=== PATIENT | male | born 1955 | race Caucasian/White ===

== ENCOUNTER → 2016-08-14 | Outpatient (CLI) | payer BC ==
[2016-08-14 07:34] LABS: Basophils # (A) 0.1 k/uL (0-0.2); Basophils % (A) 1 %; CH 34.4; Eosinophils # (A) 0.2 k/uL (0-0.7); Eosinophils % (A) 3 %; HCT 51.9 % (39.0-53.0); HGB 17.5 gm/dL (13.0-17.5); Luc # (Auto) 0.27; Luc % (Auto) 3; Lymphocytes # (A) 1.3 k/uL (1.0-4.8); Lymphocytes % (A) 15 %; MCH 33.3 pg (25.0-35.0); MCHC 33.7 g/dL (31.0-37.0); MCV 98.6 fL (80.0-100.0); Mean Platelet Volume 6.1; Monocytes # (A) 0.7 k/uL (0-1.0); Monocytes % (A) 8 %; Neutrophils # (A) 5.7 k/uL (1.3-7.7); Neutrophils % (A) 69 %; RBC 5.26 m/uL (4.30-5.90); RDW 13.6 % (11.5-15.5); WBC 8.3 k/uL (3.8-10.6); WBC (Perox) 8.77
[2016-08-14 07:53] LABS: Appearance,Urine Clear (Clear); Bilirubin,Urine Negative (Negative); Glucose,Urine (UA) Negative (Negative); Ketones,Urine 2+ (Negative); Leukocyte Esterase,Urine Negative (Negative); Mucus,Urine Rare /hpf; Nitrite,Urine Negative (Negative); PH, Urine 6.5 (5.0-8.0); Particle Count 4203; Protein,Urine 2+ (Negative); RBC,Urine 1 /hpf (0-5); Specific Gravity,Urine 1.013 (1.001-1.035); UA Billing (MACRO vs. MICRO) MICRO; WBC,Urine 1 /hpf (0-5)
[2016-08-14 11:25] LABS: ALT 53 U/L (21-72); AST 43 U/L (17-59); Alkaline Phosphatase 80 U/L (38-126); Anion Gap 12 mmol/L; Blood Urea Nitrogen 10 mg/dL (9-20); Calcium 9.9 mg/dL (8.4-10.2); Carbon Dioxide 26 mmol/L (22-30); Chloride 96 mmol/L (98-107); Cholesterol 176 mg/dL (<200); Creatine Kinase 75 U/L (55-170); Glucose 120 mg/dL (74-99); Non-African American GFR(MDRD) >60 (>60 ml/min/1.73 sqM); Potassium 5.8 mmol/L (3.5-5.1); Sodium 134 mmol/L (137-145); Total Bilirubin 0.9 mg/dL (0.2-1.3); Total Protein 6.9 g/dL (6.3-8.2); Triglycerides 41 mg/dL (<150); Uric Acid 5.8 mg/dL (3.5-8.5)
[2016-08-14 11:33] LABS: HDL Cholesterol 130 mg/dL (40-60)
[2016-08-14 11:52] LABS: Prostate Specific Antigen 1.13 ng/mL (0.00-4.00)
[2016-08-14 12:30] LABS: Hemoglobin A1C 6.5 % (4.2-6.1)
== END | disposition home or self-care (01) ==
LOC: LABWHC1 06:45
PROVIDERS: ATTEND Internal Medicine
DX: N40.0 Benign prostatic hyperplasia without lower urinary tract symptoms (principal); E55.9 Vitamin D deficiency, unspecified; I10 Essential (primary) hypertension; E11.9 Type 2 diabetes mellitus without complications
CPT/HCPCS: 36415; 80053; 80061; 81001; 82306; 82550; 83036; 84153; 84439; 84443; 84550; 85025

== ENCOUNTER → 2016-08-21 | Outpatient (CLI) | payer BC ==
--- NOTE | 2016-08-21 11:29 | XR ---
EXAMINATION TYPE: XR chest 2V DATE OF EXAM: 08/21/2016 11:07 AM COMPARISON: 09/03/2015 HISTORY: Cough and congestion FINDINGS: The lungs are clear and there is no pneumothorax, pleural effusion, or focal pneumonia. Hyperinflat ion suggests COPD. Atherosclerotic change of the aorta. Arthropathy of the shoulders. Degenerative ch rose of the spine. IMPRESSION: 1. No acute process. Correlate for COPD.
== END | disposition home or self-care (01) ==
LOC: RADXRMAIN 10:45
PROVIDERS: ATTEND Internal Medicine
DX: J44.9 Chronic obstructive pulmonary disease, unspecified (principal)
CPT/HCPCS: 71020

== ENCOUNTER → 2016-09-17 | Outpatient (CLI) | payer BC ==
[2016-09-17 10:40] LABS: Basophils # (A) 0.1 k/uL (0-0.2); Basophils % (A) 1 %; CH 34.4; CHCM 34.5; Eosinophils # (A) 0.1 k/uL (0-0.7); Eosinophils % (A) 1 %; HDW 2.21; HGB 16.1 gm/dL (13.0-17.5); Luc # (Auto) 0.28; Luc % (Auto) 3; Lymphocytes # (A) 1.5 k/uL (1.0-4.8); Lymphocytes % (A) 14 %; MCH 33.5 pg (25.0-35.0); MCHC 33.5 g/dL (31.0-37.0); MCV 100.1 fL (80.0-100.0); Mean Platelet Volume 6.3; Monocytes # (A) 0.6 k/uL (0-1.0); Monocytes % (A) 6 %; Neutrophils # (A) 7.8 k/uL (1.3-7.7); Neutrophils % (A) 76 %; RDW 13.5 % (11.5-15.5); WBC 10.3 k/uL (3.8-10.6); WBC (Perox) 10.46
[2016-09-17 10:51] LABS: ALT 31 U/L (21-72); AST 23 U/L (17-59); Alkaline Phosphatase 110 U/L (38-126); Anion Gap 10 mmol/L; Blood Urea Nitrogen 11 mg/dL (9-20); Calcium 9.7 mg/dL (8.4-10.2); Carbon Dioxide 27 mmol/L (22-30); Chloride 95 mmol/L (98-107); Cholesterol 202 mg/dL (<200); Creatine Kinase 71 U/L (55-170); Glucose 120 mg/dL (74-99); Non-African American GFR(MDRD) >60 (>60 ml/min/1.73 sqM); Potassium 5.7 mmol/L (3.5-5.1); Sodium 132 mmol/L (137-145); Total Bilirubin 1.2 mg/dL (0.2-1.3); Total Protein 7.1 g/dL (6.3-8.2); Triglycerides 50 mg/dL (<150)
[2016-09-17 11:17] LABS: HDL Cholesterol 120 mg/dL (40-60)
[2016-09-17 11:30] LABS: Hemoglobin A1C 6.7 % (4.2-6.1)
== END ==
LOC: LABWHC1 09:54
PROVIDERS: ATTEND Internal Medicine
DX: E78.5 Hyperlipidemia, unspecified (principal); E11.9 Type 2 diabetes mellitus without complications; I10 Essential (primary) hypertension
CPT/HCPCS: 36415; 80053; 80061; 82043; 82550; 83036; 85025

== ENCOUNTER → 2017-04-30 | Outpatient (CLI) | payer BC ==
--- NOTE | 2017-04-30 12:41 | XR ---
EXAMINATION TYPE: XR chest 2V DATE OF EXAM: 04/30/2017 COMPARISON: Prior chest x-ray 08/21/2016 HISTORY: COPD, J 44.1, cough TECHNIQUE: Frontal and lateral views of the chest are obtained. FINDINGS: There is no focal air space opacity, pleural effusion, or pneumothorax seen. The cardiac silhouette size is within normal limits. Prominent lung volumes again noted suggestive of COPD. The osseous structures are intact. There is eventration change of the right hemidiaphragm. IMPRESSION: No acute cardiopulmonary process.
== END | disposition home or self-care (01) ==
LOC: RADXRMAIN 12:06
PROVIDERS: ATTEND Internal Medicine
DX: J44.1 Chronic obstructive pulmonary disease with (acute) exacerbation (principal)
CPT/HCPCS: 71020

== ENCOUNTER 2017-10-01 20:00 | Inpatient (IN) | payer BC ==
[~2017-10-01 20:00] MED LIST: THIAMINE 100 MG TAB PO SCH
[2017-10-01 20:07] LABS: Glucose,Whole Blood 184 mg/dL (75-99)
--- NOTE | 2017-10-01 20:10 | ED ---
Altered Mental Status HPI - General Stated Complaint: Fall-Altered Mental Status Time Seen by Provider: 10/01/17 20:00 Source: patient, EMS, RN notes reviewed Mode of arrival: EMS - History of Present Illness Initial Comments: This is a 62-year-old male with a history of COPD who is brought in by EMS personnel after police were called because of some confusion and altered mental status. Patient was noted to be going in and out of the local convenience store he locked his keys in the car. Please recall the found him to be somewhat confused patient does admit to drinking somewhere between 4-8 beers tonight. He also states he slipped on ice and fell and hit his head on concrete. He has any head or neck or back pain at this time. He is diabetic by history he states his blood sugar 176. He denies any blindness loss of function to his upper or lower extremities. MD Complaint: altered mental status, confusion - Related Data Home Medications Medication Instructions Recorded Confirmed Allergy Tab(Unknown) 1 tab PO DAILY 10/01/17 10/01/17 amLODIPine [Norvasc] 10 mg PO DAILY 10/01/17 10/01/17 Allergies Allergy/AdvReac Type Severity Reaction Status Date / Time No Known Allergies Allergy Verified 10/01/17 21:17 Review of Systems ROS Statement: Those systems with pertinent positive or pertinent negative responses have been documented in the HPI. ROS Other: All systems not noted in ROS Statement are negative. General Exam - General Exam Comments Initial Comments: This is a well-developed well-nourished awake alert confused patient and he believes it is 2000 and that Harley Kilpatrickd may be the president Limitations: altered mental status General appearance: alert, in no apparent distress Head exam: Present: other (There is dry blood noted to the external right ear at the superior portion of the lobule no suture indicated no foreign body no active bleeding) Eye exam: Present: normal appearance, PERRL, EOMI. Absent: scleral icterus, conjunctival injection, periorbital swelling ENT exam: Present: normal exam, mucous membranes moist, TM's normal bilaterally. Absent: normal external ear exam Neck exam: Present: normal inspection. Absent: tenderness, meningismus, lymphadenopathy Respiratory exam: Present: normal lung sounds bilaterally. Absent: respiratory distress, wheezes, rales, rhonchi, stridor Cardiovascular Exam: Present: regular rate, normal rhythm, normal heart sounds. Absent: systolic murmur, diastolic murmur, rubs, gallop, clicks GI/Abdominal exam: Present: soft, normal bowel sounds. Absent: distended, tenderness, guarding, rebound, rigid Extremities exam: Present: full ROM, normal capillary refill, other (Ecchymosis to the left shoulder/humerus no step-off or crepitation). Absent: tenderness, pedal edema, joint swelling, calf tenderness Back exam: Present: normal inspection Neurological exam: Present: altered, CN II-XII intact. Absent: motor sensory deficit Psychiatric exam: Present: flat affect Skin exam: Present: warm, dry, normal color. Absent: intact Course Vital Signs 10/01/17 10/01/17 20:01 21:31 Temperature 97.4 F L Pulse Rate 106 H 100 Respiratory 16 16 Rate Blood Pressure 178/84 143/86 O2 Sat by Pulse 96 95 Oximetry - Reevaluation(s) Reevaluation #1: 10/01/17 23:13 Repeat evaluation on several occasions revealed the patient remained confused and seems to be hallucinating seeing people and animals or not there. Medical Decision Making - Medical Decision Making (O family is available. Patient remains confused he does demonstrate hyponatremia hypokalemia hypomagnesemia and rhabdomyolysis alcohol level is negative some of the presentation may be consistent with withdrawal symptoms. Patient will be admitted I discuss case with Dr. Galdamez . Nephrology as well as ICU will be consulted I did discuss case also with Dr. Belle. - Lab Data Result diagrams: 10/01/17 20:12 10/01/17 20:12 Lab Results 10/01/17 10/01/17 10/01/17 Range/Units 20:05 20:12 20:12 WBC (3.8-10.6) k/uL RBC (4.30-5.90) m/uL Hgb (13.0-17.5) gm/dL Hct (39.0-53.0) % MCV (80.0-100.0) fL MCH (25.0-35.0) pg MCHC (31.0-37.0) g/dL RDW (11.5-15.5) % Plt Count (150-450) k/uL Neutrophils % (Manual) % Band Neutrophils % % Lymphocytes % (Manual) % Monocytes % (Manual) % Neutrophils # (Manual) (1.3-7.7) k/uL Lymphocytes # (Manual) (1.0-4.8) k/uL Monocytes # (Manual) (0-1.0) k/uL Nucleated RBCs (0-0) /100 WBC Manual Slide Review Reactive Lymphocytes Sodium 112 L* (137-145) mmol/L Potassium 3.1 L (3.5-5.1) mmol/L Chloride 83 L (98-107) mmol/L Carbon Dioxide 19 L (22-30) mmol/L Anion Gap 10 mmol/L BUN 16 (9-20) mg/dL Creatinine 0.60 L (0.66-1.25) mg/dL Est GFR (CKD-EPI)AfAm >90 (>60 ml/min/1.73 sqM) Est GFR (CKD-EPI)NonAf >90 (>60 ml/min/1.73 sqM) Glucose 127 H (74-99) mg/dL POC Glucose (mg/dL) 184 H (75-99) mg/dL POC Glu Tie Binder ID Familia, Val Calcium 5.8 L* (8.4-10.2) mg/dL Magnesium 1.0 L* (1.6-2.3) mg/dL Total Bilirubin 1.7 H (0.2-1.3) mg/dL AST 110 H (17-59) U/L ALT 123 H (21-72) U/L Alkaline Phosphatase 128 H (38-126) U/L Ammonia <9 (<30) umol/L Total Creatine Kinase (55-170) U/L CK-MB (CK-2) (0.0-2.4) ng/mL CK-MB (CK-2) Rel Index Troponin I (0.000-0.034) ng/mL Total Protein 4.3 L (6.3-8.2) g/dL Albumin 2.3 L (3.5-5.0) g/dL Amylase 38 (30-110) U/L Lipase 363 H (23-300) U/L Urine Color Urine Appearance (Clear) Urine pH (5.0-8.0) Ur Specific [place] (1.001-1.035) Urine Protein (Negative) Urine Glucose (UA) (Negative) Urine Ketones (Negative) Urine Blood (Negative) Urine Nitrite (Negative) Urine Bilirubin (Negative) Urine Urobilinogen (<2.0) mg/dL Ur Leukocyte Esterase (Negative) Urine RBC (0-5) /hpf Urine WBC (0-5) /hpf Hyaline Casts (0-2) /lpf Urine Mucus (None) /hpf Urine Sperm (None) /hpf Urine Opiates Screen (NotDetected) Ur Oxycodone Screen (NotDetected) Urine Methadone Screen (NotDetected) Ur Propoxyphene Screen (NotDetected) Ur Barbiturates Screen (NotDetected) U Tricyclic Antidepress (NotDetected) Ur Phencyclidine Scrn (NotDetected) Ur Amphetamines Screen (NotDetected) U Methamphetamines Scrn (NotDetected) U Benzodiazepines Scrn (NotDetected) Urine Cocaine Screen (NotDetected) U Marijuana (THC) Screen (NotDetected) Serum Alcohol <10 mg/dL 10/01/17 10/01/17 10/01/17 Range/Units 20:12 20:12 21:43 WBC 10.8 H (3.8-10.6) k/uL RBC 5.17 (4.30-5.90) m/uL Hgb 17.4 (13.0-17.5) gm/dL Hct 47.3 (39.0-53.0) % MCV 91.5 (80.0-100.0) fL MCH 33.6 (25.0-35.0) pg MCHC 36.7 (31.0-37.0) g/dL RDW 12.1 (11.5-15.5) % Plt Count 86 L (150-450) k/uL Neutrophils % (Manual) 61 % Band Neutrophils % 26 % Lymphocytes % (Manual) 10 % Monocytes % (Manual) 4 % Neutrophils # (Manual) 9.30 H (1.3-7.7) k/uL Lymphocytes # (Manual) 1.08 (1.0-4.8) k/uL Monocytes # (Manual) 0.43 (0-1.0) k/uL Nucleated RBCs 0 (0-0) /100 WBC Manual Slide Review Performed Reactive Lymphocytes Present Sodium (137-145) mmol/L Potassium (3.5-5.1) mmol/L Chloride (98-107) mmol/L Carbon Dioxide (22-30) mmol/L Anion Gap mmol/L BUN (9-20) mg/dL Creatinine (0.66-1.25) mg/dL Est GFR (CKD-EPI)AfAm (>60 ml/min/1.73 sqM) Est GFR (CKD-EPI)NonAf (>60 ml/min/1.73 sqM) Glucose (74-99) mg/dL POC Glucose (mg/dL) (75-99) mg/dL POC Glu Tie Binder ID Calcium (8.4-10.2) mg/dL Magnesium (1.6-2.3) mg/dL Total Bilirubin (0.2-1.3) mg/dL AST (17-59) U/L ALT (21-72) U/L Alkaline Phosphatase (38-126) U/L Ammonia (<30) umol/L Total Creatine Kinase 1110 H (55-170) U/L CK-MB (CK-2) 15.8 H* (0.0-2.4) ng/mL CK-MB (CK-2) Rel Index 1.4 Troponin I 0.016 (0.000-0.034) ng/mL Total Protein (6.3-8.2) g/dL Albumin (3.5-5.0) g/dL Amylase (30-110) U/L Lipase (23-300) U/L Urine Color Yellow Urine Appearance Clear (Clear) Urine pH 6.0 (5.0-8.0) Ur Specific [place] 1.014 (1.001-1.035) Urine Protein 3+ H (Negative) Urine Glucose (UA) Negative (Negative) Urine Ketones 2+ H (Negative) Urine Blood Moderate H (Negative) Urine Nitrite Negative (Negative) Urine Bilirubin 1+ H (Negative) Urine Urobilinogen 3.0 (<2.0) mg/dL Ur Leukocyte Esterase Negative (Negative) Urine RBC 3 (0-5) /hpf Urine WBC 2 (0-5) /hpf Hyaline Casts 16 H (0-2) /lpf Urine Mucus Rare H (None) /hpf Urine Sperm Rare (None) /hpf Urine Opiates Screen Not Detected (NotDetected) Ur Oxycodone Screen Not Detected (NotDetected) Urine Methadone Screen Not Detected (NotDetected) Ur Propoxyphene Screen Not Detected (NotDetected) Ur Barbiturates Screen Not Detected (NotDetected) U Tricyclic Antidepress Not Detected (NotDetected) Ur Phencyclidine Scrn Not Detected (NotDetected) Ur Amphetamines Screen Not Detected (NotDetected) U Methamphetamines Scrn Not Detected (NotDetected) U Benzodiazepines Scrn Not Detected (NotDetected) Urine Cocaine Screen Not Detected (NotDetected) U Marijuana (THC) Screen Not Detected (NotDetected) Serum Alcohol mg/dL - EKG Data -: EKG Interpreted by Me EKG shows normal: sinus rhythm (Sinus tachycardia rate 11. Interval 188 QRS duration 100 daily since QTC 372/498 evidence of PACs) - Radiology Data Radiology results: report reviewed (I did review the imaging and reports no acute findings are seen.), image reviewed Critical Care Time Critical Care Time: Yes Critical Care Time: 44 minutes of critical care time which includes monitoring initially EMS run and discussed with paramedics history physical labs x-rays multiple reevaluation the patient discussed with the admitting physician discussion with the senior trial attorney admission orders and documentation of the above Disposition Clinical Impression: Delirium due to general medical condition, Hyponatremia syndrome, Hypomagnesemia, Hypokalemia, Rhabdomyolysis Disposition: ADMITTED IP TO THIS [facility] Condition: Serious Referrals: Valdemar Lafleur MD [Primary Care Provider] - 1-2 days
[2017-10-01 20:22] LABS: HCT 47.3 % (39.0-53.0); HGB 17.4 gm/dL (13.0-17.5); MCH 33.6 pg (25.0-35.0); MCHC 36.7 g/dL (31.0-37.0); MCV 91.5 fL (80.0-100.0); Mean Platelet Volume 9.4; Platelet Count 86 k/uL (150-450); RBC 5.17 m/uL (4.30-5.90); RDW 12.1 % (11.5-15.5); WBC 10.8 k/uL (3.8-10.6)
[2017-10-01 20:33] LABS: ALT 123 U/L (21-72); AST 110 U/L (17-59); Albumin 2.3 g/dL (3.5-5.0); Alcohol <10 mg/dL; Alkaline Phosphatase 128 U/L (38-126); Amylase 38 U/L (30-110); Anion Gap 10 mmol/L; Blood Urea Nitrogen 16 mg/dL (9-20); Carbon Dioxide 19 mmol/L (22-30); Chloride 83 mmol/L (98-107); Glucose 127 mg/dL (74-99); Lipase 363 U/L (23-300); Potassium 3.1 mmol/L (3.5-5.1); Total Bilirubin 1.7 mg/dL (0.2-1.3); Total Protein 4.3 g/dL (6.3-8.2)
[2017-10-01 20:36] LABS: Calcium 5.8 mg/dL (8.4-10.2); Sodium 112 mmol/L (137-145)
[2017-10-01 20:47] LABS: Band Neutrophils % 26 %; Lymphocytes # (M) 1.08 k/uL (1.0-4.8); Monocytes # (M) 0.43 k/uL (0-1.0); Neutrophils % (M) 61 %; Nucleated Red Blood Cells 0 /100 WBC (0-0); Total Cells Counted 200
[2017-10-01 20:48] LABS: Reactive Lymphocytes Present
[2017-10-01] MEDS ORDERED: SODIUM CHLORIDE 0.9% 1,000 ML with MVI, ADULT NO.4 WITH VIT K 10 ML, THIAMINE 100 MG, F... IV ONE ×4 (20:48)
[2017-10-01] MEDS ORDERED: POTASSIUM CHLORIDE 20 MEQ in SODIUM CHLORIDE 0.9% 100 ML IVPB STA (20:49)
--- NOTE | 2017-10-01 20:55 | CT ---
EXAMINATION TYPE: CT brain jayne mathew DATE OF EXAM: 10/01/2017 COMPARISON: NONE HISTORY: Fall, altered mental status. CT DLP: 1309.1 mGycm. Automated Exposure Control for Dose Reduction was Utilized. TECHNIQUE: CT scan of the head and cervical spine are performed without contrast. Motion artifact suarez its the examination. FINDINGS: There is no acute intracranial hemorrhage, mass effect, or midline shift identified. Prom inent perivascular space versus old lacunar injury is seen on the right at the level of the inferior posterior limb of the right internal capsule. The ventricles and sulci are within symmetrically promi nent compatible with age-related volume loss. Few patchy areas of hypoattenuation are seen within the subcortical and periventricular white matter, most commonly on the basis of chronic microangiopathy. The globes are intact and the visualized sinuses are clear other than thin septations within the ma xillary sinuses. Cervical spine is visualized in its entirety from C1 through upper thoracic levels. There is minimal anterolisthesis of C3 on C4. Multilevel uncovertebral hypertrophy and facet arthropathy are moderate in degree resulting in neural foraminal stenosis on the left at C3-C4, C4-C5, and C5-C6 at least mode rate. Punctate sclerotic focus is nonspecific within the left C7 vertebral body. On the right neural foraminal stenosis is slightly greater at C3-C6 (moderate to severe). Small posterior disc osteophyte complexes are noted at C4-C5 and C5-C6 as well as to a lesser degree at C6-C7 resulting in mild spin al canal stenosis at C4-C5 and C5-C6. Spinal canal is limited on CT. Prevertebral soft tissue appears within normal limits. The C1-C2 articulation is unremarkable. Mild paraseptal emphysematous change s and right apical pleural-parenchymal scarring are noted. IMPRESSION: 1. There is no acute fracture or dislocation evident in the cervical spine. 2. No acute intracranial hemorrhage, mass effect, or midline shift is seen. 3. Moderate multilevel degenerative disc disease resulting in multilevel moderate to severe right laura ral foraminal narrowing, moderate left neural foraminal narrowing, and mild spinal canal stenosis at C4-C6.
--- NOTE | 2017-10-01 20:58 | XR ---
EXAMINATION TYPE: XR chest 1V portable DATE OF EXAM: 10/01/2017 COMPARISON: 04/30/2017 HISTORY: Chest pain TECHNIQUE: Single frontal view of the chest is obtained. FINDINGS: There is no focal air space opacity, pleural effusion, or pneumothorax seen. The cardiac silhouette size is within normal limits. The osseous structures are intact. Incidentally noted punc rey calcification is seen near the greater tuberosity likely related to calcific tendinitis of the r ight rotator cuff. IMPRESSION: No acute cardiopulmonary process.
--- NOTE | 2017-10-01 21:00 | XR ---
EXAMINATION TYPE: XR humerus LT DATE OF EXAM: 10/01/2017 CLINICAL HISTORY: Pain after a fall. TECHNIQUE: Two views of the left humerus are obtained. COMPARISON: None. FINDINGS: There is no acute fracture or dislocation seen in the left humerus. The left shoulder and elbow joints appear no dislocation. Tears focal soft tissue swelling over the lateral proximal left humerus. Mild acromio clavicular arthropathy and glenohumeral arthropathy are noted. IMPRESSION: Focal soft tissue swelling of the proximal and lateral left humerus. No fracture or dislo cation is evident in the left humerus.
--- NOTE | 2017-10-01 21:01 | XR ---
EXAMINATION TYPE: XR shoulder complete LT DATE OF EXAM: 10/01/2017 CLINICAL HISTORY: Left shoulder pain after fall TECHNIQUE: Three views of the left shoulder are obtained. COMPARISON: None. FINDINGS: There is no acute fracture/dislocation evident in the left shoulder. There is mild joint s pace narrowing and osseous irregularity with cephalad positioning of the left humerus.. The visualiz ed ribs are intact and unremarkable. IMPRESSION: 1. There is no acute fracture or dislocation in the left shoulder. 2. Cephalad positioning of the left humerus may relate to rotator cuff tear. 3. Mild left acromioclavicular and glenohumeral arthropathy.
[2017-10-01 21:13] LABS: Troponin I 0.016 ng/mL (0.000-0.034)
[2017-10-01 21:15] LABS: Creatine Kinase MB 15.8 ng/mL (0.0-2.4)
[2017-10-01] MEDS: MAGNESIUM SULFATE-D5W PMX 1 GM in DEXTROSE/WATER 1 100ML.BAG IVPB SCH ×2 (21:29→23:50)
[2017-10-01 22:05] LABS: Appearance,Urine Clear (Clear); Bilirubin,Urine 1+ (Negative); Blood,Urine Moderate (Negative); Color,Urine Yellow; Glucose,Urine (UA) Negative (Negative); Hyaline Casts,Urine 16 /lpf (0-2); Ketones,Urine 2+ (Negative); Leukocyte Esterase,Urine Negative (Negative); Mucus,Urine Rare /hpf; Nitrite,Urine Negative (Negative); Protein,Urine 3+ (Negative); RBC,Urine 3 /hpf (0-5); Specific Gravity,Urine 1.014 (1.001-1.035); Sperm,Urine Rare /hpf; WBC,Urine 2 /hpf (0-5)
[2017-10-01] MEDS ORDERED: LORazepam 2 MG/ML INJ IV STA (22:11)
[2017-10-01] MEDS ORDERED: SODIUM CHLORIDE 0.9% 1,000 ML IV STA (22:12)
[2017-10-01 22:13] LABS: Amphetamine Screen,Urine Not Detected (NotDetected); Barbiturate Screen,Urine Not Detected (NotDetected); Benzodiazepines Screen,Urine Not Detected (NotDetected); Cocaine Screen,Urine Not Detected (NotDetected); Methadone Screen, Urine Not Detected (NotDetected); Opiate Screen,Urine Not Detected (NotDetected); Oxycodone Screen, Urine Not Detected (NotDetected); Phencyclidine Screen,Urine Not Detected (NotDetected); Tricyclic Antidepressant,Urine Not Detected (NotDetected); Urn Cannabinoid Scrn Not Detected (NotDetected)
[2017-10-01] MEDS ORDERED: NALOXONE 0.4 MG/ML 1 ML VIAL IV PRN (23:17)
[2017-10-01] MEDS ORDERED: THIAMINE 100 MG/ML 2 ML VIAL IM STA (23:22)
[2017-10-01] MEDS ORDERED: LORazepam 2 MG/ML INJ IV PRN ×3 (23:22)
[2017-10-02 02:02] LABS: Hemoglobin A1C 6.1 % (4.0-6.0)
[2017-10-02] MEDS: SODIUM CHLORIDE 0.9% 1,000 ML IV SCH ×2 (02:38→06:39)
[2017-10-02 04:38] LABS: Glucose,Whole Blood 80 mg/dL (75-99)
[2017-10-02 07:27] LABS: ALT 225 U/L (21-72); AST 334 U/L (17-59); Albumin 3.1 g/dL (3.5-5.0); Alkaline Phosphatase 178 U/L (38-126); Anion Gap 10 mmol/L; Blood Urea Nitrogen 16 mg/dL (9-20); Calcium 7.6 mg/dL (8.4-10.2); Carbon Dioxide 24 mmol/L (22-30); Chloride 82 mmol/L (98-107); Glucose 86 mg/dL (74-99); Potassium 3.2 mmol/L (3.5-5.1); Total Protein 5.4 g/dL (6.3-8.2)
[2017-10-02 07:33] LABS: Sodium 116 mmol/L (137-145)
[2017-10-02 09:56] LABS: Creatine Kinase 1398 U/L (55-170)
[2017-10-02] MEDS ORDERED: Potassium Replacement Protocol 1 EACH MISC MISCELLANE PRN ×2 (10:49→18:45)
[2017-10-02] MEDS: INSULIN ASPART 100 UNIT/ML 1 ML 10 ML VIAL SQ SCH ×3 (11:37→20:54)
[2017-10-02 11:51] LABS: Glucose,Whole Blood 93 mg/dL (75-99)
--- NOTE | 2017-10-02 11:55 | US ---
EXAMINATION TYPE: US abdomen limited DATE OF EXAM: 10/02/2017 COMPARISON: NONE CLINICAL HISTORY: liver failure. . Poor historian. Abnormal labs. EXAM MEASUREMENTS: Liver Length: 16.7 cm Gallbladder Wall: 0.1 cm CBD: 0.5 cm CHD: 0.4 Right Kidney: 12.0 x 5.8 x 5.7 cm Limited exam due to patient heavy breathing Pancreas: Appears echogenic. Tail obscured by overlying bowel gas Liver: Increased attenuation, decreased visualization of vessels suggestive of fatty infiltrate Gallbladder: Nonmobile echogenic focus adjacent to wall with slight shadow = 0.5 cm Evidence for sonographic Andersen's sign: neg CBD: wnl CHD: wnl Right Kidney: wnl and cortical medullary differentiation is normal There is no ascites. IMPRESSION: Correlate for hepatic steatosis. Limited exam. There may be gallbladder polyp or adherent stone in the dependent portion of the gallbladder.
[2017-10-02] MEDS: NICOTINE 14MG/24HR PATCH TRANSDERM SCH (12:57)
[2017-10-02] MEDS: POTASSIUM CHLORIDE ER 20 MEQ TAB.ER PO SCH ×5 (12:57→22:01)
[2017-10-02] MEDS: amLODIPine 10 MG TAB PO SCH (12:57)
[2017-10-02] MEDS ORDERED: FUROSEMIDE 10 MG/ML 2 ML VIAL IV STA (13:01)
[2017-10-02] MEDS: PANTOPRAZOLE 40 MG/10 ML VIAL IV SCH ×2 (13:55→22:01)
[2017-10-02] MEDS: THIAMINE 100 MG TAB PO SCH ×2 (13:55→17:32)
--- NOTE | 2017-10-02 14:58 | P.HPIM ---
History of Present Illness H&P Date: 10/02/17 Chief Complaint: metabolic encephalopathy This is a 62-year-old male patient of Dr. Lafleur with past medical history of COPD, diabetes mellitus type 2, alcohol abuse, tobacco use and dependence presented to the ED with confusion, multiple falls and erratic behavior. Patient was found by the police to be going in and out of the local convenience store as a locked his keys in his car. Patient was found to be confused and also admitted that he had 4-8 beers. On evaluation today in the ER patient was found in soft restraints as he was agitated and trying to come out of bed. Ativan was given and patient was put on soft restraints. Patient states he has been restrained for 4 days. Patient is oriented 3 but is unable to provide any history leading to his falls and bruising. He states his pain in the hospital for many days. Labs done in the ER suggested critical sodium of 116, potassium 3.2, chloride 82, osmolarity 241, calcium 7.6, total bilirubin of 2, increased LFTs with AST 334 ALT 225 alkaline phosphatase 178. CK level was 1398 with low albumin. Urine osmolarity is 229 random urine sodium 26. Patient received 1 L of IV fluid with banana bag running at 100 mL per hour. Potassium was repleted. Alcohol level was normal. Patient started on alcohol withdrawal regimen. X-ray of the humerus, shoulder, head and cervical spine and chest x-ray was negative for any fractures. Lipase was 363. Patient is admitted for altered mental status likely secondary to alcohol withdrawal with possibility of hyponatremia contributing to the symptoms. Review of Systems ROS unobtainable: due to mental status Past Medical History Past Medical History: COPD, Diabetes Mellitus History of Any Multi-Drug Resistant Organisms: None Reported Past Surgical History: Orthopedic Surgery Additional Past Surgical History / Comment(s): Knee replacement. Past Psychological History: No Psychological Hx Reported Smoking Status: Current every day smoker Past Alcohol Use History: Occasional Past Drug Use History: None Reported Medications and Allergies Home Medications Medication Instructions Recorded Confirmed Type Allergy Tab(Unknown) 1 tab PO DAILY 10/01/17 10/01/17 History amLODIPine [Norvasc] 10 mg PO DAILY 10/01/17 10/01/17 History Losartan Potassium 100 mg PO BID 10/02/17 10/02/17 History metFORMIN HCL [Glucophage] 500 mg PO BID 10/02/17 10/02/17 History Allergies Allergy/AdvReac Type Severity Reaction Status Date / Time No Known Allergies Allergy Verified 10/02/17 09:26 Physical Exam Vitals: Vital Signs Temp Pulse Resp BP Pulse Ox 10/02/17 08:30 114 H 18 156/81 96 10/02/17 06:27 93 16 134/83 97 10/02/17 05:21 94 16 130/65 95 10/02/17 04:23 95 16 107/60 95 10/02/17 03:22 90 18 111/65 95 10/02/17 02:38 108 H 18 169/81 96 10/02/17 01:53 104 H 18 164/94 94 L 10/02/17 00:19 98.6 F 109 H 18 160/87 95 10/01/17 23:30 97.8 F 106 H 20 134/80 95 10/01/17 22:30 105 H 20 138/70 95 10/01/17 21:31 100 16 143/86 95 10/01/17 20:01 97.4 F L 106 H 16 178/84 96 Intake and Output 10/01/17 10/02/17 10/02/17 22:59 06:59 14:59 Other: Weight 68.039 kg - Constitutional General appearance: In soft restraints, constantly trying to remove the restraints. Appears confused - EENT Eyes: anicteric sclerae, PERRLA with slightly narrowed, normal appearance, bruises present in the right forehead ENT: hearing grossly normal - Neck Neck: no lymphadenopathy, normal ROM, no other, no rigidity, no stridor, no thyromegaly - Respiratory Respiratory: bilateral: wheezing noted bilaterally. No rales or crackles heard - Cardiovascular Rhythm: regular Heart sounds: normal: S1, S2 Abnormal Heart Sounds: no systolic murmur, no diastolic murmur, no rub, no S3 Gallop, no S4 Gallop, no click, chest tenderness to palpate in the substernal area and the right lower chest - Gastrointestinal General gastrointestinal: normal bowel sounds, soft, nontender - Integumentary Integumentary: Multiple bruises seen on bilateral knees, the right ricardo, left forearm in different stages of healing. - Neurologic Neurologic: CNII-XII intact - Musculoskeletal Musculoskeletal: gait not assessed due to mental status strength equal bilaterally - Psychiatric Psychiatric: A&O x's 3, no appropriate affect, no intact judgment Results CBC & Chem 7: 10/01/17 20:12 10/02/17 11:11 Labs: Abnormal Lab Results - Last 24 Hours (Table) 10/01/17 10/01/17 10/01/17 Range/Units 20:05 20:12 20:12 WBC (3.8-10.6) k/uL Plt Count (150-450) k/uL Neutrophils # (Manual) (1.3-7.7) k/uL Sodium 112 L* (137-145) mmol/L Potassium 3.1 L (3.5-5.1) mmol/L Chloride 83 L (98-107) mmol/L Carbon Dioxide 19 L (22-30) mmol/L Creatinine 0.60 L (0.66-1.25) mg/dL Glucose 127 H (74-99) mg/dL POC Glucose (mg/dL) 184 H (75-99) mg/dL Hemoglobin A1c 6.1 H (4.0-6.0) % Calcium 5.8 L* (8.4-10.2) mg/dL Magnesium 1.0 L* (1.6-2.3) mg/dL Total Bilirubin 1.7 H (0.2-1.3) mg/dL AST 110 H (17-59) U/L ALT 123 H (21-72) U/L Alkaline Phosphatase 128 H (38-126) U/L Total Creatine Kinase (55-170) U/L CK-MB (CK-2) (0.0-2.4) ng/mL Total Protein 4.3 L (6.3-8.2) g/dL Albumin 2.3 L (3.5-5.0) g/dL Lipase 363 H (23-300) U/L Urine Protein (Negative) Urine Ketones (Negative) Urine Blood (Negative) Urine Bilirubin (Negative) Hyaline Casts (0-2) /lpf Urine Mucus (None) /hpf 10/01/17 10/01/17 10/01/17 Range/Units 20:12 20:12 21:43 WBC 10.8 H (3.8-10.6) k/uL Plt Count 86 L (150-450) k/uL Neutrophils # (Manual) 9.30 H (1.3-7.7) k/uL Sodium (137-145) mmol/L Potassium (3.5-5.1) mmol/L Chloride (98-107) mmol/L Carbon Dioxide (22-30) mmol/L Creatinine (0.66-1.25) mg/dL Glucose (74-99) mg/dL POC Glucose (mg/dL) (75-99) mg/dL Hemoglobin A1c (4.0-6.0) % Calcium (8.4-10.2) mg/dL Magnesium (1.6-2.3) mg/dL Total Bilirubin (0.2-1.3) mg/dL AST (17-59) U/L ALT (21-72) U/L Alkaline Phosphatase (38-126) U/L Total Creatine Kinase 1110 H (55-170) U/L CK-MB (CK-2) 15.8 H* (0.0-2.4) ng/mL Total Protein (6.3-8.2) g/dL Albumin (3.5-5.0) g/dL Lipase (23-300) U/L Urine Protein 3+ H (Negative) Urine Ketones 2+ H (Negative) Urine Blood Moderate H (Negative) Urine Bilirubin 1+ H (Negative) Hyaline Casts 16 H (0-2) /lpf Urine Mucus Rare H (None) /hpf 10/02/17 Range/Units 06:43 WBC (3.8-10.6) k/uL Plt Count (150-450) k/uL Neutrophils # (Manual) (1.3-7.7) k/uL Sodium 116 L* (137-145) mmol/L Potassium 3.2 L (3.5-5.1) mmol/L Chloride 82 L (98-107) mmol/L Carbon Dioxide (22-30) mmol/L Creatinine (0.66-1.25) mg/dL Glucose (74-99) mg/dL POC Glucose (mg/dL) (75-99) mg/dL Hemoglobin A1c (4.0-6.0) % Calcium 7.6 L (8.4-10.2) mg/dL Magnesium (1.6-2.3) mg/dL Total Bilirubin 2.0 H (0.2-1.3) mg/dL AST 334 H (17-59) U/L ALT 225 H (21-72) U/L Alkaline Phosphatase 178 H (38-126) U/L Total Creatine Kinase (55-170) U/L CK-MB (CK-2) (0.0-2.4) ng/mL Total Protein 5.4 L (6.3-8.2) g/dL Albumin 3.1 L (3.5-5.0) g/dL Lipase (23-300) U/L Urine Protein (Negative) Urine Ketones (Negative) Urine Blood (Negative) Urine Bilirubin (Negative) Hyaline Casts (0-2) /lpf Urine Mucus (None) /hpf Thrombosis Risk Factor Assmnt - DVT/VTE Prophylaxis DVT/VTE Prophylaxis: Mechanical Prophylaxis ordered Assessment and Plan Plan: #1 metabolic encephalopathy likely secondary to alcohol withdrawal, other differential include hyponatremia, electrolyte mediated change in mental status. EEG ordered. Neurology consult placed. Seizure and fall precaution needs to be taken. Continue CIWA protocol. #2 hypoosmolar hyponatremia sodium and on admission 112 has improved to 116. Continue sodium check every 4 hours. Continue fluids at 100 mL/h as patient's presentation is likely secondary to hypovolemia or increased alcohol intake. Urine sodium, urine osmolarity serum osmolarity ordered. Urinalysis suggestive of dehydration. Nephrology consult placed. #3 acute transaminitis. No acute abdomen on examination. PT/INR ordered. Patient does have low albumin, multiple bruises low platelet on CBC concerning for liver failure. Follow-up LFT tomorrow. Abdominal ultrasound to rule out obstruction. GI consult. #4 acute pancreatitis continue IV fluids and 100 mL/h, watch for over correction of hyponatremia #5 rhabdomyolysis likely secondary to multiple falls and dehydration #6 hypokalemia and hypomagnesemia status post repletion #7 hypertension continue losartan and amlodipine #8 diabetes type 2 continue insulin sliding scale hold metformin #9 DVT prophylaxis with SCDs as patient has low platelets #10 GI prophylaxis with Protonix 40 mg twice a day CODE STATUS full code Disposition patient may need 1-2 inpatient nights.
[2017-10-02 16:33] LABS: Glucose,Whole Blood 82 mg/dL (75-99)
[2017-10-02] MEDS: IPRATROPIUM-ALBUTEROL 3 ML NEB INHALATION SCH ×2 (16:36→19:59)
[2017-10-02] MEDS: predniSONE 20 MG TAB PO SCH (17:32)
[2017-10-02 18:27] LABS: Partial Thromboplastin Time 23.9 sec (22.0-30.0)
[2017-10-02 18:44] LABS: Potassium 2.9 mmol/L (3.5-5.1)
[2017-10-02] MEDS ORDERED: POTASSIUM CHLORIDE 20 MEQ in SODIUM CHLORIDE 0.9% 100 ML IVPB STA (19:15)
[2017-10-02] MEDS ORDERED: IPRATROPIUM-ALBUTEROL 3 ML NEB INHALATION PRN (20:06)
--- NOTE | 2017-10-02 20:30 | CONS ---
CONSULTATION DATE OF CONSULTATION: 10/02/2017 REASON FOR CONSULT: Hyponatremia. HISTORY OF PRESENT ILLNESS: Patient is a 62-year-old white male who was brought into the ER last night with confusion and altered mentation. Police were called, as he was found going in out of a local convenience store. Patient does have a history of alcohol abuse. He stated that he had also slipped and fallen at home previously. There is no prior history of hyponatremia. Serum sodium on admission was 112 mEq/L yesterday. Patient is maintained on normal saline. His serum sodium almost 24 hours later was 122 mEq/L. Patient did admit to increased water intake. Urine osmolality was 229. Random urine sodium was 26. PAST MEDICAL HISTORY: 1. Hypertension. 2. History of ethanol abuse. 3. COPD. 4. Type 2 diabetes. MEDICATIONS: Medications at home prior to admission included Norvasc. ALLERGIES: NONE. REVIEW OF SYSTEMS: As per HPI. SOCIAL HISTORY: Positive for ethanol use and smoking. PAST SURGICAL HISTORY: Knee arthroplasty. PHYSICAL EXAMINATION: Patient is comfortable, awake. He is not in any acute distress. Blood pressure is 141/87 this morning, heart rate about 100 per minute. He is afebrile. EXAMINATION OF THE HEART: S1, S2. EXAMINATION OF LUNGS: Bilateral breath sounds are heard. ABDOMEN: Soft, non-tender. Examination of lower extremities shows no evidence of edema. RN RECOVERY exam is grossly intact. Patient is moving all 4 extremities. No focal deficits are noted. LABS: Sodium of 118 this morning. Urine sodium is 26. Urine osmolality is 29. Potassium was 3.2 earlier. Creatinine is 0.7. Calcium is 7.6. Albumin 3.1. UA shows 3+ protein, 2+ ketones, WBCs 2. ASSESSMENT: 1. Hypovolemic hyponatremia, currently improving with normal saline. There also may be a component of beer potomania and decreased osmoles in the urine needed for excretion of free water. I will continue with the normal saline, but I will decrease the dose to about 100 mL/hour from 150. I will recheck another serum sodium level. If his sodium is not increasing appropriately, we will give him a small dose of IV Lasix. Check TSH levels and a serum random cortisol level. 2. Hypertension, currently maintained on Norvasc and Cozaar, which we can continue. 3. Severe hypokalemia secondary to decreased oral intake. Continue to replace aggressively. Magnesium was also low at 1.0, which is now status post replacement. 4. Hypomagnesemia associated with ethanol abuse and decreased intake. PLAN: Continue normal saline. Decrease the rate to about 100 mL. Replace potassium aggressively. Continue frequent monitoring of serum sodium levels. Check a TSH level. Thank you for this consultation. Will continue to follow the patient with you during his hospitalization. MMODL / IJN: [id number] /
[2017-10-02 20:52] LABS: Glucose,Whole Blood 150 mg/dL (75-99)
[2017-10-02] MEDS: LOSARTAN 50 MG TAB PO SCH (20:55)
[2017-10-03] MEDS ORDERED: POTASSIUM CHLORIDE ER 20 MEQ TAB.ER PO SCH (02:00)
[2017-10-03 05:36] LABS: Glucose,Whole Blood 101 mg/dL (75-99)
[2017-10-03] MEDS: INSULIN ASPART 100 UNIT/ML 1 ML 10 ML VIAL SQ SCH ×4 (05:36→20:54)
[2017-10-03] MEDS ORDERED: FUROSEMIDE 20 MG TAB PO ONE (06:00)
[2017-10-03 06:48] LABS: ALT 170 U/L (21-72); AST 151 U/L (17-59); Albumin 2.9 g/dL (3.5-5.0); Alkaline Phosphatase 151 U/L (38-126); Anion Gap 10 mmol/L; Blood Urea Nitrogen 14 mg/dL (9-20); Calcium 7.7 mg/dL (8.4-10.2); Carbon Dioxide 22 mmol/L (22-30); Chloride 93 mmol/L (98-107); Creatine Kinase 768 U/L (55-170); Glucose 97 mg/dL (74-99); Magnesium 1.4 mg/dL (1.6-2.3); Potassium 4.2 mmol/L (3.5-5.1); Sodium 125 mmol/L (137-145); Total Bilirubin 1.4 mg/dL (0.2-1.3); Total Protein 5.1 g/dL (6.3-8.2)
[2017-10-03] MEDS: IPRATROPIUM-ALBUTEROL 3 ML NEB INHALATION SCH ×4 (07:44→19:09)
[2017-10-03] MEDS: LOSARTAN 50 MG TAB PO SCH ×2 (08:38→20:27)
[2017-10-03] MEDS: amLODIPine 10 MG TAB PO SCH (08:38)
[2017-10-03] MEDS: predniSONE 20 MG TAB PO SCH (08:39)
[2017-10-03] MEDS: PANTOPRAZOLE 40 MG/10 ML VIAL IV SCH ×2 (08:52→20:22)
--- NOTE | 2017-10-03 08:52 | CONS ---
CONSULTATION DATE OF CONSULTATION: 10/02/2017. CHIEF COMPLAINT: Altered mental status. HISTORY OF PRESENT ILLNESS: The patient is a 62-year-old male, who is being evaluated today on 10/02/2017 by the neurology service per the request of Dr. Galdamez for altered mental status. The patient states that he went to the local convenience store to buy some beer and the vault cashier noticed that he was not acting like his usual self. The patient does have history of alcohol abuse as he drinks anywhere from 4 to 10 beers per day. He does inform me that he had not had any alcohol in 3 days. As soon as the patient arrived to his house, the [employer] knocked on his door to checkup on him as the attendant at the convenience store did call the medical concierge. The patient was found to be somewhat confused and he was brought in to [facility] Emergency Room for further management. The patient was found to be quite agitated and had to be placed in restraints initially. At the time of my evaluation, he is more calm and is not in any restraints. The patient had multiple bruises on his body including a large bruise on his left arm but the patient does not recall how he obtained this bruise. He denies any headache and denies any lateralizing numbness or weakness. Although he is oriented at the time of my evaluation, a family member was present at bedside and she states that he is not at his baseline. A CT scan of the brain was done, which was normal. A CT scan of the cervical spine was done which showed no fractures but it did show displaced this disease with multiple levels of neural foraminal narrowing bilaterally and spinal canal stenosis at C4, C5, and C6. His CBC showed thrombocytopenia at 86,000. His comprehensive metabolic profile showed severe hyponatremia at 112, hypokalemia at 3.1, hypocalcemia at 5.8, hepatic insufficiency with an AST of 334 and an ALT of 225. His magnesium was quite low at 1.0. His cardiac enzymes showed elevated CPK at 1398 and CK-MB at 50.8. His troponin was normal. PAST MEDICAL HISTORY: Diabetes, chronic obstructive pulmonary disease, history of orthopedic surgeries. SOCIAL HISTORY: The patient drinks alcohol daily as mentioned above. He is an every day smoker. He denies any drug use. FAMILY HISTORY: Noncontributory. HOME MEDICATIONS: Reviewed in the chart. ALLERGIES: No known drug allergies. REVIEW OF SYSTEM: CONSTITUTIONAL: Positive for fatigue. EYES: Negative. ENT: Negative. CARDIOVASCULAR: Negative. RESPIRATORY: Positive for occasional shortness of breath. He also complains of right- sided chest wall pain with any deep breath. NEUROLOGICAL: As mentioned above. GASTROINTESTINAL: Negative. GENITOURINARY: Negative. PSYCHIATRIC: Negative. MUSCULOSKELETAL: Positive for occasional joint pain. DERMATOLOGICAL: Positive for bruising as mentioned above. ENDOCRINE: Negative. PHYSICAL EXAM: Vital signs show a temperature of 98.3, pulse 82, respiration 16, blood pressure 143/71. GENERAL APPEARANCE: The patient is a well-developed male, who appears to be in no acute distress. HEENT: Normocephalic, atraumatic, no facial asymmetry is seen. NECK: Supple with no masses felt. CARDIOVASCULAR: Regular rate and rhythm. ABDOMEN: Nontender, nondistended. Extremities showed no edema. Significant bruising is seen. NEUROLOGICAL EXAM: The patient is awake and oriented x3. Speech and language are normal. Strength is full in all 4 extremities, but the strength examination was limited on the left upper extremity due to chronic shoulder pain. Sensory exam was normal to light touch in all 4 extremities. No tremors or seizure-like activity is seen. No facial asymmetry is noticed on cranial nerve testing. IMPRESSION: 1. Altered mental status. 2. Acute multifactorial encephalopathy. 3. History of alcohol abuse. 4. Hepatic insufficiency. RECOMMENDATION: Although the patient appears to be improved from a mental status, his family members state that he is not at his baseline. He likely has multifactorial acute encephalopathy given some alcohol withdrawal along with the significant electrolyte imbalance and hepatic insufficiency. Continue IV hydration to slowly supplement sodium. Avoid abrupt correction to avoid any central pontine myelinolysis. The patient will also need calcium and magnesium supplementation. I had a lengthy discussion with the patient regarding the importance of alcohol cessation and tobacco cessation. I will order a serum ammonia level. Continue monitoring his liver enzymes and electrolytes. An EEG has been ordered. As for his complaints of shortness of breath and chest wall pain, Pulmonology has been consulted. Continue the rest of your current workup and management. I will continue to follow with you. Further recommendations to follow. Thank you for allowing me to participate in the care of your patient. If you have any questions, please feel free to contact me. MMODL / IJN: [id number] /
[2017-10-03] MEDS ORDERED: Magnesium Replacement Protocol 1 EACH MISC MISCELLANE PRN (09:44)
--- NOTE | 2017-10-03 09:55 | P.CONS ---
History of Present Illness - Reason for Consult Consult date: 10/03/17 Elevated liver enzymes Requesting physician: Parul Galdamez - History of Present Illness 62-year-old male with a history of EtOH abuse, COPD, hypertension, diabetes admitted with status changes. Consult requested for elevated liver enzymes. Patient drinks beer on a daily basis for more than 10 years. Admission sodium 112. Potassium 3.1. BUN 16. Creatinine 0.6. Magnesium 1.0. Total bilirubin 1.7. AST 110. ALT 123. Alkaline phosphatase 128. Ammonia less than 9. INR 1.0. Total creatinine kinase 1110. Lipase 363. White count 10.8. Hemoglobin 17.4. Platelet 86,000. Currently total bilirubin is 1.4. AST 151. ALT 170. Alkaline phosphates 151. CK 768. Ultrasound abdomen correlate hepatic steatosis. Possible gallbladder polyp or adherent stone in the dependent portion of the gallbladder. CBD 0.5 cm. Eyes fever chills or emesis but adhesive melena. Presently denies abdominal pain. Review of Systems Constitutional: Denies fever, chills, sweats, weight gain, or loss. HEENT: Negative for migraines, blurred vision or loss, earaches, drainage, tinnitus, oral mucosal lesions, dysphagia, or odynophagia. Cardiac: Hypertension. Negative for chest pain, arrhythmias, or palpitation. Respiratory: Negative for shortness of breath, hemoptysis, cough, or sputum production. Gastrointestinal: See HPI for pertinent findings. Genitourinary: Negative for hematuria, urgency, frequency, polyuria, dysuria, or penile discharge. Musculoskeletal: Negative for muscle aches, swelling, arthritis, and arthralgias. Neurologic: Negative for stroke or TIA. Endocrine: Negative for thyroid problems. Skin: Negative for rash or itching. Psychiatric: Negative history for depression and anxiety Past Medical History Past Medical History: COPD, Diabetes Mellitus History of Any Multi-Drug Resistant Organisms: None Reported Past Surgical History: Orthopedic Surgery Additional Past Surgical History / Comment(s): Knee replacement. Past Anesthesia/Blood Transfusion Reactions: No Reported Reaction Past Psychological History: No Psychological Hx Reported Smoking Status: Current every day smoker Past Alcohol Use History: Occasional Past Drug Use History: None Reported - Past Family History Mother Additional Family Medical History / Comment(s): dementia Father Family Medical History: Cancer Additional Family Medical History / Comment(s): bone,brain Medications and Allergies Home Medications Medication Instructions Recorded Confirmed Type Allergy Tab(Unknown) 1 tab PO DAILY 10/01/17 10/01/17 History amLODIPine [Norvasc] 10 mg PO DAILY 10/01/17 10/01/17 History Losartan Potassium 100 mg PO BID 10/02/17 10/02/17 History metFORMIN HCL [Glucophage] 500 mg PO BID 10/02/17 10/02/17 History Allergies Allergy/AdvReac Type Severity Reaction Status Date / Time No Known Allergies Allergy Verified 10/02/17 09:26 Physical Exam Vitals: Vital Signs Temp Pulse Pulse Resp BP Pulse Ox 10/03/17 07:54 78 10/03/17 07:46 96.7 F L 98 15 146/70 10/03/17 07:44 76 10/03/17 04:00 98.9 F 81 16 151/86 96 10/03/17 00:00 98.9 F 103 H 16 127/70 95 10/02/17 20:08 84 10/02/17 20:02 84 10/02/17 19:59 101.2 F H 108 H 20 155/88 94 L 10/02/17 16:46 82 10/02/17 16:36 80 10/02/17 15:07 98.3 F 109 H 16 143/71 96 10/02/17 12:00 99.2 F 103 H 18 147/76 96 Intake and Output 10/02/17 10/03/17 10/03/17 22:59 06:59 14:59 Intake Total 540 210 Output Total 1200 575 400 Balance -1200 -35 -190 Intake: IV 30 Invasive Line 5 30 Oral 540 180 Output: Urine 1200 575 400 Other: Voiding Method Urinal Urinal # Voids 1 # Bowel Movements 1 Weight 70 kg General appearance: The patient is alert, oriented, in no acute distress. HET: Head is normocephalic and atraumatic. Pupils are equal and reactive. Oropharynx is clear without lesions. Neck: Supple without lymphadenopathy. Trachea midline. Heart: S1 S2. Regular rate and rhythm. Lungs: No crackles or wheezes are heard. Abdomen: Soft, nontender, nondistended with bowel sounds. No peritoneal signs. No palpable organomegaly or masses. Extremities: Multiple ecchymotic bruised areas on all extremities. No lower extremity edema. Neurological: No focal deficits. Strength and sensation are grossly intact. Results CBC & Chem 7: 10/01/17 20:12 10/03/17 05:48 Labs: Abnormal Lab Results - Last 24 Hours (Table) 10/02/17 10/02/17 10/02/17 Range/Units 06:43 10:07 11:11 Sodium 118 L* (137-145) mmol/L Potassium (3.5-5.1) mmol/L Chloride (98-107) mmol/L Creatinine (0.66-1.25) mg/dL POC Glucose (mg/dL) (75-99) mg/dL Osmolality 241 L* (280-301) mosm/kg Calcium (8.4-10.2) mg/dL Magnesium (1.6-2.3) mg/dL Total Bilirubin (0.2-1.3) mg/dL AST (17-59) U/L ALT (21-72) U/L Alkaline Phosphatase (38-126) U/L Creatine Kinase 1398 H (55-170) U/L Total Protein (6.3-8.2) g/dL Albumin (3.5-5.0) g/dL Ur Random Sodium 26 L (30-90) mmol/L 10/02/17 10/02/17 10/02/17 Range/Units 17:58 20:50 22:08 Sodium 122 L 119 L* (137-145) mmol/L Potassium 2.9 L* (3.5-5.1) mmol/L Chloride (98-107) mmol/L Creatinine (0.66-1.25) mg/dL POC Glucose (mg/dL) 150 H (75-99) mg/dL Osmolality (280-301) mosm/kg Calcium (8.4-10.2) mg/dL Magnesium (1.6-2.3) mg/dL Total Bilirubin (0.2-1.3) mg/dL AST (17-59) U/L ALT (21-72) U/L Alkaline Phosphatase (38-126) U/L Creatine Kinase (55-170) U/L Total Protein (6.3-8.2) g/dL Albumin (3.5-5.0) g/dL Ur Random Sodium (30-90) mmol/L 03/22/18 03/22/18 Range/Units 05:34 05:48 Sodium 125 L (137-145) mmol/L Potassium (3.5-5.1) mmol/L Chloride 93 L (98-107) mmol/L Creatinine 0.61 L (0.66-1.25) mg/dL POC Glucose (mg/dL) 101 H (75-99) mg/dL Osmolality (280-301) mosm/kg Calcium 7.7 L (8.4-10.2) mg/dL Magnesium 1.4 L (1.6-2.3) mg/dL Total Bilirubin 1.4 H (0.2-1.3) mg/dL AST 151 H (17-59) U/L ALT 170 H (21-72) U/L Alkaline Phosphatase 151 H (38-126) U/L Creatine Kinase 768 H (55-170) U/L Total Protein 5.1 L (6.3-8.2) g/dL Albumin 2.9 L (3.5-5.0) g/dL Ur Random Sodium (30-90) mmol/L US - abdomen: report reviewed (Dr. Jacob) Assessment and Plan (1) Alcoholic hepatitis Narrative/Plan: 62-year-old male admitted with hypovolemic hyponatremia with acute mental status changes elevated liver enzymes thrombocytopenia and electrolyte derangement with underlying history of EtOH abuse. Suspect component of underlying alcohol liver disease hepatic steatosis. Current Visit: Yes Status: Acute Code(s): K70.10 - ALCOHOLIC HEPATITIS WITHOUT ASCITES SNOMED Code(s): 537715677 Plan: 1. Alcohol abstinence is strongly advised. Daily CMP. 2. Check hepatitis screen. Diet as tolerated. We'll continue to follow with you. Thank you for this kind referral and the opportunity to participate in the care of your patient. This consultation was discussed with Dr. Jacob. The impression and plan of care have been directed as dictated.
[2017-10-03 11:14] VITALS: BMI 23.4
[2017-10-03 11:31] LABS: Glucose,Whole Blood 175 mg/dL (75-99)
[2017-10-03] MEDS: MAGNESIUM SULFATE-D5W PMX 1 GM in DEXTROSE/WATER 1 100ML.BAG IVPB SCH ×3 (11:36→14:21)
[2017-10-03] MEDS: THIAMINE 100 MG TAB PO SCH ×2 (12:44→16:46)
[2017-10-03] MEDS: NICOTINE 14MG/24HR PATCH TRANSDERM SCH (12:48)
--- NOTE | 2017-10-03 13:49 | PN ---
PROGRESS NOTE The patient is seen for followup for hyponatremia which was initially hypovolemic. However, serum sodium started to decrease with continued saline and therefore it was discontinued. The patient has had 2 doses of Lasix. His serum sodium has improved. It is at 125 today. He is comfortable. He is not in any acute distress. He is still not able to tell me why he was admitted to the hospital. He has had occasional confusion. PHYSICAL EXAMINATION: Blood pressure is 135/82, heart rate 103 per minute, and afebrile. Examination of the heart S1, S2. Examination lungs bilateral breath sounds are heard. Abdomen is soft, nontender. Examination lower extremity shows no significant edema. 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 LAB: Show sodium 125, potassium 4.2, serum creatinine 0.6. Magnesium was 1.4. ASSESSMENT: 1. Hyponatremia initially hypovolemic, which has improved. However, currently the patient has underlying beer potomania/tea and toast syndrome with decreased urinary osmoles for free water excretion. I will continue with fluid restriction and we will add low-dose sodium chloride tabs. Repeat sodium this evening and maintain some degree of free water restriction. 2. History of EtOH abuse. 3. Chronic obstructive pulmonary disease, currently stable. 4. Alcoholic hepatitis, being followed by Gastroenterology. MMODL / IJN: [id number] /
--- NOTE | 2017-10-03 14:44 | XR ---
EXAMINATION TYPE: XR chest 2V DATE OF EXAM: 10/03/2017 COMPARISON: Prior chest x-ray 10/01/2017 HISTORY: Seizure, aspiration TECHNIQUE: Frontal and lateral views of the chest are obtained. FINDINGS: Patient is rotated and there are overlying cardiac leads. Minimal patchy density present at the lung bases. Lung volumes are low. There is no pleural effusion or pneumothorax seen. The cardia c silhouette size is stable. The osseous structures are intact. Prominent lung biopsy suggests unde rlying COPD. The aorta is dense. IMPRESSION: Probable basilar atelectasis, rotated exam. Follow-up recommended.
[2017-10-03] MEDS ORDERED: FUROSEMIDE 20 MG TAB PO STA (15:17)
--- NOTE | 2017-10-03 15:45 | P.PN ---
Subjective Progress Note Date: 10/03/17 Principal diagnosis: Altered mental status This 62-year-old male continuing to be evaluated by the neurology service for altered mental status. He has a long history of daily alcohol use. He reports not having had alcohol in 3 days. He went to the local store to buy some beer and was found to be in an altered mental state. [facility]'s went to his house to check on him and he was found agitated with multiple bruising. Initial CT of the brain was done and it was normal. CT of the cervical spine showed no acute changes. He did have an elevated CPK and CK level with some significant metabolic abnormalities on his blood work. He is receiving IV hydration and his mental status is quite improved. At the time of my exam is resting comfortably in bed in no acute distress Objective - Vital Signs Vital signs: Vital Signs Temp 97.6 F 10/03/17 10:57 Pulse 72 10/03/17 15:27 Resp 18 10/03/17 11:30 BP 135/82 10/03/17 10:57 Pulse Ox 92 L 10/03/17 10:57 Intake & Output 10/02/17 10/03/17 10/03/17 18:59 06:59 18:59 Intake Total 540 547 Output Total 1800 575 800 Balance -1800 -35 -253 Weight 68.039 kg 70 kg 70 kg Intake: IV 30 Invasive Line 5 30 Oral 540 517 Output: Urine 1800 575 800 Other: Voiding Method Urinal Urinal Urinal # Voids 1 1 # Bowel Movements 1 - Constitutional General appearance: Present: average body habitus, cooperative, no acute distress - EENT Eyes: Present: EOMI, PERRLA. Absent: abnormal pupil, ptosis ENT: Present: hearing grossly normal - Neck Neck: Present: normal ROM. Absent: rigidity - Respiratory Respiratory: negative: prolonged expiration, prolonged inspiration - Cardiovascular Rhythm: regular - Gastrointestinal General gastrointestinal: Absent: distended, tenderness - Neurologic Neurologic Comment(s): The patient is alert awake and oriented 3. Speech and language are normal. There is no facial asymmetry. Strength is 5 out of 5 in bilateral upper and lower extremities. There is no sensory deficit. No tremors or seizures are seen. Cranial nerves II through XII are intact globally. - Labs CBC & Chem 7: 10/01/17 20:12 10/03/17 12:53 Labs: Abnormal Lab Results - Last 24 Hours (Table) 10/02/17 10/02/17 10/02/17 Range/Units 17:58 20:50 22:08 Sodium 122 L 119 L* (137-145) mmol/L Potassium 2.9 L* (3.5-5.1) mmol/L Chloride (98-107) mmol/L Creatinine (0.66-1.25) mg/dL POC Glucose (mg/dL) 150 H (75-99) mg/dL Calcium (8.4-10.2) mg/dL Magnesium (1.6-2.3) mg/dL Total Bilirubin (0.2-1.3) mg/dL AST (17-59) U/L ALT (21-72) U/L Alkaline Phosphatase (38-126) U/L Creatine Kinase (55-170) U/L Total Protein (6.3-8.2) g/dL Albumin (3.5-5.0) g/dL 10/03/17 10/03/17 10/03/17 Range/Units 05:34 05:48 11:16 Sodium 125 L (137-145) mmol/L Potassium (3.5-5.1) mmol/L Chloride 93 L (98-107) mmol/L Creatinine 0.61 L (0.66-1.25) mg/dL POC Glucose (mg/dL) 101 H 175 H (75-99) mg/dL Calcium 7.7 L (8.4-10.2) mg/dL Magnesium 1.4 L (1.6-2.3) mg/dL Total Bilirubin 1.4 H (0.2-1.3) mg/dL AST 151 H (17-59) U/L ALT 170 H (21-72) U/L Alkaline Phosphatase 151 H (38-126) U/L Creatine Kinase 768 H (55-170) U/L Total Protein 5.1 L (6.3-8.2) g/dL Albumin 2.9 L (3.5-5.0) g/dL 10/03/17 Range/Units 12:53 Sodium 123 L (137-145) mmol/L Potassium (3.5-5.1) mmol/L Chloride (98-107) mmol/L Creatinine (0.66-1.25) mg/dL POC Glucose (mg/dL) (75-99) mg/dL Calcium (8.4-10.2) mg/dL Magnesium (1.6-2.3) mg/dL Total Bilirubin (0.2-1.3) mg/dL AST (17-59) U/L ALT (21-72) U/L Alkaline Phosphatase (38-126) U/L Creatine Kinase (55-170) U/L Total Protein (6.3-8.2) g/dL Albumin (3.5-5.0) g/dL Assessment and Plan (1) Altered mental status Current Visit: Yes Status: Resolved Code(s): R41.82 - ALTERED MENTAL STATUS , UNSPECIFIED SNOMED Code(s): 796820502 (2) Acute encephalopathy Current Visit: Yes Status: Suspected Code(s): G93.40 - ENCEPHALOPATHY, UNSPECIFIED SNOMED Code(s): 65520637 (3) Alcoholic hepatitis Current Visit: Yes Status: Suspected Code(s): K70.10 - ALCOHOLIC HEPATITIS WITHOUT ASCITES SNOMED Code(s): 680389495 (4) Hypokalemia Current Visit: Yes Status: Acute Code(s): E87.6 - HYPOKALEMIA SNOMED Code( s): 57468877 (5) Hypomagnesemia Current Visit: Yes Status: Acute Code(s): E83.42 - HYPOMAGNESEMIA SNOMED Code(s): 590444492 (6) Hyponatremia syndrome Current Visit: Yes Status: Acute Code(s): E87.1 - HYPO-OSMOLALITY AND HYPONATREMIA SNOMED Code(s): 4464969 (7) Rhabdomyolysis Current Visit: Yes Status: Acute Code(s): M62.82 - RHABDOMYOLYSIS SNOMED Code(s): 943437025 Plan: His mental status continues to improve with medical treatment. His encephalopathic state is multifactorial likely due to some alcohol withdrawal 7 electrolyte abnormalities on top of his hepatic insufficiency. An EEG has been performed. Continue medical management. Highly recommend alcohol cessation. No further neurological workup is needed. We can be consulted on as-needed basis for any change in his neurological status. X I have performed a history and physical on the above patient. I have reviewed the above note, and agree.
--- NOTE | 2017-10-03 16:09 | P.PN ---
Subjective Progress Note Date: 10/03/17 This is a 62-year-old male patient of Dr. Lafleur with past medical history of COPD, diabetes mellitus type 2, alcohol abuse, tobacco use and dependence presented to the ED with confusion, multiple falls and erratic behavior. Patient was found by the police to be going in and out of the local convenience store as a locked his keys in his car. Patient was found to be confused and also admitted that he had 4-8 beers. On evaluation today in the ER patient was found in soft restraints as he was agitated and trying to come out of bed. Ativan was given and patient was put on soft restraints. Patient states he has been restrained for 4 days. Patient is oriented 3 but is unable to provide any history leading to his falls and bruising. He states his pain in the hospital for many days. Labs done in the ER suggested critical sodium of 116, potassium 3.2, chloride 82, osmolarity 241, calcium 7.6, total bilirubin of 2, increased LFTs with AST 334 ALT 225 alkaline phosphatase 178. CK level was 1398 with low albumin. Urine osmolarity is 229 random urine sodium 26. Patient received 1 L of IV fluid with banana bag running at 100 mL per hour. Potassium was repleted. Alcohol level was normal. Patient started on alcohol withdrawal regimen. X-ray of the humerus, shoulder, head and cervical spine and chest x-ray was negative for any fractures. Lipase was 363. Patient is admitted for altered mental status likely secondary to alcohol withdrawal with possibility of hyponatremia contributing to the symptoms. 10/03: Patient is oriented to person, place, month, year and does recall going to the gas station to get beer and he recalls that someone, EMS came to his house to pick him up. Magnesium will be replaced. Sodium is now at 125 in the morning 123 in the afternoon. Blood sugars are running between 101-175. CK 768. Liver function tests elevated. Patient has received 2 doses of oral Lasix today and one yesterday of 20 mg each. He is now on sodium chloride tablets 2 g twice daily. He has been afebrile. Pulse ox 92% on room air. Patient has been seen by GI and hepatitis screen ordered. Diet as tolerated. Neurology is following the patient. EEG has been done and neurology has signed off to follow on an as-needed basis. Objective - Vital Signs Vital signs: Vital Signs Temp 96.7 F L 03/22/18 07:46 Pulse 78 10/03/17 07:54 Resp 15 10/03/17 07:46 BP 146/70 10/03/17 07:46 Pulse Ox 96 10/03/17 04:00 Intake & Output 10/02/17 10/03/17 10/03/17 18:59 06:59 18:59 Intake Total 540 210 Output Total 1800 575 400 Balance -1800 -35 -190 Weight 68.039 kg 70 kg Intake: IV 30 Invasive Line 5 30 Oral 540 180 Output: Urine 1800 575 400 Other: Voiding Method Urinal Urinal # Voids 1 1 # Bowel Movements 1 - Exam - Constitutional General appearance: In soft restraints, constantly trying to remove the restraints. Appears confused - EENT Eyes: anicteric sclerae, PERRLA with slightly narrowed, normal appearance, bruises present in the right forehead ENT: hearing grossly normal - Neck Neck: no lymphadenopathy, normal ROM, no other, no rigidity, no stridor, no thyromegaly - Respiratory Respiratory: bilateral: wheezing noted bilaterally. No rales or crackles heard - Cardiovascular Rhythm: regular Heart sounds: normal: S1, S2 Abnormal Heart Sounds: no systolic murmur, no diastolic murmur, no rub, no S3 Gallop, no S4 Gallop, no click, chest tenderness to palpate in the substernal area and the right lower chest - Gastrointestinal General gastrointestinal: normal bowel sounds, soft, nontender - Integumentary Integumentary: Multiple bruises seen on bilateral knees, the right ricardo, left forearm in different stages of healing. - Neurologic Neurologic: CNII-XII intact - Musculoskeletal Musculoskeletal: gait not assessed due to mental status strength equal bilaterally - Psychiatric Psychiatric: A&O x's 3, no appropriate affect, no intact judgment - Labs CBC & Chem 7: 10/01/17 20:12 10/03/17 12:53 Labs: Abnormal Lab Results - Last 24 Hours (Table) 10/02/17 10/02/17 10/02/17 Range/Units 06:43 10:07 11:11 Sodium 118 L* (137-145) mmol/L Potassium (3.5-5.1) mmol/L Chloride (98-107) mmol/L Creatinine (0.66-1.25) mg/dL POC Glucose (mg/dL) (75-99) mg/dL Osmolality 241 L* (280-301) mosm/kg Calcium (8.4-10.2) mg/dL Magnesium (1.6-2.3) mg/dL Total Bilirubin (0.2-1.3) mg/dL AST (17-59) U/L ALT (21-72) U/L Alkaline Phosphatase (38-126) U/L Creatine Kinase 1398 H (55-170) U/L Total Protein (6.3-8.2) g/dL Albumin (3.5-5.0) g/dL Ur Random Sodium 26 L (30-90) mmol/L 10/02/17 10/02/17 10/02/17 Range/Units 17:58 20:50 22:08 Sodium 122 L 119 L* (137-145) mmol/L Potassium 2.9 L* (3.5-5.1) mmol/L Chloride (98-107) mmol/L Creatinine (0.66-1.25) mg/dL POC Glucose (mg/dL) 150 H (75-99) mg/dL Osmolality (280-301) mosm/kg Calcium (8.4-10.2) mg/dL Magnesium (1.6-2.3) mg/dL Total Bilirubin (0.2-1.3) mg/dL AST (17-59) U/L ALT (21-72) U/L Alkaline Phosphatase (38-126) U/L Creatine Kinase (55-170) U/L Total Protein (6.3-8.2) g/dL Albumin (3.5-5.0) g/dL Ur Random Sodium (30-90) mmol/L 10/03/17 10/03/17 Range/Units 05:34 05:48 Sodium 125 L (137-145) mmol/L Potassium (3.5-5.1) mmol/L Chloride 93 L (98-107) mmol/L Creatinine 0.61 L (0.66-1.25) mg/dL POC Glucose (mg/dL) 101 H (75-99) mg/dL Osmolality (280-301) mosm/kg Calcium 7.7 L (8.4-10.2) mg/dL Magnesium 1.4 L (1.6-2.3) mg/dL Total Bilirubin 1.4 H (0.2-1.3) mg/dL AST 151 H (17-59) U/L ALT 170 H (21-72) U/L Alkaline Phosphatase 151 H (38-126) U/L Creatine Kinase 768 H (55-170) U/L Total Protein 5.1 L (6.3-8.2) g/dL Albumin 2.9 L (3.5-5.0) g/dL Ur Random Sodium (30-90) mmol/L Assessment and Plan Plan: #1 metabolic encephalopathy likely secondary to alcohol withdrawal, other differential include hyponatremia, electrolyte mediated change in mental status. EEG ordered. Neurology consult placed. Seizure and fall precaution needs to be taken. Continue CIWA protocol. #2 hypoosmolar hyponatremia sodium secondary to underlying beer potomania/tea and toast syndrome. Patient is status post IV fluids, Lasix and is now on sodium tablets. Nephrology consult appreciated. Continue to monitor sodium closely. #3 acute transaminitis. No acute abdomen on examination. PT/INR ordered. Patient does have low albumin, multiple bruises low platelet on CBC concerning for liver failure. Follow-up LFT tomorrow. Abdominal ultrasound to rule out obstruction. GI consult appreciated. Hepatitis panel ordered #4 acute pancreatitis continue IV fluids and 100 mL/h, watch for over correction of hyponatremia #5 rhabdomyolysis likely secondary to multiple falls and dehydration #6 hypokalemia and hypomagnesemia status post repletion #7 hypertension continue losartan and amlodipine #8 diabetes type 2 continue insulin sliding scale hold metformin #9 DVT prophylaxis with SCDs as patient has low platelets #10 GI prophylaxis with Protonix 40 mg twice a day CODE STATUS full code Discharge plan: to be determined, EXAMINATION GRADER to follou up regarding alcohol abuse and referrals for rehab Impression and plan of care have been directed as dictated by the signing physician. Yola Nunes nurse practitioner acting as scribe for signing physician.
[2017-10-03 16:37] LABS: Glucose,Whole Blood 309 mg/dL (75-99)
[2017-10-03] MEDS: SODIUM CHLORIDE TAB 1 GM TAB PO SCH ×2 (16:45→20:25)
--- NOTE | 2017-10-03 19:55 | EEG ---
ELECTROENCEPHALOGRAM REPORT DATE OF SERVICE: 10/03/2017. REASON FOR TESTING: Altered mental status. DESCRIPTION OF THE PROCEDURE: This EEG was performed using a 21 channel digital electroencephalograph, following international 10-20 system. DESCRIPTION OF THE RECORDING: From the beginning of the tracing, significant muscle artifacts are seen. Photic stimulation was performed with no driving response seen. No pathological waves were elicited. Later in the tracing, the background rhythm was mostly consisting of 8 Hz alpha frequency in the posterior occipital leads. No obvious asymmetry is seen. The patient does reach stage II of sleep during the tracing and occasional sleep spindles are seen. No epileptiform discharges were noticed. Hyperventilation was not performed. His EKG lead showed an irregularly irregular rhythm with a normal rate. INTERPRETATION: This asleep and awake EEG can be considered within normal limits except his EKG lead showed an irregularly irregular rhythm with a normal rate. No epileptiform discharges were seen. The absence of epileptiform discharges does not rule out the diagnosis of epilepsy; therefore, clinical correlation is recommended. MMSANTY / SHANNONN: [id number] /
[2017-10-03 20:26] LABS: Hepatitis A Antibody IgM Non-Reactive (Non-Reactive); Hepatitis B Core IgM Non-Reactive (Non-Reactive)
[2017-10-03 20:48] LABS: Glucose,Whole Blood 253 mg/dL (75-99)
[2017-10-03] MEDS ORDERED: KETOROLAC 30 MG/ML 1 ML VIAL IVP PRN (21:10)
--- NOTE | 2017-10-03 21:48 | XR ---
EXAMINATION TYPE: XR chest 2V DATE OF EXAM: 10/03/2017 COMPARISON: 10/03/2017 HISTORY: Shortness of breath TECHNIQUE: Frontal and lateral views of the chest are obtained. FINDINGS: Scattered senescent parenchymal changes noted. No evidence for infiltrate. No evidence for atelectasis. Heart size is stable. Mediastinal structures are stable and grossly unremarkable. No evidence for hilar prominence. Degenerative changes dorsal spine. IMPRESSION: 1. No evidence for acute pulmonary disease.
[2017-10-04 06:12] LABS: Glucose,Whole Blood 116 mg/dL (75-99)
[2017-10-04] MEDS: INSULIN ASPART 100 UNIT/ML 1 ML 10 ML VIAL SQ SCH ×4 (06:15→21:08)
[2017-10-04 06:55] LABS: ALT 146 U/L (21-72); AST 127 U/L (17-59); Albumin 2.8 g/dL (3.5-5.0); Alkaline Phosphatase 151 U/L (38-126); Anion Gap 8 mmol/L; Blood Urea Nitrogen 12 mg/dL (9-20); Carbon Dioxide 23 mmol/L (22-30); Chloride 95 mmol/L (98-107); Glucose 113 mg/dL (74-99); Magnesium 1.6 mg/dL (1.6-2.3); Potassium 3.4 mmol/L (3.5-5.1); Sodium 126 mmol/L (137-145); Total Bilirubin 1.6 mg/dL (0.2-1.3); Total Protein 5.1 g/dL (6.3-8.2)
--- NOTE | 2017-10-04 07:45 | P.PN ---
Subjective Progress Note Date: 10/04/17 Principal diagnosis: Elevated liver enzymes mental status changes Feels well this morning. Did not get much rust last night. Denies abdominal pain. Liver function tests relatively unchanged from yesterday slightly improved. Objective - Vital Signs Vital signs: Vital Signs Temp 97.6 F 10/04/17 04:00 Pulse 105 H 10/04/17 04:00 Resp 16 10/04/17 04:00 BP 147/70 10/04/17 00:00 Pulse Ox 88 L 10/04/17 04:00 Intake & Output 10/03/17 10/04/17 10/04/17 18:59 06:59 18:59 Intake Total 547 50 Output Total 1100 Balance -553 50 Weight 70 kg 66.5 kg Intake: IV 30 Invasive Line 5 30 Oral 517 50 Output: Urine 1100 Other: Voiding Method Urinal Urinal # Voids 1 - Exam General appearance: The patient is alert, oriented, in no acute distress. HET: Head is normocephalic and atraumatic. Pupils are equal and reactive. Oropharynx is clear without lesions. Neck: Supple without lymphadenopathy. Trachea midline. Heart: S1 S2. Regular rate and rhythm. Lungs: No crackles or wheezes are heard. Abdomen: Soft, nontender, nondistended with bowel sounds. No peritoneal signs. No palpable organomegaly or masses. Extremities: Multiple ecchymotic bruised areas on all extremities. Neurological: No focal deficits. Strength and sensation are grossly intact. - Labs CBC & Chem 7: 10/01/17 20:12 10/04/17 06:23 Labs: Abnormal Lab Results - Last 24 Hours (Table) 10/03/17 10/03/17 10/03/17 Range/Units 11:16 12:53 16:08 Sodium 123 L (137-145) mmol/L Potassium (3.5-5.1) mmol/L Chloride (98-107) mmol/L Creatinine (0.66-1.25) mg/dL Glucose (74-99) mg/dL POC Glucose (mg/dL) 175 H 309 H (75-99) mg/dL Calcium (8.4-10.2) mg/dL Total Bilirubin (0.2-1.3) mg/dL AST (17-59) U/L ALT (21-72) U/L Alkaline Phosphatase (38-126) U/L Total Protein (6.3-8.2) g/dL Albumin (3.5-5.0) g/dL 10/03/17 10/03/17 10/04/17 Range/Units 20:23 20:46 06:09 Sodium 125 L (137-145) mmol/L Potassium (3.5-5.1) mmol/L Chloride (98-107) mmol/L Creatinine (0.66-1.25) mg/dL Glucose (74-99) mg/dL POC Glucose (mg/dL) 253 H 116 H (75-99) mg/dL Calcium (8.4-10.2) mg/dL Total Bilirubin (0.2-1.3) mg/dL AST (17-59) U/L ALT (21-72) U/L Alkaline Phosphatase (38-126) U/L Total Protein (6.3-8.2) g/dL Albumin (3.5-5.0) g/dL 10/04/17 Range/Units 06:23 Sodium 126 L (137-145) mmol/L Potassium 3.4 L (3.5-5.1) mmol/L Chloride 95 L (98-107) mmol/L Creatinine 0.60 L (0.66-1.25) mg/dL Glucose 113 H (74-99) mg/dL POC Glucose (mg/dL) (75-99) mg/dL Calcium 8.0 L (8.4-10.2) mg/dL Total Bilirubin 1.6 H (0.2-1.3) mg/dL AST 127 H (17-59) U/L ALT 146 H (21-72) U/L Alkaline Phosphatase 151 H (38-126) U/L Total Protein 5.1 L (6.3-8.2) g/dL Albumin 2.8 L (3.5-5.0) g/dL Assessment and Plan (1) Alcoholic hepatitis Narrative/Plan: 62-year-old male admitted with hypovolemic hyponatremia with acute mental status changes elevated liver enzymes thrombocytopenia and electrolyte derangement with underlying history of EtOH abuse. Suspect component of underlying alcohol liver disease hepatic steatosis. Current Visit: Yes Status: Suspected Code(s): K70.10 - ALCOHOLIC HEPATITIS WITHOUT ASCITES SNOMED Code(s): 873840100 (2) ETOH abuse Current Visit: Yes Status: Acute Code(s): F10.10 - ALCOHOL ABUSE, UNCOMPLICATED SNOMED Code(s): 97184789 Plan: 1. Alcohol abstinence is strongly advised. Daily CMP. 2. Hepatitis screen pending. Diet as tolerated. Assessment and plan a care discussed with Dr. Boles
[2017-10-04] MEDS: IPRATROPIUM-ALBUTEROL 3 ML NEB INHALATION SCH ×4 (08:15→21:24)
[2017-10-04] MEDS ORDERED: FUROSEMIDE 10 MG/ML 4 ML VIAL IV STA (08:26)
[2017-10-04] MEDS ORDERED: methylPREDNISolone SOD SUCCI 125 MG/2 ML VIAL IV SCH (08:30)
[2017-10-04] MEDS: NICOTINE 14MG/24HR PATCH TRANSDERM SCH (09:33)
[2017-10-04] MEDS: amLODIPine 10 MG TAB PO SCH (09:53)
[2017-10-04] MEDS: LOSARTAN 50 MG TAB PO SCH ×2 (09:53→21:08)
[2017-10-04] MEDS: POTASSIUM CHLORIDE ER 20 MEQ TAB.ER PO SCH ×2 (09:55→11:47)
[2017-10-04] MEDS: PANTOPRAZOLE 40 MG TABLET PO SCH ×2 (09:55→21:08)
[2017-10-04] MEDS: SODIUM CHLORIDE TAB 1 GM TAB PO SCH ×2 (09:55→21:08)
[2017-10-04] MEDS: MAGNESIUM SULFATE-D5W PMX 1 GM in DEXTROSE/WATER 1 100ML.BAG IVPB SCH ×2 (10:12→11:47)
[2017-10-04 10:40] LABS: Basophils % (A) 0 %; Eosinophils # (A) 0.1 k/uL (0-0.7); Eosinophils % (A) 1 %; HCT 42.6 % (39.0-53.0); HGB 14.6 gm/dL (13.0-17.5); Lymphocytes # (A) 0.9 k/uL (1.0-4.8); Lymphocytes % (A) 8 %; MCHC 34.3 g/dL (31.0-37.0); MCV 96.2 fL (80.0-100.0); Mean Platelet Volume 8.5; Monocytes # (A) 1.1 k/uL (0-1.0); Monocytes % (A) 10 %; Neutrophils # (A) 9.4 k/uL (1.3-7.7); Neutrophils % (A) 80 %; RBC 4.43 m/uL (4.30-5.90); RDW 12.5 % (11.5-15.5); WBC 11.8 k/uL (3.8-10.6)
[2017-10-04 10:50] LABS: Platelet Count 136 k/uL (150-450)
[2017-10-04] MEDS: THIAMINE 100 MG TAB PO SCH ×2 (12:22→17:30)
[2017-10-04 12:35] LABS: Glucose,Whole Blood 242 mg/dL (75-99)
--- NOTE | 2017-10-04 12:56 | PN ---
PROGRESS NOTE Patient is seen for followup for hyponatremia. He is currently comfortable, sitting up in bed. He was short of breath. IV Lasix has been ordered. Patient was admitted with a serum sodium of 112 mg/L. He did improve with normal saline to a certain degree after which his sodium was worsening with saline. Currently patient has received about 3 doses of Lasix. IV fluids have been discontinued and he has been started on sodium chloride tabs. Sodium is up to 126 today. PHYSICAL EXAMINATION: On examination, blood pressure is 132/76, heart rate 105 per minute. Patient is afebrile. EXAMINATION OF THE HEART: S1, S2. EXAMINATION OF THE LUNGS: Bilateral breath sounds are heard. Abdomen is soft, nontender. Examination of the lower extremities showed no significant edema. LABS: Labs reveal sodium 126, potassium 3.4, BUN 12, serum creatinine 0.6. Hemoglobin 14.6 g/dL. ASSESSMENT: 1. Hyponatremia, initially hypovolemic and improved with normal saline. Subsequently serum sodium was worsening with saline once it reached about 122 mEq/L. Saline was then discontinued. Patient has received a couple of doses of Lasix and he has been started on sodium chloride tabs. Urine osmolality was at 229. The patient has a history of EtOH abuse. 2. Hypokalemia associated with diuretic use, being replaced. 3. Mental status changes/confusion on initial admission secondary to electrolyte imbalance, currently improved. 4. Hypertension, fairly stable. PLAN: Continue with the sodium chloride tabs for now. Continue with fluid restriction. Increase protein intake. Repeat labs in a.m.. MMODL / IJN: [id number] /
--- NOTE | 2017-10-04 13:54 | P.PN ---
Subjective Progress Note Date: 10/04/17 This is a 62-year-old male patient of Dr. Lafleur with past medical history of COPD, diabetes mellitus type 2, alcohol abuse, tobacco use and dependence presented to the ED with confusion, multiple falls and erratic behavior. Patient was found by the police to be going in and out of the local convenience store as a locked his keys in his car. Patient was found to be confused and also admitted that he had 4-8 beers. On evaluation today in the ER patient was found in soft restraints as he was agitated and trying to come out of bed. Ativan was given and patient was put on soft restraints. Patient states he has been restrained for 4 days. Patient is oriented 3 but is unable to provide any history leading to his falls and bruising. He states his pain in the hospital for many days. Labs done in the ER suggested critical sodium of 116, potassium 3.2, chloride 82, osmolarity 241, calcium 7.6, total bilirubin of 2, increased LFTs with AST 334 ALT 225 alkaline phosphatase 178. CK level was 1398 with low albumin. Urine osmolarity is 229 random urine sodium 26. Patient received 1 L of IV fluid with banana bag running at 100 mL per hour. Potassium was repleted. Alcohol level was normal. Patient started on alcohol withdrawal regimen. X-ray of the humerus, shoulder, head and cervical spine and chest x-ray was negative for any fractures. Lipase was 363. Patient is admitted for altered mental status likely secondary to alcohol withdrawal with possibility of hyponatremia contributing to the symptoms. 10/03: Patient is oriented to person, place, month, year and does recall going to the gas station to get beer and he recalls that someone, EMS came to his house to pick him up. Magnesium will be replaced. Sodium is now at 125 in the morning 123 in the afternoon. Blood sugars are running between 101-175. CK 768. Liver function tests elevated. Patient has received 2 doses of oral Lasix today and one yesterday of 20 mg each. He is now on sodium chloride tablets 2 g twice daily. He has been afebrile. Pulse ox 92% on room air. Patient has been seen by GI and hepatitis screen ordered. Diet as tolerated. Neurology is following the patient. EEG has been done and neurology has signed off to follow on an as-needed basis. 10/04: Patient's pulse ox is running 88-90% and he is refusing to wear oxygen or telemetry. He is having increased shortness of breath secondary to fluid overload and IV fluids were previously discontinued. Patient will given 1 dose of IV Lasix this morning and a repeat dose in the afternoon. His sodium today is at 126. Patient is continued on sodium chloride tablets. Potassium is being replaced. EEG was within normal limits. Platelet count is 136. Liver function tests remain elevated clonidine total bilirubin. Patient states he has a daughter close by and also a friend that would help him at the time of discharge. Patient ambulated well in the hallway with physical therapy. Anticipate discharge home tomorrow. Patient will be transferred to the [facility] floor. Objective - Vital Signs Vital signs: Vital Signs Temp 99.1 F 10/04/17 07:56 Pulse 96 10/04/17 08:25 Resp 18 10/04/17 08:30 BP 170/86 10/04/17 07:56 Pulse Ox 90 L 10/04/17 07:56 Intake & Output 10/03/17 10/04/17 10/04/17 18:59 06:59 18:59 Intake Total 547 50 Output Total 1100 600 Balance -553 50 -600 Weight 70 kg 66.5 kg Intake: IV 30 Invasive Line 5 30 Oral 517 50 Output: Urine 1100 600 Other: Voiding Method Urinal Urinal Urinal # Voids 1 2 - Exam - Constitutional General appearance: In soft restraints, constantly trying to remove the restraints. Appears confused - EENT Eyes: anicteric sclerae, PERRLA with slightly narrowed, normal appearance, bruises present in the right forehead ENT: hearing grossly normal - Neck Neck: no lymphadenopathy, normal ROM, no other, no rigidity, no stridor, no thyromegaly - Respiratory Respiratory: bilateral: wheezing noted bilaterally. No rales or crackles heard - Cardiovascular Rhythm: regular Heart sounds: normal: S1, S2 Abnormal Heart Sounds: no systolic murmur, no diastolic murmur, no rub, no S3 Gallop, no S4 Gallop, no click, chest tenderness to palpate in the substernal area and the right lower chest - Gastrointestinal General gastrointestinal: normal bowel sounds, soft, nontender - Integumentary Integumentary: Multiple bruises seen on bilateral knees, the right ricardo, left forearm in different stages of healing. - Neurologic Neurologic: CNII-XII intact - Musculoskeletal Musculoskeletal: gait not assessed due to mental status strength equal bilaterally - Psychiatric Psychiatric: A&O x's 3, no appropriate affect, no intact judgment - Labs CBC & Chem 7: 10/04/17 06:23 10/04/17 06:23 Labs: Abnormal Lab Results - Last 24 Hours (Table) 10/03/17 10/03/17 10/03/17 Range/Units 11:16 12:53 16:08 Sodium 123 L (137-145) mmol/L Potassium (3.5-5.1) mmol/L Chloride (98-107) mmol/L Creatinine (0.66-1.25) mg/dL Glucose (74-99) mg/dL POC Glucose (mg/dL) 175 H 309 H (75-99) mg/dL Calcium (8.4-10.2) mg/dL Total Bilirubin (0.2-1.3) mg/dL AST (17-59) U/L ALT (21-72) U/L Alkaline Phosphatase (38-126) U/L Total Protein (6.3-8.2) g/dL Albumin (3.5-5.0) g/dL 10/03/17 10/03/17 10/04/17 Range/Units 20:23 20:46 06:09 Sodium 125 L (137-145) mmol/L Potassium (3.5-5.1) mmol/L Chloride (98-107) mmol/L Creatinine (0.66-1.25) mg/dL Glucose (74-99) mg/dL POC Glucose (mg/dL) 253 H 116 H (75-99) mg/dL Calcium (8.4-10.2) mg/dL Total Bilirubin (0.2-1.3) mg/dL AST (17-59) U/L ALT (21-72) U/L Alkaline Phosphatase (38-126) U/L Total Protein (6.3-8.2) g/dL Albumin (3.5-5.0) g/dL 10/04/17 Range/Units 06:23 Sodium 126 L (137-145) mmol/L Potassium 3.4 L (3.5-5.1) mmol/L Chloride 95 L (98-107) mmol/L Creatinine 0.60 L (0.66-1.25) mg/dL Glucose 113 H (74-99) mg/dL POC Glucose (mg/dL) (75-99) mg/dL Calcium 8.0 L (8.4-10.2) mg/dL Total Bilirubin 1.6 H (0.2-1.3) mg/dL AST 127 H (17-59) U/L ALT 146 H (21-72) U/L Alkaline Phosphatase 151 H (38-126) U/L Total Protein 5.1 L (6.3-8.2) g/dL Albumin 2.8 L (3.5-5.0) g/dL Assessment and Plan Plan: #1 metabolic encephalopathy likely secondary to alcohol withdrawal, other differential include hyponatremia, electrolyte mediated change in mental status. EEG ordered. Neurology consult placed. Seizure and fall precaution needs to be taken. Continue CIWA protocol. #2 hypoosmolar hyponatremia sodium secondary to underlying beer potomania/tea and toast syndrome. Patient is status post IV fluids, Lasix and is now on sodium tablets. Nephrology consult appreciated. Continue to monitor sodium closely. Patient to receive 2 additional doses of IV Lasix today. Replace potassium. #3 acute transaminitis. No acute abdomen on examination. PT/INR ordered. Patient does have low albumin, multiple bruises low platelet on CBC concerning for liver failure. Follow-up LFT tomorrow. Abdominal ultrasound to rule out obstruction. GI consult appreciated. Hepatitis panel ordered #4 acute pancreatitis #5 rhabdomyolysis likely secondary to multiple falls and dehydration #6 hypokalemia and hypomagnesemia status post repletion #7 hypertension continue losartan and amlodipine #8 diabetes type 2 continue insulin sliding scale hold metformin #9 DVT prophylaxis with SCDs as patient has low platelets #10 GI prophylaxis with Protonix 40 mg twice a day CODE STATUS full code Discharge plan: Home on Saturday Impression and plan of care have been directed as dictated by the signing physician. Yola Nunes nurse practitioner acting as scribe for signing physician.
[2017-10-04] MEDS ORDERED: POTASSIUM CHLORIDE ER 20 MEQ TAB.ER PO SCH (15:00)
[2017-10-04] MEDS ORDERED: FUROSEMIDE 10 MG/ML 4 ML VIAL IV SCH (16:00)
[2017-10-04 17:39] LABS: Glucose,Whole Blood 319 mg/dL (75-99)
[2017-10-04 20:11] LABS: Glucose,Whole Blood 287 mg/dL (75-99)
[2017-10-05 07:01] LABS: Glucose,Whole Blood 132 mg/dL (75-99)
[2017-10-05] MEDS: IPRATROPIUM-ALBUTEROL 3 ML NEB INHALATION SCH ×4 (08:08→21:17)
[2017-10-05] MEDS: INSULIN ASPART 100 UNIT/ML 1 ML 10 ML VIAL SQ SCH ×4 (08:11→22:11)
[2017-10-05] MEDS: NICOTINE 14MG/24HR PATCH TRANSDERM SCH (08:14)
[2017-10-05] MEDS: LOSARTAN 50 MG TAB PO SCH ×2 (08:14→20:16)
[2017-10-05] MEDS: PANTOPRAZOLE 40 MG TABLET PO SCH ×2 (08:14→20:17)
[2017-10-05] MEDS: SODIUM CHLORIDE TAB 1 GM TAB PO SCH ×2 (08:14→20:16)
[2017-10-05] MEDS: amLODIPine 10 MG TAB PO SCH (08:14)
[2017-10-05 08:15] LABS: ALT 159 U/L (21-72); AST 120 U/L (17-59); Albumin 2.9 g/dL (3.5-5.0); Alkaline Phosphatase 192 U/L (38-126); Anion Gap 10 mmol/L; Blood Urea Nitrogen 13 mg/dL (9-20); Carbon Dioxide 24 mmol/L (22-30); Chloride 96 mmol/L (98-107); Glucose 122 mg/dL (74-99); Magnesium 1.4 mg/dL (1.6-2.3); Potassium 3.7 mmol/L (3.5-5.1); Sodium 130 mmol/L (137-145); Total Bilirubin 1.5 mg/dL (0.2-1.3); Total Protein 5.3 g/dL (6.3-8.2)
--- NOTE | 2017-10-05 11:21 | PN ---
PROGRESS NOTE DATE OF SERVICE: 10/05/2017 Patient is a 62-year-old pleasant white male with history of heavy alcohol abuse, who was admitted to the hospital with altered mental status and not feeling well. He was diagnosed with acute alcoholic hepatitis and hepatic encephalopathy. Patient is feeling much better today. He denies any symptoms. PHYSICAL EXAMINATION: He appears comfortable, in no apparent distress. Vital signs are stable. Blood pressure is 145/85, pulse 60, temperature 98.4. HEENT examination unremarkable. Conjunctivae are pink, sclerae nonicteric, oral cavity no lesions. NECK: No JVD or lymph node enlargement Chest was clear to auscultation. HEART: Regular rate and rhythm. ABDOMEN: Soft, nontender, nondistended. Liver and spleen are not palpable. No ascites extremities no pedal edema skin no rashes. NEUROLOGIC: Alert and oriented x3. No focal deficits. LABS: From today total bilirubin is 1.5, AST is 120, ALT is 159, alk phos was 192. Hepatitic serologies for A, B, and C were negative. Platelets 136, WBC 11.8 and hemoglobin 14.5. IMPRESSION: 1. Acute alcoholic hepatitis. Serum transaminases remain the same. Patient clinically stable. 2. Hepatic encephalopathy, resolved. 3. Hypokalemia, improving. Today's sodium is 130. RECOMMENDATIONS: Continue with present symptomatic and supportive care. Will follow the patient closely during his hospital stay. ROYCE / LUBNA: [id number] /
--- NOTE | 2017-10-05 11:30 | P.PN ---
Subjective Patient is seen in follow-up for hyponatremia. Sodium level is up to 1:30 today. Patient has history of alcohol abuse. He is off all IV fluids. He is currently maintained on fluid restriction and salt tabs. He did receive a dose of Lasix once his admission. No vomiting or diarrhea. Oral intake is good. Admits to good urine output. No active complaints at this time. Vital signs are stable. General: The patient appeared well nourished and normally developed. HEENT: Head exam is unremarkable. Neck is without jugular venous distension. LUNGS: Lungs are clear to auscultation and percussion. Breath sounds decreased. HEART: Rate and Rhythm are regular. First and second heart sounds normal. No murmurs, rubs or gallops. ABDOMEN: Abdominal exam reveals normal bowel sounds. Non-tender and non- distended. No evidence of peritonitis. EXTREMITITES: No clubbing, cyanosis, or edema. Objective - Vital Signs Vital signs: Vital Signs Temp 98.4 F 10/05/17 07:00 Pulse 116 H 10/05/17 08:19 Resp 18 10/05/17 08:00 BP 145/85 10/05/17 07:00 Pulse Ox 92 L 10/04/17 23:19 Intake & Output 10/04/17 10/05/17 10/05/17 18:59 06:59 18:59 Intake Total 440 1130 Output Total 1970 Balance -1530 1130 Intake: Intake, IV Titration 200 Amount Magnesium Sulfate-D5w Pmx 200 1 gm In Dextrose/Water 1 100ml.bag @ 100 mls/hr IVPB Q1H [facility] Rx#: [id number] Oral 240 1130 Output: Urine 1970 Other: Voiding Method Urinal Toilet Toilet Urinal Urinal # Voids 3 1 - Labs CBC & Chem 7: 10/04/17 06:23 10/05/17 07:04 Labs: Abnormal Lab Results - Last 24 Hours (Table) 10/04/17 10/04/17 10/04/17 Range/Units 11:55 17:38 20:09 Sodium (137-145) mmol/L Chloride (98-107) mmol/L Creatinine (0.66-1.25) mg/dL Glucose (74-99) mg/dL POC Glucose (mg/dL) 242 H 319 H 287 H (75-99) mg/dL Calcium (8.4-10.2) mg/dL Magnesium (1.6-2.3) mg/dL Total Bilirubin (0.2-1.3) mg/dL AST (17-59) U/L ALT (21-72) U/L Alkaline Phosphatase (38-126) U/L Total Protein (6.3-8.2) g/dL Albumin (3.5-5.0) g/dL 10/05/17 10/05/17 Range/Units 06:58 07:04 Sodium 130 L (137-145) mmol/L Chloride 96 L (98-107) mmol/L Creatinine 0.65 L (0.66-1.25) mg/dL Glucose 122 H (74-99) mg/dL POC Glucose (mg/dL) 132 H (75-99) mg/dL Calcium 8.0 L (8.4-10.2) mg/dL Magnesium 1.4 L (1.6-2.3) mg/dL Total Bilirubin 1.5 H (0.2-1.3) mg/dL AST 120 H (17-59) U/L ALT 159 H (21-72) U/L Alkaline Phosphatase 192 H (38-126) U/L Total Protein 5.3 L (6.3-8.2) g/dL Albumin 2.9 L (3.5-5.0) g/dL Assessment and Plan Plan: Assessment: #1. Hyponatremia, initially hypovolemic and improved with normal saline. Also component of beer pyromania. Sodium level up to 130 today. #2. Hypokalemia secondary to diuretics. Status post placement. Improved. #3. Benign hypertension. Controlled. #4. Hypomagnesemia secondary to diuretics and chronic alcohol abuse. #5. History of alcohol abuse. Plan: Maintain fluid restriction. Encouraged oral solute intake, particularly protein. I will add ensure 3 times a day. Decreased salt tabs to 1 g 3 times daily. Repeat electrolytes in the morning. Replace magnesium. 2 g IV today.
[2017-10-05 11:48] LABS: Glucose,Whole Blood 249 mg/dL (75-99)
[2017-10-05] MEDS: MAGNESIUM SULFATE-D5W PMX 1 GM in DEXTROSE/WATER 1 100ML.BAG IVPB SCH ×2 (13:05→15:50)
[2017-10-05] MEDS: THIAMINE 100 MG TAB PO SCH ×2 (13:06→16:51)
--- NOTE | 2017-10-05 15:59 | P.PN ---
Subjective Progress Note Date: 10/05/17 This is a 62-year-old male patient of Dr. Lafleur with past medical history of COPD, diabetes mellitus type 2, alcohol abuse, tobacco use and dependence presented to the ED with confusion, multiple falls and erratic behavior. Patient was found by the police to be going in and out of the local convenience store as a locked his keys in his car. Patient was found to be confused and also admitted that he had 4-8 beers. On evaluation today in the ER patient was found in soft restraints as he was agitated and trying to come out of bed. Ativan was given and patient was put on soft restraints. Patient states he has been restrained for 4 days. Patient is oriented 3 but is unable to provide any history leading to his falls and bruising. He states his pain in the hospital for many days. Labs done in the ER suggested critical sodium of 116, potassium 3.2, chloride 82, osmolarity 241, calcium 7.6, total bilirubin of 2, increased LFTs with AST 334 ALT 225 alkaline phosphatase 178. CK level was 1398 with low albumin. Urine osmolarity is 229 random urine sodium 26. Patient received 1 L of IV fluid with banana bag running at 100 mL per hour. Potassium was repleted. Alcohol level was normal. Patient started on alcohol withdrawal regimen. X-ray of the humerus, shoulder, head and cervical spine and chest x-ray was negative for any fractures. Lipase was 363. Patient is admitted for altered mental status likely secondary to alcohol withdrawal with possibility of hyponatremia contributing to the symptoms. 10/03: Patient is oriented to person, place, month, year and does recall going to the gas station to get beer and he recalls that someone, EMS came to his house to pick him up. Magnesium will be replaced. Sodium is now at 125 in the morning 123 in the afternoon. Blood sugars are running between 101-175. CK 768. Liver function tests elevated. Patient has received 2 doses of oral Lasix today and one yesterday of 20 mg each. He is now on sodium chloride tablets 2 g twice daily. He has been afebrile. Pulse ox 92% on room air. Patient has been seen by GI and hepatitis screen ordered. Diet as tolerated. Neurology is following the patient. EEG has been done and neurology has signed off to follow on an as-needed basis. 10/04: Patient's pulse ox is running 88-90% and he is refusing to wear oxygen or telemetry. He is having increased shortness of breath secondary to fluid overload and IV fluids were previously discontinued. Patient will given 1 dose of IV Lasix this morning and a repeat dose in the afternoon. His sodium today is at 126. Patient is continued on sodium chloride tablets. Potassium is being replaced. EEG was within normal limits. Platelet count is 136. Liver function tests remain elevated total bilirubin. Patient states he has a daughter close by and also a friend that would help him at the time of discharge. Patient ambulated well in the hallway with physical therapy. Anticipate discharge home tomorrow. Patient [facility] be transferred [facility] floor. 10/05 patient continues to complain of cough with shortness of breath with greenish sputum production concerning for bronchitis. We'll initiate patient on levofloxacin . mg continues to be low status post repletion. LFT trending downwards. Patient is feeling better endorses cough and shortness of breath. Denies any chest pain, nausea, vomiting, diarrhea or abdominal pain. Likely discharge tomorrow Objective - Vital Signs Vital signs: Vital Signs Temp 98.1 F 10/05/17 15:00 Pulse 110 H 10/05/17 15:00 Resp 20 10/05/17 15:00 BP 137/64 10/05/17 15:00 Pulse Ox 99 10/05/17 15:00 Intake & Output 10/04/17 10/05/17 10/05/17 18:59 06:59 18:59 Intake Total 440 1130 200 Output Total 1970 550 Balance -1530 1130 -350 Intake: Intake, IV Titration 200 Amount Magnesium Sulfate-D5w Pmx 200 1 gm In Dextrose/Water 1 100ml.bag @ 100 mls/hr IVPB Q1H [facility] Rx#: [id number] Oral 240 1130 200 Output: Urine 1970 550 Other: Voiding Method Urinal Toilet Toilet Urinal Urinal # Voids 3 1 1 - Exam - Exam - Constitutional General appearance: Oriented 3. In no discomfort. - EENT Eyes: anicteric sclerae, PERRLA normal appearance, bruises present in the right forehead ENT: hearing grossly normal - Neck Neck: no lymphadenopathy, normal ROM, no other, no rigidity, no stridor, no thyromegaly - Respiratory Respiratory: bilateral: wheezing noted bilaterally, reduced . No rales or crackles heard - Cardiovascular Rhythm: regular Heart sounds: normal: S1, S2 Abnormal Heart Sounds: no systolic murmur, no diastolic murmur, no rub, no S3 Gallop, no S4 Gallop, no click, chest tenderness to palpate in the substernal area and the right lower chest - Gastrointestinal General gastrointestinal: normal bowel sounds, soft, nontender - Integumentary Integumentary: Multiple bruises seen on bilateral knees, the right ricardo, left forearm in different stages of healing. - Neurologic Neurologic: CNII-XII intact - Musculoskeletal Musculoskeletal: gait normal strength equal bilaterally - Psychiatric Psychiatric: A&O x's 3, no appropriate affect, no intact judgment - Labs CBC & Chem 7: 10/04/17 06:23 10/05/17 07:04 Labs: Abnormal Lab Results - Last 24 Hours (Table) 10/04/17 10/04/17 10/05/17 Range/Units 17:38 20:09 06:58 Sodium (137-145) mmol/L Chloride (98-107) mmol/L Creatinine (0.66-1.25) mg/dL Glucose (74-99) mg/dL POC Glucose (mg/dL) 319 H 287 H 132 H (75-99) mg/dL Calcium (8.4-10.2) mg/dL Magnesium (1.6-2.3) mg/dL Total Bilirubin (0.2-1.3) mg/dL AST (17-59) U/L ALT (21-72) U/L Alkaline Phosphatase (38-126) U/L Total Protein (6.3-8.2) g/dL Albumin (3.5-5.0) g/dL 10/05/17 10/05/17 Range/Units 07:04 11:37 Sodium 130 L (137-145) mmol/L Chloride 96 L (98-107) mmol/L Creatinine 0.65 L (0.66-1.25) mg/dL Glucose 122 H (74-99) mg/dL POC Glucose (mg/dL) 249 H (75-99) mg/dL Calcium 8.0 L (8.4-10.2) mg/dL Magnesium 1.4 L (1.6-2.3) mg/dL Total Bilirubin 1.5 H (0.2-1.3) mg/dL AST 120 H (17-59) U/L ALT 159 H (21-72) U/L Alkaline Phosphatase 192 H (38-126) U/L Total Protein 5.3 L (6.3-8.2) g/dL Albumin 2.9 L (3.5-5.0) g/dL Assessment and Plan Plan: #1 metabolic encephalopathy likely secondary to alcohol withdrawal,and hyponatremia, electrolyte mediated change in mental status. EEG ordered. Seizure and fall precaution needs to be taken. #2 hypoosmolar hyponatremia sodium secondary to underlying beer potomania/tea and toast syndrome. Patient is status post IV fluids, Lasix and is now on sodium tablets. Nephrology consult appreciated. Continue to monitor sodium closely. Patient to receive 2 additional doses of IV Lasix today. Replace potassium. #3 acute transaminitis. No acute abdomen on examination. PT/INR normal Patient does have low albumin, multiple bruises low platelet on CBC concerning for liver failure. Follow-up LFT tomorrow. Abdominal ultrasound to rule out obstruction. GI consult appreciated. Hepatitis panel ordered #4 acute pancreatitis #5 rhabdomyolysis likely secondary to multiple falls and dehydration #6 hypokalemia and hypomagnesemia status post repletion #7 hypertension continue losartan and amlodipine #8 diabetes type 2 continue insulin sliding scale hold metformin #9 DVT prophylaxis with SCDs as patient has low platelets #10 GI prophylaxis with Protonix 40 mg twice a day #11 acute bronchitis. Continue duo nebs, and his stone and Levaquin CODE STATUS full code Discharge plan: Home on Saturday
[2017-10-05] MEDS ORDERED: LEVOFLOXACIN 500 MG TAB PO SCH (16:00)
[2017-10-05 16:57] LABS: Glucose,Whole Blood 192 mg/dL (75-99)
[2017-10-05 20:41] LABS: Glucose,Whole Blood 212 mg/dL (75-99)
[2017-10-06] MEDS: LOSARTAN 50 MG TAB PO SCH (07:08)
[2017-10-06] MEDS: NICOTINE 14MG/24HR PATCH TRANSDERM SCH (07:09)
[2017-10-06] MEDS: SODIUM CHLORIDE TAB 1 GM TAB PO SCH (07:09)
[2017-10-06] MEDS: PANTOPRAZOLE 40 MG TABLET PO SCH (07:09)
[2017-10-06] MEDS: amLODIPine 10 MG TAB PO SCH (07:09)
[2017-10-06 07:10] LABS: Glucose,Whole Blood 131 mg/dL (75-99)
[2017-10-06] MEDS: INSULIN ASPART 100 UNIT/ML 1 ML 10 ML VIAL SQ SCH ×2 (07:10→11:10)
[2017-10-06] MEDS: IPRATROPIUM-ALBUTEROL 3 ML NEB INHALATION SCH ×2 (07:16→11:14)
[2017-10-06 07:47] VITALS: BP 130/60; PULSE 54; RESP 18; TEMP 98.6
[2017-10-06 08:02] LABS: Anion Gap 8 mmol/L; Blood Urea Nitrogen 11 mg/dL (9-20); Calcium 8.4 mg/dL (8.4-10.2); Carbon Dioxide 21 mmol/L (22-30); Chloride 99 mmol/L (98-107); Glucose 118 mg/dL (74-99); Magnesium 1.6 mg/dL (1.6-2.3); Potassium 3.5 mmol/L (3.5-5.1); Sodium 128 mmol/L (137-145)
[2017-10-06] MEDS ORDERED: MAGNESIUM OXIDE 400 MG TAB PO SCH (09:00)
[2017-10-06] MEDS ORDERED: POTASSIUM CHLORIDE ER 20 MEQ TAB.ER PO STA (10:37)
[2017-10-06 11:06] LABS: Glucose,Whole Blood 140 mg/dL (75-99)
[2017-10-06] MEDS: THIAMINE 100 MG TAB PO SCH (11:06)
--- NOTE | 2017-10-06 11:24 | P.PN ---
Subjective Patient is seen in follow-up for hyponatremia. Sodium level is 128 today. Patient has history of alcohol abuse. He is off all IV fluids. He is currently maintained on fluid restriction and salt tabs. He did receive a dose of Lasix once his admission. No vomiting or diarrhea. Oral intake is good. Admits to good urine output. No active complaints at this time. Vital signs are stable. General: The patient appeared well nourished and normally developed. HEENT: Head exam is unremarkable. Neck is without jugular venous distension. LUNGS: Lungs are clear to auscultation and percussion. Breath sounds decreased. HEART: Rate and Rhythm are regular. First and second heart sounds normal. No murmurs, rubs or gallops. ABDOMEN: Abdominal exam reveals normal bowel sounds. Non-tender and non- distended. No evidence of peritonitis. EXTREMITITES: No clubbing, cyanosis, or edema. Objective - Vital Signs Vital signs: Vital Signs Temp 98.6 F 10/06/17 07:00 Pulse 54 L 10/06/17 08:00 Resp 18 10/06/17 08:00 BP 130/60 10/06/17 07:00 Pulse Ox 93 L 10/06/17 07:00 Intake & Output 10/05/17 10/06/17 10/06/17 18:59 06:59 18:59 Intake Total 200 830 Output Total 550 550 Balance -350 830 -550 Intake: Oral 200 830 Output: Urine 550 550 Other: Voiding Method Toilet Toilet Toilet Urinal Urinal Urinal # Voids 1 2 2 - Labs CBC & Chem 7: 10/04/17 06:23 10/06/17 07:32 Labs: Abnormal Lab Results - Last 24 Hours (Table) 10/05/17 10/05/17 10/05/17 Range/Units 11:37 16:55 20:39 Sodium (137-145) mmol/L Carbon Dioxide (22-30) mmol/L Creatinine (0.66-1.25) mg/dL Glucose (74-99) mg/dL POC Glucose (mg/dL) 249 H 192 H 212 H (75-99) mg/dL 10/06/17 10/06/17 10/06/17 Range/Units 07:09 07:32 11:03 Sodium 128 L (137-145) mmol/L Carbon Dioxide 21 L (22-30) mmol/L Creatinine 0.60 L (0.66-1.25) mg/dL Glucose 118 H (74-99) mg/dL POC Glucose (mg/dL) 131 H 140 H (75-99) mg/dL Assessment and Plan Plan: Assessment: #1. Hyponatremia, initially hypovolemic and improved with normal saline. Also component of beer potomania. Sodium level 128 today. #2. Hypokalemia secondary to diuretics. Status post placement. Still on the lower side. #3. Benign hypertension. Controlled. #4. Hypomagnesemia secondary to diuretics and chronic alcohol abuse. #5. History of alcohol abuse. Plan: Maintain fluid restriction. Encouraged oral solute intake, particularly protein. Maintain ensure 3 times a day. I will increase salt tabs 1 g 3 times daily. Replace potassium. 40 mEq today. Replace magnesium. 2 g IV today. DC NSAIDs. He will need to get basic metabolic panel checked within 2-3 days of discharge and follow-up as an outpatient in the next 1-2 weeks.
--- NOTE | 2017-10-06 15:37 | P.DS ---
Providers Date of admission: 10/01/17 23:17 Attending physician: Parul Galdamez MD Consults: 10/01/17 23:17 Consult Physician Routine Consulting Provider: Kacie Conrad Consult Reason/Comments: Rhabdomyolysis, likely imbalance, hyponatremia Do you want consulting provider notified?: Yes 10/02/17 10:58 Consult Physician Routine Consulting Provider: Juan Becerra Consult Reason/Comments: Confusion Do you want consulting provider notified?: Yes 10/02/17 14:53 Consult Physician Routine Consulting Provider: Bipin Jacob Consult Reason/Comments: Acute transminits Do you want consulting provider notified?: Yes Primary care physician: Valdemar Lafleur [facility] Course: This is a 62-year-old male patient of Dr. Lafleur with past medical history of COPD, diabetes mellitus type 2, alcohol abuse, tobacco use and dependence presented to the ED with confusion, multiple falls and erratic behavior. Patient was found by the police to be going in and out of the local convenience store as a locked his keys in his car. Patient was found to be confused and also admitted that he had 4-8 beers. On evaluation today in the ER patient was found in soft restraints as he was agitated and trying to come out of bed. Ativan was given and patient was put on soft restraints. Patient states he has been restrained for 4 days. Patient is oriented 3 but is unable to provide any history leading to his falls and bruising. He states his pain in the hospital for many days. Labs done in the ER suggested critical sodium of 116, potassium 3.2, chloride 82, osmolarity 241, calcium 7.6, total bilirubin of 2, increased LFTs with AST 334 ALT 225 alkaline phosphatase 178. CK level was 1398 with low albumin. Urine osmolarity is 229 random urine sodium 26. Patient received 1 L of IV fluid with banana bag running at 100 mL per hour. Potassium was repleted. Alcohol level was normal. Patient started on alcohol withdrawal regimen. X-ray of the humerus, shoulder, head and cervical spine and chest x-ray was negative for any fractures. Lipase was 363. Patient is admitted for altered mental status likely secondary to alcohol withdrawal with possibility of hyponatremia contributing to the symptoms. 10/03: Patient is oriented to person, place, month, year and does recall going to the gas station to get beer and he recalls that someone, EMS came to his house to pick him up. Magnesium will be replaced. Sodium is now at 125 in the morning 123 in the afternoon. Blood sugars are running between 101-175. CK 768. Liver function tests elevated. Patient has received 2 doses of oral Lasix today and one yesterday of 20 mg each. He is now on sodium chloride tablets 2 g twice daily. He has been afebrile. Pulse ox 92% on room air. Patient has been seen by GI and hepatitis screen ordered. Diet as tolerated. Neurology is following the patient. EEG has been done and neurology has signed off to follow on an as-needed basis. 10/04: Patient's pulse ox is running 88-90% and he is refusing to wear oxygen or telemetry. He is having increased shortness of breath secondary to fluid overload and IV fluids were previously discontinued. Patient will given 1 dose of IV Lasix this morning and a repeat dose in the afternoon. His sodium today is at 126. Patient is continued on sodium chloride tablets. Potassium is being replaced. EEG was within normal limits. Platelet count is 136. Liver function tests remain elevated total bilirubin. Patient states he has a daughter close by and also a friend that would help him at the time of discharge. Patient ambulated well in the hallway with physical therapy. Anticipate discharge home tomorrow. Patient will be transferred to the [facility] floor. 10/05 patient continues to complain of cough with shortness of breath with greenish sputum production concerning for bronchitis. We'll initiate patient on levofloxacin . mg continues to be low status post repletion. LFT trending downwards. Patient is feeling better endorses cough and shortness of breath. Denies any chest pain, nausea, vomiting, diarrhea or abdominal pain. Likely discharge tomorrow 10/06: Patient is examined bedside. No confusion is answering questions appropriately. Denies any chest pain, shortness breath, nausea or vomiting, abdominal pain or diarrhea. Sodium today 128. Patient would continue on 1 g 3 times a day. Examination suggests some wheezing bilaterally but patient currently not on any oxygen. We will need few days of antibiotics for bronchitis Discharge diagnoses #1 metabolic encephalopathy likely secondary to alcohol withdrawal,and hyponatremia #2 hypoosmolar hyponatremia secondary to underlying beer potomania #3 acute transaminitis. #4 acute pancreatitis #5 rhabdomyolysis likely secondary to multiple falls and dehydration #6 hypokalemia and hypomagnesemia #7 hypertension #8 diabetes type 2 #9 acute bronchitis Disposition home with self-care CC a copy of discharge to Dr. Pendleton Patient Condition at Discharge: Good Plan - Discharge Summary Discharge Rx Participant: No New Discharge Prescriptions: New Levofloxacin [Levaquin] 500 mg PO Q24H #5 tab Magnesium Oxide 400 mg PO DAILY #30 tablet predniSONE 40 mg PO DAILY #10 tab Thiamine [Vitamin B-1] 100 mg PO DAILY #30 tablet Continue amLODIPine [Norvasc] 10 mg PO DAILY Allergy Tab(Unknown) 1 tab PO DAILY metFORMIN HCL [Glucophage] 500 mg PO BID Losartan Potassium 100 mg PO BID Discharge Medication List Allergy Tab(Unknown) 1 tab PO DAILY 10/01/17 [History] amLODIPine [Norvasc] 10 mg PO DAILY 10/01/17 [History] Losartan Potassium 100 mg PO BID 10/02/17 [History] metFORMIN HCL [Glucophage] 500 mg PO BID 10/02/17 [History] Levofloxacin [Levaquin] 500 mg PO Q24H #5 tab 10/06/17 [Rx] Magnesium Oxide 400 mg PO DAILY #30 tablet 10/06/17 [Rx] Thiamine [Vitamin B-1] 100 mg PO DAILY #30 tablet 10/06/17 [Rx] predniSONE 40 mg PO DAILY #10 tab 10/06/17 [Rx] Follow up Appointment(s)/Referral(s): Valdemar Lafleur MD [Primary Care Provider] - 1-2 days (call saturday to make appt. for in 1 week. office closed at time of discharge.) Ambulatory/Diagnostic Orders: Basic Metabolic Panel [LAB.AMB] Time Frame: 1 Week, Location: Determined By Patient Patient Instructions/Handouts: Prednisone (By mouth), Thiamine (By mouth), Levofloxacin (By mouth), Magnesium Oxide (By mouth), Encephalopathy (DC) Discharge Disposition: HOME SELF-CARE
[2017-10-06] MEDS ORDERED: SODIUM CHLORIDE TAB 1 GM TAB PO SCH (16:00)
--- NOTE | 2017-10-08 12:23 | CDI ---
Last Revision, June 2017 Documentation Clarification Form Date: 10/08/17 From: Marina Aaron Sallie Celine, Belt Turner between 8:30 am & 5 pm Josephine Admit Date: 10/01/2017 11:17:00 PM Patient Name: Peyman Amezcua V Visit Number: [id number] Discharge Date: 10/06/17 ATTENTION: The Clinical Documentation Specialists (CDI) and [facility] Coding Staff appreciate your assistance in clarifying documentation. Please respond to the clarification below the line at the bottom and electronically sign. The CDI & [facility] Coding staff will review the response and follow-up if needed. Please note: Queries are made part of the Legal Health Record. If you have any questions, please contact the author of this message via ITS. Dr. Parul Galdamez Conflicting documentation found in the medical record. Metabolic encephalopathy is documented in the H&P, DS and PNs. Hepatic encephalopathy is documented in 10/[address] Kristen Boles. Alcohol dependence currently in withdrawals with AMS. Alcoholic hepatitis, acute pancreatitis, hyponatremia, hypomagesemia and hypokalemia. EEG ordered. Neurology consult. In your professional opinion, can you please clarify the specific type of encephalopathy, if known? Metabolic Encephalopathy Hepatic Encephalopathy Other, please specify Unable to determine Please continue to document in your progress notes and discharge summary in order to capture severity of illness and risk of mortality. Include clinical findings that support your diagnosis. Metabolic encephalopathy secondary to hyponatremia MTDD
--- NOTE | 2017-10-10 09:45 | CDI ---
Last Revision, June 2017 Documentation Clarification Form Date: 10/10/17 From: Marina Aaron Sallie Berger, Lock Up Worker between 8:30 am & 5 pm MDavid Admit Date: 10/01/2017 11:17:00 PM Patient Name: Peyman Amezcua V Visit Number: [id number] Discharge Date: 10/06/17 ATTENTION: The Clinical Documentation Specialists (CDI) and [facility] Coding Staff appreciate your assistance in clarifying documentation. Please respond to the clarification below the line at the bottom and electronically sign. The CDI & [facility] Coding staff will review the response and follow-up if needed. Please note: Queries are made part of the Legal Health Record. If you have any questions, please contact the author of this message via ITS. Dr. Parul Galdamez Acute pancreatitis is documented in the H&P, DS & PNs 10/03, 10/04, 10/05 . Patient with metabolic encephalopathy, alcohol withdrawal/delirium, hyponatremia and rhabdomyolysis. Lipase: 363 Amylase: 38 ABD XR: Correlate for hepatic steatosis. Limited exam. Treated with IV fluids. In your professional opinion, can the etiology of the pancreatitis be further specified as one of the following, if known? Acute Alcohol induced Other, please specify Unable to determine Please continue to document in your progress notes and discharge summary in order to capture severity of illness and risk of mortality. Include clinical findings that support your diagnosis. acute pancreatitis secondary to alcohol intake MTDD
== END 2017-10-06 14:40 | disposition home or self-care (01) | DRG 640 ==
LOC: EC 20:00 → 6ICU 23:17 → 6SEL 10-02 08:35 → 5MS5E 10-04 15:49
PROVIDERS: ADMIT Internal Medicine; ATTEND Internal Medicine
DX: E87.1 Hypo-osmolality and hyponatremia (principal); G93.41 Metabolic encephalopathy; F10.231 Alcohol dependence with withdrawal delirium; K85.20 Alcohol induced acute pancreatitis without necrosis or infection; D69.6 Thrombocytopenia, unspecified; E83.42 Hypomagnesemia; E83.51 Hypocalcemia; J44.0 Chronic obstructive pulmonary disease with (acute) lower respiratory infection; M62.82 Rhabdomyolysis; E87.70 Fluid overload, unspecified; K72.90 Hepatic failure, unspecified without coma; M48.02 Spinal stenosis, cervical region; K76.0 Fatty (change of) liver, not elsewhere classified; K70.10 Alcoholic hepatitis without ascites; E86.1 Hypovolemia; Z78.1 Physical restraint status; F63.1 Pyromania; J20.9 Acute bronchitis, unspecified; E86.0 Dehydration; E87.6 Hypokalemia; T50.2X5A Adverse effect of carbonic-anhydrase inhibitors, benzothiadiazides and other diuretics, initial encounter; I10 Essential (primary) hypertension; R74.0 Nonspecific elevation of levels of transaminase and lactic acid dehydrogenase [LDH]; R29.6 Repeated falls; S80.02XA Contusion of left knee, initial encounter; S80.01XA Contusion of right knee, initial encounter; S80.11XA Contusion of right lower leg, initial encounter; S50.12XA Contusion of left forearm, initial encounter; E11.9 Type 2 diabetes mellitus without complications; Z71.41 Alcohol abuse counseling and surveillance of alcoholic; F17.200 Nicotine dependence, unspecified, uncomplicated; Z91.81 History of falling; Z96.659 Presence of unspecified artificial knee joint; Z79.84 Long term (current) use of oral hypoglycemic drugs; Z79.899 Other long term (current) drug therapy; Y90.0 Blood alcohol level of less than 20 mg/100 ml; W00.0XXA Fall on same level due to ice and snow, initial encounter; W01.0XXA Fall on same level from slipping, tripping and stumbling without subsequent striking against object, initial encounter; Y92.009 Unspecified place in unspecified non-institutional (private) residence as the place of occurrence of the external cause
CPT/HCPCS: 36415; 70450; 71045; 71046; 72125; 76705; 80048; 80053; 80074; 80306; 80320; 81001; 82140; 82150; 82550; 82553; 83036; 83690; 83735; 83930; 83935; 84132; 84295; 84300; 84484; 85025; 85610; 85730; 93005; 94640; 94760; 95819; 96365; 96366; 96368; 96372; 96375; 99291

== ENCOUNTER 2018-08-27 06:49 | Day surgery (SDC) | payer MEDICARE, BC ==
[2018-08-22 16:07] VITALS: BMI 31.9
[~2018-08-27 06:49] MED LIST changes: +LACTATED RINGERS 1,000 ML IV SCH; +LIDOCAINE 1% 20 ML VIAL (10MG/ML) FOR IV START INTRADERMA PRN; -THIAMINE 100 MG TAB PO SCH
[2018-08-27 07:24] VITALS: RESP 20; TEMP 98.7
[2018-08-27 07:29] LABS: Glucose,Whole Blood 137 mg/dL (75-99)
[2018-08-27] MEDS ORDERED: PROPOFOL 10 MG/ML 20 ML VIAL IV ONE (07:30)
--- NOTE | 2018-08-27 07:37 | P.GSHP ---
History of Present Illness H&P Date: 08/27/18 Chief Complaint: Colon cancer screening Patient here today for colonoscopy. He has not had one in the last 10-20 years. No bowel related complaints. He may have had polyps at the time of his last colonoscopy. No family history colon cancer. Past Medical History Past Medical History: COPD, Diabetes Mellitus, Hypertension Additional Past Medical History / Comment(s): painful and limited ROM to left shoulder History of Any Multi-Drug Resistant Organisms: None Reported Past Surgical History: Orthopedic Surgery Additional Past Surgical History / Comment(s): Venu Knee replacement. Past Anesthesia/Blood Transfusion Reactions: No Reported Reaction Additional Past Anesthesia/Blood Transfusion Reaction / Comment(s): no hx blood transfusion Smoking Status: Current every day smoker - Past Family History Mother Additional Family Medical History / Comment(s): dementia Father Family Medical History: Cancer Additional Family Medical History / Comment(s): bone,brain Sister(s) Family Medical History: Cancer Additional Family Medical History / Comment(s): lung/brain Medications and Allergies Home Medications Medication Instructions Recorded Confirmed Type amLODIPine [Norvasc] 10 mg PO HS 10/01/17 08/27/18 History Losartan Potassium 200 mg PO HS 10/02/17 08/27/18 History metFORMIN HCL [Glucophage] 1,000 mg PO HS 10/02/17 08/22/18 History Thiamine [Vitamin B-1] 100 mg PO DAILY #30 tablet 10/06/17 08/27/18 Rx Glimepiride [Amaryl] 4 mg PO HS 08/22/18 08/27/18 History Multivitamins, Thera [Multivitamin 1 tab PO DAILY 08/22/18 08/27/18 History (formulary)] Allergies Allergy/AdvReac Type Severity Reaction Status Date / Time No Known Allergies Allergy Verified 08/22/18 15:54 Surgical - Exam Vital Signs Temp Pulse Resp BP Pulse Ox 98.7 F 113 H 20 148/77 92 L 08/27/18 07:15 08/27/18 07:15 08/27/18 07:15 08/27/18 07:15 08/27/18 07:15 Physical exam: General: Well-developed, well-nourished HEENT: Normocephalic, sclerae nonicteric Abdomen: Nontender, nondistended Extremities: No edema Neuro: Alert and oriented Results - Labs Abnormal Lab Results - Last 24 Hours (Table) 08/27/18 Range/Units 07:23 POC Glucose (mg/dL) 137 H (75-99) mg/dL Assessment and Plan (1) Colon cancer screening Narrative/Plan: Will proceed with colonoscopy at this time. Current Visit: Yes Status: Acute Code(s): Z12.11 - ENCOUNTER FOR SCREENING FOR MALIGNANT NEOPLASM OF COLON SNOMED Code(s): 004092602
--- NOTE | 2018-08-27 07:48 | P.PCN ---
Date of Procedure: 08/27/18 Procedure(s) Performed: PREOPERATIVE DIAGNOSIS: Colon cancer screening POSTOPERATIVE DIAGNOSIS: Normal exam PROCEDURE: Colonoscopy ANESTHESIA: MAC SURGEON: Donnie Nava M.D. SPECIMENS: None ENDOSCOPIC PROCEDURE: The patient was placed on the endoscopy table in the left decubitus position. The Olympus colonoscope was inserted into the anus and passed under direct visualization to the base of the cecum. The appendiceal orifice was visualized. From that point the scope was slowly withdrawn inspecting all surfaces carefully. There were no neoplastic inflammatory or polypoid lesions throughout the cecum, ascending, transverse, descending, sigmoid and rectum. There was no visible diverticulosis noted. Digital rectal examination was normal. The patient was taken to the recovery room in stable condition per anesthesia guidelines. RECOMMENDATIONS: Increase fiber. Follow-up colonoscopy 10 years.
[2018-08-27 08:32] VITALS: BP 135/73; PULSE 90
== END 2018-08-27 09:06 | disposition home or self-care (01) ==
LOC: ORWHC2ENDO 06:49
PROVIDERS: ATTEND Surgery
DX: Z12.11 Encounter for screening for malignant neoplasm of colon (principal); E11.9 Type 2 diabetes mellitus without complications; F17.210 Nicotine dependence, cigarettes, uncomplicated; I10 Essential (primary) hypertension; J44.9 Chronic obstructive pulmonary disease, unspecified; Z79.84 Long term (current) use of oral hypoglycemic drugs; Z96.653 Presence of artificial knee joint, bilateral; Z79.899 Other long term (current) drug therapy
CPT/HCPCS: J2704; G0121

== ENCOUNTER → 2019-07-13 | Outpatient (CLI) | payer MEDICARE, BC ==
--- NOTE | 2019-07-13 14:14 | CTL ---
EXAMINATION TYPE: CT Low Dose Lung DATE OF EXAM ORDERED: 07/13/2019 HISTORY: Long-term tobacco use. Lung cancer screening CT DLP: [address] CTDI: 2.18 mGy Automated exposure control for dose reduction was used. SCREENING VISIT: First study COMPARISON: None. TECHNIQUE: Low dose computed tomography scan was performed through the chest at 1 mm thick sections a nd reconstructed images in the coronal plane at [address] DIAGNOSTIC QUALITY: Limited, but interpretable FINDINGS: LUNG NODULES: None. LUNGS: COPD: Severity: None. Fibrosis: Severity: Mild scattered Lymph nodes: No greater than 1 cm. Slightly prominent but subcentimeter thoracic lymph nodes. Other findings: Main pulmonary artery measures 2.7 cm in diameter. Adjacent to the aorta measures up to 3.0 cm in diameter axial image 26 series 3. BILATERAL PLEURAL SPACE: Effusion: None Calcification: None Thickening: None Pneumothorax: None HEART: Heart Size: Normal Coronary calcification: Moderate to severe Pericardial effusion: None OTHER FINDINGS: Upper abdomen: Some artifact related to large body habitus. Bony thorax: Moderate multilevel spurring. Supraclavicular region: None. Other: None. IMPRESSION: No suspicious nodules. FOLLOW UP CT CHEST RECOMMENDATION: Annual low-dose lung screening CT. CT LUNG RAD: Lung-Rad 1 Negative
== END | disposition home or self-care (01) ==
LOC: RADCTMAIN 13:33
PROVIDERS: ATTEND Internal Medicine
DX: Z12.2 Encounter for screening for malignant neoplasm of respiratory organs (principal); Z87.891 Personal history of nicotine dependence

== ENCOUNTER → 2019-08-20 | Outpatient (CLI) | payer MEDICARE, BC ==
[~2019-08-20] MED LIST changes: -LACTATED RINGERS 1,000 ML IV SCH; -LIDOCAINE 1% 20 ML VIAL (10MG/ML) FOR IV START INTRADERMA PRN; +REGADENOSON 0.4 MG/5 ML SYRINGE IV ONE
--- NOTE | 2019-08-20 10:58 | NM ---
EXAMINATION TYPE: NM stress lexiscan cardiolite DATE OF EXAM: 08/20/2019 COMPARISON: NONE HISTORY: Chest pain TECHNIQUE: After the intravenous administration of 10.3 mCi Tc 99m Sestamibi - Cardiolite resting SP ECT images acquired 45 minutes post injection. The patient received 0.4mg Lexiscan, 26.1 mCi Tc 99m Sestamibi - Stress images obtained [address] injection FINDINGS: Review of stress and rest SPECT images demonstrates no distinct perfusion abnormality. Gated analysi s shows normal wall motion with an estimated left ventricular ejection fraction of 44 %. IMPRESSION: No scintigraphic evidence for reversible ischemia.
--- NOTE | 2019-08-20 14:17 | EST ---
EXERCISE STRESS AGE: 64 SEX: M HT: 68" WT: 211 PROTOCOL: Lexiscan Cardiolite HEART RATE REST: 83 BLOOD PRESSURE REST: 113/63 MAXIMUM HEART RATE ACHIEVED: 89 MAXIMUM BLOOD PRESSURE: 127/72 85% MPHR: 131 100% MPHR: 154 INDICATIONS: Coronary atherosclerosis. CLINICAL INFORMATION: Baseline EKG revealed normal sinus rhythm without significant ST changes. With Lexiscan administration, heart rate changed from 83-80 9 beats per minute blood pressure changed from 113/63 to 127/72. Rare PVCs were noted. EKG was unremarkable. Patient did not have any significant symptoms. By EKG criteria, this is unremarkable with rare isolated PVCs. No anginal symptoms are noted. The nuclear scan results which are more pertinent will be reported by the radiologist. MMODL / IJN: [id number] /
== END | disposition home or self-care (01) ==
LOC: RADNMMAIN 07:49
PROVIDERS: ATTEND Internal Medicine
DX: I25.83 Coronary atherosclerosis due to lipid rich plaque (principal)
CPT/HCPCS: 93017; 78452; A9500; J2785

== ENCOUNTER 2020-04-18 04:32 | Emergency (ER) | payer MEDICARE, BC ==
[2020-04-18] MEDS ORDERED: KETOROLAC 15 MG/ML 1 ML VIAL IM STA (05:17)
[2020-04-18] MEDS ORDERED: ORPHENADRINE 30 MG/ML 2 ML VIAL IM STA (05:17)
[2020-04-18] MEDS ORDERED: ACET/COD 300 MG/30 MG STARTER PACK 6 TAB BTL PO STA (05:22)
--- NOTE | 2020-04-18 05:25 | ED ---
General Adult HPI - General Chief complaint: Back Pain/Injury Stated complaint: back pain Time Seen by Provider: 04/18/20 04:54 Source: patient Mode of arrival: wheelchair Limitations: no limitations - History of Present Illness Initial comments: Peyman is a 65-year-old male who presents the ER today for evaluation of sciatic pain. Patient reports he has a history of sciatica and previously followed with orthopedic associates for this problem. 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 Patient reports that for the past 3 days he has tried stretching and yesterday he states he tried drinking beer to help him sleep but reports he still can't get a comfortable position which prompted him come the ER for treatment. Asians denies any difficulty walking or weakness in the legs any difficulty urinating or having bowel movements he denies any episodes of incontinence. Denies any falls or injuries to the back. Denies any history of cancers. - Related Data Home Medications Medication Instructions Recorded Confirmed amLODIPine [Norvasc] 10 mg PO HS 10/01/17 08/27/18 Losartan Potassium 200 mg PO HS 10/02/17 08/27/18 metFORMIN HCL [Glucophage] 1,000 mg PO HS 10/02/17 08/22/18 Glimepiride [Amaryl] 4 mg PO HS 08/22/18 08/27/18 Multivitamins, Thera [Multivitamin 1 tab PO DAILY 08/22/18 08/27/18 (formulary)] Previous Rx's Medication Instructions Recorded Thiamine [Vitamin B-1] 100 mg PO DAILY #30 tablet 10/06/17 Allergies Allergy/AdvReac Type Severity Reaction Status Date / Time No Known Allergies Allergy Verified 04/18/20 04:41 Review of Systems ROS Statement: Those systems with pertinent positive or pertinent negative responses have been documented in the HPI. ROS Other: All systems not noted in ROS Statement are negative. Past Medical History Past Medical History: COPD, Diabetes Mellitus, Hypertension Additional Past Medical History / Comment(s): limited ROM to left shoulder History of Any Multi-Drug Resistant Organisms: None Reported Past Surgical History: Orthopedic Surgery Additional Past Surgical History / Comment(s): Venu Knee replacement. Past Anesthesia/Blood Transfusion Reactions: No Reported Reaction Additional Past Anesthesia/Blood Transfusion Reaction / Comment(s): no hx blood transfusion Past Psychological History: No Psychological Hx Reported Smoking Status: Current every day smoker Past Alcohol Use History: Occasional Past Drug Use History: None Reported - Past Family History Mother Additional Family Medical History / Comment(s): dementia Father Family Medical History: Cancer Additional Family Medical History / Comment(s): bone,brain Sister(s) Family Medical History: Cancer Additional Family Medical History / Comment(s): lung/brain General Exam - General Exam Comments Initial Comments: Physical Exam GENERAL: Patient is well-developed and well-nourished. Patient is nontoxic and well-hydrated and is in no distress. HENT: Normocephalic, Atraumatic. EYES: PERRL, EOMI PULMONARY: Unlabored respirations. CARDIOVASCULAR: RRR Warm and well perfused extremities ABDOMEN: Non-distended SKIN: No rashes or bruising : Deferred NEUROLOGIC: Alert and oriented Normal speech Normal gait - able to transition from bed to walking without difficulty MUSCULOSKELETAL: Moving all extremities with no apparent injury PSYCHIATRIC: No SI/HI Limitations: no limitations Course Vital Signs 04/18/20 04/18/20 04:37 05:45 Temperature 98.9 F 98.5 F Pulse Rate 102 H 97 Respiratory 22 18 Rate Blood Pressure 188/101 170/95 O2 Sat by Pulse 95 97 Oximetry Medical Decision Making - Medical Decision Making The patient was seen and evaluated history is obtained from the patient Patient has a history of sciatica presenting today with an exacerbation of his sciatic pain, no midline spinal tenderness, no fevers, no cancers history, no focal neurologic deficits or gait abnormality At this time x-ray will be ordered due to the patient's advanced age Patient will be treated with muscle relaxers and anti-inflammatories as he is driving, he will be discharged home with a Tylenol 3 starter pack and referred to spine surgery for follow-up Xray no acute findings, patient feeling better after Toradol and Norflex comfortable plan for discharge home Disposition Clinical Impression: Sciatica Disposition: HOME SELF-CARE Condition: Stable Instructions (If sedation given, give patient instructions): Acute Low Back Pain (ED) Is patient prescribed a controlled substance at d/c from ED?: No Referrals: Parker Pendleton MD [Primary Care Provider] - 1-2 days Bigg Stephens DO [Doctor of Osteopathic Medicine] - 1-2 days Ronda Jones DO [Doctor of Osteopathic Medicine] - 1-2 days
[2020-04-18] MEDS ORDERED: KETOROLAC 15 MG/ML 1 ML VIAL ONE (05:27)
--- NOTE | 2020-04-18 05:51 | XR ---
EXAMINATION TYPE: XR lumbar spine 2 or 3V DATE OF EXAM: 04/18/2020 COMPARISON: 05/21/2012 HISTORY: Right-sided sciatica. Back pain. TECHNIQUE: 3 views FINDINGS: There is 10 mm anterior subluxation of L4 in relation L5. I see no definite spondylolysis. There is narrowing of L4-5 disc space. There is no compression fracture. Sacroiliac joints are intact . Abdominal aorta is atheromatous. There is no evidence of focal bone destruction. IMPRESSION: There is a degenerative first-degree L4-5 spondylolisthesis that is significantly increas ed compared to old exam. No fracture seen. There is probably spinal stenosis at L4-5.
[2020-04-18 06:23] VITALS: BP 170/95; PULSE 97; RESP 18; TEMP 98.5
== END 2020-04-18 06:15 | disposition home or self-care (01) ==
LOC: EC 04:32
DX: M54.31 Sciatica, right side (principal); E11.9 Type 2 diabetes mellitus without complications; I10 Essential (primary) hypertension; F17.200 Nicotine dependence, unspecified, uncomplicated; Z79.84 Long term (current) use of oral hypoglycemic drugs; Z79.899 Other long term (current) drug therapy; Z96.653 Presence of artificial knee joint, bilateral
CPT/HCPCS: 72100; 96372 ×2; 99283; J2360; J1885

== ENCOUNTER 2020-05-26 06:19 | Emergency (ER) | payer MEDICARE, BC ==
[2020-05-26 06:31] VITALS: BP 153/76; PULSE 100; RESP 18; TEMP 98.3
[2020-05-26] MEDS ORDERED: KETOROLAC 15 MG/ML 1 ML VIAL IVP STA (06:33)
[2020-05-26] MEDS ORDERED: SODIUM CHLORIDE 0.9% 500 ML 500 ML IV ONE (06:34)
[2020-05-26] MEDS ORDERED: ONDANSETRON 4 MG/2 ML VIAL IVP STA (06:34)
[2020-05-26] MEDS ORDERED: MORPHINE SULFATE 4 MG/ML SYRINGE IVP STA (06:34)
--- NOTE | 2020-05-26 06:38 | ED ---
Lower Extremity Injury HPI - General Chief Complaint: Extremity Injury, Lower Stated Complaint: Back Pain Time Seen by Provider: 05/26/20 06:26 Source: patient, EMS Mode of arrival: EMS - History of Present Illness Initial Comments: 65yo male prsenting for cc of right posterior leg pain. Patient states for > 2 months he has been struggling with sciatica or what he thinks is sciatica, he states it is shooting/burning/cramping pain down the right "butt cheek" down to the edge of the right foot. Patient denies leg weakness, states there are certain positions that make it feel better. Patient denies fall, direct trauma, fevers, IVDU. He states that he was here 2 weeks ago, given muscle relaxers and was discharged, he states he followed up with PCP as directed and is scheduling an MRI outpatient he was prescribed new muscle relaxant and tylenol #3 and states that they were beginning to help a lot. Patient states that he twisted to get into a chair approximately a week ago and that started another "flare" he states that the pain is again burning shooting from middle of buttock down to the the lateral aspect of foot. Denies loss of bowel bladder control, denies urinary retention. Patient is able to walk and standing actually makes the pain better. Patient appears to in an uncomfortable position on arrival. - Related Data Home Medications Medication Instructions Recorded Confirmed amLODIPine [Norvasc] 10 mg PO HS 10/01/17 08/27/18 Losartan Potassium 200 mg PO HS 10/02/17 08/27/18 metFORMIN HCL [Glucophage] 1,000 mg PO HS 10/02/17 08/22/18 Glimepiride [Amaryl] 4 mg PO HS 08/22/18 08/27/18 Multivitamins, Thera [Multivitamin 1 tab PO DAILY 08/22/18 08/27/18 (formulary)] Previous Rx's Medication Instructions Recorded Thiamine [Vitamin B-1] 100 mg PO DAILY #30 tablet 10/06/17 Allergies Allergy/AdvReac Type Severity Reaction Status Date / Time No Known Allergies Allergy Verified 04/18/20 04:41 Review of Systems ROS Statement: Those systems with pertinent positive or pertinent negative responses have been documented in the HPI. ROS Other: All systems not noted in ROS Statement are negative. Past Medical History Past Medical History: COPD, Diabetes Mellitus, Hypertension Additional Past Medical History / Comment(s): limited ROM to left shoulder History of Any Multi-Drug Resistant Organisms: None Reported Past Surgical History: Orthopedic Surgery Additional Past Surgical History / Comment(s): Venu Knee replacement. Past Anesthesia/Blood Transfusion Reactions: No Reported Reaction Additional Past Anesthesia/Blood Transfusion Reaction / Comment(s): no hx blood transfusion Past Psychological History: No Psychological Hx Reported Smoking Status: Current every day smoker Past Alcohol Use History: Occasional Past Drug Use History: None Reported - Past Family History Mother Additional Family Medical History / Comment(s): dementia Father Family Medical History: Cancer Additional Family Medical History / Comment(s): bone,brain Sister(s) Family Medical History: Cancer Additional Family Medical History / Comment(s): lung/brain General Exam - General Exam Comments Initial Comments: General: The patient is awake and alert, in no distress, and does not appear acutely ill. Eye: Pupils are equal, round and reactive to light, extra-ocular movements are intact. No nystagmus. There is normal conjunctiva bilaterally. No signs of icterus. Cardiovascular: There is a regular rate and rhythm. No murmur, rub or gallop is appreciated. Respiratory: Lungs are clear to auscultation, respirations are non-labored, breath sounds are equal. No wheezes, stridor, rales, or rhonchi. Gastrointestinal: Soft, non-distended, non-tender abdomen without masses or organomegaly noted. There is no rebound or guarding present. Musculoskeletal: Normal ROM, no tenderness. Strength 5/5 of the LE b/l, (-) SLR b/l. Sensation intact of the LE b/l. DP pulses equal bilaterally 2+. Normal gait. pain to palpation mid buttock. Neurological: A&O x 3. CN II-XII intact grosslt, There are no obvious motor or sensory deficits. Coordination appears grossly intact. Speech is normal. Skin: Skin is warm and dry and no rashes or lesions are noted. Psychiatric: Cooperative, appropriate mood & affect, normal judgment. re-evaluation: walks to chair, decreased pain, sits without significant discomfort Course Vital Signs 05/26/20 06:27 Temperature 98.3 F Pulse Rate 100 Respiratory 18 Rate Blood Pressure 153/76 O2 Sat by Pulse 94 L Oximetry Medical Decision Making - Medical Decision Making Pt appears well, no hx concerning for cauda equina. or PE findings. No cancer, trauma or falls. 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 Patient pain controlled can now sit directly onto bottom without significnat discomfort. Gait normal. Pt has o utpatient pain meds is able to get outpatient follow-up. Patient is agreeable to discharge with PCP f/u. Discussed case attending provider who is agreeable to care plan. Disposition Clinical Impression: Sciatica Disposition: HOME SELF-CARE Condition: Good Additional Instructions: Please use medication as discussed. Please follow-up with family doctor in the next 2 days, recommend outpatient MRI. Please return to emergency room if the symptoms increase or worsen or for any other concerns. Is patient prescribed a controlled substance at d/c from ED?: No Referrals: Parker Pendleton MD [Primary Care Provider] - 1-2 days Time of Disposition: 07:31
[2020-05-26] MEDS ORDERED: HYDROcodone/APAP 5-325MG 1 EACH TAB PO STA (07:31)
== END 2020-05-26 07:45 | disposition home or self-care (01) ==
LOC: EC 06:19
DX: M54.30 Sciatica, unspecified side (principal); F17.200 Nicotine dependence, unspecified, uncomplicated; E11.9 Type 2 diabetes mellitus without complications; I10 Essential (primary) hypertension; Z79.84 Long term (current) use of oral hypoglycemic drugs; Z79.899 Other long term (current) drug therapy; Z96.653 Presence of artificial knee joint, bilateral
CPT/HCPCS: 99283; 96374; 96375 ×2; J2270; J2405; J1885

== ENCOUNTER → 2021-12-06 | Outpatient (CLI) | payer MEDICARE ==
--- NOTE | 2021-12-06 13:43 | XR ---
Lumbar spine HISTORY: Spinal stenosis, low back pain 3 views of the lumbar spine correlated prior exam 04/18/2020 Bone mineralization may be decreased. Anterolisthesis grade 1 L4-5 is again noted. Loss of disc heigh t is present at intervertebral levels as on prior exam and may progressed at L3-4, there is vacuum ph enomenon at L4-5 and L5-S1. Multilevel spondylosis is present. Sclerosis is present in the posterior elements. Atherosclerotic calcification is present in the aortoiliac level. IMPRESSION: Degenerative disc disease, spinal listhesis, facet arthropathy
== END | disposition home or self-care (01) ==
LOC: RADXRMAIN 12:51
PROVIDERS: ATTEND Internal Medicine Geriatric Medicine
DX: M51.36 Other intervertebral disc degeneration, lumbar region (principal); M43.16 Spondylolisthesis, lumbar region; M47.816 Spondylosis without myelopathy or radiculopathy, lumbar region
CPT/HCPCS: 72100

== ENCOUNTER → 2022-03-26 | Outpatient (CLI) | payer MEDICARE ==
--- NOTE | 2022-03-26 11:46 | US ---
EXAMINATION TYPE: US carotid duplex BILAT DATE OF EXAM: 03/26/2022 COMPARISON: NONE CLINICAL HISTORY: G45.9 TIA. TECHNIQUE: Carotid duplex ultrasound examination. Indirect Doppler criteria was utilized. FINDINGS: EXAM MEASUREMENTS: RIGHT: Peak Systolic Velocity (PSV) cm/sec ----- Right CCA: 78.8 ----- Right ICA: 76.6 ----- Right ECA: 127.0 ICA/CCA ratio: 1.0 RIGHT: End Diastole cm/sec ----- Right CCA: 12.7 ----- Right ICA: 20.5 ----- Right ECA: 12.3 LEFT: Peak Systolic Velocity (PSV) cm/sec ----- Left CCA: 67.7 ----- Left ICA: 114.3 ----- Left ECA: 53.5 ICA/CCA ratio: 1.7 LEFT: End Diastole cm/sec ----- Left CCA: 11.7 ----- Left ICA: 36.1 ----- Left ECA: 0.0 VERTEBRALS (direction of flow): Right Vertebral: Antegrade Left Vertebral: Antegrade Rhythm: Normal SENIOR DESIGN ENGINEERING SPECIALIST NOTES: Moderate atherosclerotic changes with calcified bulb plaque. No significant velocity increases seen bilaterally. IMPRESSION: Moderate atherosclerotic calcified plaque less than 50% stenosis bilaterally of the origins of the in ternal carotid arteries. Criteria for Assigning % of Stenosis / Diameter reduction (Estimation based on the indirect measurements of the internal carotid artery velocities (ICA PSV). 1. Normal (no stenosis)=ICA PSV < 125 cm/s: ratio < 2.0: ICA EDV<40 cm/s. 2. Less than 50% stenosis=ICA PSV < 125 cm/s: ratio < 2.0: ICA EDV<40 cm/s. 3. 50 to 69% stenosis=ICA PSV of 125 to 230 cm/s: ration 2.0 ? 4.0: ICA EDV 40-100 cm/s. 4. Greater than 70% stenosis to near occlusion= ICA PSV > 230 cm/s: ratio > 4.0: ICA EDV > 100 cm/s. 5. Near occlusion= ICA PSV velocities may be low or undetectable: variable ratio and ICA EDV. 6. Total occlusion=unable to detect flow.
== END | disposition home or self-care (01) ==
LOC: RADUSWWP 10:45
PROVIDERS: ATTEND Internal Medicine Geriatric Medicine
DX: I65.23 Occlusion and stenosis of bilateral carotid arteries (principal)
CPT/HCPCS: 93880

== ENCOUNTER 2023-01-03 00:58 | Observation (INO) | payer MEDICARE ==
[2023-01-03 02:01] LABS: Basophils # (A) 0.1 k/uL (0-0.2); Basophils % (A) 1 %; Eosinophils # (A) 0.4 k/uL (0-0.7); Eosinophils % (A) 3 %; Lymphocytes # (A) 3.5 k/uL (1.0-4.8); Lymphocytes % (A) 27 %; MCH 33.2 pg (25.0-35.0); MCV 97.7 fL (80.0-100.0); Mean Platelet Volume 7.1; Monocytes # (A) 0.7 k/uL (0-1.0); Monocytes % (A) 5 %; Neutrophils # (A) 8.2 k/uL (1.3-7.7); Neutrophils % (A) 62 %; Platelet Count 339 k/uL (150-450); RBC 5.79 m/uL (4.30-5.90); RDW 13.7 % (11.5-15.5); WBC 13.2 k/uL (3.8-10.6)
[2023-01-03 02:06] LABS: HCT 56.6 % (39.0-53.0)
[2023-01-03 02:08] LABS: HGB 19.2 gm/dL (13.0-17.5)
[2023-01-03 02:14] LABS: ALT 18 U/L (4-49); African American GFR (CKD) >90 (>60 ml/min/1.73 sqM); Albumin 4.3 g/dL (3.5-5.0); Anion Gap 13 mmol/L; Blood Urea Nitrogen 13 mg/dL (9-20); Calcium 9.6 mg/dL (8.4-10.2); Carbon Dioxide 20 mmol/L (22-30); Chloride 101 mmol/L (98-107); Glucose 241 mg/dL (74-99); Non-African American GFR(CKD) >90 (>60 ml/min/1.73 sqM); Sodium 134 mmol/L (137-145); Total Bilirubin 0.5 mg/dL (0.2-1.3); Total Protein 6.7 g/dL (6.3-8.2)
[2023-01-03 02:18] LABS: INR 0.9 (<1.2); Partial Thromboplastin Time 23.2 sec (22.0-30.0); Prothrombin Time 9.5 sec (9.0-12.0)
[2023-01-03 02:20] LABS: AST 27 U/L (17-59); Alkaline Phosphatase 79 U/L (38-126); Potassium 4.5 mmol/L (3.5-5.1)
--- NOTE | 2023-01-03 02:28 | XR ---
EXAM: XR Chest, 2 Views CLINICAL HISTORY: ITS.REASON XR Reason: difficulty breathing TECHNIQUE: Frontal and lateral views of the chest. COMPARISON: XR Chest dated 10/03/17 FINDINGS: Lungs: Mild hyperinflation of the lungs. Stable. Lungs appear clear. Pleural space: Unremarkable. No pneumothorax. Heart: Unremarkable. No cardiomegaly. Mediastinum: Unremarkable. Bones/joints: Degenerative changes of the spine. Vasculature: Aortic calcifications. IMPRESSION: No evidence of acute cardiopulmonary disease.
[2023-01-03] MEDS ORDERED: IPRATROPIUM-ALBUTEROL 3 ML NEB INHALATION STA ×2 (03:12→05:07)
[2023-01-03] MEDS ORDERED: methylPREDNISolone SOD SUCCI 125 MG/2 ML VIAL IV STA (03:12)
[2023-01-03] MEDS ORDERED: NALOXONE 0.4 MG/ML 1 ML VIAL IV PRN (04:58)
--- NOTE | 2023-01-03 04:58 | ED ---
SOB HPI - General Chief Complaint: Shortness of Breath Stated Complaint: Difficulty Breathing Time Seen by Provider: 01/03/23 01:05 Source: patient Mode of arrival: wheelchair Limitations: no limitations - History of Present Illness Initial Comments: 67-year-old male past history of COPD who presents to the emergency department reporting shortness of breath. States that he normally does not have respiratory issues. He does not wear oxygen. He does not use his inhaler.. He has never seen a life claims examiner. He has never been on steroids for his georgi athing. Today the patient had sudden onset of shortness of breath. He attempted using his inhaler without any relief. He denies chest pain. No cardiac history. No fevers. Does admit to a productive cough. No sick contacts. No other alleviating, precipitating or modifying factors - Related Data Home Medications Medication Instructions Recorded Confirmed Losartan Potassium 100 mg PO HS 10/02/17 01/03/23 ALPRAZolam [Xanax] 0.25 mg PO DAILY 01/03/23 01/03/23 Albuterol Sulfate [Albuterol 2 puff PO RT-Q4H PRN 01/03/23 01/03/23 Sulfate Hfa] Empagliflozin [Jardiance] 25 mg PO DAILY 01/03/23 01/03/23 Evolocumab [Repatha Sureclick] 140 mg SQ Q14D 01/03/23 01/03/23 Montelukast [Singulair] 10 mg PO HS 01/03/23 01/03/23 Repaglinide [Prandin] 2 mg PO AC-BID 01/03/23 01/03/23 glipiZIDE/METFORMIN HCL 1 tab PO QAM 01/03/23 01/03/23 [glipiZIDE/METFORMIN HCL 5-500 mg] glipiZIDE/METFORMIN HCL 2 tab PO HS 01/03/23 01/03/23 [glipiZIDE/METFORMIN HCL 5-500 mg] traZODone HCL 100 mg PO HS 01/03/23 01/03/23 Allergies Allergy/AdvReac Type Severity Reaction Status Date / Time No Known Allergies Allergy Verified 01/03/23 09:24 Review of Systems ROS Statement: Those systems with pertinent positive or pertinent negative responses have been documented in the HPI. ROS Other: All systems not noted in ROS Statement are negative. Past Medical History Past Medical History: COPD, Diabetes Mellitus, Hypertension Additional Past Medical History / Comment(s): limited ROM to left shoulder History of Any Multi-Drug Resistant Organisms: None Reported Past Surgical History: Orthopedic Surgery Additional Past Surgical History / Comment(s): Venu Knee replacement. Past Anesthesia/Blood Transfusion Reactions: No Reported Reaction Additional Past Anesthesia/Blood Transfusion Reaction / Comment(s): no hx blood transfusion Past Psychological History: No Psychological Hx Reported Smoking Status: Current every day smoker Past Alcohol Use History: Occasional Past Drug Use History: None Reported - Past Family History Mother Additional Family Medical History / Comment(s): dementia Father Family Medical History: Cancer Additional Family Medical History / Comment(s): bone,brain Sister(s) Family Medical History: Cancer Additional Family Medical History / Comment(s): lung/brain General Exam Limitations: no limitations General appearance: alert, in no apparent distress Head exam: Present: atraumatic, normocephalic, normal inspection Eye exam: Present: normal appearance, PERRL, EOMI. Absent: scleral icterus, conjunctival injection, periorbital swelling ENT exam: Present: normal exam, mucous membranes moist Neck exam: Present: normal inspection. Absent: tenderness, meningismus, lymphadenopathy Respiratory exam: Present: wheezes, accessory muscle use, decreased breath sounds. Absent: respiratory distress, rales, rhonchi, stridor Cardiovascular Exam: Present: normal rhythm, tachycardia, normal heart sounds. Absent: systolic murmur, diastolic murmur, rubs, gallop, clicks GI/Abdominal exam: Present: soft, normal bowel sounds. Absent: distended, tenderness, guarding, rebound, rigid Extremities exam: Present: normal inspection, full ROM, normal capillary refill. Absent: tenderness, pedal edema, joint swelling, calf tenderness Back exam: Present: normal inspection Neurological exam: Present: alert, oriented X3, CN II-XII intact Psychiatric exam: Present: normal affect, normal mood Skin exam: Present: warm, dry, intact, normal color. Absent: rash Course Vital Signs 01/03/23 01/03/23 01/03/23 00:59 01:11 03:39 Temperature 97.8 F Pulse Rate 109 H 97 Respiratory 24 22 16 Rate Blood Pressure 163/72 142/85 O2 Sat by Pulse 92 L 93 L Oximetry 06/01/03/23 01/03/23 04:04 04:09 05:47 Temperature Pulse Rate 76 76 64 Respiratory Rate Blood Pressure O2 Sat by Pulse Oximetry 01/03/23 01/03/23 01/03/23 05:58 08:05 08:35 Temperature 98.3 F Pulse Rate 68 88 93 Respiratory 20 18 Rate Blood Pressure 152/76 O2 Sat by Pulse 90 L Oximetry 01/03/23 01/03/23 01/03/23 08:39 08:45 09:53 Temperature Pulse Rate 92 98 Respiratory 18 20 Rate Blood Pressure 146/62 O2 Sat by Pulse 93 L 92 L Oximetry Medical Decision Making - Medical Decision Making Was pt. sent in by a medical professional or institution (, PA, FACING GRINDER, urgent care, hospital, or assisted...) When possible be specific @ -No Did you speak to anyone other than the patient for history (EMS, parent, family, police, friend...)? What history was obtained from this source @ -No Did you review nursing and triage notes (agree or disagree)? Why? @ -I reviewed and agree with nursing and triage notes Were old charts reviewed (outside hosp., previous admission, EMS record, old EKG, old radiological studies, urgent care reports/EKG's, assisted records)? Report findings @ -No old charts were reviewed Differential Diagnosis (chest pain, altered mental status, abdominal pain women, abdominal pain men, vaginal bleeding, weakness, fever, dyspnea, syncope, headache, dizziness, GI bleed, back pain, seizure, CVA, palpatations, mental health, musculoskeletal)? @ -copd exacerbation, influenza, covid, rsv, pneumonia, chf, pe EKG interpreted by me (3pts min.). @ -Yes and demonstrates sinus tachycardia with a rate of 114. WI interval 164. QRS 115. QTC of 438. Q-wave lead 3. No acute ST segment elevation X-rays interpreted by me (1pt min.). @ -yes - no acute process CT interpreted by me (1pt min.). @ -None done U/S interpreted by me (1pt. min.). @ -None done What testing was considered but not performed or refused? (CT, X-rays, U/S, l abs)? Why? @ -None What meds were considered but not given or refused? Why? @ -None Did you discuss the management of the patient with other professionals (professionals i.e. , PA, FACING GRINDER, lab, RT, psych nurse, licensed social worker, building services technician, teacher, legal compliance officer, casework specialist)? Give summary @ -best from [facility] Was smoking cessation discussed for >3mins.? @ -yes Was critical care preformed (if so, how long)? @ -No Were there social determinants of health that impacted care today? How? (Homelessness, low income, unemployed, alcoholism, drug addiction, transportation, low edu. Level, literacy, decrease access to med. care, custodial, rehab)? @ -No Was there de-escalation of care discussed even if they declined (Discuss DNR or withdrawal of care, Hospice)? DNR status @ -No What co-morbidities impacted this encounter? (DM, HTN, Smoking, COPD, CAD, Cancer, CVA, ARF, Chemo, Hep., AIDS, mental health diagnosis, sleep apnea, morbid obesity)? @ -copd, nicotine use Was patient admitted / discharged? Hospital course, mention meds given and route, prescriptions, significant lab abnormalities, going to OR and other pertinent info. @ -Upon arrival patient is placed in room 10. Thorough history and physical exam was performed. He is given a DuoNeb breathing treatment due to diffuse wheezing. IV is established. Lab studies are conducted. Chest x-ray is performed. Patient given 125 of Solu-Medrol. Patient continues to be diffusely wheezy therefore second treatment is ordered. I recommended admission for which the patient was agreeable. I spoke with Best from [facility] who agreed with the patient Undiagnosed new problem with uncertain prognosis? @ -yes Drug Therapy requiring intensive monitoring for toxicity (Heparin, Nitro, Insulin, Cardizem)? @ -No Were any procedures done? @ -No Diagnosis/symptom? @ -acute resp insuff, copd exacerbation Acute, or Chronic, or Acute on Chronic? @ -acute Uncomplicated (without systemic symptoms) or Complicated (systemic symptoms)? @ -complicated Side effects of treatment? @ -tachycardia Exacerbation, Progression, or Severe Exacerbation? @ -yes Poses a threat to life or bodily function? How? (Chest pain, USA, ID, pneumonia, PE, COPD, DKA, ARF, appy, cholecystitis, CVA, Diverticulitis, Homicidal, Suicidal, threat to staff... and all critical care pts) @ -No - Lab Data Result diagrams: 01/03/23 01:35 01/03/23 01:35 Lab Results 01/03/23 01/03/23 01/03/23 Range/Units 01:35 01:35 01:35 WBC 13.2 H (3.8-10.6) k/uL RBC 5.79 (4.30-5.90) m/uL Hgb 19.2 H* (13.0-17.5) gm/dL Hct 56.6 H (39.0-53.0) % MCV 97.7 (80.0-100.0) fL MCH 33.2 (25.0-35.0) pg MCHC 34.0 (31.0-37.0) g/dL RDW 13.7 (11.5-15.5) % Plt Count 339 (150-450) k/uL MPV 7.1 Neutrophils % 62 % Lymphocytes % 27 % Monocytes % 5 % Eosinophils % 3 % Basophils % 1 % Neutrophils # 8.2 H (1.3-7.7) k/uL Lymphocytes # 3.5 (1.0-4.8) k/uL Monocytes # 0.7 (0-1.0) k/uL Eosinophils # 0.4 (0-0.7) k/uL Basophils # 0.1 (0-0.2) k/uL PT 9.5 (9.0-12.0) sec INR 0.9 (<1.2) APTT 23.2 (22.0-30.0) sec Sodium 134 L (137-145) mmol/L Potassium 4.5 (3.5-5.1) mmol/L Chloride 101 (98-107) mmol/L Carbon Dioxide 20 L (22-30) mmol/L Anion Gap 13 mmol/L BUN 13 (9-20) mg/dL Creatinine 0.80 (0.66-1.25) mg/dL Est GFR (CKD-EPI)AfAm >90 (>60 ml/min/1.73 sqM) Est GFR (CKD-EPI)NonAf >90 (>60 ml/min/1.73 sqM) Glucose 241 H (74-99) mg/dL Lactic Ac Sepsis Rflx Plasma Lactic Acid Fransico (0.7-2.0) mmol/L Calcium 9.6 (8.4-10.2) mg/dL Total Bilirubin 0.5 (0.2-1.3) mg/dL AST 27 (17-59) U/L ALT 18 (4-49) U/L Alkaline Phosphatase 79 (38-126) U/L Troponin I (0.000-0.034) ng/mL NT-Pro-B Natriuret Pep pg/mL Total Protein 6.7 (6.3-8.2) g/dL Albumin 4.3 (3.5-5.0) g/dL Procalcitonin (0.02-0.09) ng/mL 01/03/23 01/03/23 01/03/23 Range/Units 01:35 01:35 01:35 WBC (3.8-10.6) k/uL RBC (4.30-5.90) m/uL Hgb (13.0-17.5) gm/dL Hct (39.0-53.0) % MCV (80.0-100.0) fL MCH (25.0-35.0) pg MCHC (31.0-37.0) g/dL RDW (11.5-15.5) % Plt Count (150-450) k/uL MPV Neutrophils % % Lymphocytes % % Monocytes % % Eosinophils % % Basophils % % Neutrophils # (1.3-7.7) k/uL Lymphocytes # (1.0-4.8) k/uL Monocytes # (0-1.0) k/uL Eosinophils # (0-0.7) k/uL Basophils # (0-0.2) k/uL PT (9.0-12.0) sec INR (<1.2) APTT (22.0-30.0) sec Sodium (137-145) mmol/L Potassium (3.5-5.1) mmol/L Chloride (98-107) mmol/L Carbon Dioxide (22-30) mmol/L Anion Gap mmol/L BUN (9-20) mg/dL Creatinine (0.66-1.25) mg/dL Est GFR (CKD-EPI)AfAm (>60 ml/min/1.73 sqM) Est GFR (CKD-EPI)NonAf (>60 ml/min/1.73 sqM) Glucose (74-99) mg/dL Lactic Ac Sepsis Rflx Plasma Lactic Acid Fransico 2.8 H* (0.7-2.0) mmol/L Calcium (8.4-10.2) mg/dL Total Bilirubin (0.2-1.3) mg/dL AST (17-59) U/L ALT (4-49) U/L Alkaline Phosphatase (38-126) U/L Troponin I 0.014 (0.000-0.034) ng/mL NT-Pro-B Natriuret Pep 851 pg/mL Total Protein (6.3-8.2) g/dL Albumin (3.5-5.0) g/dL Procalcitonin (0.02-0.09) ng/mL 01/03/23 01/03/23 Range/Units 01:35 03:11 WBC (3.8-10.6) k/uL RBC (4.30-5.90) m/uL Hgb (13.0-17.5) gm/dL Hct (39.0-53.0) % MCV (80.0-100.0) fL MCH (25.0-35.0) pg MCHC (31.0-37.0) g/dL RDW (11.5-15.5) % Plt Count (150-450) k/uL MPV Neutrophils % % Lymphocytes % % Monocytes % % Eosinophils % % Basophils % % Neutrophils # (1.3-7.7) k/uL Lymphocytes # (1.0-4.8) k/uL Monocytes # (0-1.0) k/uL Eosinophils # (0-0.7) k/uL Basophils # (0-0.2) k/uL PT (9.0-12.0) sec INR (<1.2) APTT (22.0-30.0) sec Sodium (137-145) mmol/L Potassium (3.5-5.1) mmol/L Chloride (98-107) mmol/L Carbon Dioxide (22-30) mmol/L Anion Gap mmol/L BUN (9-20) mg/dL Creatinine (0.66-1.25) mg/dL Est GFR (CKD-EPI)AfAm (>60 ml/min/1.73 sqM) Est GFR (CKD-EPI)NonAf (>60 ml/min/1.73 sqM) Glucose (74-99) mg/dL Lactic Ac Sepsis Rflx Y Plasma Lactic Acid Fransico (0.7-2.0) mmol/L Calcium (8.4-10.2) mg/dL Total Bilirubin (0.2-1.3) mg/dL AST (17-59) U/L ALT (4-49) U/L Alkaline Phosphatase (38-126) U/L Troponin I (0.000-0.034) ng/mL NT-Pro-B Natriuret Pep pg/mL Total Protein (6.3-8.2) g/dL Albumin (3.5-5.0) g/dL Procalcitonin 0.09 (0.02-0.09) ng/mL Disposition Clinical Impression: COPD exacerbation Disposition: LEFT AGAINST MEDICAL ADVICE Condition: Stable Is patient prescribed a controlled substance at d/c from ED?: No Time of Disposition: 04:58 Decision to Admit Reason: Admit from EC Decision Date: 01/03/23 Decision Time: 04:58
[2023-01-03] MEDS ORDERED: SODIUM CHLORIDE 0.9% 1,000 ML IV ONE (07:04)
[2023-01-03] MEDS ORDERED: IPRATROPIUM-ALBUTEROL 3 ML NEB INHALATION PRN (07:06)
--- NOTE | 2023-01-03 07:29 | P.CNPUL ---
History of Present Illness Consult date: 01/03/23 Requesting physician: Radha Villaseñor Reason for consult: COPD Chief complaint: shortness of breath for the last 24 hours History of present illness: I am seeing this patient in new consultation today 01/03/2023 for an acute COPD exacerbation. Patient is a 67-year-old male with past medical history significant for COPD, hypertension, diabetes mellitus, and is a current 2 pack per day smoker. Patient's PCP is Dr. Lafleur. He states that he is prescribed Spiriva and albuterol inhalers on an outpatient bases, but does not use them. Patient presented to the emergency room early this morning for the chief complaint of shortness of breath over the last 24 hours. There has been an associated productive cough with green sputum. He denies any fevers, chills, chest pain, hemoptysis. He denies any sick contacts or recent travel. Chest x- ray on arrival shows hyperinflation consistent with COPD, and no acute cardiopulmonary process. He is bronchospastic on auscultation. Patient is currently lying in bed, on room air, in no acute distress. CBC on arrival shows some leukocytosis with a WBC count of 13.2, hemoglobin 19.2, hematocrit 56.6, platelets 339. BNP shows sodium 134, potassium 4.5, chloride 101, serum CO2 20, BUN 13, creatinine 0.8, glucose 241. Lactic acid level was elevated, and has increased to 6.1. no IV maintenance fluids infusing. Troponin negative 1. He is afebrile. I will start the patient on empiric antibiotics. Vital signs are stable. Review of Systems REVIEW OF SYSTEMS: CONSTITUTIONAL: Denies any recent significant weight loss or weight gain. EYES: Denies change in vision. EARS, NOSE, MOUTH, THROAT: Denies headaches, denies sore throat. CARDIOVASCULAR: Denies chest pain, palpitations or syncopal episodes. RESPIRATORY:see HPI GASTROINTESTINAL: Denies change in appetite, abdominal pain, nausea and vomiting, or diarrhea GENITOURINARY: Denies hematuria, denies infections. MUSKULOSKELETAL: Denies pain, denies swelling. INTEGUMENTARY: Denies rash, denies eczema. NEUROLOGICAL: Denies recent memory loss, no recent seizure activity. PSYCHIATRIC: Denies anxiety, denies depression. HEMATOLOGIC/LYMPHATIC: Denies anemia, denies enlarged lymph node Past Medical History Past Medical History: COPD, Diabetes Mellitus, Hypertension Additional Past Medical History / Comment(s): limited ROM to left shoulder History of Any Multi-Drug Resistant Organisms: None Reported Past Surgical History: Orthopedic Surgery Additional Past Surgical History / Comment(s): Venu Knee replacement. Past Anesthesia/Blood Transfusion Reactions: No Reported Reaction Additional Past Anesthesia/Blood Transfusion Reaction / Comment(s): no hx blood transfusion Past Psychological History: No Psychological Hx Reported Smoking Status: Current every day smoker Past Alcohol Use History: Occasional Past Drug Use History: None Reported - Past Family History Mother Additional Family Medical History / Comment(s): dementia Father Family Medical History: Cancer Additional Family Medical History / Comment(s): bone,brain Sister(s) Family Medical History: Cancer Additional Family Medical History / Comment(s): lung/brain Medications and Allergies Home Medications Medication Instructions Recorded Confirmed Type amLODIPine [Norvasc] 10 mg PO HS 10/01/17 08/27/18 History Losartan Potassium 200 mg PO HS 10/02/17 08/27/18 History metFORMIN HCL [Glucophage] 1,000 mg PO HS 10/02/17 08/22/18 History Thiamine [Vitamin B-1] 100 mg PO DAILY #30 tablet 10/06/17 08/27/18 Rx Glimepiride [Amaryl] 4 mg PO HS 08/22/18 08/27/18 History Multivitamins, Thera [Multivitamin 1 tab PO DAILY 08/22/18 08/27/18 History (formulary)] Allergies Allergy/AdvReac Type Severity Reaction Status Date / Time No Known Allergies Allergy Verified 01/03/23 00:59 Physical Exam Vitals: Vital Signs Temp Pulse Resp BP Pulse Ox 01/03/23 05:58 68 01/03/23 05:47 64 01/03/23 04:09 76 01/03/23 04:04 76 01/03/23 03:39 97 16 142/85 93 L 01/03/23 01:11 22 01/03/23 00:59 97.8 F 109 H 24 163/72 92 L Intake and Output 01/02/23 01/03/23 01/03/23 22:59 06:59 14:59 Other: Weight 84.822 kg GENERAL EXAM: Alert, 67-year-old white male , comfortable in no apparent distress. HEAD: Normocephalic and atraumatic EYES: Normal reaction of pupils, equal size. NOSE: Clear with pink turbinates. THROAT: No erythema or exudates. NECK: No masses, no JVD. CHEST: No chest wall deformity. LUNGS: Equal air entry with expiratory wheezes heard throughout. No crackles or focal dullness. on room air. No conversational dyspnea or accessory muscle use.. CVS: S1 and S2 normal with no audible murmur, regular rhythm. No extra heart sounds ABDOMEN: No hepatosplenomegaly, active bowel sounds, no guarding or rigidity. SPINE: No scoliosis or deformity SKIN: No rashes CENTRAL NERVOUS SYSTEM: No focal deficits, tone is normal in all 4 extremities. EXTREMITIES: There is no peripheral edema, clubbing, or cyanosis. Peripheral pulses are intact. Results - Laboratory Findings CBC and BMP: 01/03/23 01:35 01/03/23 01:35 PT/INR, D-dimer PT 9.5 sec (9.0-12.0) 01/03/23 01:35 INR 0.9 (<1.2) 01/03/23 01:35 Abnormal lab findings: Abnormal Labs 01/03/23 01/03/23 01/03/23 01:35 01:35 01:35 WBC 13.2 H Hgb 19.2 H* Hct 56.6 H Neutrophils # 8.2 H Sodium 134 L Carbon Dioxide 20 L Glucose 241 H Plasma Lactic Acid Fransico 2.8 H* 01/03/23 05:18 WBC Hgb Hct Neutrophils # Sodium Carbon Dioxide Glucose Plasma Lactic Acid Fransico 6.1 H* - Diagnostic Findings Chest x-ray: image reviewed Assessment and Plan Assessment: Acute COPD exacerbation, possibly related to acute tracheobronchitis. chest x- ray showed no focal consolidation or evidence of pneumonia. leukocytosis, secondary to above lactic acidosis Polycythemia, possibly related to chronic smoking and hypoxia Benign essential hypertension diabetes mellitus type 2, [id number] Chronic ongoing nicotine dependence Plan: Patient's medications, labs, chest x-ray reviewed On room air start the patient on a combination of bronchodilators, Symbicort inhaler, IV Solu-Medrol start the patient on empiric azithromycin Check procalcitonin level R/O COVID 19 give a 1 L normal saline bolus Trend lactic acid levels Nicotine replacement offered Smoking cessation education performed we will continue to follow I have personally seen and examined the patient, performed the documentation and the assessment and plan as written. Number of minutes spent on the visit:20 Time with Patient: Greater than 30
[2023-01-03] MEDS ORDERED: methylPREDNISolone SOD SUCCI 40 MG/ML 1 ML VIAL IV SCH (08:00)
[2023-01-03] MEDS ORDERED: IPRATROPIUM-ALBUTEROL 3 ML NEB INHALATION SCH (08:00)
[2023-01-03] MEDS ORDERED: SYMBICORT 160-4.5 MCG INHALER INHALATION SCH (08:00)
[2023-01-03 08:10] VITALS: TEMP 98.3
[2023-01-03] MEDS ORDERED: NICOTINE 21MG/24HR PATCH TRANSDERM SCH (09:00)
[2023-01-03] MEDS ORDERED: AZITHROMYCIN 500 MG in SODIUM CHLORIDE 0.9% 250 ML IVPB SCH (09:00)
[2023-01-03 09:54] VITALS: BP 146/62; PULSE 98; RESP 20
[2023-01-03] MEDS ORDERED: methylPREDNISolone SOD SUCCI 125 MG/2 ML VIAL IV SCH (12:00)
--- NOTE | 2023-01-03 15:28 | HP ---
HISTORY AND PHYSICAL This is a combined History and Physical and Discharge Summary. HOSPITAL COURSE: This is a 67-year-old gentleman admitted with COPD acute exacerbation, left the hospital against medical advice from the ER itself. Please refer to multiple notes for more information. FINAL DIAGNOSIS: Chronic obstructive pulmonary disease. PROGNOSIS: Extremely guarded. The patient is not willing to stay. MMODL / IJN: [id number] /
== END 2023-01-03 09:54 | disposition left against medical advice (07) ==
LOC: EC 00:58 → 6NMEDSUR 04:58
PROVIDERS: ADMIT Hospitalist; ATTEND Hospitalist
DX: J44.1 Chronic obstructive pulmonary disease with (acute) exacerbation (principal); D72.829 Elevated white blood cell count, unspecified; E87.20 Acidosis, unspecified; Z53.29 Procedure and treatment not carried out because of patient's decision for other reasons; D75.1 Secondary polycythemia; I10 Essential (primary) hypertension; E11.9 Type 2 diabetes mellitus without complications; F17.200 Nicotine dependence, unspecified, uncomplicated; Z79.84 Long term (current) use of oral hypoglycemic drugs; Z79.899 Other long term (current) drug therapy; Z96.653 Presence of artificial knee joint, bilateral; Z81.8 Family history of other mental and behavioral disorders; Z80.8 Family history of malignant neoplasm of other organs or systems; Z80.1 Family history of malignant neoplasm of trachea, bronchus and lung
CPT/HCPCS: 96374; 99285; 36415; 94640 ×2; 94760; 93005; 85379; 83880; 80053; 83605; 84484; 85025; 85610; 85730; 84145; 71046; G0378; J2930

== ENCOUNTER 2023-01-14 10:27 | Inpatient (IN) | payer MEDICARE ==
[2023-01-14 11:05] LABS: Glucose,Whole Blood 125 mg/dL (70-110)
[2023-01-14 11:39] LABS: Basophils # (A) 0.1 k/uL (0-0.2); Basophils % (A) 1 %; Eosinophils # (A) 0.2 k/uL (0-0.7); Eosinophils % (A) 2 %; Lymphocytes # (A) 1.5 k/uL (1.0-4.8); Lymphocytes % (A) 16 %; MCH 34.2 pg (25.0-35.0); MCHC 34.3 g/dL (31.0-37.0); MCV 99.5 fL (80.0-100.0); Mean Platelet Volume 7.3; Monocytes # (A) 0.7 k/uL (0-1.0); Monocytes % (A) 7 %; Neutrophils # (A) 7.1 k/uL (1.3-7.7); Neutrophils % (A) 73 %; Platelet Count 281 k/uL (150-450); RBC 5.76 m/uL (4.30-5.90); RDW 13.6 % (11.5-15.5); WBC 9.8 k/uL (3.8-10.6)
[2023-01-14 11:42] LABS: HCT 57.3 % (39.0-53.0); HGB 19.7 gm/dL (13.0-17.5)
--- NOTE | 2023-01-14 11:46 | CT ---
EXAMINATION TYPE: CT brain wo con DATE OF EXAM: 01/14/2023 COMPARISON: None HISTORY: code stroke CT DLP: 1532.6 mGycm Automated exposure control for dose reduction was used. FINDINGS: There is intracranial atherosclerotic change and there is an area of low attenuation in the right occ ipital lobe suspicious for acute ischemia. No acute hemorrhage or mass effect. There is no evidence o f midline shift. Report called to ER clinician 11:38 AM 01/14/2023. Calvarium is intact. Abnormal area of density within the cameron suggestive of remote ischemia. Abnormal low attenuation in the right basal ganglia compatible with remote lacunar infarct. IMPRESSION: FINDINGS ARE COMPATIBLE WITH ACUTE ISCHEMIA RIGHT OCCIPITAL LOBE RECOMMEND CTA AND MRI WITH DIFFUSION CLINICALLY WARRANTED. MULTIPLE PONTINE AND RIGHT BASAL GANGLIA INFARCT.
--- NOTE | 2023-01-14 11:50 | XR ---
EXAMINATION TYPE: XR chest 2V DATE OF EXAM: 01/14/2023 COMPARISON: 01/03/2023 TECHNIQUE: PA and lateral views submitted. HISTORY: Altered mental status FINDINGS: The lungs are clear and there is no pneumothorax, pleural effusion, or focal pneumonia. Heart size normal and no overt failure. Osseous structures demonstrate hypertrophic and degenerative changes of the spine. Hyperinflation compatible COPD and prominence of the pulmonary arteries suggest pulmonary arterial hypertension.. There is atherosclerotic change aorta. Arthropathy of the shoulders. IMPRESSION: 1. No acute process. Correlate for COPD and pulmonary arterial hypertension.
[2023-01-14 11:53] LABS: ALT 23 U/L (4-49); AST 25 U/L (17-59); African American GFR (CKD) >90 (>60 ml/min/1.73 sqM); Albumin 4.2 g/dL (3.5-5.0); Alkaline Phosphatase 79 U/L (38-126); Anion Gap 8 mmol/L; Blood Urea Nitrogen 12 mg/dL (9-20); Calcium 9.3 mg/dL (8.4-10.2); Carbon Dioxide 25 mmol/L (22-30); Chloride 97 mmol/L (98-107); Creatine Kinase 73 U/L (55-170); Glucose 121 mg/dL (74-99); Non-African American GFR(CKD) >90 (>60 ml/min/1.73 sqM); Sodium 130 mmol/L (137-145); Total Bilirubin 0.7 mg/dL (0.2-1.3); Total Protein 6.7 g/dL (6.3-8.2)
[2023-01-14] MEDS ORDERED: SODIUM CHLORIDE 0.9% 1,000 ML IV ONE (12:08)
[2023-01-14] MEDS ORDERED: ATORVASTATIN 80 MG TAB PO STA (12:11)
[2023-01-14] MEDS ORDERED: ASPIRIN 325 MG TAB PO STA (12:11)
[2023-01-14] MEDS ORDERED: TICAGRELOR 90 MG TAB PO STA (12:11)
--- NOTE | 2023-01-14 12:19 | ED ---
General Adult HPI - General Chief complaint: Neuro Symptoms/Deficit Stated complaint: poss stroke Time Seen by Provider: 01/14/23 10:35 Source: patient Mode of arrival: wheelchair Limitations: no limitations - History of Present Illness Initial comments: 67-year-old male past medical history of COPD, diabetes who presents emergency Department with right-sided visual loss. Reports that he was lying down around 1 AM watching TV when he had sudden onset of left-sided visual loss with headache. States she is having difficulty concentrating on his TV. He denied any weakness in his arm or leg. No history of stroke. Admits that the pain has improved at this time. He took 3 baby aspirin's. Denies any fevers or chills. No speech deficit. No chest pain or trouble breathing. No other alleviating, precipitating or modifying factors - Related Data Home Medications Medication Instructions Recorded Confirmed ALPRAZolam [Xanax] 0.25 mg PO DAILY 01/03/23 01/14/23 Albuterol Sulfate [Albuterol 2 puff INHALATION RT-Q4H PRN 01/03/23 01/14/23 Sulfate Hfa] Empagliflozin [Jardiance] 25 mg PO DAILY 01/03/23 01/14/23 Evolocumab [Repatha Sureclick] 140 mg SQ Q14D 01/03/23 01/14/23 Montelukast [Singulair] 10 mg PO HS 01/03/23 01/14/23 Repaglinide [Prandin] 2 mg PO AC-BID 01/03/23 01/14/23 glipiZIDE/METFORMIN HCL 1 tab PO DAILY 01/03/23 01/14/23 [glipiZIDE/METFORMIN HCL 5-500 mg] glipiZIDE/METFORMIN HCL 2 tab PO HS 01/03/23 01/14/23 [glipiZIDE/METFORMIN HCL 5-500 mg] traZODone HCL 100 mg PO HS 01/03/23 01/14/23 Previous Rx's Medication Instructions Recorded Acetaminophen Tab [Tylenol] 650 mg PO Q6HR PRN tab 01/16/23 Aspirin 81 mg PO DAILY 30 Days #30 tab 01/16/23 Atorvastatin [Lipitor] 80 mg PO HS #30 tab 01/16/23 Clopidogrel [Plavix] 75 mg PO DAILY #30 tab 01/16/23 Nicotine 21Mg/24Hr Patch [Habitrol] 1 patch TRANSDERM DAILY #30 patch 01/16/23 Allergies Allergy/AdvReac Type Severity Reaction Status Date / Time [id number] Reductase AdvReac muscle Verified 01/14/23 11:52 Inhibitor cramps Review of Systems ROS Statement: Those systems with pertinent positive or pertinent negative responses have been documented in the HPI. ROS Other: All systems not noted in ROS Statement are negative. Past Medical History Past Medical History: COPD, Diabetes Mellitus, Hypertension Additional Past Medical History / Comment(s): limited ROM to left shoulder History of Any Multi-Drug Resistant Organisms: None Reported Past Surgical History: Orthopedic Surgery Additional Past Surgical History / Comment(s): Venu Knee replacement. Past Anesthesia/Blood Transfusion Reactions: No Reported Reaction Additional Past Anesthesia/Blood Transfusion Reaction / Comment(s): no hx blood transfusion Past Psychological History: No Psychological Hx Reported Smoking Status: Current every day smoker Past Alcohol Use History: Occasional Past Drug Use History: None Reported - Past Family History Mother Additional Family Medical History / Comment(s): dementia Father Family Medical History: Cancer Additional Family Medical History / Comment(s): bone,brain Sister(s) Family Medical History: Cancer Additional Family Medical History / Comment(s): lung/brain General Exam Limitations: no limitations General appearance: alert, in no apparent distress Head exam: Present: atraumatic, normocephalic, normal inspection Eye exam: Present: normal appearance, PERRL, other (left heminglect. no left lateral peripheral vision). Absent: scleral icterus, conjunctival injection, periorbital swelling ENT exam: Present: normal exam, mucous membranes moist Neck exam: Present: normal inspection. Absent: tenderness, meningismus, lymp hadenopathy Respiratory exam: Present: normal lung sounds bilaterally. Absent: respiratory distress, wheezes, rales, rhonchi, stridor Cardiovascular Exam: Present: regular rate, normal rhythm, normal heart sounds. Absent: systolic murmur, diastolic murmur, rubs, gallop, clicks GI/Abdominal exam: Present: soft, normal bowel sounds. Absent: distended, tenderness, guarding, rebound, rigid Extremities exam: Present: normal inspection, full ROM, normal capillary refill. Absent: tenderness, pedal edema, joint swelling, calf tenderness Back exam: Present: normal inspection Neurological exam: Present: alert, oriented X3, CN II-XII intact Psychiatric exam: Present: normal affect, normal mood Skin exam: Present: warm, dry, intact, normal color. Absent: rash Course Vital Signs 01/14/23 01/14/23 01/14/23 10:35 10:56 11:10 Temperature 98.6 F Pulse Rate 104 H 90 Pulse Rate [ Pulse Oximetery ] Respiratory 18 22 Rate Blood Pressure 146/81 163/100 Blood Pressure [Left Arm] O2 Sat by Pulse 93 L 95 94 L Oximetry 01/14/23 01/14/23 01/14/23 11:26 11:30 11:45 Temperature Pulse Rate 94 90 Pulse Rate [ Pulse Oximetery ] Respiratory 18 9 L Rate Blood Pressure 135/76 163/100 135/76 Blood Pressure [Left Arm] O2 Sat by Pulse 97 98 Oximetry 01/14/23 01/14/23 01/14/23 12:00 12:15 13:31 Temperature 98.2 F 98 F 98.3 F Pulse Rate 92 90 Pulse Rate [ 74 Pulse Oximetery ] Respiratory 18 15 18 Rate Blood Pressure 135/76 127/67 Blood Pressure 138/77 [Left Arm] O2 Sat by Pulse 96 97 93 L Oximetry 01/14/23 01/14/23 01/14/23 13:50 15:00 16:00 Temperature 98.2 F Pulse Rate 86 84 82 Pulse Rate [ Pulse Oximetery ] Respiratory 20 22 21 Rate Blood Pressure 141/81 134/64 140/66 Blood Pressure [Left Arm] O2 Sat by Pulse 97 95 93 L Oximetry 01/14/23 01/14/23 01/14/23 17:35 19:29 21:37 Temperature Pulse Rate 101 H 91 76 Pulse Rate [ Pulse Oximetery ] Respiratory 20 18 18 Rate Blood Pressure 116/63 151/80 123/54 Blood Pressure [Left Arm] O2 Sat by Pulse 93 L 95 95 Oximetry - Reevaluation(s) Reevaluation #1: Spoke with Dr. Stokes -awaiting CTs 01/14/23 1125 Reevaluation #2: medical management per dr. Kaveh beck, aspirin, statin 01/14/23 12:07 Reevaluation #3: Dr. Stokse called back - requests plavix, aspirin, statin instead 01/14/23 12:15 Medical Decision Making - Medical Decision Making Was pt. sent in by a medical professional or institution (, NIKHIL, DIGITAL MEASUREMENT ADVISOR, urgent care, hospital, or half-way...) When possible be specific @ -No Did you speak to anyone other than the patient for history (EMS, parent, family, police, friend...)? What history was obtained from this source @ -No Did you review nursing and triage notes (agree or disagree)? Why? @ -I reviewed and agree with nursing and triage notes Were old charts reviewed (outside hosp., previous admission, EMS record, old EKG, old radiological studies, urgent care reports/EKG's, half-way records)? Report findings @ -No old charts were reviewed Differential Diagnosis (chest pain, altered mental status, abdominal pain women, abdominal pain men, vaginal bleeding, weakness, fever, dyspnea, syncope, headac he, dizziness, GI bleed, back pain, seizure, CVA, palpatations, mental health, musculoskeletal)? @ -cva, tia, brain mass, sah, sdh EKG interpreted by me (3pts min.). @ -Yes and demonstrates sinus rhythm with a rate of 94. Urine of 190. QRS 117. QTC of 4:15. No acute ST segment elevations or depressions X-rays interpreted by me (1pt min.). @ -yes, no acute process CT interpreted by me (1pt min.). @ -yes - acute cva U/S interpreted by me (1pt. min.). @ -None done What testing was considered but not performed or refused? (CT, X-rays, U/S, labs)? Why? @ -None What meds were considered but not given or refused? Why? @ -None Did you discuss the management of the patient with other professionals (professionals i.e. , NIKHIL, DIGITAL MEASUREMENT ADVISOR, lab, RT, psych nurse, high school social studies tutor, actuarial associate, teacher, low altitude air defense officer, patient case manager)? Give summary @ -Dr. Peña, dr. stokes Was smoking cessation discussed for >3mins.? @ -yes - patient has no willingness to quit drinking Was critical care preformed (if so, how long)? @ -yes, 35 minutes Were there social determinants of health that impacted care today? How? (Homelessness, low income, unemployed, alcoholism, drug addiction, transportation, low edu. Level, literacy, decrease access to med. care, detention, rehab)? @ -No Was there de-escalation of care discussed even if they declined (Discuss DNR or withdrawal of care, Hospice)? DNR status @ -No What co-morbidities impacted this encounter? (DM, HTN, Smoking, COPD, CAD, Cancer, CVA, ARF, Chemo, Hep., AIDS, mental health diagnosis, sleep apnea, morbid obesity)? @ -htn, smoking Was patient admitted / discharged? Hospital course, mention meds given and route, prescriptions, significant lab abnormalities, going to OR and other pertinent info. @ -Upon arrival patient is placed into room 8. Thorough history and physical exam was performed. Patient does have an NIH of 4. Code stroke is activated. He does go for CT which demonstrates acute right occipital stroke. I did speak with Dr. Stokes. He is outside of the TPA window. There is no visible clot on CT. Neuro boxing trainer recommends Plavix and aspirin. These are administered to the patient. He is also started on fluids in an attempt to increase the patient's blood pressure. Patient will be admitted to [facility]. Spoke with Dr. Peña who agreed to admit the patient. Patient agreeable to the plan and is awaiting a bed on the floor Undiagnosed new problem with uncertain prognosis? @ -yes Drug Therapy requiring intensive monitoring for toxicity (Heparin, Nitro, Insulin, Cardizem)? @ -No Were any procedures done? @ -No Diagnosis/symptom? @ -acute left hemianopsia, acute cva Acute, or Chronic, or Acute on Chronic? @ -acute Uncomplicated (without systemic symptoms) or Complicated (systemic symptoms)? @ -complicated Side effects of treatment? @ -No Exacerbation, Progression, or Severe Exacerbation? @ -No Poses a threat to life or bodily function? How? (Chest pain, [place], [place], pneumonia, PE, COPD, DKA, ARF, appy, cholecystitis, CVA, Diverticulitis, Homicidal, Suicidal, threat to staff... and all critical care pts) @ -yes, patient has confirmed stroke - Lab Data Result diagrams: 01/14/23 11:26 01/14/23 11:26 Lab Results 01/14/23 01/14/23 01/14/23 Range/Units 11:03 11:26 11:26 WBC 9.8 (3.8-10.6) k/uL RBC 5.76 (4.30-5.90) m/uL Hgb 19.7 H* (13.0-17.5) gm/dL Hct 57.3 H* (39.0-53.0) % MCV 99.5 (80.0-100.0) fL MCH 34.2 (25.0-35.0) pg MCHC 34.3 (31.0-37.0) g/dL RDW 13.6 (11.5-15.5) % Plt Count 281 (150-450) k/uL MPV 7.3 Neutrophils % 73 % Lymphocytes % 16 % Monocytes % 7 % Eosinophils % 2 % Basophils % 1 % Neutrophils # 7.1 (1.3-7.7) k/uL Lymphocytes # 1.5 (1.0-4.8) k/uL Monocytes # 0.7 (0-1.0) k/uL Eosinophils # 0.2 (0-0.7) k/uL Basophils # 0.1 (0-0.2) k/uL PT (9.0-12.0) sec INR (<1.2) APTT (22.0-30.0) sec Sodium 130 L (137-145) mmol/L Potassium 5.0 (3.5-5.1) mmol/L Chloride 97 L (98-107) mmol/L Carbon Dioxide 25 (22-30) mmol/L Anion Gap 8 mmol/L BUN 12 (9-20) mg/dL Creatinine 0.77 (0.66-1.25) mg/dL Est GFR (CKD-EPI)AfAm >90 (>60 ml/min/1.73 sqM) Est GFR (CKD-EPI)NonAf >90 (>60 ml/min/1.73 sqM) Glucose 121 H (74-99) mg/dL POC Glucose (mg/dL) 125 H (70-110) mg/dL POC Glu Animal Technician ID Olga Ramos Calcium 9.3 (8.4-10.2) mg/dL Total Bilirubin 0.7 (0.2-1.3) mg/dL AST 25 (17-59) U/L ALT 23 (4-49) U/L Alkaline Phosphatase 79 (38-126) U/L Creatine Kinase 73 (55-170) U/L Troponin I (0.000-0.034) ng/mL Total Protein 6.7 (6.3-8.2) g/dL Albumin 4.2 (3.5-5.0) g/dL 01/14/23 01/14/23 Range/Units 11:26 11:57 WBC (3.8-10.6) k/uL RBC (4.30-5.90) m/uL Hgb (13.0-17.5) gm/dL Hct (39.0-53.0) % MCV (80.0-100.0) fL MCH (25.0-35.0) pg MCHC (31.0-37.0) g/dL RDW (11.5-15.5) % Plt Count (150-450) k/uL MPV Neutrophils % % Lymphocytes % % Monocytes % % Eosinophils % % Basophils % % Neutrophils # (1.3-7.7) k/uL Lymphocytes # (1.0-4.8) k/uL Monocytes # (0-1.0) k/uL Eosinophils # (0-0.7) k/uL Basophils # (0-0.2) k/uL PT 9.5 (9.0-12.0) sec INR 0.9 (<1.2) APTT 22.5 (22.0-30.0) sec Sodium (137-145) mmol/L Potassium (3.5-5.1) mmol/L Chloride (98-107) mmol/L Carbon Dioxide (22-30) mmol/L Anion Gap mmol/L BUN (9-20) mg/dL Creatinine (0.66-1.25) mg/dL Est GFR (CKD-EPI)AfAm (>60 ml/min/1.73 sqM) Est GFR (CKD-EPI)NonAf (>60 ml/min/1.73 sqM) Glucose (74-99) mg/dL POC Glucose (mg/dL) (70-110) mg/dL POC Glu Animal Technician ID Calcium (8.4-10.2) mg/dL Total Bilirubin (0.2-1.3) mg/dL AST (17-59) U/L ALT (4-49) U/L Alkaline Phosphatase (38-126) U/L Creatine Kinase (55-170) U/L Troponin I 0.014 (0.000-0.034) ng/mL Total Protein (6.3-8.2) g/dL Albumin (3.5-5.0) g/dL Disposition Clinical Impression: Cerebrovascular accident (CVA), Hemianopsia Disposition: ADMITTED IP TO THIS [facility] Condition: Fair Is patient prescribed a controlled substance at d/c from ED?: No Time of Disposition: 12:47 Decision to Admit Reason: Admit from EC Decision Date: 01/14/23 Decision Time: 12:47
--- NOTE | 2023-01-14 12:21 | CT ---
EXAMINATION TYPE: CT angio head neck DATE OF EXAM: 01/14/2023 COMPARISON: None HISTORY: CODE STROKE CT DLP: 1532.6 mGycm CONTRAST: Performed without and with IV Contrast, patient injected with 65 ML mL of Isovue 370. Combination Contrast CTA cervical carotids and [place] of [place] CTA cervical carotids with 3-D recons truction Contrast CTA of the cervical carotids was performed 3-D reconstruction imaging obtained at a separate workstation. Right carotid system: Mild plaque is seen of the right common carotid artery. There is mild plaque a lso noted at the carotid bulb and proximal ICA. No significant diameter reduction. ECA is patent. Right vertebral artery appears unremarkable. Left carotid system: Mild plaque is seen of the left common carotid artery. There is mild plaque als o noted at the carotid bulb and proximal ICA. No significant diameter reduction. ECA is patent. Lef t vertebral artery appears unremarkable. IMPRESSION: 1. No significant diameter reduction to account for the patient's symptoms. CTA [place] with 3-D reconstruction Contrast CTA of the [place] was performed 3-D reconstruction imaging obtained at a separate workstation. Right occipital infarct changes noted. Vertebrobasilar system as well as intracranial portions of the internal carotid arteries and their major tributaries are patent. I do not see evidence for sizable aneurysm or vascular malformation. Please note MRI provides greater sensitivity and specificity. V isualized brain appears grossly unremarkable. IMPRESSION: 1. Right occipital infarct changes noted. No visible large vessel occlusion on this study. NASCET criteria was used in interpretation of this exam?
[2023-01-14 12:35] LABS: INR 0.9 (<1.2); Prothrombin Time 9.5 sec (9.0-12.0)
[2023-01-14 12:43] LABS: Partial Thromboplastin Time 22.5 sec (22.0-30.0)
[2023-01-14] MEDS ORDERED: CLOPIDOGREL 75 MG TAB PO STA (12:54)
[2023-01-14] MEDS: SODIUM CHLORIDE 0.9% 1,000 ML IV SCH (16:32)
--- NOTE | 2023-01-14 19:17 | CA ---
Transthoracic Echo Report Name: Peyman Amezcua Age: 67 Gender: M : 1955 Exam Date: 01/14/2023 14:11 Exam Location: [facility] Ht (in): 67 Wt (lb): 177 Ordering Physician: Radha Villaseñor DO Attending/Referring Phys: Kasi Garcia;[id number] [employer] Keara Lancaster RDCS Procedure CPT: Indications: Thrombus Cardiac Hx: RVIDd 3.3 cm Technical Quality: Good Contrast 1: Total Dose (mL): Contrast 2: Total Dose (mL): MEASUREMENTS (Male / Female) Normal Values FINDINGS Left Ventricle Left ventricular ejection fraction is estimated at 35-40 %. Left ventricular cavity size normal. Borderline left ventricular hypertrophy. Right Ventricle Mild right ventricular dilatation. Right ventricular systolic pressure within normal limits. Right Atrium Normal right atrial size. PFO LEFT TO RIGHT SHUNT Left Atrium Normal left atrial size. Mitral Valve Structurally normal mitral valve. Trace to mild mitral regurgitation. Aortic Valve Trileaflet aortic valve. No aortic valve stenosis or regurgitation. Tricuspid Valve Structurally normal tricuspid valve. Trace to mild tricuspid regurgitation. Pulmonic Valve Structurally normal pulmonic valve. Trace pulmonic regurgitation. Pericardium Normal pericardium. No pericardial effusion. Aorta Mild aortic dilatation at the level of the sinuses of valsalva 38 mm CONCLUSIONS Moderately diminished LV systolic function Mildly dilated right ventricle Previewed by: Dr. Jeffery Wiley MD (Electronically Signed) Final Date: 14 January 2023 19:16
--- NOTE | 2023-01-14 19:21 | HP ---
HISTORY AND PHYSICAL REASON FOR ADMISSION: Difficulty in vision. HISTORY OF PRESENT ILLNESS: This is a 74-year-old gentleman with a past medical history of diabetes and hypertension, who was having visual loss while watching TV yesterday. The patient came to [facility] and was found to have left homonymous hemianopia. The CT scan of the brain showed acute right occipital lobe ischemia and as well as multiple pontine and right basal ganglia infarcts also. The patient was admitted for further evaluation and treatment. There is no history of any fever, rigors, or chills. PAST MEDICAL HISTORY: Reviewed includes diabetes mellitus and hypertension. Rest of the history and rest of the chart are also reviewed. HOME MEDICATIONS: Janumet. Doses and rest of the medications are noted. ALLERGIES: Codeine. FAMILY HISTORY: History of cancer. SOCIAL HISTORY: Previous history of smoking. REVIEW OF SYSTEMS: Fourteen-point review of systems is negative except as mentioned earlier. PHYSICAL EXAMINATION: VITAL SIGNS: Pulse is 59, blood pressure 138/60, respirations 16. HEENT: Conjunctivae are normal. NECK: No jugular venous distention. CARDIOVASCULAR: S1 and S2 muffled. RESPIRATORY: Breath sounds diminished at the bases. Few scattered rhonchi. No crackles. ABDOMEN: Soft. LEGS: No edema. NERVOUS SYSTEM: Left homonymous hemianopia. Otherwise, no other focal motor neurological deficit present. SKIN: No ulcers or rashes. JOINTS: No active deforming arthropathy. LABORATORY DATA: Reviewed. IMAGING STUDIES: CT scan reviewed personally. ASSESSMENT: 1. 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 2. 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 3. Diabetes mellitus, type 2. 4. Hypertension. 5. History of shingles. 6. History of methicillin-resistant Staphylococcus aureus. 7. History of depression. 8. Multiple medical issues. RECOMMENDATIONS AND DISCUSSION: In this 74-year-old gentleman presented with multiple complex medical issues, we will monitor the patient closely, continue the current medications, continue symptomatic treatment, antiplatelet agents, monitor blood sugars closely. Otherwise, I would also recommend Neurology consultation and a complete neurovascular workup. Further recommendations to follow. See orders for the details. Prognosis is extremely guarded. DVT prophylaxis. MMODL / IJN: [id number] /
--- NOTE | 2023-01-14 19:55 | P.CNNES ---
History of Present Illness Consult date: 01/14/23 Requesting physician: Radha iVllaseñor Reason for Consult: acute cva History of Present Illness: This is a 67-year-old gentleman with history of hypertension, diabetes controlled with diet, hypercholesterolemia, tobacco use who presented that because of the visual loss. Patient's symptoms began yesterday at 10 PM in which he felt he could not see out of the left side. He denies of any focal weakness, numbness, difficulty swallowing or getting his words out. She thought his vision will improve so he disregarded his symptoms until the morning and since his vision did not improve in the morning the today he decided to seek medical attention. Denies any history of stroke or TIAs in the past. He denies any history of atrial fibrillation area and he states that he is on aspirin 81 mg daily. Is not on any anticoagulation and again he does not have any history of atrial fibrillation to his knowledge. He said he smokes a couple of packs a day. He is ALLERGIC to statins. Some of the workup during his hospital visit consisted of: Hemoglobin is 19.7 and hematocrit is 57.3. CT of the head is reported as findings are compatible with acute ischemia in the right occipital lobe. Recommend CTA and MRI with diffusion is currently warranted. Multiple pontine and right basal ganglia infarct. I personally reviewed the CT and I feel the patient has acute to subacute ischemic changes over the right occipital region. He does have what appears an old stroke over the left subcortical frontal as well as right basal ganglia. I do not appreciate any acute or subacute changes over occipital region and it appears possibly chronic changes in the central medial region CT angiography of the head and neck is reported as no significant diameter reduction to account for the patient's symptoms. 2-D echo was reported as moderate diminished left ventricle systolic function. Mildly dilated right ventricle. The ED team activated the stroke pager. NIH was a 4 per ED team. No IV TPA since the patient is outside the window and the risk outweighed the benefit. It seems that the neuro-research analyst (Dr. Zafar) recommended ASA and Plavix per ED note. Review of Systems Review of system: The 12 point system was reviewed and apparent positive and negative per HPI. Past Medical History Past Medical History: COPD, Diabetes Mellitus, Hypertension Additional Past Medical History / Comment(s): limited ROM to left shoulder History of Any Multi-Drug Resistant Organisms: None Reported Past Surgical History: Orthopedic Surgery Additional Past Surgical History / Comment(s): Venu Knee replacement. Past Anesthesia/Blood Transfusion Reactions: No Reported Reaction Additional Past Anesthesia/Blood Transfusion Reaction / Comment(s): no hx blood transfusion Past Psychological History: No Psychological Hx Reported Smoking Status: Current every day smoker Past Alcohol Use History: Occasional Past Drug Use History: None Reported - Past Family History Mother Additional Family Medical History / Comment(s): dementia Father Family Medical History: Cancer Additional Family Medical History / Comment(s): bone,brain Sister(s) Family Medical History: Cancer Additional Family Medical History / Comment(s): lung/brain Medications and Allergies Home Medications Medication Instructions Recorded Confirmed Type Losartan Potassium 100 mg PO HS 10/02/17 01/14/23 History ALPRAZolam [Xanax] 0.25 mg PO DAILY 01/03/23 01/14/23 History Albuterol Sulfate [Albuterol 2 puff INHALATION RT-Q4H PRN 01/03/23 01/14/23 History Sulfate Hfa] Empagliflozin [Jardiance] 25 mg PO DAILY 01/03/23 01/14/23 History Evolocumab [Repatha Sureclick] 140 mg SQ Q14D 01/03/23 01/14/23 History Montelukast [Singulair] 10 mg PO HS 01/03/23 01/14/23 History Repaglinide [Prandin] 2 mg PO AC-BID 01/03/23 01/14/23 History glipiZIDE/METFORMIN HCL 1 tab PO DAILY 01/03/23 01/14/23 History [glipiZIDE/METFORMIN HCL 5-500 mg] glipiZIDE/METFORMIN HCL 2 tab PO HS 01/03/23 01/14/23 History [glipiZIDE/METFORMIN HCL 5-500 mg] traZODone HCL 100 mg PO HS 01/03/23 01/14/23 History Allergies Allergy/AdvReac Type Severity Reaction Status Date / Time [id number] Reductase AdvReac muscle Verified 01/14/23 11:52 Inhibitor cramps Physical Examination - Vital Signs Vital Signs: Vital Signs Temp Pulse Resp BP Pulse Ox 01/14/23 19:29 91 18 151/80 95 01/14/23 17:35 101 H 20 116/63 93 L 01/14/23 16:00 82 21 140/66 93 L 01/14/23 15:00 84 22 134/64 95 01/14/23 13:50 98.2 F 86 20 141/81 97 01/14/23 12:15 98 F 90 15 127/67 97 01/14/23 12:00 98.2 F 92 18 135/76 96 01/14/23 11:45 135/76 01/14/23 11:30 90 9 L 163/100 98 01/14/23 11:26 94 18 135/76 97 01/14/23 11:10 90 22 163/100 94 L 01/14/23 10:56 95 01/14/23 10:35 98.6 F 104 H 18 146/81 93 L Intake and Output 01/14/23 01/14/23 01/14/23 06:59 14:59 22:59 Other: Weight 80.286 kg GENERAL: The patient is lying in bed and is not in acute distress. NEUROLOGICAL: Higher mental function: The patient is awake, alert, oriented to self, place and time. Patient is following commands. No aphasia and no neglect. Cranial nerves: The pupils are round, equal and reactive to light and accommodation. Visual arredondo are left homonymous hemianopsia. Extraocular movement is intact no nystagmus is noted. Facial sensation is normal to touch throughout. The facial strength is normal throughout. Hearing is normal bilaterally to hand rub. Tongue is midline and moved [id number] without any difficulty. No dysarthria is noted. Shoulder shrug is normal bilaterally. Motor: The strength is 5 over 5 throughout. Normal tone and bulk. Cerebellum: Normal finger to nose bilaterally. Sensation: Sensation is normal to touch throughout. Reflexes (right/left):2+ throughout. Results - Laboratory Findings CBC and BMP: 01/14/23 11:26 01/14/23 11:26 Abnormal Lab Findings: Abnormal Labs 01/14/23 01/14/23 01/14/23 11:03 11:26 11:26 Hgb 19.7 H* Hct 57.3 H* Sodium 130 L Chloride 97 L Glucose 121 H POC Glucose (mg/dL) 125 H Assessment and Plan Assessment: This is a 67-year-old gentleman who presented because of the left visual disturbance that began around 10 PM on 01/13/2023 patient presented to our facility on 01/14/2023 around 10:27 AM. Acute ischemic stroke over the right occipital (has left homonymous hemianopsia). Unknown etiology of stroke at this time. CT I feel patient has also over the right basal ganglia, left old the frontal and questionable pontine Ongoin Hypertension (history of hypertension) Diabetes mellitus controlled with diet Hypercholesterolemia Tobacco use and he smokes couple packs daily Plan: I ordered MRI the brain. Resumed his home dose of aspirin and the patient was started on Plavix 75 mg a daily by ED team (was recommended by stroke attending, Dr. Zafar). Patient is ALLERGIC to statins. I ordered TSH. Hemoglobin A1c and lipid panel is ordered pending PT OT and MANAGER OF TRANSPORTATION are consulted Continue neuro checks Cardiac monitoring Patient was counseled on tobacco cessation We'll defer the rest of the medical management to primary team For DVT prophylaxis I started the patient on subcu heparin 5000 units every 8 hours. The plan was discussed with the patient. Thank you for the consultation Time with Patient: Greater than 30
[2023-01-14] MEDS ORDERED: TICAGRELOR 90 MG TAB PO SCH (21:00)
[2023-01-15] MEDS: SODIUM CHLORIDE 0.9% 1,000 ML IV SCH ×4 (00:04→21:52)
[2023-01-15] MEDS: HEPARIN SODIUM,PORCINE/PF 5,000 UNIT/0.5 ML SYRINGE SQ SCH ×3 (00:05→16:53)
[2023-01-15 06:07] LABS: Glucose,Whole Blood 138 mg/dL (70-110)
[2023-01-15] MEDS: ACETAMINOPHEN TAB 325 MG TAB PO PRN ×2 (06:07→18:29)
[2023-01-15] MEDS ORDERED: ALBUTEROL NEBULIZED 2.5 MG/3 ML INHALATION PRN (09:28)
[2023-01-15] MEDS: CLOPIDOGREL 75 MG TAB PO SCH (10:28)
[2023-01-15] MEDS: ASPIRIN 81 MG PO SCH (10:28)
[2023-01-15 11:24] LABS: Glucose,Whole Blood 228 mg/dL (70-110)
--- NOTE | 2023-01-15 13:05 | PN ---
PROGRESS NOTE DATE OF SERVICE: 01/15/2023 SUBJECTIVE: This is a 67-year-old gentleman, who was admitted with left homonymous hemianopia and also had right occipital stroke. The patient also had multiple other strokes also. No chest pain. No palpitations. No fever. Neurovascular workup is on the way. OBJECTIVE: VITAL SIGNS: Pulse 95, blood pressure 118/76, respiration 18. CHEST: Clear to auscultation. CARDIOVASCULAR: S1, S2. ABDOMEN: Soft. NERVOUS SYSTEM: Left homonymous hemianopia. LABORATORY DATA: Hemoglobin 19.7. The rest of the labs are noted. ASSESSMENT: 1. Acute right occipital stroke causing left homonymous hemianopia. 2. Multiple pontine and right basal ganglia infarct. 3. Polycythemia. 4. Chronic obstructive pulmonary disease. 5. Diabetes mellitus. 6. Hypertension. 7. Multiple medical issues. RECOMMENDATIONS: This is a 67-year-old gentleman, who presented with multiple complex medical issues. We will monitor the patient closely. Antiplatelet agents. Closely follow with Neurology. Neurovascular workup. Prognosis guarded. Further recommendations to follow. MMODL / IJN: [id number] /
--- NOTE | 2023-01-15 14:20 | P.PN ---
Subjective Progress Note Date: 01/15/23 The patient seen at bedside and he denies of any neurological issues. He feels about the same as yesterday. Objective - Vital Signs Vital signs: Vital Signs Temp 98.1 F 01/15/23 09:52 Pulse 92 01/15/23 12:30 Resp 16 01/15/23 12:30 BP 143/58 01/15/23 12:30 Pulse Ox 98 01/15/23 12:30 FiO2 Intake & Output 01/14/23 01/15/23 01/15/23 18:59 06:59 18:59 Intake Total 840 Balance 840 Weight 80.286 kg Intake: Oral 840 Other: Voiding Method Toilet Toilet Toilet # Voids 2 1 - Exam GENERAL: The patient is not in acute distress. NEUROLOGICAL: Higher mental function: The patient is awake, alert, oriented to self, place and time. Patient is following commands. No aphasia and no neglect. Cranial nerves: The pupils are round, equal and reactive to light and accommodation. Visual arredondo are left homonymous hemianopsia. Extraocular movement is intact no nystagmus is noted. Facial sensation is normal to touch throughout. The facial strength is normal throughout. Hearing is normal bilaterally to hand rub. Tongue is midline and moved [id number] without any difficulty. No dysarthria is noted. Shoulder shrug is normal bilaterally. Motor: Gait is normal. The strength is 5 over 5 throughout. Normal tone and bulk. Cerebellum: Normal finger to nose bilaterally. Sensation: Sensation is normal to touch throughout. Reflexes (right/left):2+ throughout. Some of the workup during his hospital visit consisted of: TSH is 3.470. Hemoglobin A1c 7.1. CT of the head is reported as findings are compatible with acute ischemia in the right occipital lobe. Recommend CTA and MRI with diffusion is currently w arranted. Multiple pontine and right basal ganglia infarct. I personally reviewed the CT and I feel the patient has acute to subacute ischemic changes over the right occipital region. He does have what appears an old stroke over the left subcortical frontal as well as right basal ganglia. I do not appreciate any acute or subacute changes over occipital region and it appears possibly chronic changes in the central medial region CT angiography of the head and neck is reported as no significant diameter reduction to account for the patient's symptoms. 2-D echo was reported as moderate diminished left ventricle systolic function. Mildly dilated right ventricle. - Labs CBC & Chem 7: 01/14/23 11:26 01/14/23 11:26 Labs: Abnormal Lab Results - Last 24 Hours (Table) 01/15/23 01/15/23 01/15/23 Range/Units 06:00 06:03 11:21 POC Glucose (mg/dL) 138 H 228 H (70-110) mg/dL Hemoglobin A1c 7.1 H (<=6.0) % Assessment and Plan Assessment: This is a 67-year-old gentleman who presented because of the left visual disturbance that began around 10 PM on 01/13/2023 patient presented to our facility on 01/14/2023 around 10:27 AM. Acute ischemic stroke over the right occipital (has left homonymous hemianopsia). Unknown etiology of stroke at this time. CT I feel patient has also over the right basal ganglia, left old the frontal and questionable pontine Ongoin Hypertension (history of hypertension) Diabetes mellitus controlled with diet (HbA1c is 7.1) Hypercholesterolemia Tobacco use and he smokes couple packs daily Plan: Pending MRI the brain. Resumed his home dose of aspirin and the patient was started on Plavix 75 mg a daily. Patient is ALLERGIC to statins. Pending lipid panel. PT OT and WOUND CARE RN are consulted Continue neuro checks Cardiac monitoring Patient was counseled on tobacco cessation We'll defer the rest of the medical management to primary team For DVT prophylaxis On subcu heparin 5000 units every 8 hours. The plan was discussed with the patient. Time with Patient: Less than 30
[2023-01-15 15:21] LABS: LDL Cholesterol,Calculated 33.8 mg/dL (0.0-131.0)
[2023-01-15] MEDS: NICOTINE 21MG/24HR PATCH TRANSDERM SCH (15:56)
[2023-01-15 16:21] LABS: Glucose,Whole Blood 206 mg/dL (70-110)
[2023-01-15] MEDS: REPAGLINIDE 1 MG TAB PO SCH (16:53)
[2023-01-15 19:58] LABS: Glucose,Whole Blood 88 mg/dL (70-110)
[2023-01-15] MEDS ORDERED: ATORVASTATIN 80 MG TAB PO SCH (21:00)
[2023-01-15] MEDS ORDERED: traZODone HCL 100 MG TAB PO SCH (21:00)
[2023-01-16] MEDS: HEPARIN SODIUM,PORCINE/PF 5,000 UNIT/0.5 ML SYRINGE SQ SCH ×2 (00:56→09:08)
[2023-01-16] MEDS: ACETAMINOPHEN TAB 325 MG TAB PO PRN (02:14)
[2023-01-16] MEDS: SODIUM CHLORIDE 0.9% 1,000 ML IV SCH ×2 (04:43→11:55)
[2023-01-16 06:14] LABS: Glucose,Whole Blood 181 mg/dL (70-110)
[2023-01-16] MEDS: REPAGLINIDE 1 MG TAB PO SCH (06:20)
[2023-01-16 06:38] VITALS: RESP 18
[2023-01-16] MEDS ORDERED: DAPAGLIFLOZIN PROPANEDIOL 10 MG TABLET PO SCH (09:00)
[2023-01-16] MEDS ORDERED: ALPRAZolam 0.25 MG TAB PO SCH (09:00)
[2023-01-16] MEDS: NICOTINE 21MG/24HR PATCH TRANSDERM SCH (09:08)
[2023-01-16] MEDS: CLOPIDOGREL 75 MG TAB PO SCH (09:08)
[2023-01-16] MEDS: ASPIRIN 81 MG PO SCH (09:08)
[2023-01-16] MEDS ORDERED: SENNOSIDES 8.6 MG TAB PO PRN (09:15)
[2023-01-16] MEDS ORDERED: bisacodyL 10 MG SUPP RECTAL STA (09:15)
[2023-01-16 10:18] VITALS: TEMP 98.2
[2023-01-16 11:50] LABS: Glucose,Whole Blood 160 mg/dL (70-110)
[2023-01-16 12:01] VITALS: BP 139/89; PULSE 91
--- NOTE | 2023-01-16 13:58 | MR ---
EXAMINATION TYPE: MR brain wo con DATE OF EXAM: 01/16/2023 1:50 PM COMPARISON: 01/14/2023. CLINICAL INDICATION:Male, 67 years old with history of stroke; Neuro deficit, evaluate for stroke. TECHNIQUE: Multi planar, multi sequence imaging was performed through the brain including: T1, T2, In version recovery, Diffusion weighted imaging, and gradient echo imaging. No gadolinium was given. FINDINGS: Restricted diffusion within the right occipital and right temporal lobe. Blooming artifact within these regions suggesting hemosiderin deposition. Some of the blooming artifact is within a cur vilinear gyriform pattern suggesting of pseudolaminar necrosis of the cortex. There is crossing high T2 signal orthogonal to each other within the cameron compatible with cross bun s ign. The garcia-white junctions, ventricular system, and cisterns appear unremarkable. Scattered foci of hi gh T2 signal intensity are seen within the periventricular white matter. Midline structures show no a bnormality. . The bone marrow signal is within normal limits. Paranasal sinuses and mastoid air cells: No significant paranasal sinus disease. Visualized orbits: Orbital contents are intact. IMPRESSION: 1. Acute/subacute CVA involving the right occipital and temporal lobes. 2. Nonspecific white matter changes, likely secondary to small vessel ischemic disease. 3. 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 Correlate for multiple system atrophy spinocerebellar atax ia versus versus other etiologies.
--- NOTE | 2023-01-21 06:29 | P.DS ---
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 Patient will follow-up with Dr. Pendleton in the outpatient setting upon discharge. Patient is to continue with aspirin and Plavix as instructed and close outpatient follow-up with cardiology and neurology as scheduled. Patient did have event monitor placed prior to discharge. Total time taken is greater than 35 minutes. Hospital course This is a 68-year-old male who was recently admitted with visual disturbances on the left peak closely monitored. Patient was evaluated by neurology with concerns of CVA and MRI confirmed. Patient is started on Plavix and aspirin recommending close outpatient follow-up with cardiology and neurology. Patient also receiving an event monitor for 30 days prior to discharge. Patient has been cleared by consultations for discharge. Please refer to other consultation notes for further HPI. Currently no reports of chest pain, shortness of breath, or palpitations. Patient is afebrile. No reports of nausea or vomiting and patient is tolerating diet. Patient will be discharged home today. Guarded prognosis given patient's comorbidities. Physical exam: Gen: This is a 68-year-old male who is awake, alert and oriented 3, thin built, elderly appearing HEENT: Head is atraumatic, normocephalic. Pupils equal, round. Sclerae is anicteric. NECK: Supple. No JVD. No lymphadenopathy. No thyromegaly. LUNGS: Clear to auscultation. No wheezes or rhonchi. No intercostal retractions. HEART: Regular rate and rhythm. No murmur. ABDOMEN: Soft. Bowel sounds are present. No masses. No tenderness. EXTREMITIES: No pedal edema. No calf tenderness. NEUROLOGICAL: Patient is awake, alert and oriented x3. No focal deficits noted Please refer to medication reconciliation sheet for a list of medications. The impression and plan of care has been dictated by Camila Humphrey, Nurse Practitioner as directed. Dr. Lennox MD I have performed a history and examination and MDM of this patient, discussed the same with the dictator, and agree with the dictator's assessment and plan as written ,documented as a scribe. Based on total visit time, I have performed more than 50% of the visit. Patient Condition at Discharge: Fair Plan - Discharge Summary Discharge Rx Participant: No New Discharge Prescriptions: New Atorvastatin [Lipitor] 80 mg PO HS #30 tab Clopidogrel [Plavix] 75 mg PO DAILY #30 tab Acetaminophen Tab [Tylenol] 650 mg PO Q6HR PRN tab PRN Reason: Fever And/ Or Pain Aspirin 81 mg PO DAILY 30 Days #30 tab Nicotine 21Mg/24Hr Patch [Habitrol] 1 patch TRANSDERM DAILY #30 patch Continue Montelukast [Singulair] 10 mg PO HS Albuterol Sulfate [Albuterol Sulfate Hfa] 2 puff INHALATION RT-Q4H PRN PRN Reason: Shortness Of Breath Evolocumab [Repatha Sureclick] 140 mg SQ Q14D ALPRAZolam [Xanax] 0.25 mg PO DAILY traZODone HCL 100 mg PO HS Repaglinide [Prandin] 2 mg PO AC-BID glipiZIDE/METFORMIN HCL [glipiZIDE/METFORMIN HCL 5-500 mg] 2 tab PO HS glipiZIDE/METFORMIN HCL [glipiZIDE/METFORMIN HCL 5-500 mg] 1 tab PO DAILY Empagliflozin [Jardiance] 25 mg PO DAILY Discontinued Losartan Potassium 100 mg PO HS Discharge Medication List ALPRAZolam [Xanax] 0.25 mg PO DAILY 01/03/23 [History] Albuterol Sulfate [Albuterol Sulfate Hfa] 2 puff INHALATION RT-Q4H PRN 01/03/23 [History] Empagliflozin [Jardiance] 25 mg PO DAILY 01/03/23 [History] Evolocumab [Repatha Sureclick] 140 mg SQ Q14D 01/03/23 [History] Montelukast [Singulair] 10 mg PO HS 01/03/23 [History] Repaglinide [Prandin] 2 mg PO AC-BID 01/03/23 [History] glipiZIDE/METFORMIN HCL [glipiZIDE/METFORMIN HCL 5-500 mg] 1 tab PO DAILY 01/03/23 [History] glipiZIDE/METFORMIN HCL [glipiZIDE/METFORMIN HCL 5-500 mg] 2 tab PO HS 01/03/23 [History] traZODone HCL 100 mg PO HS 01/03/23 [History] Acetaminophen Tab [Tylenol] 650 mg PO Q6HR PRN tab 01/16/23 [Rx] Aspirin 81 mg PO DAILY 30 Days #30 tab 01/16/23 [Rx] Atorvastatin [Lipitor] 80 mg PO HS #30 tab 01/16/23 [Rx] Clopidogrel [Plavix] 75 mg PO DAILY #30 tab 01/16/23 [Rx] Nicotine 21Mg/24Hr Patch [Habitrol] 1 patch TRANSDERM DAILY #30 patch 01/16/23 [Rx] Follow up Appointment(s)/Referral(s): Parker Pendleton MD [Primary Care Provider] - 1-2 days (Office closed. Please call office to schedule appointment. ) Juan Becerra MD [Medical Doctor] - 1 Week (Please call office to schedule patient appointment. Office requires to speak to you. ) Enrico Boles MD [STAFF PHYSICIAN] - 1 Week (The office will call with an appointment time and date. ) Patient Instructions/Handouts: Ischemic Stroke (DC) Activity/Diet/Wound Care/Special Instructions: Patient will need a 30 day event monitor on discharge Activity Limited until follow-up Follow-up with primary care provider on discharge Follow-up cardiology outpatient for event monitor readings Follow-up neurology in 1-2 weeks Continue with medications as prescribed Continue Plavix 75 mg daily along with aspirin 81 mg daily until follow-up with neurology Discharge Disposition: HOME SELF-CARE
== END 2023-01-16 16:31 | disposition home or self-care (01) | DRG 66 ==
LOC: EC 10:27 → 3SCARD 12:47
PROVIDERS: ADMIT Internal Medicine; ATTEND Internal Medicine
DX: I63.9 Cerebral infarction, unspecified (principal); H53.462 Homonymous bilateral field defects, left side; R29.704 NIHSS score 4; J44.9 Chronic obstructive pulmonary disease, unspecified; I10 Essential (primary) hypertension; F17.210 Nicotine dependence, cigarettes, uncomplicated; D75.1 Secondary polycythemia; E78.00 Pure hypercholesterolemia, unspecified; E11.9 Type 2 diabetes mellitus without complications; F32.A Depression, unspecified; Z96.653 Presence of artificial knee joint, bilateral; Z88.8 Allergy status to other drugs, medicaments and biological substances; Z86.73 Personal history of transient ischemic attack (TIA), and cerebral infarction without residual deficits; Z86.14 Personal history of Methicillin resistant Staphylococcus aureus infection; Z79.899 Other long term (current) drug therapy; Z79.84 Long term (current) use of oral hypoglycemic drugs; Z88.5 Allergy status to narcotic agent; Z71.6 Tobacco abuse counseling
CPT/HCPCS: 36415; 70450; 70496; 70498; 70551; 71046; 80053; 80061; 82550; 83036; 84443; 84484; 85025; 85610; 85730; 93005; 93270; 93306; 94760; 96360; 96361; 99291

== ENCOUNTER 2023-02-14 06:28 | Day surgery (SDC) | payer MEDICARE ==
[2023-02-08 14:29] VITALS: BMI 25.1
[2023-02-14] MEDS ORDERED: SODIUM CHLORIDE 0.9% 500 ML 500 ML IV ONE (06:42)
[2023-02-14 06:57] VITALS: RESP 16; TEMP 98.2
[2023-02-14 07:03] LABS: Glucose,Whole Blood 113 mg/dL (70-110)
[2023-02-14] MEDS ORDERED: fentaNYL (PF) 50 MCG/ML 2 ML AMP ONE (07:09)
[2023-02-14] MEDS: BENZOCAINE SPRAY 1 CAN TOPICAL ONE ×2 (07:45→07:49)
[2023-02-14] MEDS: MIDAZOLAM 2 MG/2 ML VIAL IVP ONE ×2 (07:48→07:52)
[2023-02-14] MEDS: fentaNYL (PF) 50 MCG/ML 2 ML AMP IVP ONE ×2 (07:48→07:54)
--- NOTE | 2023-02-14 10:13 | ECHOT ---
TRANSESOPHAGEAL ECHOCARDIOGRAM INDICATION: TIA, rule out cardiac source of thromboembolic phenomenon. PROCEDURE NOTE: After obtaining informed consent, transesophageal echocardiogram was performed in left lateral position using an Omniplane probe. Local and IV sedation were obtained with Xylocaine spray, 2 mg of Versed and 25 mcg of fentanyl. The patient tolerated the procedure well without any obvious immediate complications. FINDINGS: 1. Interatrial septum appears aneurysmally dilated with evidence of nwci-iq-xquha shunt across an atrial septal defect that measures about 0.4 cm. We documented ublkt-eo-lbev shunt with coughing. Left atrium appears enlarged. Right atrium and right ventricle seem within normal limits. Mitral valve is anatomically normal. There is mild central mitral regurgitation noted. There is mild tricuspid regurgitation. Aortic valve is a 3-leaflet valve. There is no evidence of aortic stenosis or regurgitation. Aorta shows moderate atherosclerotic changes. 2. Left ventricle shows moderate to severe LV dysfunction with an ejection fraction of 35%. CONCLUSION: Abnormal transesophageal echo showing evidence of nyxg-ln-efwlz shunt across aneurysmal interatrial septum with evidence of atrial septal defect. PLAN: I am going to refer him to Dr. Castro for consideration for Amplatzer device closure. The patient is already scheduled for a stress test which he will complete and see me in the office. MMODL / IJN: [id number] /
[2023-02-14 11:33] VITALS: BP 120/64; PULSE 78
== END 2023-02-14 09:18 | disposition home or self-care (01) ==
LOC: CATHCVL 06:28
PROVIDERS: ATTEND Internal Medicine Cardiovascular Disease
DX: I25.5 Ischemic cardiomyopathy (principal); I10 Essential (primary) hypertension; E78.5 Hyperlipidemia, unspecified; E11.9 Type 2 diabetes mellitus without complications; F17.210 Nicotine dependence, cigarettes, uncomplicated; Z79.899 Other long term (current) drug therapy
CPT/HCPCS: 93312; 93320; 93325; J2250; J3010

== ENCOUNTER 2023-03-27 06:53 | Day surgery (SDC) | payer MEDICARE ==
[2023-03-26 13:20] VITALS: BMI 25.7
[~2023-03-27 06:53] MED LIST changes: +ALPRAZolam 0.25 MG TAB PO PRN; +ALPRAZolam 0.5 MG TAB PO PRN; +NITROGLYCERIN SL TABS 0.4 MG TAB SUBLINGUAL PRN; -REGADENOSON 0.4 MG/5 ML SYRINGE IV ONE; +SODIUM CHLORIDE 0.9% 1,000 ML in EMPTY BAG 1 BAG IV SCH
[2023-03-27] MEDS ORDERED: ASPIRIN 325 MG TAB PO ONE (07:00)
[2023-03-27] MEDS ORDERED: SODIUM CHLORIDE 0.9% 1,000 ML IV ONE (07:21)
[2023-03-27] MEDS ORDERED: ASPIRIN 81 MG ONE (07:24)
[2023-03-27 07:47] VITALS: RESP 16; TEMP 98.1
[2023-03-27] MEDS ORDERED: LIDOCAINE 1% INJ 10MG/ML (20 ML MDV) ONE (09:46)
[2023-03-27] MEDS ORDERED: MIDAZOLAM 2 MG/2 ML VIAL IVP ONE (10:12)
[2023-03-27] MEDS ORDERED: fentaNYL (PF) 50 MCG/ML 2 ML AMP ONE (10:14)
[2023-03-27] MEDS ORDERED: fentaNYL (PF) 50 MCG/ML 2 ML AMP IVP ONE (10:14)
[2023-03-27] MEDS ORDERED: LIDOCAINE 1% INJ 10MG/ML (20 ML MDV) SQ ONE (10:14)
[2023-03-27] MEDS ORDERED: HYDROmorphone 1 MG/ML 1 ML SYRINGE IVP ONE (10:20)
[2023-03-27] MEDS ORDERED: HEPARIN SODIUM 1,000 UN/ML (10ML VL) ONE (10:22)
[2023-03-27] MEDS: HEPARIN SODIUM 1,000 UN/ML (10ML VL) IVP ONE ×2 (10:23→10:26)
[2023-03-27] MEDS ORDERED: IOPAMIDOL-370 100ML BTL INJ ONE (10:44)
[2023-03-27] MEDS ORDERED: CLOPIDOGREL 75 MG TAB ONE (10:45)
[2023-03-27] MEDS ORDERED: CLOPIDOGREL 75 MG TAB PO ONE (10:47)
--- NOTE | 2023-03-27 11:04 | P.PCN ---
Date of Procedure: 03/27/23 Operative Findings: PERCUTANEOUS CLOSURE OF FENESTRATED INTERATRIAL SEPTUM PERFORMING PHYSICIAN: Timmy Castro MD, [facility] PROCEDURE PERFORMED: 1. Successful percutaneous closure of PFO using Cardioform Device (30mm) with an excellent results and without any residual shunt. 2. Intracardiac echocardiogram imaging. 3. Right atrial angiogram. 4. Ultrasound-guided access of the right common femoral vein 2 INDICATION: This is a 68-year-old gentleman who sees Dr. Boles regularly who was diagnosis and he was CVA. He underwent further investigation including transesophageal echocardiogram and that revealed aneurysmal interatrial septum with evidence of patent foramen ovale. He was brought today to undergo percutaneous closure of PFO. APPROACH: Right common femoral vein 2 COMPLICATION: None. LEVEL OF SEDATION: Moderate with sedation length of 35 minutes. PROCEDURE DESCRIPTION: After obtaining informed consent, the patient was brought to the cardiac lab technician. The right common femoral vein was cannulated x2 using micropuncture technique under ultrasound guidance, the micropuncture wire passed easily, then I placed two 8-Mauritanian sheath in the right groin. Subsequently I cannulated the right common femoral vein with the same technique and I placed an 12-Mauritanian sheath there as well. At that point, anticoagulation was initiated using heparin and the patient was given a bolus of 10,000 units of heparin IV with continuous ACT monitoring throughout the procedure. After that, the intracardiac echocardiogram probe was advanced through one of the venous sheath all the way to the right atrium where we did interrogate the interatrial septum and identified the patent foramen ovale with extremely aneurysmal interatrial septum. For that reason decided to pursue closing the PFO using 30 mm Cardioform device. Subsequently, I did cross the defect using 0.035 J-wire with the backup support of multipurpose catheter. The wire was advanced all the way to the left upper pulmonary vein and subsequently the catheter was advanced over the wire to the left upper pulmonary vein. The 0.035 J-wire was pulled out and then I advanced a penelope wire. Subsequently, the multipurpose catheter was withdrawn out and the wire was left in the left upper pulmonary vein. Next the 35 mm Cardioform device was prepped with continuous saline injection and make sure there was no bubble left. Subsequently the device was loaded inside the catheter. With continuous saline infusion we did advance the catheter with the device loaded inside overall 35 wire to the 12-Mauritanian sheath. Subsequently the catheter was advanced under fluoroscopy guidance over O35 wire to the right atrium and subsequently through the PFO/tunnel to the left atrium. The 035 wire was pulled out at that point. Next the left atrial occluder was deployed first and subsequently the occluder and the catheter where pulled all the way to touch the interatrial septum. Subsequently the right atrial occluder was deployed at all of that was performed under fluoroscopy guidance with continuous intracardiac echo monitoring. After interrogation using fluoroscopy as well as intracardiac echocardiogram we were satisfied with the results and no patient was on the SVC identified. No residual shunt was seen by intracardiac echocardiogram. At that point the device was released. Subsequently the catheter was pulled out and also the intracardiac echocardiogram was pulled out. Subsequently the right groin venous sheath were removed and hemostasis was achieved using Vascade device. The procedure was completed was no complication. At the end I did right atrial angiogram with injection of contrast through the 12-Mauritanian sheath at the right common femoral vein. The procedure was completed without any complication. POSTPROCEDURE MANAGEMENT: 1. Continue antiplatelet at this point.. 2. An echo in 24 hours, in 1 week, in 4 weeks, as well as in 6 months.
[2023-03-28] MEDS ORDERED: ALBUTEROL HFA INHALER INHALATION PRN (01:39)
--- NOTE | 2023-03-28 07:32 | XR ---
EXAMINATION TYPE: XR chest 2V DATE OF EXAM: 03/28/2023 COMPARISON: 01/14/2023 HISTORY: 68-year-old male ASD/PFO placement TECHNIQUE: PA and lateral views FINDINGS: Images show the apical pleura device. Heart normal size. Other scattered calcifications. Mild interst itial prominence and hyperinflation is unchanged. No consolidation, pneumothorax, or pleural effusion . IMPRESSION: Interval placement of PFO occluded device. COPD. No acute process seen.
[2023-03-28] MEDS ORDERED: ALBUTEROL NEBULIZED 2.5 MG/3 ML INHALATION PRN (08:00)
[2023-03-28] MEDS ORDERED: ASPIRIN 325 MG TAB PO SCH (09:00)
[2023-03-28] MEDS ORDERED: CLOPIDOGREL 75 MG TAB PO SCH (09:00)
--- NOTE | 2023-03-28 09:25 | P.DS ---
Providers Attending physician: Timmy Castro Primary care physician: [facility] Course: The patient is a pleasant 68-year-old gentleman who underwent yesterday successful percutaneous closure of patent foramen ovale with aneurysmal interatrial septum. The patient did have history of stroke before He was seen and evaluated this morning. He is a stable and he is asymptomatic. The chest x-ray showed stable findings. The EKG showed sinus mechanism. The echo still pending Awaiting the results of the echocardiogram and if there is no abnormalities of the patient would be going to be discharged home and follow-up as an outpatient. The right groin is soft and nontender was no bruises Plan - Discharge Summary Discharge Rx Participant: Yes New Discharge Prescriptions: Continue Montelukast [Singulair] 10 mg PO HS Albuterol Sulfate [Albuterol Sulfate Hfa] 2 puff INHALATION RT-Q4H PRN PRN Reason: Shortness Of Breath Evolocumab [Repatha Sureclick] 140 mg SQ Q14D ALPRAZolam [Xanax] 0.25 mg PO DAILY PRN PRN Reason: Anxiety Clopidogrel [Plavix] 75 mg PO DAILY #30 tab Losartan Potassium [Cozaar] 100 mg PO DAILY Tamsulosin [Flomax] 0.4 mg PO DAILY traZODone HCL 50 mg PO HS Repaglinide [Prandin] 2 mg PO AC-BID glipiZIDE/METFORMIN HCL [glipiZIDE/METFORMIN HCL 5-500 mg] 2 tab PO QAM glipiZIDE/METFORMIN HCL [glipiZIDE/METFORMIN HCL 5-500 mg] 1 tab PO HS Empagliflozin [Jardiance] 25 mg PO DAILY Aspirin 81 mg PO DAILY 30 Days #30 tab Fluticasone/Umeclidin/Vilanter [Trelegy Ellipta 100-62.5-25] 1 inhalation INHALATION DAILY Discharge Medication List ALPRAZolam [Xanax] 0.25 mg PO DAILY PRN 01/03/23 [History] Albuterol Sulfate [Albuterol Sulfate Hfa] 2 puff INHALATION RT-Q4H PRN 01/03/23 [History] Empagliflozin [Jardiance] 25 mg PO DAILY 01/03/23 [History] Evolocumab [Repatha Sureclick] 140 mg SQ Q14D 01/03/23 [History] Montelukast [Singulair] 10 mg PO HS 01/03/23 [History] Repaglinide [Prandin] 2 mg PO AC-BID 01/03/23 [History] glipiZIDE/METFORMIN HCL [glipiZIDE/METFORMIN HCL 5-500 mg] 1 tab PO HS 01/03/23 [History] glipiZIDE/METFORMIN HCL [glipiZIDE/METFORMIN HCL 5-500 mg] 2 tab PO QAM 01/03/23 [History] traZODone HCL 50 mg PO HS 01/03/23 [History] Aspirin 81 mg PO DAILY 30 Days #30 tab 01/16/23 [Rx] Clopidogrel [Plavix] 75 mg PO DAILY #30 tab 01/16/23 [Rx] Fluticasone/Umeclidin/Vilanter [Trelegy Ellipta 100-62.5-25] 1 inhalation INHALATION DAILY 02/08/23 [History] Losartan Potassium [Cozaar] 100 mg PO DAILY 02/08/23 [History] Tamsulosin [Flomax] 0.4 mg PO DAILY 02/08/23 [History] Follow up Appointment(s)/Referral(s): Enrico Boles MD [STAFF PHYSICIAN] - 1 Week
--- NOTE | 2023-03-28 12:36 | CA ---
Transthoracic Echo Report Name: Peyman Amezcua Age: 68 Gender: M : 1955 Exam Date: 03/28/2023 09:21 Exam Location: [place] [facility] Ht (in): 69 Wt (lb): 172 Ordering Physician: Timmy Castro MD ([id number]) Attending/Referring Phys: Circuit Board Drafter Scar Self Procedure CPT: Indications: Post ASD/PFO Insertion Cardiac Hx: Technical Quality: Fair Contrast 1: Total Dose (mL): Contrast 2: Total Dose (mL): MEASUREMENTS (Male / Female) Normal Values FINDINGS Left Ventricle Right Ventricle Right Atrium Intra-atrial septal closure device with minimal lvgu-df-bfgty shunting Left Atrium Mitral Valve Structurally normal mitral valve. Mild mitral regurgitation. Aortic Valve Tricuspid Valve Structurally normal tricuspid valve. Mild tricuspid regurgitation. Pulmonic Valve Pericardium No pericardial effusion. Aorta CONCLUSIONS Evidence of intra-atrial septal closure device with minimal if to right shunting Mild mitral and tricuspid regurgitation Previewed by: Dr. Henrry Jones MD (Electronically Signed) Final Date: 28 March 2023 12:35
[2023-03-28 15:46] VITALS: BP 158/80; PULSE 86
== END 2023-03-28 13:35 | disposition home or self-care (01) ==
LOC: CATHCVL 06:53 → 3SCARD 10:55 → CATHCVL 03-28 13:35
PROVIDERS: ATTEND Internal Medicine Interventional Cardiology
DX: Q21.10 Atrial septal defect, unspecified (principal); Z79.899 Other long term (current) drug therapy; Z79.02 Long term (current) use of antithrombotics/antiplatelets; Z79.84 Long term (current) use of oral hypoglycemic drugs; Z79.82 Long term (current) use of aspirin
CPT/HCPCS: 94640; 93308; 86900; 86901; 86850; 71046; C1894 ×2; C1769 ×3; C1760; J2250; J0690; J2001; J3010; J1644; J1170; Q9967; 93580; 93662

== ENCOUNTER → 2023-07-18 | Outpatient (CLI) | payer MEDICARE ==
[2023-07-18 16:10] LABS: ALT 30 U/L (10-49); AST 19 U/L (14-35); Chol/HDL Ratio 1.82 Ratio; LDL Cholesterol,Calculated 34.4 mg/dL (0.0-131.0); VLDL Calculation 18.26 mg/dL (5.00-40.00)
== END | disposition home or self-care (01) ==
LOC: LABWHC1 10:29
PROVIDERS: ATTEND Internal Medicine Cardiovascular Disease
DX: E78.2 Mixed hyperlipidemia (principal)
CPT/HCPCS: 36415; 80061; 84450; 84460

== ENCOUNTER → 2023-10-23 | Outpatient (CLI) | payer MEDICARE ==
--- NOTE | 2023-10-23 14:19 | XR ---
EXAMINATION TYPE: XR chest 2V DATE OF EXAM: 10/23/2023 COMPARISON: 03/28/2023 TECHNIQUE: PA and lateral views submitted. HISTORY: Shortness of breath FINDINGS: Underlying emphysematous changes with prominent pulmonary arteries correlate. Previous cardiac surger y. Subsegmental linear changes bilaterally most compatible scarring or atelectasis. Atherosclerotic c hange aorta. Diffuse osteopenia with AC joint arthropathy. Degenerative change of the spine. IMPRESSION: 1. COPD with bilateral areas of scarring or atelectasis.
== END | disposition home or self-care (01) ==
LOC: RADXRMAIN 13:15
PROVIDERS: ATTEND Internal Medicine Geriatric Medicine
DX: J44.9 Chronic obstructive pulmonary disease, unspecified (principal); J98.11 Atelectasis
CPT/HCPCS: 71046

== ENCOUNTER → 2024-02-22 | Outpatient (CLI) | payer MEDICARE ==
--- NOTE | 2024-03-20 21:24 | MR ---
Site ID synapse default Patient Peyman Amezcua, Jenny ID [id number] Age/Gender: 69Y, M Order # N/A Procedure MRI L SPINE W/WO CONTRAST Date 02/22/2024 10:17:28 AM EXAMINATION TYPE: MR lumbar spine wo/w con DATE OF EXAM: 03/05/2024 COMPARISON: MRI lumbar spine 07/02/2012, lumbar spine radiograph 03/02/2024, 12/06/2021 HISTORY: Lower back pain with right leg weakness TECHNIQUE: Multiplanar, multisequence images of the lumbar spine were acquired without and with 9 mL intravenous Gadavist gadolinium contrast. Findings: Type I Modic changes involving the inferior endplate of the L5 vertebral body superior endplate of th e S1 vertebral body. There is corresponding enhancement related to bone marrow edema and inflammation . Vertebral body height and remaining marrow signal intensity is within normal limits. Grade 1 mindy listhesis at L4 on L5 without evidence of pars defects. The tip of the conus medullaris is at T11-T12 and signal intensity of the included spinal cord is normal. Multilevel disc desiccation. Small multi level Schmorl's nodes. Individual levels: T12-L1: No significant disc pathology. No spinal canal and neuroforaminal stenosis. L1-L2: No significant disc pathology. No spinal canal and neuroforaminal stenosis. L2-L3: No significant disc pathology. No spinal canal and neuroforaminal stenosis. L3-L4: Broad-based disc bulge with bilateral facet arthropathy resulting in mild central canal stenos is. Mild bilateral neural foraminal stenosis. L4-L5: Grade 1 anterolisthesis with uncovering of the disc. Broad-based disc bulge with ligamentum fl avum buckling and bilateral facet arthropathy contribute to moderate to severe central canal stenosis . Moderate bilateral neuroforaminal stenosis. L5-S1: Broad-based disc bulge with mild effacement of the anterior thecal sac. Bilateral facet arthro rashid. Moderate to severe bilateral neuroforaminal stenosis. IMPRESSION: 1. Multilevel degenerative disease and facet arthropathy. This is most pronounced at L4-L5 with mode rate to severe central canal stenosis and moderate bilateral neural foraminal stenosis. Varying degre es of neural foraminal stenosis as described above. This is most prominent bilaterally at L5-S1 with moderate to severe bilateral neuroforaminal stenosis secondary to facet arthropathy. 2. Type I Modic changes at L5-S1. 3. Grade 1 anterolisthesis of L4 on L5 without evidence of pars defects.
== END | disposition home or self-care (01) ==
LOC: RADMRIMAIN 11:15
PROVIDERS: ATTEND Internal Medicine Geriatric Medicine
DX: M48.07 Spinal stenosis, lumbosacral region (principal); M47.817 Spondylosis without myelopathy or radiculopathy, lumbosacral region; M43.16 Spondylolisthesis, lumbar region; M51.36 Other intervertebral disc degeneration, lumbar region; M99.73 Connective tissue and disc stenosis of intervertebral foramina of lumbar region
CPT/HCPCS: 72158; A9585

== ENCOUNTER 2024-07-12 18:28 | Inpatient (IN) | payer MEDICARE ==
--- NOTE | 2024-07-12 18:44 | ED ---
SOB HPI - General Stated Complaint: wilber Time Seen by Provider: 07/12/24 18:33 Source: RN notes reviewed, old records reviewed Mode of arrival: EMS Limitations: no limitations - History of Present Illness Initial Comments: This is a 69-year-old male to ER with shortness of breath history of heart failure history of COPD despite being at 1 8. Patient states he went home and laid down to try to get some rest he had persistent cough and congestion with severe shortness of breath especially when laying down flat. Patient did celebrate holidays no known significant sick contacts. No travel MD Complaint: shortness of breath, cough, anxiety -: hour(s) Severity: moderate Severity scale (1-10): 6 Consistency: constant Improves With: rest Worsens With: lying flat, exertion Known History Of: COPD, asthma, congestive heart failure Context: recent URI, anxiety, recent illness Associated Symptoms: cough, sputum production Treatments Prior to Arrival: oxygen, bronchodilator - Related Data Home Medications Medication Instructions Recorded Confirmed ALPRAZolam [Xanax] 0.25 mg PO DAILY PRN 01/03/23 07/12/24 Albuterol Sulfate [Albuterol 2 puff INHALATION RT-Q4H PRN 01/03/23 07/12/24 Sulfate Hfa] Empagliflozin [Jardiance] 25 mg PO DAILY 01/03/23 07/12/24 Evolocumab [Repatha Sureclick] 140 mg SQ Q14D 01/03/23 07/12/24 Montelukast [Singulair] 10 mg PO HS 01/03/23 07/12/24 Repaglinide [Prandin] 2 mg PO AC-BID 01/03/23 07/12/24 glipiZIDE/METFORMIN HCL 1 tab PO DAILY 01/03/23 07/12/24 [glipiZIDE/METFORMIN HCL 5-500 mg] glipiZIDE/METFORMIN HCL 2 tab PO HS 01/03/23 07/12/24 [glipiZIDE/METFORMIN HCL 5-500 mg] traZODone HCL 100 mg PO HS 01/03/23 07/12/24 Apixaban [Eliquis] 5 mg PO BID 07/12/24 07/12/24 Cetirizine HCl [Zyrtec] 10 mg PO DAILY 07/12/24 07/12/24 Fluticasone Propion/Salmeterol 1 puff PO RT-DAILY 07/12/24 07/12/24 [Fluticasone-Salmeterol 500-50] Metoprolol Succinate (ER) [Toprol 50 mg PO DAILY 07/12/24 07/12/24 XL] Previous Rx's Medication Instructions Recorded Aspirin 81 mg PO DAILY 30 Days #30 tab 01/16/23 Dapagliflozin Propanediol [Farxiga] 10 mg PO DAILY 30 Days #30 tab 07/18/24 Furosemide [Lasix] 40 mg PO BID@0900,1600 30 Days #60 07/18/24 tab Losartan [Cozaar] 25 mg PO DAILY 30 Days #30 tab 07/18/24 Potassium Chloride 10 meq PO BID 30 Days #60 cap 07/18/24 predniSONE 10 mg PO DAILY 8 Days #12 tab 07/18/24 Allergies Allergy/AdvReac Type Severity Reaction Status Date / Time amlodipine AdvReac Mild Unknown Verified 07/12/24 19:49 hydrochlorothiazide AdvReac Unknown Verified 07/12/24 19:49 olmesartan AdvReac Unknown Verified 07/12/24 19:49 rosuvastatin AdvReac Unknown Verified 07/12/24 19:49 sitagliptin AdvReac Unknown Verified 07/12/24 19:49 [id number] Reductase AdvReac muscle Verified 07/12/24 19:49 Inhibitor cramps Review of Systems ROS Statement: Those systems with pertinent positive or pertinent negative responses have been documented in the HPI. ROS Other: All systems not noted in ROS Statement are negative. Past Medical History Past Medical History: COPD, CVA/TIA, Diabetes Mellitus, Hypertension Additional Past Medical History / Comment(s): limited ROM to left shoulder History of Any Multi-Drug Resistant Organisms: None Reported Past Surgical History: Orthopedic Surgery Additional Past Surgical History / Comment(s): Venu Knee replacement. Past Anesthesia/Blood Transfusion Reactions: No Reported Reaction Additional Past Anesthesia/Blood Transfusion Reaction / Comment(s): no hx blood transfusion Past Psychological History: No Psychological Hx Reported Smoking Status: Current every day smoker Past Alcohol Use History: Rare Additional Past Alcohol Use History / Comment(s): smoking approx 50 [id number]-[id number] Past Drug Use History: None Reported - Past Family History Mother Additional Family Medical History / Comment(s): dementia Father Family Medical History: Cancer Additional Family Medical History / Comment(s): bone,brain Sister(s) Family Medical History: Cancer Additional Family Medical History / Comment(s): lung/brain General Exam General appearance: alert, in no apparent distress Head exam: Present: atraumatic, normocephalic, normal inspection Eye exam: Present: normal appearance, PERRL, EOMI. Absent: scleral icterus, conjunctival injection, periorbital swelling ENT exam: Present: normal exam, mucous membranes moist Neck exam: Present: normal inspection. Absent: tenderness, meningismus, lymphadenopathy Respiratory exam: Present: respiratory distress, wheezes, decreased breath sounds, prolonged expiratory. Absent: rales, rhonchi, stridor Cardiovascular Exam: Present: regular rate, normal rhythm, normal heart sounds. Absent: systolic murmur, diastolic murmur, rubs, gallop, clicks GI/Abdominal exam: Present: soft, normal bowel sounds. Absent: distended, tenderness, guarding, rebound, rigid Extremities exam: Present: normal inspection, full ROM, normal capillary refill. Absent: tenderness, pedal edema, joint swelling, calf tenderness Back exam: Present: normal inspection Neurological exam: Present: alert, oriented X3, CN II-XII intact Psychiatric exam: Present: normal affect, normal mood Skin exam: Present: warm, dry, intact, normal color. Absent: rash Course Vital Signs 07/12/24 07/12/24 07/12/24 18:43 20:38 21:05 Temperature 101.8 F H 98.2 F Pulse Rate 113 H 103 H 100 Respiratory 20 20 Rate Blood Pressure 149/91 148/90 O2 Sat by Pulse 96 96 Oximetry Fraction of Inspired Oxygen (FIO2) 07/12/24 07/12/24 07/12/24 21:12 21:51 22:14 Temperature Pulse Rate 101 H 106 H Respiratory 18 Rate Blood Pressure 115/99 O2 Sat by Pulse 96 99 Oximetry Fraction of Inspired Oxygen (FIO2) 07/13/24 07/13/24 07/13/24 03:09 06:33 07:40 Temperature Pulse Rate 101 H 109 H 115 H Respiratory 20 22 24 Rate Blood Pressure 126/73 122/90 O2 Sat by Pulse 92 L 92 L 94 L Oximetry Fraction of Inspired Oxygen (FIO2) 07/13/24 07/13/24 07/13/24 08:11 08:21 09:01 Temperature Pulse Rate 118 H 116 H 116 H Respiratory 26 H Rate Blood Pressure O2 Sat by Pulse 96 96 Oximetry Fraction of Inspired Oxygen (FIO2) 07/13/24 07/13/24 07/13/24 10:28 11:37 11:41 Temperature Pulse Rate 120 H 126 H Respiratory 24 32 H Rate Blood Pressure 123/83 126/92 O2 Sat by Pulse 93 L 96 Oximetry Fraction of 50 Inspired Oxygen (FIO2) 07/13/24 07/13/24 07/13/24 11:51 11:53 12:02 Temperature Pulse Rate 118 H 114 H 112 H Respiratory 27 H Rate Blood Pressure 143/80 O2 Sat by Pulse 96 Oximetry Fraction of Inspired Oxygen (FIO2) 07/13/24 07/13/24 07/13/24 12:30 13:00 14:45 Temperature Pulse Rate 110 H 108 H 100 Respiratory 28 H 27 H 13 Rate Blood Pressure 106/67 116/79 121/74 O2 Sat by Pulse 89 L 95 90 L Oximetry Fraction of Inspired Oxygen (FIO2) 07/13/24 07/13/24 07/13/24 15:57 15:58 16:20 Temperature Pulse Rate 96 94 Respiratory Rate Blood Pressure O2 Sat by Pulse Oximetry Fraction of 50 Inspired Oxygen (FIO2) 07/13/24 07/13/24 07/13/24 17:02 18:35 20:11 Temperature Pulse Rate 93 98 93 Respiratory 18 27 H Rate Blood Pressure 133/80 129/80 O2 Sat by Pulse 100 100 Oximetry Fraction of 50 Inspired Oxygen (FIO2) 07/13/24 07/13/24 07/13/24 20:35 20:37 23:25 Temperature Pulse Rate 94 98 90 Respiratory 17 14 Rate Blood Pressure 141/87 112/61 O2 Sat by Pulse 99 97 Oximetry Fraction of Inspired Oxygen (FIO2) 07/14/24 07/14/24 00:00 01:06 Temperature Pulse Rate 84 Respiratory 14 Rate Blood Pressure 115/61 O2 Sat by Pulse 98 Oximetry Fraction of 50 Inspired Oxygen (FIO2) - Reevaluation(s) Reevaluation #1: 07/12/24 18:43 Medical records reviewed Reevaluation #2: 07/12/24 18:44 Patient symptoms improving here in the ER Reevaluation #3: 07/12/24 20:21 Patient informed of results questions answered Reevaluation #4: Was pt. sent in by a medical professional or institution (NIKHIL Mckeon, PRACTICE MANAGEMENT CONSULTANT, urgent care, hospital, or long-term...) When possible be specific @ -no Did you speak to anyone other than the patient for history (EMS, parent, family, police, friend...)? What history was obtained from this source @ -no Did you review nursing and triage notes (agree or disagree)? Why? @ -agree Are old charts reviewed (outside hosp., previous admission, EMS record, old EKG, old radiological studies, urgent care reports/EKG's, long-term records)? Report findings @ -yes Differential Diagnosis (chest pain, altered mental status, abdominal pain women, abdominal pain men, vaginal bleeding, weakness, fever, dyspnea, syncope, headache, dizziness, GI bleed, back pain, seizure, CVA, palpatations, mental health, musculoskeletal)? @ -prior EKG interpreted by me (3pts min.). @ -yes X-rays interpreted by me (1pt min.). @ -yes positive for pneumonia CT interpreted by me (1pt min.). @ -no U/S interpreted by me (1pt. min.). @ -no What testing was considered but not performed or refused? (CT, X-rays, U/S, labs)? Why? @ -none What meds were considered but not given or refused? Why? @ -none Did you discuss the management of the patient with other professionals (professionals i.e. NIKHIL Mckeon, PRACTICE MANAGEMENT CONSULTANT, lab, RT, psych nurse, social media director, bmw sales consultant, teacher, associate loan officer, family independence case manager)? Give summary @ -no Was smoking cessation discussed for >3mins.? @ -no Was critical care preformed (if so, how long)? @ -yes31 Were there social determinants of health that impacted care today? How? (Homelessness, low income, unemployed, alcoholism, drug addiction, transportation, low edu. Level, literacy, decrease access to med. care, halfway, rehab)? @ -none Was there de-escalation of care discussed even if they declined (Discuss DNR or withdrawal of care, Hospice)? DNR status @ -no What co-morbidities impacted this encounter? (DM, HTN, Smoking, COPD, CAD, Cancer, CVA, ARF, Chemo, Hep., AIDS, mental health diagnosis, sleep apnea, morbid obesity)? @ -none Was patient admitted / discharged? Hospital course, mention meds given and route, prescriptions, significant lab abnormalities, going to OR and other pertinent info. @ - 69-year-old male to ER for evaluation of shortness of breath COPD hypoxia fever with pneumonia Admitted Undiagnosed new problem with uncertain prognosis? @ -no Drug Therapy requiring intensive monitoring for toxicity (Heparin, Nitro, Insulin, Cardizem)? @ -no Were any procedures done? @ -no Diagnosis/symptom? @ -Sepsis Acute, or Chronic, or Acute on Chronic? @ -Acute Uncomplicated (without systemic symptoms) or Complicated (systemic symptoms)? @ -Complicated Side effects of treatment? @ -no Exacerbation, Progression, or Severe Exacerbation? @ -exacerbation Poses a threat to life or bodily function? How? (Chest pain, [place], [place], pneumonia, PE, COPD, DKA, ARF, appy, cholecystitis, CVA, Diverticulitis, Homicidal, Suicidal, threat to staff... and all critical care pts) @ -yes extremes of age Reevaluation #5: Differential Dyspnea: Coronary syndrome, arrhythmia, tamponade, asthma, COPD, pulmonary embolism, pneumonia, pneumothorax, pulmonary effusion, anaphylaxis, diabetic ketoacidosis, flailed chest, pulmonary contusion, diaphragmatic rupture, anemia, neuromuscular, this is not meant to be an all-inclusive list. - Consultations Consultation #1: Spoke with [facility] who agrees to admit this patient Medical Decision Making - Medical Decision Making 69-year-old male to ER for evaluation of shortness of breath COPD hypoxia fever with pneumonia - Lab Data Result diagrams: 07/17/24 06:20 07/17/24 06:20 Lab Results 07/12/24 07/12/24 07/12/24 Range/Units 19:07 19:07 19:07 WBC 7.5 (3.8-10.6) k/uL RBC 5.10 (4.30-5.90) m/uL Hgb 16.8 (13.0-17.5) gm/dL Hct 52.2 (39.0-53.0) % MCV 102.4 H (80.0-100.0) fL MCH 33.0 (25.0-35.0) pg MCHC 32.2 (31.0-37.0) g/dL RDW 14.8 (11.5-15.5) % Plt Count 194 (150-450) k/uL MPV 7.5 Neutrophils % 80 % Lymphocytes % 9 % Monocytes % 7 % Eosinophils % 1 % Basophils % 1 % Neutrophils # 5.9 (1.3-7.7) k/uL Lymphocytes # 0.7 L (1.0-4.8) k/uL Monocytes # 0.5 (0-1.0) k/uL Eosinophils # 0.0 (0-0.7) k/uL Basophils # 0.0 (0-0.2) k/uL Macrocytosis Slight PT 11.8 (10.0-12.5) sec INR 1.1 (<1.2) APTT 24.3 (22.0-30.0) sec Sodium 125 L (137-145) mmol/L Potassium 4.9 (3.5-5.1) mmol/L Chloride 93 L (98-107) mmol/L Carbon Dioxide 19 L (22-30) mmol/L Anion Gap 13 mmol/L BUN 12 (9-20) mg/dL Creatinine 0.79 (0.66-1.25) mg/dL Est GFR (CKD-EPI)AfAm >90 (>60 ml/min/1.73 sqM) Est GFR (CKD-EPI)NonAf >90 (>60 ml/min/1.73 sqM) Glucose 168 H (74-99) mg/dL Calcium 8.1 L (8.4-10.2) mg/dL Total Bilirubin 0.5 (0.2-1.3) mg/dL AST 27 (17-59) U/L ALT 23 (4-49) U/L Alkaline Phosphatase 193 H (38-126) U/L Troponin I (0.000-0.034) ng/mL NT-Pro-B Natriuret Pep 35814 pg/mL Total Protein 5.6 L (6.3-8.2) g/dL Albumin 3.4 L (3.5-5.0) g/dL Serum Alcohol 18 mg/dL Influenza Type A (PCR) (Not Detectd) Influenza Type B (PCR) (Not Detectd) RSV (PCR) (Not Detectd) SARS-CoV-2 (PCR) (Not Detectd) 07/12/24 07/12/24 Range/Units 19:07 19:07 WBC (3.8-10.6) k/uL RBC (4.30-5.90) m/uL Hgb (13.0-17.5) gm/dL Hct (39.0-53.0) % MCV (80.0-100.0) fL MCH (25.0-35.0) pg MCHC (31.0-37.0) g/dL RDW (11.5-15.5) % Plt Count (150-450) k/uL MPV Neutrophils % % Lymphocytes % % Monocytes % % Eosinophils % % Basophils % % Neutrophils # (1.3-7.7) k/uL Lymphocytes # (1.0-4.8) k/uL Monocytes # (0-1.0) k/uL Eosinophils # (0-0.7) k/uL Basophils # (0-0.2) k/uL Macrocytosis PT (10.0-12.5) sec INR (<1.2) APTT (22.0-30.0) sec Sodium (137-145) mmol/L Potassium (3.5-5.1) mmol/L Chloride (98-107) mmol/L Carbon Dioxide (22-30) mmol/L Anion Gap mmol/L BUN (9-20) mg/dL Creatinine (0.66-1.25) mg/dL Est GFR (CKD-EPI)AfAm (>60 ml/min/1.73 sqM) Est GFR (CKD-EPI)NonAf (>60 ml/min/1.73 sqM) Glucose (74-99) mg/dL Calcium (8.4-10.2) mg/dL Total Bilirubin (0.2-1.3) mg/dL AST (17-59) U/L ALT (4-49) U/L Alkaline Phosphatase (38-126) U/L Troponin I 0.026 (0.000-0.034) ng/mL NT-Pro-B Natriuret Pep pg/mL Total Protein (6.3-8.2) g/dL Albumin (3.5-5.0) g/dL Serum Alcohol mg/dL Influenza Type A (PCR) Not Detected (Not Detectd) Influenza Type B (PCR) Not Detected (Not Detectd) RSV (PCR) Not Detected (Not Detectd) SARS-CoV-2 (PCR) Not Detected (Not Detectd) - EKG Data -: EKG Interpreted by Me (EKG is sinus tachycardia 109 WA 190 QRS 118 QTc 378) - Radiology Data Radiology results: report reviewed (Chest x-ray is positive for pneumonia), image reviewed Critical Care Time Critical Care Time: Yes Total Critical Care Time: 31 Disposition Clinical Impression: ETOH abuse, COPD exacerbation, Community acquired pneumonia, Asthma with acute exacerbation, Congestive heart failure, Fever Disposition: ADMITTED IP TO THIS HOSP Condition: Fair Is patient prescribed a controlled substance at d/c from ED?: No Time of Disposition: 20:20
[2024-07-12] MEDS: IBUPROFEN IV 800 MG in SODIUM CHLORIDE 0.9% 250 ML IV ONE (19:10)
[2024-07-12 19:19] LABS: Basophils % (A) 1 %; Eosinophils % (A) 1 %; HCT 52.2 % (39.0-53.0); HGB 16.8 gm/dL (13.0-17.5); Lymphocytes # (A) 0.7 k/uL (1.0-4.8); Lymphocytes % (A) 9 %; MCHC 32.2 g/dL (31.0-37.0); MCV 102.4 fL (80.0-100.0); Macrocytosis Slight; Mean Platelet Volume 7.5; Monocytes # (A) 0.5 k/uL (0-1.0); Monocytes % (A) 7 %; Neutrophils # (A) 5.9 k/uL (1.3-7.7); Neutrophils % (A) 80 %; Platelet Count 194 k/uL (150-450); RDW 14.8 % (11.5-15.5); WBC 7.5 k/uL (3.8-10.6)
[2024-07-12 19:25] LABS: ALT 23 U/L (4-49); AST 27 U/L (17-59); African American GFR (CKD) >90 (>60 ml/min/1.73 sqM); Albumin 3.4 g/dL (3.5-5.0); Alcohol 18 mg/dL; Alkaline Phosphatase 193 U/L (38-126); Anion Gap 13 mmol/L; Blood Urea Nitrogen 12 mg/dL (9-20); Calcium 8.1 mg/dL (8.4-10.2); Carbon Dioxide 19 mmol/L (22-30); Chloride 93 mmol/L (98-107); Glucose 168 mg/dL (74-99); Non-African American GFR(CKD) >90 (>60 ml/min/1.73 sqM); Potassium 4.9 mmol/L (3.5-5.1); Sodium 125 mmol/L (137-145); Total Bilirubin 0.5 mg/dL (0.2-1.3); Total Protein 5.6 g/dL (6.3-8.2)
[2024-07-12 19:29] LABS: INR 1.1 (<1.2); Partial Thromboplastin Time 24.3 sec (22.0-30.0); Prothrombin Time 11.8 sec (10.0-12.5)
--- NOTE | 2024-07-12 19:34 | XR ---
EXAMINATION TYPE: XR chest 1V portable DATE OF EXAM: 07/12/2024 7:15 PM COMPARISON: Chest radiographs from10/23/2023 CLINICAL INDICATION: Male, 69 years old with history of sob; [facility] TECHNIQUE: XR chest 1V portable Frontal view of the chest. FINDINGS: Lungs/Pleura: Right basilar airspace opacity near the diaphragm. There is no evidence of pleural effu amira, focal consolidation, or pneumothorax. Pulmonary vascularity: Unremarkable. Heart/mediastinum: Cardiomediastinal silhouette is unremarkable. Musculoskeletal: No acute osseous pathology. IMPRESSION: Right basilar airspace opacity either developing pneumonia versus eventration of the diaphragm. [facility], , 07/12/2024 7:32 PM
[2024-07-12 19:36] LABS: NT-Pro-B-Type Natriuretic Pept 21900 pg/mL
[2024-07-12] MEDS: ACETAMINOPHEN IV (For NPO) 1,000 MG in EMPTY BAG 1 BAG IVPB STA (19:58)
[2024-07-12] MEDS ORDERED: MORPHINE SULFATE 4 MG/ML SYRINGE IV PRN (20:18)
[2024-07-12] MEDS ORDERED: NALOXONE 0.4 MG/ML 1 ML VIAL IV PRN (20:18)
[2024-07-12] MEDS ORDERED: ACETAMINOPHEN TAB 325 MG TAB PO PRN (20:18)
[2024-07-12] MEDS ORDERED: PNEUMONIA PROTOCOL UTILIZED 1 EACH MISC PO PRN (20:18)
[2024-07-12] MEDS: SODIUM CHLORIDE 0.9% 1,000 ML IV SCH (20:25)
[2024-07-12] MEDS: AZITHROMYCIN 500 MG in SODIUM CHLORIDE 0.9% 250 ML IVPB STA (20:27)
[2024-07-12] MEDS: ONDANSETRON 4 MG/2 ML VIAL IVP PRN (21:01)
[2024-07-12] MEDS: IPRATROPIUM-ALBUTEROL 3 ML NEB INHALATION STA ×2 (21:02→21:05)
[2024-07-12] MEDS ORDERED: LORazepam 2 MG/ML INJ IV PRN (22:00)
[2024-07-12] MEDS ORDERED: LORazepam 1 MG TAB PO PRN ×2 (22:00)
[2024-07-13 00:39] LABS: Basophils # (A) 0.1 k/uL (0-0.2); Basophils % (A) 1 %; Eosinophils % (A) 0 %; HCT 51.7 % (39.0-53.0); HGB 16.7 gm/dL (13.0-17.5); Lymphocytes # (A) 0.9 k/uL (1.0-4.8); Lymphocytes % (A) 15 %; MCH 32.9 pg (25.0-35.0); MCHC 32.3 g/dL (31.0-37.0); MCV 101.7 fL (80.0-100.0); Macrocytosis Slight; Mean Platelet Volume 7.2; Monocytes # (A) 0.5 k/uL (0-1.0); Monocytes % (A) 8 %; Neutrophils # (A) 4.5 k/uL (1.3-7.7); Neutrophils % (A) 73 %; Platelet Count 174 k/uL (150-450); RBC 5.08 m/uL (4.30-5.90); RDW 14.9 % (11.5-15.5); WBC 6.2 k/uL (3.8-10.6)
[2024-07-13] MEDS: LORazepam 0.5 MG TAB PO PRN (01:04)
[2024-07-13 01:27] LABS: ALT 22 U/L (4-49); AST 25 U/L (17-59); African American GFR (CKD) >90 (>60 ml/min/1.73 sqM); Albumin 3.1 g/dL (3.5-5.0); Albumin/Globulin Ratio 1.3; Alkaline Phosphatase 163 U/L (38-126); Anion Gap 10 mmol/L; Blood Urea Nitrogen 16 mg/dL (9-20); Carbon Dioxide 18 mmol/L (22-30); Chloride 98 mmol/L (98-107); Globulin 2.3 g/dL; Glucose 163 mg/dL (74-99); Non-African American GFR(CKD) 87 (>60 ml/min/1.73 sqM); Phosphorus 4.8 mg/dL (2.5-4.5); Potassium 4.9 mmol/L (3.5-5.1); Sodium 126 mmol/L (137-145); Total Bilirubin 0.3 mg/dL (0.2-1.3); Total Protein 5.4 g/dL (6.3-8.2)
[2024-07-13] MEDS ORDERED: IPRATROPIUM-ALBUTEROL 3 ML NEB INHALATION PRN (03:08)
[2024-07-13] MEDS ORDERED: DEXTROSE 50% SYRINGE 50 ML IVP PRN ×2 (03:37)
[2024-07-13] MEDS: LORazepam 1 MG TAB PO PRN (03:42)
[2024-07-13 06:26] LABS: Glucose,Whole Blood 213 mg/dL (70-110)
--- NOTE | 2024-07-13 06:39 | P.CNPUL ---
History of Present Illness Consult date: 07/13/24 Requesting physician: Sanchez Coffman Reason for consult: COPD Chief complaint: Shortness of breath, cough History of present illness: Patient is a 69-year-old male with past medical history significant for COPD, hypertension, diabetes mellitus, CVA, heart failure, and is a current 2 pack/day smoker. He does follow in the pulmonary office with Dr. Jenkins. He has severe COPD with an FEV1 39% of predicted. He is unsure of what maintenance inhalers he uses at home. Over the last couple days his been experiencing progressively worsening shortness of breath accompanied with a congested nonproductive cough. Denies chest pain, denies significant sputum production, denies hemoptysis. No measured fevers at home. Fever of 101.8 F on arrival to the ED. Of note, patient does report increased lower extremity swelling over the last couple weeks. He was started on a "water pill" approximately 1 week ago. Most recent available echocardiogram from January, estimating left ventricular ejection fraction of 35 to 40%. Chest x-ray is overpenetrated, possible right lower lobe infiltrate. CBC is unremarkable, no leukocytosis. CMP: Sodium 126, potassium 4.9, chloride 98, serum bicarb 18, BUN 16, creatinine 0.86, glucose 163. LFTs unremarkable. Troponin was 0.043 and is down to 0.034. NT proBNP 21,900. EKG: Sinus tachycardia, rate 109 bpm, incomplete RBBB pattern, no focal ST/T wave abnormalities suggestive of ischemia. Viral screen negative for influenza, RSV, COVID. Serum alcohol was 18. Patient drinks approximately 6 beers per day, 12 ounce beers. Denies any history of alcohol withdrawal symptoms. Currently on the CIWA protocol. Current vitals: Temperature 98.2 F, heart rate 99 bpm, blood pressure 115/99 mmHg, SpO2 is 92% on 2 L/min nasal cannula. He is curren tly being evaluated in the emergency department. He is lying on his left lateral side, on 2 L/min nasal cannula. He does occasionally groan in discomfort. No acute respiratory distress. He is alert and fully oriented. No signs of CO2 narcosis. No current signs of alcohol withdrawal. Review of Systems Constitutional: Reports fatigue, Reports poor appetite, Denies chills, Denies fever, Denies lethargy, Denies weight gain, Denies weight loss Ears, nose, mouth and throat: Reports nasal congestion, Reports nasal discharge, Reports sinus pressure, Denies post-nasal drip, Denies sinus pain, Denies sore throat Cardiovascular: Reports leg edema, Denies chest pain, Denies lightheadedness, Denies orthopnea, Denies palpitations, Denies syncope Respiratory: Reports congestion, Reports cough, Reports wheezing, Denies cough with sputum, Denies home oxygen, Denies pain on inspiration Gastrointestinal: Denies abdominal pain, Denies constipation, Denies diarrhea, Denies nausea, Denies vomiting Genitourinary: Denies dysuria Musculoskeletal: Denies limitation of motion Integumentary: Denies rash Neurological: Denies seizures, Denies syncope Psychiatric: Denies anxiety, Denies depression Past Medical History Past Medical History: COPD, CVA/TIA, Diabetes Mellitus, Hypertension Additional Past Medical History / Comment(s): limited ROM to left shoulder History of Any Multi-Drug Resistant Organisms: None Reported Past Surgical History: Orthopedic Surgery Additional Past Surgical History / Comment(s): Venu Knee replacement. Past Anesthesia/Blood Transfusion Reactions: No Reported Reaction Additional Past Anesthesia/Blood Transfusion Reaction / Comment(s): no hx blood transfusion Past Psychological History: No Psychological Hx Reported Smoking Status: Current every day smoker Past Alcohol Use History: Rare Additional Past Alcohol Use History / Comment(s): smoking approx 50 yrs-1ppd Past Drug Use History: None Reported - Past Family History Mother Additional Family Medical History / Comment(s): dementia Father Family Medical History: Cancer Additional Family Medical History / Comment(s): bone,brain Sister(s) Family Medical History: Cancer Additional Family Medical History / Comment(s): lung/brain Medications and Allergies Home Medications Medication Instructions Recorded Confirmed Type ALPRAZolam [Xanax] 0.25 mg PO DAILY PRN 01/03/23 07/12/24 History Albuterol Sulfate [Albuterol 2 puff INHALATION RT-Q4H PRN 01/03/23 07/12/24 History Sulfate Hfa] Empagliflozin [Jardiance] 25 mg PO DAILY 01/03/23 07/12/24 History Evolocumab [Repatha Sureclick] 140 mg SQ Q14D 01/03/23 07/12/24 History Montelukast [Singulair] 10 mg PO HS 01/03/23 07/12/24 History Repaglinide [Prandin] 2 mg PO AC-BID 01/03/23 07/12/24 History glipiZIDE/METFORMIN HCL 1 tab PO DAILY 01/03/23 07/12/24 History [glipiZIDE/METFORMIN HCL 5-500 mg] glipiZIDE/METFORMIN HCL 2 tab PO HS 01/03/23 07/12/24 History [glipiZIDE/METFORMIN HCL 5-500 mg] traZODone HCL 100 mg PO HS 01/03/23 07/12/24 History Aspirin 81 mg PO DAILY 30 Days #30 tab 01/16/23 07/12/24 Rx Losartan Potassium [Cozaar] 100 mg PO DAILY 02/08/23 07/12/24 History Apixaban [Eliquis] 5 mg PO BID 07/12/24 07/12/24 History Cetirizine HCl [Zyrtec] 10 mg PO DAILY 07/12/24 07/12/24 History Fluticasone Propion/Salmeterol 1 puff PO RT-DAILY 07/12/24 07/12/24 History [Fluticasone-Salmeterol 500-50] Furosemide [Lasix] 40 mg PO DAILY 07/12/24 07/12/24 History Metoprolol Succinate (ER) [Toprol 50 mg PO DAILY 07/12/24 07/12/24 History Xl] Allergies Allergy/AdvReac Type Severity Reaction Status Date / Time amlodipine AdvReac Mild Unknown Verified 07/12/24 19:49 hydrochlorothiazide AdvReac Unknown Verified 07/12/24 19:49 olmesartan AdvReac Unknown Verified 07/12/24 19:49 rosuvastatin AdvReac Unknown Verified 07/12/24 19:49 sitagliptin AdvReac Unknown Verified 07/12/24 19:49 [id number] Reductase AdvReac muscle Verified 07/12/24 19:49 Inhibitor cramps Physical Exam Vitals: Vital Signs Temp Pulse Resp BP Pulse Ox 07/13/24 03:09 101 H 20 92 L 07/12/24 22:14 106 H 18 115/99 99 07/12/24 21:51 96 07/12/24 21:12 101 H 07/12/24 21:05 100 07/12/24 20:38 98.2 F 103 H 20 148/90 96 07/12/24 18:43 101.8 F H 113 H 20 149/91 96 Intake and Output 07/12/24 07/12/24 07/13/24 14:59 22:59 06:59 Other: Weight 90.265 kg GENERAL EXAM: Alert, 69-year-old white male, laying on his left lateral side, comfortable in no apparent distress. HEAD: Normocephalic and atraumatic EYES: Normal reaction of pupils, equal size. NOSE: Clear with pink turbinates. THROAT: No erythema or exudates. NECK: No masses, no JVD. CHEST: No chest wall deformity. LUNGS: Equal air entry with diffuse rhonchi and wheezing. On 2 L/min nasal cannula, SpO2 92%. No conversational dyspnea or accessory muscle use while at rest. There is persistent congested cough. CVS: S1 and S2 normal with no audible murmur, regular rhythm. No extra heart sounds ABDOMEN: No hepatosplenomegaly, active bowel sounds, no guarding or rigidity. SPINE: No scoliosis or deformity SKIN: No rashes CENTRAL NERVOUS SYSTEM: No focal deficits, tone is normal in all 4 extremities. EXTREMITIES: There is no peripheral edema, clubbing, or cyanosis. Peripheral pulses are intact. Results - Laboratory Findings CBC and BMP: 07/13/24 00:20 07/13/24 00:20 PT/INR, D-dimer PT 11.8 sec (10.0-12.5) 07/12/24 19:07 INR 1.1 (<1.2) 07/12/24 19:07 Abnormal lab findings: Abnormal Labs 07/12/24 07/12/24 07/12/24 19:07 19:07 21:17 MCV 102.4 H Lymphocytes # 0.7 L Sodium 125 L Chloride 93 L Carbon Dioxide 19 L Glucose 168 H Calcium 8.1 L Phosphorus Alkaline Phosphatase 193 H Troponin I 0.043 H* Total Protein 5.6 L Albumin 3.4 L 07/13/24 07/13/24 00:20 00:20 MCV 101.7 H Lymphocytes # 0.9 L Sodium 126 L Chloride Carbon Dioxide 18 L Glucose 163 H Calcium 8.0 L Phosphorus 4.8 H Alkaline Phosphatase 163 H Troponin I Total Protein 5.4 L Albumin 3.1 L - Diagnostic Findings Chest x-ray: image reviewed Assessment and Plan Assessment: Acute COPD exacerbation, and suspected right lower lobe pneumonia. Chest x-ray is overpenetrated, there is a right lower lung opacity Acute hypoxemic respiratory failure, secondary to above, currently on 2 L/min nasal cannula Severe COPD, with an FEV1 39% of predicted Chronic ongoing tobacco dependence, current 2 pack/day smoker Alcohol intoxication, serum alcohol level was 18 on arrival Hyponatremia, possibly secondary to beer potomania History of alcoholism, admits to drinking 6, 12 ounce beers per day History of CVA, with residual homonymous hemianopia History of diabetes mellitus History of hypertension History of heart failure with moderately reduced ejection fraction, most recent available echocardiogram, from January 2023 estimating left ventricular ejection fraction of 35 to 40% Plan: Patient's medications, labs, chest x-ray reviewed Continue supplemental oxygen maintain oxygen saturation of 92% or greater Continue empiric antibiotics in the form of Rocephin and Zithromax Continue combination of DuoNebs, Symbicort inhaler, and IV Solu-Medrol Repeat chest x-ray in the morning Viral screen negative for influenza, RSV, COVID Check procalcitonin level Resume patient's home diuretics Cardiology also consulted Continue CIWA protocol Smoking cessation counseling performed greater than 10 minutes, nicotine patch offered Sliding scale insulin coverage added GI prophylaxis: Protonix Will continue to follow, additional recommendations to follow I have personally seen and examined the patient, performed the documentation and the assessment and plan as written. Number of minutes spent on the visit:20 Time with Patient: Greater than 30
[2024-07-13] MEDS: methylPREDNISolone SOD SUCCI 125 MG/2 ML VIAL IV SCH (07:17)
[2024-07-13] MEDS: INSULIN ASPART (NovoLOG) 100 UNIT/ML VIAL SQ SCH (07:52)
[2024-07-13] MEDS: LORazepam 2 MG/ML INJ IV PRN (07:54)
[2024-07-13] MEDS ORDERED: ALBUTEROL NEBULIZED 2.5 MG/3 ML INHALATION SCH (08:00)
[2024-07-13] MEDS: IPRATROPIUM-ALBUTEROL 3 ML NEB INHALATION SCH (08:08)
[2024-07-13] MEDS: SYMBICORT 160-4.5 MCG INHALER INHALATION SCH (08:08)
[2024-07-13] MEDS: NICOTINE 21MG/24HR PATCH TRANSDERM SCH (08:38)
[2024-07-13] MEDS: FUROSEMIDE 40 MG TAB PO SCH (08:38)
[2024-07-13] MEDS: PANTOPRAZOLE 40 MG TABLET PO SCH (08:38)
--- NOTE | 2024-07-13 08:41 | XR ---
EXAMINATION TYPE: XR chest 1V portable DATE OF EXAM: 07/13/2024 6:47 AM COMPARISON: 07/12/2024 CLINICAL INDICATION: Male, 69 years old with history of pneumonia, , FINDINGS: Heart mildly enlarged. PFO device noted. Mild interstitial density. The previous patchy opacity right mid lung shows improvement. Some residual patchy bibasilar opacity remains. IMPRESSION: 1. Similar mild cardiomegaly and interstitial prominence, possible mild pulmonary vascular congestion . 2. Some of the previous patchy right midlung opacity has improved. Some residual patchy bibasilar opa city remains. [facility], , 07/13/2024 8:38 AM
[2024-07-13] MEDS ORDERED: ALBUTEROL HFA INHALER INHALATION PRN (10:21)
[2024-07-13] MEDS: FUROSEMIDE 10 MG/ML 4 ML VIAL IV STA (10:30)
[2024-07-13 11:08] LABS: Glucose,Whole Blood 154 mg/dL (70-110)
--- NOTE | 2024-07-13 11:20 | P.CRDCN ---
History of Present Illness Consult date: 07/13/24 Requesting physician: Aiden High Reason for Consult (text): CP Chief complaint: shortness of breath History of present illness: This is a pleasant 69-year-old male patient of Dr. Boles with past medical history of paroxysmal atrial fibrillation, coronary artery disease, ischemic cardiomyopathy, COPD, 2 pack/day smoker and CVA with prior PFO closure in March 2023. Patient is a poor historian and most of the HPI was obtained from the chart. Presented to the hospital with complaints of slowly worsening shortness of breath as well as congested nonproductive cough. Fever of 101.8 F on arrival to the ED. Diagnostics -EKG: Sinus tachycardia incomplete right bundle branch block -Chest x-ray: Right basilar opacity -Laboratory studies: Sodium 125, potassium 4.9, normal white blood cell count, normal renal function, NT proBNP 21,900, troponin 0.026, 0.043 and 0.034 -Home cardiac medications: Metoprolol succinate 50 mg daily, Lasix 40 mg daily, losartan 100 mg p.o. daily, Jardiance 25 mg p.o. daily, Eliquis 5 mg p.o. twice daily, aspirin 81 mg daily and Repatha -Prior stress test: 02/28/2023 prior MS without any ischemia -Echocardiogram: 11/14/2023 mildly decreased LV systolic function with ejection fraction of 45 to 50%, global LV hypokinesis, PFO/ASD percutaneous closure devic e present, mild MR, mild TR -Cardiac catheterization: Unknown Review Of Systems: At the time of my exam: CONSTITUTIONAL: Denies fever or chills. HEENT: Denies blurred vision, vision changes. CARDIOVASCULAR: Denies chest pain. Denies orthopnea. Denies PND. Denies palpitations, dizziness, or syncope. RESPIRATORY: Shortness of breath, wheezing, and cough. Denies hemoptysis. GASTROINTESTINAL: Denies abdominal pain. Denies nausea or vomiting. Denies bleeding. HEMATOLOGIC: Denies bleeding disorders. GENITOURINARY: Denies hematuria. SKIN: Denies puritis. Denies rash. PHYSICAL EXAMINATION: This is a 69-year-old male in no apparent distress at the time of my examination. VITAL SIGNS: Reviewed. HEENT: Head is atraumatic, normocephalic. Pupils are equal, round. Sclerae anicteric. Conjunctivae are clear. Mucous membranes of the mouth are moist. Neck is supple. There is no elevated jugular venous pressure. No carotid bruit is heard. CHEST EXAMINATION: Lungs diminished bilaterally, expiratory wheezing throughout, tachypnea noted. HEART EXAMINATION: Heart regular, positive S1 and S2. No S3. No S4. Soft systolic murmur. ABDOMEN: Soft, nontender. Bowel sounds are heard. No organomegaly noted. EXTREMITIES: 2+ peripheral pulses with no evidence of peripheral edema and no calf tenderness noted. NEUROLOGIC EXAMINATION: Patient is awake, alert and oriented x3. Assessment: 1. Acute COPD exacerbation with suspected right lower lobe pneumonia, currently on IV antibiotics 2. Ischemic cardiomyopathy 3. Paroxysmal atrial fibrillation, currently maintaining sinus mechanism 4. History of PFO closure Plan: From cardiology's perspective we will obtain a 2D echo with Doppler study to as sess cardiac structure and function. Continue current cardiac medications. Will continue to follow the patient and provide further recommendations accordingly. Thank you kindly for this consultation. Nurse practitioner note has been reviewed, I agree with documented findings and plan of care. Patient was seen and examined. Past Medical History Past Medical History: COPD, CVA/TIA, Diabetes Mellitus, Hypertension Additional Past Medical History / Comment(s): limited ROM to left shoulder History of Any Multi-Drug Resistant Organisms: None Reported Past Surgical History: Orthopedic Surgery Additional Past Surgical History / Comment(s): Venu Knee replacement. Past Anesthesia/Blood Transfusion Reactions: No Reported Reaction Additional Past Anesthesia/Blood Transfusion Reaction / Comment(s): no hx blood transfusion Past Psychological History: No Psychological Hx Reported Smoking Status: Current every day smoker Past Alcohol Use History: Rare Additional Past Alcohol Use History / Comment(s): smoking approx 50 yrs-1ppd Past Drug Use History: None Reported - Past Family History Mother Additional Family Medical History / Comment(s): dementia Father Family Medical History: Cancer Additional Family Medical History / Comment(s): bone,brain Sister(s) Family Medical History: Cancer Additional Family Medical History / Comment(s): lung/brain Medications and Allergies Home Medications Medication Instructions Recorded Confirmed Type ALPRAZolam [Xanax] 0.25 mg PO DAILY PRN 01/03/23 07/12/24 History Albuterol Sulfate [Albuterol 2 puff INHALATION RT-Q4H PRN 01/03/23 07/12/24 History Sulfate Hfa] Empagliflozin [Jardiance] 25 mg PO DAILY 01/03/23 07/12/24 History Evolocumab [Repatha Sureclick] 140 mg SQ Q14D 01/03/23 07/12/24 History Montelukast [Singulair] 10 mg PO HS 01/03/23 07/12/24 History Repaglinide [Prandin] 2 mg PO AC-BID 01/03/23 07/12/24 History glipiZIDE/METFORMIN HCL 1 tab PO DAILY 01/03/23 07/12/24 History [glipiZIDE/METFORMIN HCL 5-500 mg] glipiZIDE/METFORMIN HCL 2 tab PO HS 01/03/23 07/12/24 History [glipiZIDE/METFORMIN HCL 5-500 mg] traZODone HCL 100 mg PO HS 01/03/23 07/12/24 History Aspirin 81 mg PO DAILY 30 Days #30 tab 01/16/23 07/12/24 Rx Losartan Potassium [Cozaar] 100 mg PO DAILY 02/08/23 07/12/24 History Apixaban [Eliquis] 5 mg PO BID 07/12/24 07/12/24 History Cetirizine HCl [Zyrtec] 10 mg PO DAILY 07/12/24 07/12/24 History Fluticasone Propion/Salmeterol 1 puff PO RT-DAILY 07/12/24 07/12/24 History [Fluticasone-Salmeterol 500-50] Furosemide [Lasix] 40 mg PO DAILY 07/12/24 07/12/24 History Metoprolol Succinate (ER) [Toprol 50 mg PO DAILY 07/12/24 07/12/24 History Xl] Allergies Allergy/AdvReac Type Severity Reaction Status Date / Time amlodipine AdvReac Mild Unknown Verified 07/12/24 19:49 hydrochlorothiazide AdvReac Unknown Verified 07/12/24 19:49 olmesartan AdvReac Unknown Verified 07/12/24 19:49 rosuvastatin AdvReac Unknown Verified 07/12/24 19:49 sitagliptin AdvReac Unknown Verified 07/12/24 19:49 [id number] Reductase AdvReac muscle Verified 07/12/24 19:49 Inhibitor cramps Physical Exam Vitals: Vital Signs Temp Pulse Resp BP Pulse Ox 12/30/24 10:28 120 H 24 123/83 93 L 07/13/24 09:01 116 H 26 H 96 07/13/24 08:21 116 H 07/13/24 08:11 118 H 96 07/13/24 07:40 115 H 24 122/90 94 L 07/13/24 06:33 109 H 22 126/73 92 L 07/13/24 03:09 101 H 20 92 L 07/12/24 22:14 106 H 18 115/99 99 07/12/24 21:51 96 07/12/24 21:12 101 H 07/12/24 21:05 100 07/12/24 20:38 98.2 F 103 H 20 148/90 96 07/12/24 18:43 101.8 F H 113 H 20 149/91 96 Intake and Output 07/12/24 07/13/24 07/13/24 22:59 06:59 14:59 Other: Weight 90.265 kg Results 07/13/24 00:20 07/13/24 00:20 Cardiac Enzymes 07/12/24 07/12/24 07/12/24 Range/Units 19:07 19:07 21:17 AST 27 (17-59) U/L Troponin I 0.026 0.043 H* (0.000-0.034) ng/mL 07/13/24 07/13/24 Range/Units 00:14 00:20 AST 25 (17-59) U/L Troponin I 0.034 (0.000-0.034) ng/mL Coagulation 07/12/24 Range/Units 19:07 PT 11.8 (10.0-12.5) sec APTT 24.3 (22.0-30.0) sec CBC 07/12/24 07/13/24 Range/Units 19:07 00:20 WBC 7.5 6.2 (3.8-10.6) k/uL RBC 5.10 5.08 (4.30-5.90) m/uL Hgb 16.8 16.7 (13.0-17.5) gm/dL Hct 52.2 51.7 (39.0-53.0) % Plt Count 194 174 (150-450) k/uL Comprehensive Metabolic Panel 07/12/24 07/13/24 Range/Units 19:07 00:20 Sodium 125 L 126 L (137-145) mmol/L Potassium 4.9 4.9 (3.5-5.1) mmol/L Chloride 93 L 98 (98-107) mmol/L Carbon Dioxide 19 L 18 L (22-30) mmol/L BUN 12 16 (9-20) mg/dL Creatinine 0.79 0.86 (0.66-1.25) mg/dL Glucose 168 H 163 H (74-99) mg/dL Calcium 8.1 L 8.0 L (8.4-10.2) mg/dL AST 27 25 (17-59) U/L ALT 23 22 (4-49) U/L Alkaline Phosphatase 193 H 163 H (38-126) U/L Total Protein 5.6 L 5.4 L (6.3-8.2) g/dL Albumin 3.4 L 3.1 L (3.5-5.0) g/dL Current Medications Generic Name Dose Route Start Last Admin Trade Name Freq PRN Reason Stop Dose Admin Acetaminophen 650 mg 07/12/24 20:18 Acetaminophen Tab 325 Mg Tab PO Q6HR PRN Mild Pain or Fever > 100.5 Albuterol/Ipratropium 3 ml 07/13/24 08:00 07/13/24 08:08 Ipratropium-Albuterol 3 Ml Neb INHALATION 3 ml RT-QID ALEKSANDR Administration Albuterol/Ipratropium 3 ml 07/13/24 03:08 Ipratropium-Albuterol 3 Ml Neb INHALATION RT-Q4H PRN Shortness Of Breath Or Wheezing Alprazolam 0.25 mg 07/13/24 10:21 Alprazolam 0.25 Mg Tab PO DAILY PRN Anxiety Apixaban 5 mg 07/13/24 21:00 Apixaban 5 Mg Tab PO BID [facility] Protocol Aspirin 81 mg 07/14/24 09:00 Aspirin 81 Mg PO DAILY [facility] Budesonide/Formoterol Fumarate 2 puff 07/13/24 08:00 07/13/24 08:08 Symbicort 160-4.5 Mcg Inhaler INHALATION 2 puff RT-BID ALEKSANDR Administration Dextrose/Water 25 ml 07/13/24 03:37 Dextrose 50% Syringe 50 Ml IVP PER PROTOCOL PRN Hypoglycemia Protocol Dextrose/Water 50 ml 07/13/24 03:37 Dextrose 50% Syringe 50 Ml IVP PER PROTOCOL PRN Hypoglycemia Protocol Diazepam 5 mg 07/12/24 22:00 07/13/24 06:28 Diazepam 5 Mg/Ml 2 Ml Inj IVP 5 mg Q4HR PRN Administration Muscle Spasm Furosemide 40 mg 07/13/24 09:00 07/13/24 08:40 Furosemide 40 Mg Tab PO Not Given DAILY ALEKSANDR Ceftriaxone Sodium 2 gm/ 50 mls @ 100 mls/hr 07/13/24 21:00 Sodium Chloride IVPB 07/16/24 21:29 Q24H ALEKSANDR Protocol Azithromycin 500 mg/ Sodium 250 mls @ 250 mls/hr 07/13/24 21:00 Chloride IVPB 07/16/24 20:59 HS ALEKSANDR Protocol Insulin Aspart 0 unit 07/13/24 07:30 07/13/24 07:52 Insulin Aspart (Novolog) 100 Unit/Ml Vial SQ 4 unit ACHS ALEKSANDR Administration Protocol Lorazepam 2 mg 07/12/24 22:00 07/13/24 03:42 Lorazepam 1 Mg Tab PO 2 mg Q3HR PRN Administration Ciwa 8 To 9 Lorazepam 2 mg 07/12/24 22:00 Lorazepam 1 Mg Tab PO Q2HR PRN Ciwa 10 or greater Lorazepam 1 mg 07/12/24 22:00 Lorazepam 1 Mg Tab PO Q4HR PRN Ciwa 6 To 7 Lorazepam 0.5 mg 07/12/24 22:00 07/13/24 01:04 Lorazepam 0.5 Mg Tab PO 0.5 mg Q4HR PRN Administration Ciwa 4 To 5 Lorazepam 1 mg 07/12/24 22:00 Lorazepam 2 Mg/Ml Inj IV Q2HR PRN CIWA 8 or 9 Lorazepam 1 mg 07/12/24 22:00 Lorazepam 2 Mg/Ml Inj IV Q1HR PRN CIWA 10 to 15 Lorazepam 1 mg 07/12/24 22:00 Lorazepam 1 Mg Tab PO Q1HR PRN Alcohol Withdrawal Lorazepam 2 mg 07/12/24 22:00 Lorazepam 2 Mg/Ml Inj IV Q6HR PRN Seizures Methylprednisolone Sodium Succinate 60 mg 07/13/24 06:00 07/13/24 07:17 Methylprednisolone Sod Succi 125 Mg/2 Ml Vial IV 60 mg Q6HR ALEKSANDR Administration Metoprolol Succinate 50 mg 07/14/24 09:00 Metoprolol Succinate (Er) 50 Mg Tab.Er.24h PO DAILY ALEKSANDR Miscellaneous Information 1 each 07/12/24 20:18 Pneumonia Protocol Utilized 1 Each Misc PO ONCE PRN Per Protocol Montelukast Sodium 10 mg 07/13/24 21:00 Montelukast 10 Mg Tab PO HS ALEKSANDR Morphine Sulfate 4 mg 07/12/24 20:18 Morphine Sulfate 4 Mg/Ml Syringe IV Q4HR PRN Severe Pain (Scale 7 to 10) Naloxone HCl 0.2 mg 07/12/24 20:18 Naloxone 0.4 Mg/Ml 1 Ml Vial IV Q2M PRN Opioid Reversal Nicotine 1 patch 07/13/24 09:00 07/13/24 08:39 Nicotine 21mg/24hr Patch TRANSDERM Not Given DAILY ALEKSANDR Ondansetron HCl 4 mg 07/12/24 20:18 07/13/24 06:28 Ondansetron 4 Mg/2 Ml Vial IVP 4 mg Q8HR PRN Administration Nausea And Vomiting Pantoprazole Sodium 40 mg 07/13/24 07:30 07/13/24 08:40 Pantoprazole 40 Mg Tablet PO Not Given AC-BRKFST ALEKSANDR Trazodone HCl 100 mg 07/13/24 21:00 Trazodone Hcl 100 Mg Tab PO HS ALEKSANDR Intake and Output 07/12/24 07/13/24 07/13/24 22:59 06:59 14:59 Other: Weight 90.265 kg 07/13/24 00:20 07/13/24 00:20
[2024-07-13 11:54] LABS: ABG HCO3 22 mmol/L (21-25); ABG Oxygen Saturation 97.4 % (94-97); ABG PCO2 47 mmHg (35-45); ABG PH 7.28 (7.35-7.45); ABG PO2 103 mmHg (83-108); ABG TCO2 24 mmol/L (19-24); Allen Test Performed? Yes
--- NOTE | 2024-07-13 14:03 | P.HPIM ---
History of Present Illness H&P Date: 07/13/24 History of present illness; patient is a 69-year-old gentleman with past medical his significant for CHF, COPD, CVA, diabetes mellitus who presented to the ER for shortness of breath. Patient is was all right 4 days back when started noticing shortness of breath is present at rest as on exertion. Patient was also complaining of swelling of feet. Patient also complaining of cough. Patient was complaining of orthopnea. There was no complaint of fever or chills. There is no complaint of chest pain. Patient was supposed to be taking Lasix but stopped taking for the last 3 to 4 days. There was no complaint of nausea or vomiting. Family also think that the patient has been drinking over the [place]. Initial lab work done in the ER showed WBC 10.5, hemoglobin 16.8, platelet count 194, sodium 125, potassium 4.9, BUN 12, creatinine 0.79, glucose 168 alk phos 193, total protein 5.6 serum alcohol 18 Influenza A not detected Influenza B not detected RSV not detected COVID-19 not detected EKG done in the ER showed heart rate of 109, no ST segment elevation or depression seen, no T-wave inversions seen. Chest x-ray done in the ER showed right basilar airspace opacity, developing pneumonia versus eventration of the diaphragm Patient admitted to internal medicine service REVIEW OF SYSTEMS: Review of system cannot be obtained as patient is obtunded PHYSICAL EXAMINATION: GENERAL: The patient is obtunded, ill looking HEENT: Pupils are round and equally reacting to light. EOMI. No scleral icterus. No conjunctival pallor. Normocephalic, atraumatic. No pharyngeal erythema. No th yromegaly. CARDIOVASCULAR: S1 and S2 present. No murmurs, rubs, or gallops. PULMONARY: Coarse breath sound bilaterally, bilateral crackles and rhonchi audible, tachypneic ABDOMEN: Soft, nontender, nondistended, normoactive bowel sounds. No palpable organomegaly. MUSCULOSKELETAL: No joint swelling or deformity. EXTREMITIES: No cyanosis, clubbing, or pedal edema. NEUROLOGICAL: Moving all extremities SKIN: No rashes. Assessment and plan Acute hypoxic respiratory failure Acute metabolic encephalopathy Acute COPD exacerbation Bacterial pneumonia Acute CHF Alcohol intoxication, serum alcohol level was 18 on arrival Hyponatremia, possibly secondary to beer potomania History of alcoholism, admits to drinking 6, 12 ounce beers per day History of CVA, with residual homonymous hemianopia History of diabetes mellitus History of hypertension Monitor vital signs Monitor CBC Monitor CMP Continue telemetry monitoring Ordered sputum cultures Ordered blood cultures Ordered Rocephin and azithromycin Ordered breathing treatments ordered IV Solu-Medrol Ordered strict I's and O's, ordered IV Lasix 40 mg every 12 Pulmonology consulted Cardiology consulted Labs and medication were reviewed.. Continue same treatment. Continue with symptomatic treatment. Resume home medication. Monitor labs and vitals. DVT and GI prophylaxis. Further recommendations as per clinical course of the patient Dictation was produced using [employer] dictation software. please excuse any grammatical, word or spelling errors. Past Medical History Past Medical History: COPD, CVA/TIA, Diabetes Mellitus, Hypertension Additional Past Medical History / Comment(s): limited ROM to left shoulder History of Any Multi-Drug Resistant Organisms: None Reported Past Surgical History: Orthopedic Surgery Additional Past Surgical History / Comment(s): Venu Knee replacement. Past Anesthesia/Blood Transfusion Reactions: No Reported Reaction Additional Past Anesthesia/Blood Transfusion Reaction / Comment(s): no hx blood transfusion Past Psychological History: No Psychological Hx Reported Smoking Status: Current every day smoker Past Alcohol Use History: Rare Additional Past Alcohol Use History / Comment(s): smoking approx 50 yrs-1ppd Past Drug Use History: None Reported - Past Family History Mother Additional Family Medical History / Comment(s): dementia Father Family Medical History: Cancer Additional Family Medical History / Comment(s): bone,brain Sister(s) Family Medical History: Cancer Additional Family Medical History / Comment(s): lung/brain Medications and Allergies Home Medications Medication Instructions Recorded Confirmed Type ALPRAZolam [Xanax] 0.25 mg PO DAILY PRN 01/03/23 07/12/24 History Albuterol Sulfate [Albuterol 2 puff INHALATION RT-Q4H PRN 01/03/23 07/12/24 History Sulfate Hfa] Empagliflozin [Jardiance] 25 mg PO DAILY 01/03/23 07/12/24 History Evolocumab [Repatha Sureclick] 140 mg SQ Q14D 01/03/23 07/12/24 History Montelukast [Singulair] 10 mg PO HS 01/03/23 07/12/24 History Repaglinide [Prandin] 2 mg PO AC-BID 01/03/23 07/12/24 History glipiZIDE/METFORMIN HCL 1 tab PO DAILY 01/03/23 07/12/24 History [glipiZIDE/METFORMIN HCL 5-500 mg] glipiZIDE/METFORMIN HCL 2 tab PO HS 01/03/23 07/12/24 History [glipiZIDE/METFORMIN HCL 5-500 mg] traZODone HCL 100 mg PO HS 01/03/23 07/12/24 History Aspirin 81 mg PO DAILY 30 Days #30 tab 01/16/23 07/12/24 Rx Losartan Potassium [Cozaar] 100 mg PO DAILY 02/08/23 07/12/24 History Apixaban [Eliquis] 5 mg PO BID 07/12/24 07/12/24 History Cetirizine HCl [Zyrtec] 10 mg PO DAILY 07/12/24 07/12/24 History Fluticasone Propion/Salmeterol 1 puff PO RT-DAILY 07/12/24 07/12/24 History [Fluticasone-Salmeterol 500-50] Furosemide [Lasix] 40 mg PO DAILY 07/12/24 07/12/24 History Metoprolol Succinate (ER) [Toprol 50 mg PO DAILY 07/12/24 07/12/24 History Xl] Allergies Allergy/AdvReac Type Severity Reaction Status Date / Time amlodipine AdvReac Mild Unknown Verified 07/12/24 19:49 hydrochlorothiazide AdvReac Unknown Verified 07/12/24 19:49 olmesartan AdvReac Unknown Verified 07/12/24 19:49 rosuvastatin AdvReac Unknown Verified 07/12/24 19:49 sitagliptin AdvReac Unknown Verified 07/12/24 19:49 [id number] Reductase AdvReac muscle Verified 07/12/24 19:49 Inhibitor cramps Physical Exam Vitals: Vital Signs Temp Pulse Resp BP Pulse Ox 07/13/24 09:01 116 H 26 H 96 07/13/24 08:21 116 H 07/13/24 08:11 118 H 96 07/13/24 07:40 115 H 24 122/90 94 L 07/13/24 06:33 109 H 22 126/73 92 L 07/13/24 03:09 101 H 20 92 L 07/12/24 22:14 106 H 18 115/99 99 07/12/24 21:51 96 07/12/24 21:12 101 H 07/12/24 21:05 100 07/12/24 20:38 98.2 F 103 H 20 148/90 96 07/12/24 18:43 101.8 F H 113 H 20 149/91 96 Intake and Output 07/12/24 07/13/24 07/13/24 22:59 06:59 14:59 Other: Weight 90.265 kg Results CBC & Chem 7: 07/13/24 00:20 07/13/24 00:20 Labs: Abnormal Lab Results - Last 24 Hours (Table) 07/12/24 07/12/24 07/12/24 Range/Units 19:07 19:07 21:17 MCV 102.4 H (80.0-100.0) fL Lymphocytes # 0.7 L (1.0-4.8) k/uL Sodium 125 L (137-145) mmol/L Chloride 93 L (98-107) mmol/L Carbon Dioxide 19 L (22-30) mmol/L Glucose 168 H (74-99) mg/dL POC Glucose (mg/dL) (70-110) mg/dL Calcium 8.1 L (8.4-10.2) mg/dL Phosphorus (2.5-4.5) mg/dL Alkaline Phosphatase 193 H (38-126) U/L Troponin I 0.043 H* (0.000-0.034) ng/mL Total Protein 5.6 L (6.3-8.2) g/dL Albumin 3.4 L (3.5-5.0) g/dL 07/13/24 07/13/24 07/13/24 Range/Units 00:20 00:20 06:25 MCV 101.7 H (80.0-100.0) fL Lymphocytes # 0.9 L (1.0-4.8) k/uL Sodium 126 L (137-145) mmol/L Chloride (98-107) mmol/L Carbon Dioxide 18 L (22-30) mmol/L Glucose 163 H (74-99) mg/dL POC Glucose (mg/dL) 213 H (70-110) mg/dL Calcium 8.0 L (8.4-10.2) mg/dL Phosphorus 4.8 H (2.5-4.5) mg/dL Alkaline Phosphatase 163 H (38-126) U/L Troponin I (0.000-0.034) ng/mL Total Protein 5.4 L (6.3-8.2) g/dL Albumin 3.1 L (3.5-5.0) g/dL
[2024-07-13] MEDS: FUROSEMIDE 10 MG/ML 4 ML VIAL IV SCH (14:52)
[2024-07-13 17:40] LABS: Glucose,Whole Blood 136 mg/dL (70-110)
[2024-07-13 20:19] LABS: Glucose,Whole Blood 192 mg/dL (70-110)
[2024-07-13] MEDS: APIXABAN 5 MG TAB PO SCH (20:20)
[2024-07-13] MEDS: traZODone HCL 100 MG TAB PO SCH (20:20)
[2024-07-13] MEDS: MONTELUKAST 10 MG TAB PO SCH (20:20)
[2024-07-13] MEDS: AZITHROMYCIN 500 MG in SODIUM CHLORIDE 0.9% 250 ML IVPB SCH (21:14)
--- NOTE | 2024-07-13 22:12 | P.CONS ---
History of Present Illness - Reason for Consult Consult date: 07/13/24 Pneumonia Requesting physician: Frank Peña - Chief Complaint Shortness of breath and cough x days - History of Present Illness Patient is a 69-year-old male with a past medical history significant for CVA TIA diabetes mellitus hypertension COPD presenting to the hospital for evaluation of increasing shortness of breath that apparently has been getting worse for the last few days patient also have a congested cough but not bringing up any sputum no clear history of fevers at home no vomiting no choking on the food no abdominal pain or any diarrhea on presentation to the hospital patient did have a temperature of 101.8 F, patient was tachycardic, but not hypotensive he was hypoxic requiring a BiPAP patient did have a white count of 7.5 creatinine 0.86 liver enzymes are normal influenza RSV COVID testing has been negative patient did have a chest x-ray right basilar opacity either developing pneumonia versus eventration of the diaphragm with a repeat x-ray residual patchy bibasilar opacity remains patient has been treated with Rocephin and Zithromax infectious disease was consulted for further management of antibiotic therapy most information has been obtained from review the chart and the patient is currently on the BiPAP and lethargic and did not answer any question Review of Systems Positive points has been mentioned in HPI complete review could not be obtained because of his underlying mental status Past Medical History Past Medical History: COPD, CVA/TIA, Diabetes Mellitus, Hypertension Additional Past Medical History / Comment(s): limited ROM to left shoulder History of Any Multi-Drug Resistant Organisms: None Reported Past Surgical History: Orthopedic Surgery Additional Past Surgical History / Comment(s): Venu Knee replacement. Past Anesthesia/Blood Transfusion Reactions: No Reported Reaction Additional Past Anesthesia/Blood Transfusion Reaction / Comm: no hx blood transfusion Past Psychological History: No Psychological Hx Reported Smoking Status: Current every day smoker Past Alcohol Use History: Rare Additional Past Alcohol Use History / Comment(s): smoking approx 50 yrs-1ppd Past Drug Use History: None Reported - Past Family History Mother Additional Family Medical History / Comment(s): dementia Father Family Medical History: Cancer Additional Family Medical History / Comment(s): bone,brain Sister(s) Family Medical History: Cancer Additional Family Medical History / Comment(s): lung/brain Medications and Allergies Home Medications Medication Instructions Recorded Confirmed Type ALPRAZolam [Xanax] 0.25 mg PO DAILY PRN 01/03/23 07/12/24 History Albuterol Sulfate [Albuterol 2 puff INHALATION RT-Q4H PRN 01/03/23 07/12/24 History Sulfate Hfa] Empagliflozin [Jardiance] 25 mg PO DAILY 01/03/23 07/12/24 History Evolocumab [Repatha Sureclick] 140 mg SQ Q14D 01/03/23 07/12/24 History Montelukast [Singulair] 10 mg PO HS 01/03/23 07/12/24 History Repaglinide [Prandin] 2 mg PO AC-BID 01/03/23 07/12/24 History glipiZIDE/METFORMIN HCL 1 tab PO DAILY 01/03/23 07/12/24 History [glipiZIDE/METFORMIN HCL 5-500 mg] glipiZIDE/METFORMIN HCL 2 tab PO HS 01/03/23 07/12/24 History [glipiZIDE/METFORMIN HCL 5-500 mg] traZODone HCL 100 mg PO HS 01/03/23 07/12/24 History Aspirin 81 mg PO DAILY 30 Days #30 tab 01/16/23 07/12/24 Rx Losartan Potassium [Cozaar] 100 mg PO DAILY 02/08/23 07/12/24 History Apixaban [Eliquis] 5 mg PO BID 07/12/24 07/12/24 History Cetirizine HCl [Zyrtec] 10 mg PO DAILY 07/12/24 07/12/24 History Fluticasone Propion/Salmeterol 1 puff PO RT-DAILY 07/12/24 07/12/24 History [Fluticasone-Salmeterol 500-50] Furosemide [Lasix] 40 mg PO DAILY 07/12/24 07/12/24 History Metoprolol Succinate (ER) [Toprol 50 mg PO DAILY 07/12/24 07/12/24 History Xl] Allergies Allergy/AdvReac Type Severity Reaction Status Date / Time amlodipine AdvReac Mild Unknown Verified 07/12/24 19:49 hydrochlorothiazide AdvReac Unknown Verified 07/12/24 19:49 olmesartan AdvReac Unknown Verified 07/12/24 19:49 rosuvastatin AdvReac Unknown Verified 07/12/24 19:49 sitagliptin AdvReac Unknown Verified 07/12/24 19:49 [id number] Reductase AdvReac muscle Verified 07/12/24 19:49 Inhibitor cramps Physical Exam Vitals: Vital Signs Temp Pulse Resp BP Pulse Ox FiO2 07/13/24 12:02 112 H 07/13/24 11:53 114 H 27 H 143/80 96 07/13/24 11:51 118 H 07/13/24 11:41 50 07/13/24 11:37 126 H 32 H 126/92 96 07/13/24 10:28 120 H 24 123/83 93 L 07/13/24 09:01 116 H 26 H 96 07/13/24 08:21 116 H 07/13/24 08:11 118 H 96 07/13/24 07:40 115 H 24 122/90 94 L 07/13/24 06:33 109 H 22 126/73 92 L 07/13/24 03:09 101 H 20 92 L 07/12/24 22:14 106 H 18 115/99 99 07/12/24 21:51 96 07/12/24 21:12 101 H 07/12/24 21:05 100 07/12/24 20:38 98.2 F 103 H 20 148/90 96 07/12/24 18:43 101.8 F H 113 H 20 149/91 96 Intake and Output 07/12/24 07/13/24 07/13/24 22:59 06:59 14:59 Other: Weight 90.265 kg GENERAL DESCRIPTION: Elderly male lethargic currently on the BiPAP HEENT: Shows Pallor , no scleral icterus. Oral mucous membrane is dry. NECK: Trachea central, no thyromegaly. LUNGS: Unlabored breathing. Decreased breath sounds at the base HEART: S1, S2, regular rate and rhythm. No loud murmur ABDOMEN: Soft, no tenderness , guarding or rigidity, no organomegaly EXTREMITIES: No edema of feet. SKIN: No rash, no masses palpable. NEUROLOGICAL: The patient is lethargic, orientation could not be determined Results CBC & Chem 7: 07/13/24 00:20 07/13/24 00:20 Labs: Abnormal Lab Results - Last 24 Hours (Table) 07/12/24 07/12/24 07/12/24 Range/Units 19:07 19:07 21:17 MCV 102.4 H (80.0-100.0) fL Lymphocytes # 0.7 L (1.0-4.8) k/uL ABG pH (7.35-7.45) ABG pCO2 (35-45) mmHg ABG O2 Saturation (94-97) % Sodium 125 L (137-145) mmol/L Chloride 93 L (98-107) mmol/L Carbon Dioxide 19 L (22-30) mmol/L Glucose 168 H (74-99) mg/dL POC Glucose (mg/dL) (70-110) mg/dL Calcium 8.1 L (8.4-10.2) mg/dL Phosphorus (2.5-4.5) mg/dL Alkaline Phosphatase 193 H (38-126) U/L Troponin I 0.043 H* (0.000-0.034) ng/mL Total Protein 5.6 L (6.3-8.2) g/dL Albumin 3.4 L (3.5-5.0) g/dL 07/13/24 07/13/24 07/13/24 Range/Units 00:20 00:20 06:25 MCV 101.7 H (80.0-100.0) fL Lymphocytes # 0.9 L (1.0-4.8) k/uL ABG pH (7.35-7.45) ABG pCO2 (35-45) mmHg ABG O2 Saturation (94-97) % Sodium 126 L (137-145) mmol/L Chloride (98-107) mmol/L Carbon Dioxide 18 L (22-30) mmol/L Glucose 163 H (74-99) mg/dL POC Glucose (mg/dL) 213 H (70-110) mg/dL Calcium 8.0 L (8.4-10.2) mg/dL Phosphorus 4.8 H (2.5-4.5) mg/dL Alkaline Phosphatase 163 H (38-126) U/L Troponin I (0.000-0.034) ng/mL Total Protein 5.4 L (6.3-8.2) g/dL Albumin 3.1 L (3.5-5.0) g/dL 07/13/24 07/13/24 Range/Units 11:07 11:51 MCV (80.0-100.0) fL Lymphocytes # (1.0-4.8) k/uL ABG pH 7.28 L (7.35-7.45) ABG pCO2 47 H (35-45) mmHg ABG O2 Saturation 97.4 H (94-97) % Sodium (137-145) mmol/L Chloride (98-107) mmol/L Carbon Dioxide (22-30) mmol/L Glucose (74-99) mg/dL POC Glucose (mg/dL) 154 H (70-110) mg/dL Calcium (8.4-10.2) mg/dL Phosphorus (2.5-4.5) mg/dL Alkaline Phosphatase (38-126) U/L Troponin I (0.000-0.034) ng/mL Total Protein (6.3-8.2) g/dL Albumin (3.5-5.0) g/dL Assessment and Plan (1) Sepsis Current Visit: Yes Status: Acute Code(s): A41.9 - SEPSIS, UNSPECIFIED ORGANISM SNOMED Code(s): 86624543 (2) Pneumonia Current Visit: Yes Status: Acute Code(s): J18.9 - PNEUMONIA, UNSPECIFIED ORGANISM SNOMED Code(s): 056232850 Plan: 1patient presented hospital with sepsis, in this patient who did have fever tachycardia meeting criteria for SIRS source is right lower lobe pneumonia with possible community versus aspiration etiology 2-try to obtain a sputum for Gram stain and culture 3-patient to continue Rocephin and Zithromax while waiting for the workup to be completed We will follow on clinical condition and cultures to further adjust medication if needed Thank you for this consultation we will follow the patient along with you Dictation was produced using [employer] dictation software. please excuse any grammatical, word or spelling errors. Time with Patient: Greater than 30
[2024-07-14 06:28] LABS: Glucose,Whole Blood 205 mg/dL (70-110)
--- NOTE | 2024-07-14 08:06 | CA ---
Transthoracic Echo Report Name: Peyman Amezcua Age: 69 Gender: M : 1955 Exam Date: 07/13/2024 15:31 Exam Location: [facility] Ht (in): 68 Wt (lb): 199 Ordering Physician: Rocio Brandt Attending/Referring Phys: [id number], Karly Pond Supervisor Keara Lancaster, ERNESTO Procedure CPT: Indications: Chest Pain Cardiac Hx: Technical Quality: Good Contrast 1: Total Dose (mL): Contrast 2: Total Dose (mL): MEASUREMENTS (Male / Female) Normal Values 2D ECHO LV Diastolic Diameter PLAX 5.1 cm 4.2 - 5.9 / 3.9 - 5.3 cm LV Systolic Diameter PLAX 4.7 cm IVS Diastolic Thickness 1.5 cm 0.6 - 1.0 / 0.6 - 0.9 cm LVPW Diastolic Thickness 1.5 cm 0.6 - 1.0 / 0.6 - 0.9 cm LV Relative Wall Thickness 0.6 RV Internal Dim ED PLAX 4.1 cm LA Systolic Diameter LX 4.4 cm 3.0 - 4.0 / 2.7 - 3.8 cm LV Diastolic Volume MOD 4C 94.7 cm??? LV Systolic Volume MOD 4C 81.3 cm??? LV Ejection Fraction MOD 4C 14.1 % LV Cardiac Index MOD 4C 689.0 cm???/min???m??? LV Diastolic Length 4C 8.1 cm LV Systolic Length 4C 7.9 cm LV Diastolic Volume MOD 2C 115.2 cm??? LV Systolic Volume MOD 2C 79.3 cm??? LV Ejection Fraction MOD 2C 31.2 % LV Cardiac Index MOD 2C 1857.9 cm???/min???m??? LV Diastolic Length 2C 8.5 cm LV Systolic Length 2C 8.0 cm LA Volume 78.8 cm??? 18 - 58 / 22 - 52 cm??? LA Volume Index 37.4 cm???/m??? 16 - 28 cm???/m??? M-MODE Aortic Root Diameter MM 3.7 cm AV Cusp Separation MM 1.9 cm DOPPLER AV Peak Velocity 98.2 cm/s AV Peak Gradient 3.9 mmHg MV Area PHT 5.3 cm??? MV Deceleration Time 179.0 ms TR Peak Velocity 228.7 cm/s TR Peak Gradient 20.9 mmHg Right Ventricular Systolic Press 34.3 mmHg FINDINGS Left Ventricle Left ventricular ejection fraction is estimated at 15 %. Moderately increased septal wall thickness. Moderate concentric left ventricular hypertrophy. Severely reduced global left ventricular systolic function. Right Ventricle Severe right ventricular dilatation. Mild pulmonary hypertension. Right Atrium Mild right atrial dilatation. No right atrial thrombus or mass seen. Left Atrium Mildly increased left atrial diameter. Moderately increased left atrial volume. Mildly increased left atrial area. No left atrial thrombus or mass present. Mitral Valve Structurally normal mitral valve. Mild mitral regurgitation. Aortic Valve Trileaflet aortic valve. No aortic valve stenosis or regurgitation. Aortic valve sclerosis. Tricuspid Valve Structurally normal tricuspid valve. Mild tricuspid regurgitation. Pulmonic Valve Structurally normal pulmonic valve. Mild pulmonic regurgitation. Pericardium No pericardial or pleural effusion. Aorta Normal size aortic root and proximal ascending aorta. CONCLUSIONS Severely impaired LV function with EF at 15% Previewed by: Dr. Timmy Castro MD (Electronically Signed) Final Date: 14 July 2024 08:05
[2024-07-14 08:46] LABS: Basophils % (A) 0 %; Eosinophils % (A) 0 %; HCT 49.9 % (39.0-53.0); HGB 15.7 gm/dL (13.0-17.5); Lymphocytes # (A) 0.3 k/uL (1.0-4.8); Lymphocytes % (A) 9 %; MCH 32.3 pg (25.0-35.0); MCHC 31.5 g/dL (31.0-37.0); MCV 102.7 fL (80.0-100.0); Macrocytosis Slight; Mean Platelet Volume 7.6; Monocytes # (A) 0.2 k/uL (0-1.0); Monocytes % (A) 5 %; Neutrophils # (A) 3.2 k/uL (1.3-7.7); Neutrophils % (A) 85 %; Platelet Count 173 k/uL (150-450); RBC 4.86 m/uL (4.30-5.90); RDW 14.9 % (11.5-15.5); WBC 3.8 k/uL (3.8-10.6)
[2024-07-14] MEDS: ASPIRIN 81 MG PO SCH (08:58)
[2024-07-14] MEDS: METOPROLOL SUCCINATE (ER) 50 MG TAB.ER.24H PO SCH (08:58)
[2024-07-14 09:04] LABS: ALT 20 U/L (4-49); AST 19 U/L (17-59); African American GFR (CKD) 79 (>60 ml/min/1.73 sqM); Albumin 2.8 g/dL (3.5-5.0); Alkaline Phosphatase 128 U/L (38-126); Anion Gap 9 mmol/L; Blood Urea Nitrogen 33 mg/dL (9-20); Calcium 8.4 mg/dL (8.4-10.2); Carbon Dioxide 22 mmol/L (22-30); Chloride 99 mmol/L (98-107); Glucose 212 mg/dL (74-99); Non-African American GFR(CKD) 68 (>60 ml/min/1.73 sqM); Potassium 4.9 mmol/L (3.5-5.1); Sodium 130 mmol/L (137-145); Total Bilirubin 0.2 mg/dL (0.2-1.3)
[2024-07-14 11:30] LABS: Glucose,Whole Blood 284 mg/dL (70-110)
--- NOTE | 2024-07-14 11:34 | P.PN ---
Subjective Progress Note Date: 07/14/24 This is a pleasant 69-year-old male patient of Dr. Boles with past medical history of paroxysmal atrial fibrillation, coronary artery disease, ischemic cardiomyopathy, COPD, 2 pack/day smoker and CVA with prior PFO closure in March 2023. Patient is a poor historian and most of the HPI was obtained from the chart. Presented to the hospital with complaints of slowly worsening shortness of breath as well as congested nonproductive cough. Fever of 101.8 F on arrival to the ED. Diagnostics -EKG: Sinus tachycardia incomplete right bundle branch block -Chest x-ray: Right basilar opacity -Laboratory studies: Sodium 125, potassium 4.9, normal white blood cell count, normal renal function, NT proBNP 21,900, troponin 0.026, 0.043 and 0.034 -Home cardiac medications: Metoprolol succinate 50 mg daily, Lasix 40 mg daily, losartan 100 mg p.o. daily, Jardiance 25 mg p.o. daily, Eliquis 5 mg p.o. twice daily, aspirin 81 mg daily and Repatha -Prior stress test: 02/28/2023 prior GA without any ischemia -Echocardiogram: 11/14/2023 mildly decreased LV systolic function with ejection fraction of 45 to 50%, global LV hypokinesis, PFO/ASD percutaneous closure device present, mild MR, mild TR -Cardiac catheterization: Unknown 07/14/2024 Patient was seen and examined resting comfortably in bed. He is overall feeling better and seems to be less confused today. Answering questions more appropriately and breathing appears easier. He feels he is breathing better. He has had no chest discomfort, palpitations, dizziness or lightheadedness. Echocardiogram with Doppler study done showed severely impaired LV systolic function with ejection fraction of 15%, previously in the 35 to 45% range. PHYSICAL EXAMINATION: This is a 69-year-old male in no apparent distress at the time of my examination. VITAL SIGNS: Reviewed. HEENT: Head is atraumatic, normocephalic. Pupils are equal, round. Sclerae anic teric. Conjunctivae are clear. Mucous membranes of the mouth are moist. Neck is supple. There is no elevated jugular venous pressure. No carotid bruit is heard. CHEST EXAMINATION: Lungs diminished bilaterally, expiratory wheezing throughout, tachypnea noted. HEART EXAMINATION: Heart regular, positive S1 and S2. No S3. No S4. Soft systolic murmur. ABDOMEN: Soft, nontender. Bowel sounds are heard. No organomegaly noted. EXTREMITIES: 2+ peripheral pulses with no evidence of peripheral edema and no calf tenderness noted. NEUROLOGIC EXAMINATION: Patient is awake, alert and oriented x3. Assessment: 1. Acute COPD exacerbation with suspected right lower lobe pneumonia, currently on IV antibiotics 2. Ischemic cardiomyopathy with prior MPI showing evidence of prior infarct, worsened 3. Paroxysmal atrial fibrillation, currently maintaining sinus mechanism 4. History of PFO closure Plan: From cardiology's perspective we will add losartan 25 mg daily and Farxiga 10 mg daily. Will obtain a BMP and NT proBNP in the morning. once pneumonia resolves patient will require cardiac catheterization in the future to further evaluate etiology of cardiomyopathy and extent of CAD. We will continue to follow the patient and provide further recommendations accordingly. Nurse practitioner note has been reviewed, I agree with documented findings and plan of care. Patient was seen and examined. Objective - Vital Signs Vital signs: Vital Signs Temp 97.5 F L 07/14/24 08:55 Pulse 92 07/14/24 11:22 Resp 17 07/14/24 08:55 BP 115/82 07/14/24 08:55 Pulse Ox 95 07/14/24 11:22 FiO2 50 07/14/24 08:23 Intake & Output 07/13/24 07/14/24 07/14/24 18:59 06:59 18:59 Intake Total 118 Output Total 1600 625 Balance -1600 -507 Weight 90.265 kg Intake: Oral 118 Output: Urine 1600 625 Other: Voiding Method Indwelling Catheter - Labs CBC & Chem 7: 07/14/24 08:29 07/14/24 08:29 Labs: Abnormal Lab Results - Last 24 Hours (Table) 07/13/24 07/13/24 07/13/24 Range/Units 11:51 17:39 20:18 MCV (80.0-100.0) fL Lymphocytes # (1.0-4.8) k/uL ABG pH 7.28 L (7.35-7.45) ABG pCO2 47 H (35-45) mmHg ABG O2 Saturation 97.4 H (94-97) % Sodium (137-145) mmol/L BUN (9-20) mg/dL Glucose (74-99) mg/dL POC Glucose (mg/dL) 136 H 192 H (70-110) mg/dL Alkaline Phosphatase (38-126) U/L Total Protein (6.3-8.2) g/dL Albumin (3.5-5.0) g/dL 07/14/24 07/14/24 07/14/24 Range/Units 06:27 08:29 08:29 MCV 102.7 H (80.0-100.0) fL Lymphocytes # 0.3 L (1.0-4.8) k/uL ABG pH (7.35-7.45) ABG pCO2 (35-45) mmHg ABG O2 Saturation (94-97) % Sodium 130 L (137-145) mmol/L BUN 33 H (9-20) mg/dL Glucose 212 H (74-99) mg/dL POC Glucose (mg/dL) 205 H (70-110) mg/dL Alkaline Phosphatase 128 H (38-126) U/L Total Protein 5.0 L (6.3-8.2) g/dL Albumin 2.8 L (3.5-5.0) g/dL 07/14/24 Range/Units 11:28 MCV (80.0-100.0) fL Lymphocytes # (1.0-4.8) k/uL ABG pH (7.35-7.45) ABG pCO2 (35-45) mmHg ABG O2 Saturation (94-97) % Sodium (137-145) mmol/L BUN (9-20) mg/dL Glucose (74-99) mg/dL POC Glucose (mg/dL) 284 H (70-110) mg/dL Alkaline Phosphatase (38-126) U/L Total Protein (6.3-8.2) g/dL Albumin (3.5-5.0) g/dL
[2024-07-14] MEDS: LOSARTAN 25 MG TAB PO SCH (11:46)
[2024-07-14] MEDS: DAPAGLIFLOZIN PROPANEDIOL 10 MG TABLET PO SCH (11:46)
[2024-07-14] MEDS: LORazepam 2 MG/ML INJ IV PRN ×2 (14:19→15:04)
--- NOTE | 2024-07-14 15:03 | P.PN ---
Subjective Progress Note Date: 07/14/24 patient is a 69-year-old gentleman with past medical his significant for CHF, COPD, CVA, diabetes mellitus who presented to the ER for shortness of breath. Patient is was all right 4 days back when started noticing shortness of breath is present at rest as on exertion. Patient was also complaining of swelling of feet. Patient also complaining of cough. Patient was complaining of orthopnea. There was no complaint of fever or chills. There is no complaint of chest pain. Patient was supposed to be taking Lasix but stopped taking for the last 3 to 4 days. There was no complaint of nausea or vomiting. Family also think that the patient has been drinking over the [place]. Initial lab work done in the ER showed WBC 10.5, hemoglobin 16.8, platelet count 194, sodium 125, potassium 4.9, BUN 12, creatinine 0.79, glucose 168 alk phos 193, total protein 5.6 serum alcohol 18 Influenza A not detected Influenza B not detected RSV not detected COVID-19 not detected EKG done in the ER showed heart rate of 109, no ST segment elevation or depression seen, no T-wave inversions seen. Chest x-ray done in the ER showed right basilar airspace opacity, developing pneumonia versus eventration of the diaphragm Patient admitted to internal medicine service 07/14. Patient examined. Blood work done showed WBC 3.8, hemoglobin 15.7, platelet count 173, sodium 130, potassium 4.9, BUN 23, creatinine 1.09. Currently on 4 L of oxygen, doing much better. Patient is alert and answering questions REVIEW OF SYSTEMS: CONSTITUTIONAL: No fever, no malaise,. CARDIOVASCULAR: No chest pain, no palpitations, no syncope. PULMONARY: No shortness of breath, no cough, GASTROINTESTINAL: No diarrhea, no nausea, no vomiting, no abdominal pain. NEUROLOGICAL: No headaches, no weakness, PHYSICAL EXAMINATION: GENERAL: The patient is alert, answering question appropriately HEENT: Pupils are round and equally reacting to light. EOMI. No scleral icterus. No conjunctival pallor. Normocephalic, atraumatic. No pharyngeal erythema. No thyromegaly. CARDIOVASCULAR: S1 and S2 present. No murmurs, rubs, or gallops. PULMONARY: Coarse breath sound bilaterally, bilateral crackles and rhonchi audible, tachypneic ABDOMEN: Soft, nontender, nondistended, normoactive bowel sounds. No palpable organomegaly. MUSCULOSKELETAL: No joint swelling or deformity. EXTREMITIES: No cyanosis, clubbing, or pedal edema. NEUROLOGICAL: Moving all extremities SKIN: No rashes. Assessment and plan Acute hypoxic respiratory failure Acute metabolic encephalopathy Acute COPD exacerbation Bacterial pneumonia Acute systolic CHF Ischemic cardiomyopathy Paroxysmal atrial fibrillation Alcohol intoxication, serum alcohol level was 18 on arrival Hyponatremia, possibly secondary to beer potomania History of alcoholism, admits to drinking 6, 12 ounce beers per day History of CVA, with residual homonymous hemianopia History of diabetes mellitus History of hypertension Monitor vital signs Monitor CBC Monitor CMP Continue telemetry monitoring Follow-up on sputum cultures Follow-up on blood cultures Continue Rocephin and azithromycin Continue breathing treatments Continue IV Solu-Medrol Strict I's and O's, daily weights Continue IV Lasix 40 mg every 12 Continue CIWA protocol Pulmonology following Cardiology following Labs and medication were reviewed.. Continue same treatment. Continue with symptomatic treatment. Resume home medication. Monitor labs and vitals. DVT and GI prophylaxis. Further recommendations as per clinical course of the patient Dictation was produced using [employer] dictation software. please excuse any grammatical, word or spelling errors. Objective - Vital Signs Vital signs: Vital Signs Temp 97.5 F L 07/14/24 08:55 Pulse 102 H 07/14/24 08:55 Resp 17 07/14/24 08:55 BP 115/82 07/14/24 08:55 Pulse Ox 95 07/14/24 08:55 FiO2 50 07/14/24 08:23 Intake & Output 07/13/24 07/14/24 07/14/24 18:59 06:59 18:59 Intake Total 118 Output Total 1600 625 Balance -1600 -507 Weight 90.265 kg Intake: Oral 118 Output: Urine 1600 625 Other: Voiding Method Indwelling Catheter - Labs CBC & Chem 7: 07/14/24 08:29 07/14/24 08:29 Labs: Abnormal Lab Results - Last 24 Hours (Table) 07/13/24 07/13/24 07/13/24 Range/Units 11:07 11:51 17:39 MCV (80.0-100.0) fL Lymphocytes # (1.0-4.8) k/uL ABG pH 7.28 L (7.35-7.45) ABG pCO2 47 H (35-45) mmHg ABG O2 Saturation 97.4 H (94-97) % Sodium (137-145) mmol/L BUN (9-20) mg/dL Glucose (74-99) mg/dL POC Glucose (mg/dL) 154 H 136 H (70-110) mg/dL Alkaline Phosphatase (38-126) U/L Total Protein (6.3-8.2) g/dL Albumin (3.5-5.0) g/dL 07/13/24 07/14/24 07/14/24 Range/Units 20:18 06:27 08:29 MCV 102.7 H (80.0-100.0) fL Lymphocytes # 0.3 L (1.0-4.8) k/uL ABG pH (7.35-7.45) ABG pCO2 (35-45) mmHg ABG O2 Saturation (94-97) % Sodium (137-145) mmol/L BUN (9-20) mg/dL Glucose (74-99) mg/dL POC Glucose (mg/dL) 192 H 205 H (70-110) mg/dL Alkaline Phosphatase (38-126) U/L Total Protein (6.3-8.2) g/dL Albumin (3.5-5.0) g/dL 07/14/24 Range/Units 08:29 MCV (80.0-100.0) fL Lymphocytes # (1.0-4.8) k/uL ABG pH (7.35-7.45) ABG pCO2 (35-45) mmHg ABG O2 Saturation (94-97) % Sodium 130 L (137-145) mmol/L BUN 33 H (9-20) mg/dL Glucose 212 H (74-99) mg/dL POC Glucose (mg/dL) (70-110) mg/dL Alkaline Phosphatase 128 H (38-126) U/L Total Protein 5.0 L (6.3-8.2) g/dL Albumin 2.8 L (3.5-5.0) g/dL
--- NOTE | 2024-07-14 15:35 | P.PN ---
Subjective Progress Note Date: 07/14/24 Patient is a 69-year-old male with past medical history significant for COPD, hypertension, diabetes mellitus, CVA, heart failure, and is a current 2 pack/day smoker. He does follow in the pulmonary office with Dr. Jenkins. He has severe COPD with an FEV1 39% of predicted. He is unsure of what maintenance inhalers he uses at home. Over the last couple days his been experiencing progressively worsening shortness of breath accompanied with a congested nonproductive cough. Denies chest pain, denies significant sputum production, denies hemoptysis. No measured fevers at home. Fever of 101.8 F on arrival to the ED. Of note, patient does report increased lower extremity swelling over the last couple weeks. He was started on a "water pill" approximately 1 week ago. Most recent available echocardiogram from January, estimating left ventricular ejection fraction of 35 to 40%. Chest x-ray is overpenetrated, possible right lower lobe infiltrate. CBC is unremarkable, no leukocytosis. CMP: Sodium 126, potassium 4.9, chloride 98, serum bicarb 18, BUN 16, creatinine 0.86, glucose 163. LFTs u nremarkable. Troponin was 0.043 and is down to 0.034. NT proBNP 21,900. EKG: Sinus tachycardia, rate 109 bpm, incomplete RBBB pattern, no focal ST/T wave abnormalities suggestive of ischemia. Viral screen negative for influenza, RSV, COVID. Serum alcohol was 18. Patient drinks approximately 6 beers per day, 12 ounce beers. Denies any history of alcohol withdrawal symptoms. Currently on the CIWA protocol. Current vitals: Temperature 98.2 F, heart rate 99 bpm, blood pressure 115/99 mmHg, SpO2 is 92% on 2 L/min nasal cannula. He is currently being evaluated in the emergency department. He is lying on his left lateral side, on 2 L/min nasal cannula. He does occasionally groan in discomf ort. No acute respiratory distress. He is alert and fully oriented. No signs of CO2 narcosis. No current signs of alcohol withdrawal. The patient is seen today July 14, 2024 in follow-up on the selective care unit. He is currently sitting up in bed. Awake and alert in no acute distress. Family is at the bedside. He is currently maintaining O2 saturation in the 90s on 4 L/min per nasal cannula. He had been on BiPAP 12/6 and 50% FiO2 previously. He is afebrile. Hemodynamically stable. White count 3.8. Hemoglobin 15.7. Platelets 173. Sodium 130. Potassium 4.9. Bicarb 22. BUN 3 3. Creatinine 1.09. Glucose 212. Echocardiogram revealed a severely reduced global left ventricular systolic function with an ejection fraction at 15%. Severe right ventricular dilatation. Mild pulmonary hypertension. White count 3.8. Hemoglobin 15.7. Platelets 173. Sodium 130. Potassium 4.9. Bicarb 22. BUN 33. Creatinine 1.09. Glucose 212. He is on Lasix 40 mg IV every 12 hours. Anticoagulated with Eliquis. He is continued on DuoNeb inhalations, Symbicort, Singulair, Solu-Medrol. NicoDerm patch in place. Antibiotics in the form of ceftriaxone and azithromycin. Procalcitonin 0.24. Objective - Vital Signs Vital signs: Vital Signs Temp 97.5 F L 07/14/24 08:55 Pulse 90 07/14/24 11:36 Resp 17 07/14/24 08:55 BP 115/82 07/14/24 08:55 Pulse Ox 95 07/14/24 11:22 FiO2 50 07/14/24 08:23 Intake & Output 07/13/24 07/14/24 07/14/24 18:59 06:59 18:59 Intake Total 354 Output Total 1600 1125 Balance -1600 -771 Weight 90.265 kg Intake: Oral 354 Output: Urine 1600 1125 Other: Voiding Method Indwelling Catheter - Exam GENERAL EXAM: Alert, conversing with family, 69-year-old male, on 4 L nasal cannula, comfortable in no apparent distress. HEAD: Normocephalic. EYES: Normal reaction of pupils, equal size. NOSE: Clear with pink turbinates. THROAT: No erythema or exudates. NECK: No masses, no JVD. CHEST: No chest wall deformity. LUNGS: Equal air entry with crackles in the bilateral bases. CVS: S1 and S2 normal with no audible murmur, regular rhythm. ABDOMEN: No hepatosplenomegaly, normal bowel sounds, no guarding or rigidity. SPINE: No scoliosis or deformity SKIN: No rashes CENTRAL NERVOUS SYSTEM: No focal deficits, tone is normal in all 4 extremities. EXTREMITIES: There is no peripheral edema. No clubbing, no cyanosis. Peripheral pulses are intact. - Labs CBC & Chem 7: 07/14/24 08:29 07/14/24 08:29 Labs: Abnormal Lab Results - Last 24 Hours (Table) 07/13/24 07/13/24 07/14/24 Range/Units 17:39 20:18 06:27 MCV (80.0-100.0) fL Lymphocytes # (1.0-4.8) k/uL Sodium (137-145) mmol/L BUN (9-20) mg/dL Glucose (74-99) mg/dL POC Glucose (mg/dL) 136 H 192 H 205 H (70-110) mg/dL Hemoglobin A1c (<=6.0) % Alkaline Phosphatase (38-126) U/L Total Protein (6.3-8.2) g/dL Albumin (3.5-5.0) g/dL 07/14/24 07/14/24 07/14/24 Range/Units 08:29 08:29 08:29 MCV 102.7 H (80.0-100.0) fL Lymphocytes # 0.3 L (1.0-4.8) k/uL Sodium 130 L (137-145) mmol/L BUN 33 H (9-20) mg/dL Glucose 212 H (74-99) mg/dL POC Glucose (mg/dL) (70-110) mg/dL Hemoglobin A1c 8.0 H (<=6.0) % Alkaline Phosphatase 128 H (38-126) U/L Total Protein 5.0 L (6.3-8.2) g/dL Albumin 2.8 L (3.5-5.0) g/dL 07/14/24 Range/Units 11:28 MCV (80.0-100.0) fL Lymphocytes # (1.0-4.8) k/uL Sodium (137-145) mmol/L BUN (9-20) mg/dL Glucose (74-99) mg/dL POC Glucose (mg/dL) 284 H (70-110) mg/dL Hemoglobin A1c (<=6.0) % Alkaline Phosphatase (38-126) U/L Total Protein (6.3-8.2) g/dL Albumin (3.5-5.0) g/dL Microbiology - Last 24 Hours (Table) 07/12/24 20:19 Blood Culture - Preliminary Blood Assessment and Plan Assessment: Acute COPD exacerbation. Procalcitonin negative Acute exacerbation of chronic systolic congestive heart failure now with an ejection fraction of 15%. proBNP 22,000 Acute hypoxemic respiratory failure, secondary to above, currently on 4 L/min nasal cannula Troponin leak Severe COPD, with an FEV1 39% of predicted Chronic ongoing tobacco dependence, current 2 pack/day smoker Alcohol intoxication, serum alcohol level was 18 on arrival Hyponatremia, possibly secondary to beer potomania History of alcoholism, admits to drinking 6, 12 ounce beers per day History of CVA, with residual homonymous hemianopia History of diabetes mellitus History of hypertension Plan: The patient was seen and evaluated Chest x-ray, echocardiogram, labs and medications reviewed Continue IV diuretics Procalcitonin negative Antibiotics discontinued Continue bronchodilators, steroids Continue the CIWA protocol Titrate the FiO2 as tolerated Prognosis remains guarded We will continue to follow and make further recommendations based on his clinical status I have personally seen and examined the patient, performed the documentation and the assessment and plan as written. Dictation was produced using [employer] dictation software. Please excuse any grammatical, word or spelling errors. This patient was seen in coordination with the pulmonary/critical care physician, Dr. Jenkins. He did spend greater than 50% of the time evaluating, examining and developing the plan of care. He agrees to the above HPI, physical exam, assessment and plan of care as dictated by the nurse practitioner.
[2024-07-14] MEDS: OLANZapine 10 MG VIAL IM PRN (16:03)
[2024-07-14 16:52] LABS: Glucose,Whole Blood 392 mg/dL (70-110)
[2024-07-14 20:22] LABS: Glucose,Whole Blood 235 mg/dL (70-110)
[2024-07-15 05:50] LABS: Glucose,Whole Blood 518 mg/dL (70-110)
[2024-07-15 05:50] LABS: Glucose,Whole Blood 180 mg/dL (70-110)
[2024-07-15 08:32] LABS: Basophils # (A) 0.1 k/uL (0-0.2); Basophils % (A) 1 %; Eosinophils % (A) 0 %; HCT 48.4 % (39.0-53.0); HGB 15.6 gm/dL (13.0-17.5); Hypochromasia Slight; Lymphocytes # (A) 0.3 k/uL (1.0-4.8); Lymphocytes % (A) 3 %; MCH 33.4 pg (25.0-35.0); MCHC 32.3 g/dL (31.0-37.0); MCV 103.4 fL (80.0-100.0); Macrocytosis Slight; Mean Platelet Volume 8.3; Monocytes # (A) 0.5 k/uL (0-1.0); Monocytes % (A) 5 %; Neutrophils # (A) 8.6 k/uL (1.3-7.7); Neutrophils % (A) 91 %; Platelet Count 175 k/uL (150-450); RBC 4.68 m/uL (4.30-5.90); RDW 14.8 % (11.5-15.5); WBC 9.5 k/uL (3.8-10.6)
[2024-07-15 09:08] LABS: Poikilocytosis (M) Present
[2024-07-15] MEDS: ALPRAZolam 0.25 MG TAB PO PRN (10:31)
[2024-07-15 11:39] LABS: Glucose,Whole Blood 329 mg/dL (70-110)
--- NOTE | 2024-07-15 12:02 | P.PN ---
Subjective Progress Note Date: 07/14/24 Principal diagnosis: Reason for follow-up is pneumonia Patient is a 69-year-old male with a past medical history significant for CVA TIA diabetes mellitus hypertension COPD presenting to the hospital for evaluation of increasing shortness of breath, patient did have a fever x-rays with bibasilar opacity concerning for pneumonia. On today's evaluation that is 07/14/2024, Patient did have resolution of his fever is afebrile this morning patient denies having any chest pain shortness of breath or any worsening cough, the patient is currently on 4 L current oxygen, p atient denies any abdominal pain no diarrhea no nausea no vomiting. Patient white count is 3.8 creatinine is 1.09 Objective - Vital Signs Vital signs: Vital Signs Temp 97.5 F L 07/14/24 08:55 Pulse 90 07/14/24 11:36 Resp 17 07/14/24 08:55 BP 115/82 07/14/24 08:55 Pulse Ox 95 07/14/24 11:22 FiO2 50 07/14/24 08:23 Intake & Output 07/13/24 07/14/24 07/14/24 18:59 06:59 18:59 Intake Total 354 Output Total 1600 1125 Balance -1600 -771 Weight 90.265 kg Intake: Oral 354 Output: Urine 1600 1125 Other: Voiding Method Indwelling Catheter - Exam GENERAL DESCRIPTION: An elderly male lying in bed in no distress RESPIRATORY SYSTEM: Unlabored breathing , decreased breath sounds at bases HEART: S1 S2 regular rate and rhythm , ABDOMEN: Soft , no tenderness EXTREMITIES: No edema feet - Labs CBC & Chem 7: 07/15/24 06:07 07/14/24 08:29 Labs: Abnormal Lab Results - Last 24 Hours (Table) 07/13/24 07/13/24 07/14/24 Range/Units 17:39 20:18 06:27 MCV (80.0-100.0) fL Lymphocytes # (1.0-4.8) k/uL Sodium (137-145) mmol/L BUN (9-20) mg/dL Glucose (74-99) mg/dL POC Glucose (mg/dL) 136 H 192 H 205 H (70-110) mg/dL Hemoglobin A1c (<=6.0) % Alkaline Phosphatase (38-126) U/L Total Protein (6.3-8.2) g/dL Albumin (3.5-5.0) g/dL 07/14/24 07/14/24 07/14/24 Range/Units 08:29 08:29 08:29 MCV 102.7 H (80.0-100.0) fL Lymphocytes # 0.3 L (1.0-4.8) k/uL Sodium 130 L (137-145) mmol/L BUN 33 H (9-20) mg/dL Glucose 212 H (74-99) mg/dL POC Glucose (mg/dL) (70-110) mg/dL Hemoglobin A1c 8.0 H (<=6.0) % Alkaline Phosphatase 128 H (38-126) U/L Total Protein 5.0 L (6.3-8.2) g/dL Albumin 2.8 L (3.5-5.0) g/dL 07/14/24 Range/Units 11:28 MCV (80.0-100.0) fL Lymphocytes # (1.0-4.8) k/uL Sodium (137-145) mmol/L BUN (9-20) mg/dL Glucose (74-99) mg/dL POC Glucose (mg/dL) 284 H (70-110) mg/dL Hemoglobin A1c (<=6.0) % Alkaline Phosphatase (38-126) U/L Total Protein (6.3-8.2) g/dL Albumin (3.5-5.0) g/dL Microbiology - Last 24 Hours (Table) 07/12/24 20:19 Blood Culture - Preliminary Blood Assessment and Plan (1) Sepsis Current Visit: Yes Status: Acute Code(s): A41.9 - SEPSIS, UNSPECIFIED ORGANISM SNOMED Code(s): 73667897 (2) Pneumonia Current Visit: Yes Status: Acute Code(s): J18.9 - PNEUMONIA, UNSPECIFIED ORGANISM SNOMED Code(s): 309332577 Plan: 1patient presented hospital with sepsis, in this patient who did have fever tachycardia meeting criteria for SIRS source is right lower lobe pneumonia with possible community acquired 2-try to obtain a sputum for Gram stain and culture 3-patient did have resolution of fever and some clinical improvement, to continue Rocephin and Zithromax while waiting for the culture to finalize Dictation was produced using [employer] dictation software. please excuse any grammatical, word or spelling errors. Time with Patient: Less than 30
[2024-07-15 13:07] LABS: ALT 20 U/L (4-49); AST 17 U/L (17-59); African American GFR (CKD) 75 (>60 ml/min/1.73 sqM); Albumin 2.9 g/dL (3.5-5.0); Alkaline Phosphatase 117 U/L (38-126); Anion Gap 10 mmol/L; Blood Urea Nitrogen 47 mg/dL (9-20); Calcium 8.7 mg/dL (8.4-10.2); Carbon Dioxide 24 mmol/L (22-30); Chloride 100 mmol/L (98-107); Glucose 354 mg/dL (74-99); Non-African American GFR(CKD) 65 (>60 ml/min/1.73 sqM); Potassium 4.5 mmol/L (3.5-5.1); Sodium 134 mmol/L (137-145); Total Bilirubin 0.3 mg/dL (0.2-1.3); Total Protein 5.2 g/dL (6.3-8.2)
[2024-07-15 13:10] LABS: NT-Pro-B-Type Natriuretic Pept 21400 pg/mL
--- NOTE | 2024-07-15 14:04 | P.PN ---
Subjective Progress Note Date: 07/15/24 patient is a 69-year-old gentleman with past medical his significant for CHF, COPD, CVA, diabetes mellitus who presented to the ER for shortness of breath. Patient is was all right 4 days back when started noticing shortness of breath is present at rest as on exertion. Patient was also complaining of swelling of feet. Patient also complaining of cough. Patient was complaining of orthopnea. There was no complaint of fever or chills. There is no complaint of chest pain. Patient was supposed to be taking Lasix but stopped taking for the last 3 to 4 days. There was no complaint of nausea or vomiting. Family also think that the patient has been drinking over the [place]. Initial lab work done in the ER showed WBC 10.5, hemoglobin 16.8, platelet count 194, sodium 125, potassium 4.9, BUN 12, creatinine 0.79, glucose 168 alk phos 193, total protein 5.6 serum alcohol 18 Influenza A not detected Influenza B not detected RSV not detected COVID-19 not detected EKG done in the ER showed heart rate of 109, no ST segment elevation or depression seen, no T-wave inversions seen. Chest x-ray done in the ER showed right basilar airspace opacity, developing pneumonia versus eventration of the diaphragm Patient admitted to internal medicine service 07/14. Patient examined. Blood work done showed WBC 3.8, hemoglobin 15.7, platelet count 173, sodium 130, potassium 4.9, BUN 23, creatinine 1.09. Currently on 4 L of oxygen, doing much better. Patient is alert and answering questions /. Patient seen and examined. Patient was more confused overnight, this morning is alert. Breathing is improved. Currently on 3 to 4 L of oxygen REVIEW OF SYSTEMS: CONSTITUTIONAL: No fever, no malaise,. CARDIOVASCULAR: No chest pain, no palpitations, no syncope. PULMONARY: No shortness of breath, no cough, GASTROINTESTINAL: No diarrhea, no nausea, no vomiting, no abdominal pain. NEUROLOGICAL: No headaches, no weakness, PHYSICAL EXAMINATION: GENERAL: The patient is alert, answering question appropriately HEENT: Pupils are round and equally reacting to light. EOMI. No scleral icterus. No conjunctival pallor. Normocephalic, atraumatic. No pharyngeal erythema. No thyromegaly. CARDIOVASCULAR: S1 and S2 present. No murmurs, rubs, or gallops. PULMONARY: Coarse breath sound bilaterally, bilateral crackles and rhonchi audible, tachypneic ABDOMEN: Soft, nontender, nondistended, normoactive bowel sounds. No palpable organomegaly. MUSCULOSKELETAL: No joint swelling or deformity. EXTREMITIES: No cyanosis, clubbing, or pedal edema. NEUROLOGICAL: Moving all extremities SKIN: No rashes. Assessment and plan Acute hypoxic respiratory failure Acute metabolic encephalopathy Acute COPD exacerbation Bacterial pneumonia Acute systolic CHF Ischemic cardiomyopathy Paroxysmal atrial fibrillation Alcohol intoxication, serum alcohol level was 18 on arrival Hyponatremia, possibly secondary to beer potomania History of alcoholism, admits to drinking 6, 12 ounce beers per day History of CVA, with residual homonymous hemianopia History of diabetes mellitus History of hypertension Monitor vital signs Monitor CBC Monitor CMP Continue telemetry monitoring Follow-up on sputum cultures Follow-up on blood cultures Continue Rocephin and azithromycin Continue breathing treatments Continue IV Solu-Medrol Strict I's and O's, daily weights Continue IV Lasix 40 mg every 12 Continue CIWA protocol Pulmonology following Cardiology following Labs and medication were reviewed.. Continue same treatment. Continue with symptomatic treatment. Resume home medication. Monitor labs and vitals. DVT and GI prophylaxis. Further recommendations as per clinical course of the patient Dictation was produced using [employer] dictation software. please excuse any grammatical, word or spelling errors. Objective - Vital Signs Vital signs: Vital Signs Temp 97.6 F 07/15/24 11:23 Pulse 68 07/15/24 11:43 Resp 16 07/15/24 11:23 BP 115/83 07/15/24 11:23 Pulse Ox 98 07/15/24 11:23 FiO2 50 07/15/24 07:41 Intake & Output 07/14/24 07/15/24 07/15/24 18:59 06:59 18:59 Intake Total 354 30 40 Output Total 1475 1600 1949 Balance -1121 1570 -191 Weight 87.5 kg Intake: IV 30 40 Invasive Line 1 20 20 Invasive Line 2 10 20 Oral 354 Output: Urine 1475 1600 1950 Uretheral (Vega) 1949 Other: Voiding Method Indwelling Catheter Indwelling Catheter Indwelling Catheter # Bowel Movements 0 1 - Labs CBC & Chem 7: 07/15/24 06:07 07/15/24 11:53 Labs: Abnormal Lab Results - Last 24 Hours (Table) 07/14/24 07/14/24 07/14/24 Range/Units 08:29 16:51 20:20 MCV (80.0-100.0) fL Neutrophils # (1.3-7.7) k/uL Lymphocytes # (1.0-4.8) k/uL Sodium (137-145) mmol/L BUN (9-20) mg/dL Glucose (74-99) mg/dL POC Glucose (mg/dL) 392 H 235 H (70-110) mg/dL Hemoglobin A1c 8.0 H (<=6.0) % Total Protein (6.3-8.2) g/dL Albumin (3.5-5.0) g/dL 07/15/24 07/15/24 07/15/24 Range/Units 05:48 05:49 06:07 MCV 103.4 H (80.0-100.0) fL Neutrophils # 8.6 H (1.3-7.7) k/uL Lymphocytes # 0.3 L (1.0-4.8) k/uL Sodium (137-145) mmol/L BUN (9-20) mg/dL Glucose (74-99) mg/dL POC Glucose (mg/dL) 518 H* 180 H (70-110) mg/dL Hemoglobin A1c (<=6.0) % Total Protein (6.3-8.2) g/dL Albumin (3.5-5.0) g/dL 07/15/24 07/15/24 Range/Units 11:35 11:53 MCV (80.0-100.0) fL Neutrophils # (1.3-7.7) k/uL Lymphocytes # (1.0-4.8) k/uL Sodium 134 L (137-145) mmol/L BUN 47 H (9-20) mg/dL Glucose 354 H (74-99) mg/dL POC Glucose (mg/dL) 329 H (70-110) mg/dL Hemoglobin A1c (<=6.0) % Total Protein 5.2 L (6.3-8.2) g/dL Albumin 2.9 L (3.5-5.0) g/dL Microbiology - Last 24 Hours (Table) 07/12/24 20:19 Blood Culture - Preliminary Blood
--- NOTE | 2024-07-15 14:31 | P.PN ---
Subjective Progress Note Date: 07/15/24 This is a pleasant 69-year-old male patient of Dr. Boles with past medical history of paroxysmal atrial fibrillation, coronary artery disease, ischemic cardiomyopathy, COPD, 2 pack/day smoker and CVA with prior PFO closure in March 2023. Patient is a poor historian and most of the HPI was obtained fr om the chart. Presented to the hospital with complaints of slowly worsening shortness of breath as well as congested nonproductive cough. Fever of 101.8 F on arrival to the ED. Diagnostics -EKG: Sinus tachycardia incomplete right bundle branch block -Chest x-ray: Right basilar opacity -Laboratory studies: Sodium 125, potassium 4.9, normal white blood cell count, normal renal function, NT proBNP 21,900, troponin 0.026, 0.043 and 0.034 -Home cardiac medications: Metoprolol succinate 50 mg daily, Lasix 40 mg daily, losartan 100 mg p.o. daily, Jardiance 25 mg p.o. daily, Eliquis 5 mg p.o. twice daily, aspirin 81 mg daily and Repatha -Prior stress test: 02/28/2023 prior [place] without any ischemia -Echocardiogram: 11/14/2023 mildly decreased LV systolic function with ejection fraction of 45 to 50%, global LV hypokinesis, PFO/ASD percutaneous closure device present, mild MR, mild TR -Cardiac catheterization: Unknown 07/14/2024 Patient was seen and examined resting comfortably in bed. He is overall feeling better and seems to be less confused today. Answering questions more appropriately and breathing appears easier. He feels he is breathing better. He has had no chest discomfort, palpitations, dizziness or lightheadedness. Echocardiogram with Doppler study done showed severely impaired LV systolic function with ejection fraction of 15%, previously in the 35 to 45% range. 07/15/2024 Seen and examined at bedside this a.m. BP 115/83, heart rate 68 beats minute, sinus rhythm Sodium 134, potassium 4.5, BUN 47, creatinine 1.14, Hb 15.6, NT-proBNP 2100, HbA1c 8.0 PHYSICAL EXAMINATION: This is a 69-year-old male in no apparent distress at the time of my examination. VITAL SIGNS: Reviewed. HEENT: Head is atraumatic, normocephalic. Pupils are equal, round. Sclerae anicteric. Conjunctivae are clear. Mucous membranes of the mouth are moist. Neck is supple. There is no elevated jugular venous pressure. No carotid bruit is heard. CHEST EXAMINATION: Lungs diminished bilaterally, expiratory wheezing throughout, tachypnea noted. HEART EXAMINATION: Heart regular, positive S1 and S2. No S3. No S4. Soft systolic murmur. ABDOMEN: Soft, nontender. Bowel sounds are heard. No organomegaly noted. EXTREMITIES: 2+ peripheral pulses with no evidence of peripheral edema and no calf tenderness noted. NEUROLOGIC EXAMINATION: Patient is awake, alert and oriented x3. Assessment: 1. Acute COPD exacerbation with suspected right lower lobe pneumonia, currently on IV antibiotics 2. Ischemic cardiomyopathy with prior MPI showing evidence of prior infarct, worsened 3. Paroxysmal atrial fibrillation, currently maintaining sinus mechanism 4. History of PFO closure Plan: Continue aspirin, Eliquis 5 mg twice daily, Continue losartan 25 mg daily. Consider switching to Entresto prior to discharge Continue metoprolol succinate 50 mg daily. Continue Farxiga 10 mg And Aldactone 12.5 g daily once pneumonia resolves patient will require cardiac catheterization in the future to further evaluate etiology of cardiomyopathy and extent of CAD. We will continue to follow the patient and provide further recommendations accordingly. Objective - Vital Signs Vital signs: Vital Signs Temp 97.6 F 07/15/24 11:23 Pulse 68 07/15/24 11:43 Resp 16 07/15/24 11:23 BP 115/83 07/15/24 11:23 Pulse Ox 98 07/15/24 11:23 FiO2 50 07/15/24 07:41 Intake & Output 07/14/24 07/15/24 07/15/24 18:59 06:59 18:59 Intake Total 354 30 40 Output Total 1475 1600 1949 Balance -1121 -3720 -1910 Weight 87.5 kg Intake: IV 30 40 Invasive Line 1 20 20 Invasive Line 2 10 20 Oral 354 Output: Urine 1475 1600 1949 Uretheral (Vega) 1949 Other: Voiding Method Indwelling Catheter Indwelling Catheter Indwelling Catheter # Bowel Movements 0 1 - Labs CBC & Chem 7: 07/15/24 06:07 07/15/24 11:53 Labs: Abnormal Lab Results - Last 24 Hours (Table) 07/14/24 07/14/24 07/14/24 Range/Units 08:29 16:51 20:20 MCV (80.0-100.0) fL Neutrophils # (1.3-7.7) k/uL Lymphocytes # (1.0-4.8) k/uL Sodium (137-145) mmol/L BUN (9-20) mg/dL Glucose (74-99) mg/dL POC Glucose (mg/dL) 392 H 235 H (70-110) mg/dL Hemoglobin A1c 8.0 H (<=6.0) % Total Protein (6.3-8.2) g/dL Albumin (3.5-5.0) g/dL 07/15/24 07/15/24 07/15/24 Range/Units 05:48 05:49 06:07 MCV 103.4 H (80.0-100.0) fL Neutrophils # 8.6 H (1.3-7.7) k/uL Lymphocytes # 0.3 L (1.0-4.8) k/uL Sodium (137-145) mmol/L BUN (9-20) mg/dL Glucose (74-99) mg/dL POC Glucose (mg/dL) 518 H* 180 H (70-110) mg/dL Hemoglobin A1c (<=6.0) % Total Protein (6.3-8.2) g/dL Albumin (3.5-5.0) g/dL 07/15/24 07/15/24 Range/Units 11:35 11:53 MCV (80.0-100.0) fL Neutrophils # (1.3-7.7) k/uL Lymphocytes # (1.0-4.8) k/uL Sodium 134 L (137-145) mmol/L BUN 47 H (9-20) mg/dL Glucose 354 H (74-99) mg/dL POC Glucose (mg/dL) 329 H (70-110) mg/dL Hemoglobin A1c (<=6.0) % Total Protein 5.2 L (6.3-8.2) g/dL Albumin 2.9 L (3.5-5.0) g/dL Microbiology - Last 24 Hours (Table) 07/12/24 20:19 Blood Culture - Preliminary Blood
--- NOTE | 2024-07-15 14:52 | P.PN ---
Subjective Progress Note Date: 07/15/24 Principal diagnosis: Pneumonia. Patient is a 69-year-old male with past medical history significant for COPD, hypertension, diabetes mellitus, CVA, heart failure, and is a current 2 pack/day smoker. He does follow in the pulmonary office with Dr. Jenkins. He has severe COPD with an FEV1 39% of predicted. He is unsure of what maintenance inhalers he uses at home. Over the last couple days his been experiencing progressively worsening shortness of breath accompanied with a congested nonproductive cough. Denies chest pain, denies significant sputum production, denies hemoptysis. No measured fevers at home. Fever of 101.8 F on arrival to the ED. Of note, patient does report increased lower extremity swelling over the last couple weeks. He was started on a "water pill" approximately 1 week ago. Most recent available echocardiogram from January, estimating left ventricular ejection fraction of 35 to 40%. Chest x-ray is overpenetrated, possible right lower lobe infiltrate. CBC is unremarkable, no leukocytosis. CMP: Sodium 126, potassium 4.9, chloride 98, serum bicarb 18, BUN 16, creatinine 0.86, glucose 163. LFTs unremarkable. Troponin was 0.043 and is down to 0.034. NT proBNP 21,900. EKG: Sinus tachycardia, rate 109 bpm, incomplete RBBB pattern, no focal ST/T wave abnormalities suggestive of ischemia. Viral screen negative for influenza, RSV, COVID. Serum alcohol was 18. Patient drinks approximately 6 beers per day, 12 ounce beers. Denies any history of alcohol withdrawal symptoms. Currently on the CIWA protocol. Current vitals: Temperature 98.2 F, heart rate 99 bpm, blood pressure 115/99 mmHg, SpO2 is 92% on 2 L/min nasal cannula. He is currently being evaluated in the emergency department. He is lying on his left lateral side, on 2 L/min nasal cannula. He does occasionally groan in discomfort. No acute respiratory distress. He is alert and fully oriented. No signs of CO2 narcosis. No current signs of alcohol withdrawal. The patient is seen today July 14, 2024 in follow-up on the selective care unit. He is currently sitting up in bed. Awake and alert in no acute distress. Family is at the bedside. He is currently maintaining O2 saturation in the 90s on 4 L/min per nasal cannula. He had been on BiPAP 12/6 and 50% FiO2 previously. He is afebrile. Hemodynamically stable. White count 3.8. Hemoglobin 15.7. Platelets 173. Sodium 130. Potassium 4.9. Bicarb 22. BUN 33. Creatinine 1.09. Glucose 212. Echocardiogram revealed a severely reduced global left ventricular systolic function with an ejection fraction at 15%. Severe right ventricular dilatation. Mild pulmonary hypertension. White count 3.8. Hemoglobin 15.7. Platelets 173. Sodium 130. Potassium 4.9. Bicarb 22. BUN 33. Creatinine 1.09. Glucose 212. He is on Lasix 40 mg IV every 12 hours. Anticoagulated with Eliquis. He is continued on DuoNeb inhalations, Symbicort, Singulair, Solu-Medrol. NicoDerm patch in place. Antibiotics in the form of ceftriaxone and azithromycin. Procalcitonin 0.24. Progress note dated July 15, 2024. 1-year-old patient seen today in room 383. The patient was admitted with a diagnosis of pneumonia and COPD exacerbation. The patient is currently on 4 L nasal cannula. He does use BiPAP, with settings of 16/6, and 50%. Current labs include a white count 9.5, hemoglobin 15.6, hematocrit 48.4, and a platelet count of 175,000. Sodium 134, potassium 4.5, chlorides 100, CO2 24, BUN 47, and creatinine 1.14. Glucose is 354. Albumin is 2.9. N-terminal proBNP is 21,400. Cultures are currently negative. Chest x-ray from July 13, shows cardiomegaly, and pulmonary vascular congestion. Objective - Vital Signs Vital signs: Vital Signs Temp 97.6 F 07/15/24 11:23 Pulse 68 07/15/24 11:43 Resp 16 07/15/24 11:23 BP 115/83 07/15/24 11:23 Pulse Ox 98 07/15/24 11:23 FiO2 50 07/15/24 07:41 Intake & Output 07/14/24 07/15/24 07/15/24 18:59 06:59 18:59 Intake Total 354 30 40 Output Total 1475 1600 1950 Balance -1121 -1570 -1910 Weight 87.5 kg Intake: IV 30 40 Invasive Line 1 20 20 Invasive Line 2 10 20 Oral 354 Output: Urine 1475 1600 1950 Uretheral (Vega) 1950 Other: Voiding Method Indwelling Catheter Indwelling Catheter Indwelling Catheter # Bowel Movements 0 1 - Exam No acute distress, oriented 3. The patient is currently on 4 L. HEENT examination is grossly unremarkable. Mucous membranes are moist. No oral lesions. Neck supple. Full range of motion. No adenopathy thyromegaly or neck vein distention. Cardiovascular examination reveals regular rhythm rate. S1-S2 normal. No S3 or S4. No discernible murmur noted. Lungs reveal bilateral basilar crackles. No wheezes. No rhonchi. Breath sounds are equal bilaterally. Abdomen soft bowel sounds are heard. No masses or tenderness. Extremities are intact. No cyanosis clubbing or edema. Skin is without rash or lesion. Neurologic examination is brief but nonfocal. - Labs CBC & Chem 7: 07/15/24 06:07 07/15/24 11:53 Labs: Abnormal Lab Results - Last 24 Hours (Table) 07/14/24 07/14/24 07/14/24 Range/Units 08:29 16:51 20:20 MCV (80.0-100.0) fL Neutrophils # (1.3-7.7) k/uL Lymphocytes # (1.0-4.8) k/uL Sodium (137-145) mmol/L BUN (9-20) mg/dL Glucose (74-99) mg/dL POC Glucose (mg/dL) 392 H 235 H (70-110) mg/dL Hemoglobin A1c 8.0 H (<=6.0) % Total Protein (6.3-8.2) g/dL Albumin (3.5-5.0) g/dL 07/15/24 07/15/24 07/15/24 Range/Units 05:48 05:49 06:07 MCV 103.4 H (80.0-100.0) fL Neutrophils # 8.6 H (1.3-7.7) k/uL Lymphocytes # 0.3 L (1.0-4.8) k/uL Sodium (137-145) mmol/L BUN (9-20) mg/dL Glucose (74-99) mg/dL POC Glucose (mg/dL) 518 H* 180 H (70-110) mg/dL Hemoglobin A1c (<=6.0) % Total Protein (6.3-8.2) g/dL Albumin (3.5-5.0) g/dL 07/15/24 07/15/24 Range/Units 11:35 11:53 MCV (80.0-100.0) fL Neutrophils # (1.3-7.7) k/uL Lymphocytes # (1.0-4.8) k/uL Sodium 134 L (137-145) mmol/L BUN 47 H (9-20) mg/dL Glucose 354 H (74-99) mg/dL POC Glucose (mg/dL) 329 H (70-110) mg/dL Hemoglobin A1c (<=6.0) % Total Protein 5.2 L (6.3-8.2) g/dL Albumin 2.9 L (3.5-5.0) g/dL Microbiology - Last 24 Hours (Table) 07/12/24 20:19 Blood Culture - Preliminary Blood Assessment and Plan Assessment: Acute COPD exacerbation. Acute exacerbation of chronic systolic congestive heart failure. Acute hypoxemic respiratory failure, secondary to above. Troponin leak. Severe COPD, with an FEV1 39% of predicted. Chronic ongoing tobacco dependence, current 2 pack/day smoker. Alcohol intoxication. Hyponatremia, possibly secondary to beer potomania. History of alcoholism, admits to drinking 6, 12 ounce beers per day. History of CVA, with residual homonymous hemianopia. History of diabetes mellitus. History of hypertension. Plan: Plan dated July 15, 2024. The patient's antibiotics were discontinued. The patient's procalcitonin level was normal. The patient continues on IV diuretics. Labs, x-rays, medications are reviewed. The patient continues on the CIWA protocol. We will continue to follow the patient, make recommendations along the way. Overall prognosis r emains guarded. Time with Patient: Less than 30
[2024-07-15] MEDS: LORazepam 1 MG TAB PO PRN (15:02)
--- NOTE | 2024-07-15 15:55 | P.PN ---
Subjective Progress Note Date: 07/15/24 Principal diagnosis: Reason for follow-up is pneumonia Patient is a 69-year-old male with a past medical history significant for CVA TIA diabetes mellitus hypertension COPD presenting to the hospital for evaluation of increasing shortness of breath, patient did have a fever x-rays with bibasilar opacity concerning for pneumonia. On today's evaluation that is 07/15/2024,the patient denies any fever or any chills, patient is breathing slightly comfortably on 4 L current oxygen the patient denies chest pain or worsening cough, patient denies abdominal pain, no nausea vomiting or diarrhea. Patient white count is 9.5, creatinine is 1.14 blood cultures are pending sputum not collected Objective - Vital Signs Vital signs: Vital Signs Temp 97.0 F L 07/15/24 15:05 Pulse 72 07/15/24 15:30 Resp 18 07/15/24 15:08 BP 99/73 07/15/24 15:05 Pulse Ox 96 07/15/24 15:08 FiO2 50 07/15/24 07:41 Intake & Output 07/14/24 07/15/24 07/15/24 18:59 06:59 18:59 Intake Total 354 30 160 Output Total 1475 1600 2450 Balance -1125 -9528 -2290 Weight 87.5 kg Intake: IV 30 40 Invasive Line 1 20 20 Invasive Line 2 10 20 Oral 354 120 Output: Urine 1475 1600 2450 Uretheral (Vega) 2450 Other: Voiding Method Indwelling Catheter Indwelling Catheter Indwelling Catheter # Bowel Movements 0 1 - Exam GENERAL DESCRIPTION: An elderly male lying in bed in no distress RESPIRATORY SYSTEM: Unlabored breathing , decreased breath sounds at bases HEART: S1 S2 regular rate and rhythm , ABDOMEN: Soft , no tenderness EXTREMITIES: No edema feet - Labs CBC & Chem 7: 07/15/24 06:07 07/15/24 11:53 Labs: Abnormal Lab Results - Last 24 Hours (Table) 07/14/24 07/14/24 07/15/24 Range/Units 16:51 20:20 05:48 MCV (80.0-100.0) fL Neutrophils # (1.3-7.7) k/uL Lymphocytes # (1.0-4.8) k/uL Sodium (137-145) mmol/L BUN (9-20) mg/dL Glucose (74-99) mg/dL POC Glucose (mg/dL) 392 H 235 H 518 H* (70-110) mg/dL Total Protein (6.3-8.2) g/dL Albumin (3.5-5.0) g/dL 07/15/24 07/15/24 07/15/24 Range/Units 05:49 06:07 11:35 MCV 103.4 H (80.0-100.0) fL Neutrophils # 8.6 H (1.3-7.7) k/uL Lymphocytes # 0.3 L (1.0-4.8) k/uL Sodium (137-145) mmol/L BUN (9-20) mg/dL Glucose (74-99) mg/dL POC Glucose (mg/dL) 180 H 329 H (70-110) mg/dL Total Protein (6.3-8.2) g/dL Albumin (3.5-5.0) g/dL 07/15/24 Range/Units 11:53 MCV (80.0-100.0) fL Neutrophils # (1.3-7.7) k/uL Lymphocytes # (1.0-4.8) k/uL Sodium 134 L (137-145) mmol/L BUN 47 H (9-20) mg/dL Glucose 354 H (74-99) mg/dL POC Glucose (mg/dL) (70-110) mg/dL Total Protein 5.2 L (6.3-8.2) g/dL Albumin 2.9 L (3.5-5.0) g/dL Microbiology - Last 24 Hours (Table) 07/12/24 20:19 Blood Culture - Preliminary Blood Assessment and Plan (1) Sepsis Current Visit: Yes Status: Acute Code(s): A41.9 - SEPSIS, UNSPECIFIED ORGANISM SNOMED Code(s): 47446059 (2) Pneumonia Current Visit: Yes Status: Acute Code(s): J18.9 - PNEUMONIA, UNSPECIFIED ORGANISM SNOMED Code(s): 622910011 Plan: 1patient presented hospital with sepsis, in this patient who did have fever tachycardia meeting criteria for SIRS source is right lower lobe pneumonia with possible community acquired 2-try to obtain a sputum for Gram stain and culture 3-patient did have resolution of fever and some clinical improvement, blood culture currently pending sputum not collected continue with Rocephin and try to obtain a sputum to narrow down antibiotics Dictation was produced using [employer] dictation software. please excuse any grammatical, word or spelling errors. Time with Patient: Less than 30
[2024-07-15 16:27] LABS: Glucose,Whole Blood 386 mg/dL (70-110)
[2024-07-15 20:01] LABS: Glucose,Whole Blood 323 mg/dL (70-110)
[2024-07-16 05:40] LABS: Glucose,Whole Blood 360 mg/dL (70-110)
[2024-07-16 10:44] LABS: Basophils % (A) 0 %; Eosinophils % (A) 0 %; HCT 53.2 % (39.0-53.0); HGB 17.3 gm/dL (13.0-17.5); Lymphocytes # (A) 0.3 k/uL (1.0-4.8); Lymphocytes % (A) 3 %; MCH 33.1 pg (25.0-35.0); MCHC 32.4 g/dL (31.0-37.0); MCV 102.1 fL (80.0-100.0); Macrocytosis Slight; Mean Platelet Volume 7.5; Monocytes # (A) 0.4 k/uL (0-1.0); Monocytes % (A) 4 %; Neutrophils # (A) 8.9 k/uL (1.3-7.7); Neutrophils % (A) 91 %; Platelet Count 215 k/uL (150-450); RBC 5.21 m/uL (4.30-5.90); RDW 14.8 % (11.5-15.5); WBC 9.8 k/uL (3.8-10.6)
[2024-07-16 10:59] LABS: ALT 18 U/L (4-49); AST 14 U/L (17-59); African American GFR (CKD) >90 (>60 ml/min/1.73 sqM); Albumin 2.9 g/dL (3.5-5.0); Alkaline Phosphatase 107 U/L (38-126); Anion Gap 4 mmol/L; Blood Urea Nitrogen 43 mg/dL (9-20); Carbon Dioxide 34 mmol/L (22-30); Chloride 103 mmol/L (98-107); Glucose 157 mg/dL (74-99); Non-African American GFR(CKD) 78 (>60 ml/min/1.73 sqM); Potassium 3.4 mmol/L (3.5-5.1); Sodium 141 mmol/L (137-145); Total Bilirubin 0.3 mg/dL (0.2-1.3); Total Protein 5.2 g/dL (6.3-8.2)
[2024-07-16 12:42] LABS: Glucose,Whole Blood 461 mg/dL (70-110)
--- NOTE | 2024-07-16 12:59 | P.PN ---
Subjective Progress Note Date: 07/16/24 patient is a 69-year-old gentleman with past medical his significant for CHF, COPD, CVA, diabetes mellitus who presented to the ER for shortness of breath. Patient is was all right 4 days back when started noticing shortness of breath is present at rest as on exertion. Patient was also complaining of swelling of feet. Patient also complaining of cough. Patient was complaining of orthopnea. There was no complaint of fever or chills. There is no complaint of chest pain. Patient was supposed to be taking Lasix but stopped taking for the last 3 to 4 days. There was no complaint of nausea or vomiting. Family also think that the patient has been drinking over the [place]. Initial lab work done in the ER showed WBC 10.5, hemoglobin 16.8, platelet count 194, sodium 125, potassium 4.9, BUN 12, creatinine 0.79, glucose 168 alk phos 193, total protein 5.6 serum alcohol 18 Influenza A not detected Influenza B not detected RSV not detected COVID-19 not detected EKG done in the ER showed heart rate of 109, no ST segment elevation or depression seen, no T-wave inversions seen. Chest x-ray done in the ER showed right basilar airspace opacity, developing pneumonia versus eventration of the diaphragm Patient admitted to internal medicine service 07/14. Patient examined. Blood work done showed WBC 3.8, hemoglobin 15.7, platelet count 173, sodium 130, potassium 4.9, BUN 23, creatinine 1.09. Currently on 4 L of oxygen, doing much better. Patient is alert and answering questions 1/. Patient seen and examined. Patient was more confused overnight, this morning is alert. Breathing is improved. Currently on 3 to 4 L of oxygen 1/2. Patient seen and examined. Currently on 3 L of oxygen. Continues to feel better. Blood sugars were elevated, added Levemir REVIEW OF SYSTEMS: CONSTITUTIONAL: No fever, no malaise,. CARDIOVASCULAR: No chest pain, no palpitations, no syncope. PULMONARY: No shortness of breath, no cough, GASTROINTESTINAL: No diarrhea, no nausea, no vomiting, no abdominal pain. NEUROLOGICAL: No headaches, no weakness, PHYSICAL EXAMINATION: GENERAL: The patient is alert, answering question appropriately HEENT: Pupils are round and equally reacting to light. EOMI. No scleral icterus. No conjunctival pallor. Normocephalic, atraumatic. No pharyngeal erythema. No thyromegaly. CARDIOVASCULAR: S1 and S2 present. No murmurs, rubs, or gallops. PULMONARY: Coarse breath sound bilaterally, no crackles, no wheeze ABDOMEN: Soft, nontender, nondistended, normoactive bowel sounds. No palpable organomegaly. MUSCULOSKELETAL: No joint swelling or deformity. EXTREMITIES: No cyanosis, clubbing, or pedal edema. NEUROLOGICAL: Moving all extremities SKIN: No rashes. Assessment and plan Acute hypoxic respiratory failure Acute metabolic encephalopathy Acute COPD exacerbation Bacterial pneumonia Acute systolic CHF Ischemic cardiomyopathy Paroxysmal atrial fibrillation Alcohol intoxication, serum alcohol level was 18 on arrival Hyponatremia, possibly secondary to beer potomania History of alcoholism, admits to drinking 6, 12 ounce beers per day History of CVA, with residual homonymous hemianopia History of diabetes mellitus, last HbA1c level was 8 History of hypertension Monitor vital signs Monitor CBC Monitor CMP Continue telemetry monitoring Follow-up on sputum cultures Follow-up on blood cultures Continue Rocephin and azithromycin Continue breathing treatments Continue IV Solu-Medrol Strict I's and O's, daily weights Lasix switched to oral 40 mg every 12 Monitor blood sugar levels, continue sliding scale insulin, added Levemir 5 units twice a day Continue CIWA protocol Pulmonology following Cardiology following Labs and medication were reviewed.. Continue same treatment. Continue with symptomatic treatment. Resume home medication. Monitor labs and vitals. DVT and GI prophylaxis. Further recommendations as per clinical course of the patient Dictation was produced using [employer] dictation software. please excuse any grammatical, word or spelling errors. Objective - Vital Signs Vital signs: Vital Signs Temp 97.7 F 07/15/24 19:45 Pulse 78 07/16/24 07:50 Resp 18 07/16/24 03:45 BP 109/65 07/16/24 03:45 Pulse Ox 98 07/16/24 03:45 FiO2 50 07/16/24 07:41 Intake & Output 07/15/24 07/16/24 07/16/24 18:59 06:59 18:59 Intake Total 500 40 Output Total 2750 1800 Balance -2250 -1760 Weight 87.5 kg Intake: IV 40 40 Invasive Line 1 20 20 Invasive Line 2 20 20 Oral 460 Output: Urine 2750 1800 Uretheral (Vega) 2450 Other: Voiding Method Indwelling Catheter Indwelling Catheter # Bowel Movements 1 - Labs CBC & Chem 7: 07/16/24 10:16 07/16/24 10:16 Labs: Abnormal Lab Results - Last 24 Hours (Table) 07/15/24 07/15/24 07/15/24 Range/Units 11:35 11:53 16:22 Sodium 134 L (137-145) mmol/L BUN 47 H (9-20) mg/dL Glucose 354 H (74-99) mg/dL POC Glucose (mg/dL) 329 H 386 H (70-110) mg/dL Total Protein 5.2 L (6.3-8.2) g/dL Albumin 2.9 L (3.5-5.0) g/dL 07/15/24 07/16/24 Range/Units 19:59 05:38 Sodium (137-145) mmol/L BUN (9-20) mg/dL Glucose (74-99) mg/dL POC Glucose (mg/dL) 323 H 360 H (70-110) mg/dL Total Protein (6.3-8.2) g/dL Albumin (3.5-5.0) g/dL Microbiology - Last 24 Hours (Table) 07/12/24 20:19 Blood Culture - Preliminary Blood
[2024-07-16] MEDS ORDERED: NON FORMULARY DRUG (Empagliflozin [Jardiance] 25 MG Tablet) PO SCH (13:00)
--- NOTE | 2024-07-16 14:21 | P.PN ---
Subjective Progress Note Date: 07/16/24 Principal diagnosis: Pneumonia. Patient is a 69-year-old male with past medical history significant for COPD, hypertension, diabetes mellitus, CVA, heart failure, and is a current 2 pack/day smoker. He does follow in the pulmonary office with Dr. Jenkins. He has severe COPD with an FEV1 39% of predicted. He is unsure of what maintenance inhalers he uses at home. Over the last couple days his been experiencing progressively worsening shortness of breath accompanied with a congested nonproductive cough. Denies chest pain, denies significant sputum production, denies hemoptysis. No measured fevers at home. Fever of 101.8 F on arrival to the ED. Of note, patient does report increased lower extremity swelling over the last couple weeks. He was started on a "water pill" approximately 1 week ago. Most recent available echocardiogram from January, estimating left ventricular ejection fraction of 35 to 40%. Chest x-ray is overpenetrated, possible right lower lobe infiltrate. CBC is unremarkable, no leukocytosis. CMP: Sodium 126, potassium 4.9, chloride 98, serum bicarb 18, BUN 16, creatinine 0.86, glucose 163. LFTs unremarkable. Troponin was 0.043 and is down to 0.034. NT proBNP 21,900. EKG: Sinus tachycardia, rate 109 bpm, incomplete RBBB pattern, no focal ST/T wave abnormalities suggestive of ischemia. Viral screen negative for influenza, RSV, COVID. Serum alcohol was 18. Patient drinks approximately 6 beers per day, 12 ounce beers. Denies any history of alcohol withdrawal symptoms. Currently on the CIWA protocol. Current vitals: Temperature 98.2 F, heart rate 99 bpm, blood pressure 115/99 mmHg, SpO2 is 92% on 2 L/min nasal cannula. He is currently being evaluated in the emergency department. He is lying on his left lateral side, on 2 L/min nasal cannula. He does occasionally groan in discomfort. No acute respiratory distress. He is alert and fully oriented. No signs of CO2 narcosis. No current signs of alcohol withdrawal. The patient is seen today July 14, 2024 in follow-up on the selective care unit. He is currently sitting up in bed. Awake and alert in no acute distress. Family is at the bedside. He is currently maintaining O2 saturation in the 90s on 4 L/min per nasal cannula. He had been on BiPAP 12/6 and 50% FiO2 previously. He is afebrile. Hemodynamically stable. White count 3.8. Hemoglobin 15.7. Platelets 173. Sodium 130. Potassium 4.9. Bicarb 22. BUN 33. Creatinine 1.09. Glucose 212. Echocardiogram revealed a severely reduced global left ventricular systolic function with an ejection fraction at 15%. Severe right ventricular dilatation. Mild pulmonary hypertension. White count 3.8. Hemoglobin 15.7. Platelets 173. Sodium 130. Potassium 4.9. Bicarb 22. BUN 33. Creatinine 1.09. Glucose 212. He is on Lasix 40 mg IV every 12 hours. Anticoagulated with Eliquis. He is continued on DuoNeb inhalations, Symbicort, Singulair, Solu-Medrol. NicoDerm patch in place. Antibiotics in the form of ceftriaxone and azithromycin. Procalcitonin 0.24. Progress note dated July 15, 2024. 69-year-old patient seen today in room 383. The patient was admitted with a diagnosis of pneumonia and COPD exacerbation. The patient is currently on 4 L nasal cannula. He does use BiPAP, with settings of 16/6, and 50%. Current labs include a white count 9.5, hemoglobin 15.6, hematocrit 48.4, and a platelet count of 175,000. Sodium 134, potassium 4.5, chlorides 100, CO2 24, BUN 47, and creatinine 1.14. Glucose is 354. Albumin is 2.9. N-terminal proBNP is 21,400. Cultures are currently negative. Chest x-ray from July 13, shows cardiomegaly, and pulmonary vascular congestion. Progress note dated July 16, 2024. 69-year-old male seen today in room 383. The patient is currently on 3 L of oxygen. He is not receiving any IV fluids. He did use BiPAP last night at 16/6, 50%. Current labs include a white count 9.8, hemoglobin 17.3, hematocrit 53.2, and a platelet count of 215,000. Sodium 141, potassium 3.4, chlorides 103, CO2 34, BUN 43, and creatinine 0.98. Glucose is 461. Albumin is 2.9. Objective - Vital Signs Vital signs: Vital Signs Temp 97.4 F L 07/16/24 08:00 Pulse 58 L 07/16/24 12:00 Resp 18 07/16/24 08:00 BP 109/73 07/16/24 08:00 Pulse Ox 93 L 07/16/24 12:00 FiO2 50 07/16/24 08:00 Intake & Output 07/15/24 07/16/24 07/16/24 18:59 06:59 18:59 Intake Total 500 40 Output Total 2750 1800 750 Balance -2250 -1760 -750 Weight 87.5 kg Intake: IV 40 40 Invasive Line 1 20 20 Invasive Line 2 20 20 Oral 460 Output: Urine 2750 1800 750 Uretheral (Vega) 2450 Other: Voiding Method Indwelling Catheter Indwelling Catheter Indwelling Catheter # Bowel Movements 1 - Exam No acute distress, oriented 3. The patient is currently on 3 L nasal cannula. HEENT examination is grossly unremarkable. Mucous membranes are moist. No oral lesions. Neck supple. Full range of motion. No adenopathy thyromegaly or neck vein distention. Cardiovascular examination reveals regular rhythm rate. S1-S2 normal. No S3 or S4. No discernible murmur noted. Lungs reveal bilateral basilar crackles. No wheezes. No rhonchi. Breath sounds are equal bilaterally. Abdomen soft bowel sounds are heard. No masses or tenderness. Extremities are intact. No cyanosis clubbing or edema. Skin is without rash or lesion. Neurologic examination is brief but nonfocal. - Labs CBC & Chem 7: 07/16/24 10:16 07/16/24 10:16 Labs: Abnormal Lab Results - Last 24 Hours (Table) 07/15/24 07/15/24 07/16/24 Range/Units 16:22 19:59 05:38 Hct (39.0-53.0) % MCV (80.0-100.0) fL Neutrophils # (1.3-7.7) k/uL Lymphocytes # (1.0-4.8) k/uL Potassium (3.5-5.1) mmol/L Carbon Dioxide (22-30) mmol/L BUN (9-20) mg/dL Glucose (74-99) mg/dL POC Glucose (mg/dL) 386 H 323 H 360 H (70-110) mg/dL AST (17-59) U/L Total Protein (6.3-8.2) g/dL Albumin (3.5-5.0) g/dL 07/16/24 07/16/24 07/16/24 Range/Units 10:16 10:16 12:40 Hct 53.2 H (39.0-53.0) % MCV 102.1 H (80.0-100.0) fL Neutrophils # 8.9 H (1.3-7.7) k/uL Lymphocytes # 0.3 L (1.0-4.8) k/uL Potassium 3.4 L (3.5-5.1) mmol/L Carbon Dioxide 34 H (22-30) mmol/L BUN 43 H (9-20) mg/dL Glucose 157 H (74-99) mg/dL POC Glucose (mg/dL) 461 H (70-110) mg/dL AST 14 L (17-59) U/L Total Protein 5.2 L (6.3-8.2) g/dL Albumin 2.9 L (3.5-5.0) g/dL Microbiology - Last 24 Hours (Table) 07/12/24 20:19 Blood Culture - Preliminary Blood Assessment and Plan Assessment: Acute COPD exacerbation. Acute exacerbation of chronic systolic congestive heart failure. Acute hypoxemic respiratory failure, secondary to above. Troponin leak. Severe COPD, with an FEV1 39% of predicted. Chronic ongoing tobacco dependence, current 2 pack/day smoker. Alcohol intoxication. Hyponatremia, possibly secondary to beer potomania. History of alcoholism, admits to drinking 6, 12 ounce beers per day. History of CVA, with residual homonymous hemianopia. History of diabetes mellitus. History of hypertension. Plan: Plan dated July 15, 2024. The patient's antibiotics were discontinued. The patient's procalcitonin level was normal. The patient continues on IV diuretics. Labs, x-rays, medications are reviewed. The patient continues on the CIWA protocol. We will continue to follow the patient, make recommendations along the way. Overall prognosis remains guarded. Plan dated July 16, 2024. The patient is seen today in room 383. The patient continues on nasal O2 at 3 L. He is not receiving any IV fluids. He did use BiPAP at 16/6, 50%. Labs, x- rays, and medications are reviewed. Clinically, the patient appears stable. We will continue to follow the patient, make recommendations along the way. Prognosis is guarded. Time with Patient: Less than 30
--- NOTE | 2024-07-16 14:26 | P.PN ---
Subjective Progress Note Date: 07/16/24 This is a pleasant 69-year-old male patient of Dr. Boles with past medical history of paroxysmal atrial fibrillation, coronary artery disease, ischemic cardiomyopathy, COPD, 2 pack/day smoker and CVA with prior PFO closure in March 2023. Patient is a poor historian and most of the HPI was obtained fr om the chart. Presented to the hospital with complaints of slowly worsening shortness of breath as well as congested nonproductive cough. Fever of 101.8 F on arrival to the ED. Diagnostics -EKG: Sinus tachycardia incomplete right bundle branch block -Chest x-ray: Right basilar opacity -Laboratory studies: Sodium 125, potassium 4.9, normal white blood cell count, normal renal function, NT proBNP 21,900, troponin 0.026, 0.043 and 0.034 -Home cardiac medications: Metoprolol succinate 50 mg daily, Lasix 40 mg daily, losartan 100 mg p.o. daily, Jardiance 25 mg p.o. daily, Eliquis 5 mg p.o. twice daily, aspirin 81 mg daily and Repatha -Prior stress test: 02/28/2023 prior [place] without any ischemia -Echocardiogram: 11/14/2023 mildly decreased LV systolic function with ejection fraction of 45 to 50%, global LV hypokinesis, PFO/ASD percutaneous closure device present, mild MR, mild TR -Cardiac catheterization: Unknown 07/14/2024 Patient was seen and examined resting comfortably in bed. He is overall feeling better and seems to be less confused today. Answering questions more appropriately and breathing appears easier. He feels he is breathing better. He has had no chest discomfort, palpitations, dizziness or lightheadedness. Echocardiogram with Doppler study done showed severely impaired LV systolic function with ejection fraction of 15%, previously in the 35 to 45% range. 07/15/2024 Seen and examined at bedside this a.m. BP 115/83, heart rate 68 beats minute, sinus rhythm Sodium 134, potassium 4.5, BUN 47, creatinine 1.14, Hb 15.6, NT-proBNP 2100, HbA1c 8.0 07/16/24 Patient seen and examined. Due to mental status changes, patient has a sitter at the bedside. He has been maintained on IV Lasix 40 mg every 12 hours. Blood pressure 109/73, heart rate in the 70s and 80s, pulse ox 92% on 3 L nasal cannula. Repeat blood work reveals hemoglobin 17.3, potassium 3.4, BUN 43 cr eatinine 0.98. PHYSICAL EXAMINATION: This is a 69-year-old male in no apparent distress at the time of my examination. VITAL SIGNS: Reviewed. HEENT: Head is atraumatic, normocephalic. Pupils are equal, round. Sclerae anicteric. Conjunctivae are clear. Mucous membranes of the mouth are moist. Neck is supple. There is no elevated jugular venous pressure. No carotid bruit is heard. CHEST EXAMINATION: Lungs diminished bilaterally, expiratory wheezing throughout, tachypnea noted. HEART EXAMINATION: Heart regular, positive S1 and S2. No S3. No S4. Soft systolic murmur. ABDOMEN: Soft, nontender. Bowel sounds are heard. No organomegaly noted. EXTREMITIES: 2+ peripheral pulses with no evidence of peripheral edema and no calf tenderness noted. NEUROLOGIC EXAMINATION: Patient is awake, alert and oriented x3. Assessment: 1. Acute COPD exacerbation with suspected right lower lobe pneumonia, currently on IV antibiotics 2. Ischemic cardiomyopathy with prior MPI showing evidence of prior infarct, worsened 3. Paroxysmal atrial fibrillation, currently maintaining sinus mechanism 4. History of PFO closure Plan: Continue aspirin, Eliquis 5 mg twice daily, Continue losartan 25 mg daily. Consider switching to Entresto prior to discharge Continue metoprolol succinate 50 mg daily. Continue Farxiga 10 mg, Aldactone 12.5 g daily Transition IV Lasix to oral 40 mg twice daily Once pneumonia resolves, patient will require cardiac catheterization in the future to further evaluate etiology of cardiomyopathy and extent of CAD. Smoking cessation. Patient will be provided with the [place] quit line information at discharge. Nurse practitioner note has been reviewed, I agree with documented findings and plan of care. Patient was seen and examined. Objective - Vital Signs Vital signs: Vital Signs Temp 97.7 F 07/15/24 19:45 Pulse 78 07/16/24 07:50 Resp 18 07/16/24 03:45 BP 109/65 07/16/24 03:45 Pulse Ox 98 07/16/24 03:45 FiO2 50 07/16/24 07:41 Intake & Output 07/15/24 07/16/24 07/16/24 18:59 06:59 18:59 Intake Total 500 40 Output Total 2750 1800 Balance -2250 -1760 Weight 87.5 kg Intake: IV 40 40 Invasive Line 1 20 20 Invasive Line 2 20 20 Oral 460 Output: Urine 2750 1800 Uretheral (Vega) 2450 Other: Voiding Method Indwelling Catheter Indwelling Catheter # Bowel Movements 1 - Labs CBC & Chem 7: 07/16/24 10:16 07/16/24 10:16 Labs: Abnormal Lab Results - Last 24 Hours (Table) 07/15/24 07/15/24 07/15/24 Range/Units 11:35 11:53 16:22 Sodium 134 L (137-145) mmol/L BUN 47 H (9-20) mg/dL Glucose 354 H (74-99) mg/dL POC Glucose (mg/dL) 329 H 386 H (70-110) mg/dL Total Protein 5.2 L (6.3-8.2) g/dL Albumin 2.9 L (3.5-5.0) g/dL 07/15/24 07/16/24 Range/Units 19:59 05:38 Sodium (137-145) mmol/L BUN (9-20) mg/dL Glucose (74-99) mg/dL POC Glucose (mg/dL) 323 H 360 H (70-110) mg/dL Total Protein (6.3-8.2) g/dL Albumin (3.5-5.0) g/dL Microbiology - Last 24 Hours (Table) 07/12/24 20:19 Blood Culture - Preliminary Blood
[2024-07-16 16:21] LABS: Glucose,Whole Blood 430 mg/dL (70-110)
[2024-07-16] MEDS: FUROSEMIDE 40 MG TAB PO SCH (17:42)
[2024-07-16 20:25] LABS: Glucose,Whole Blood 398 mg/dL (70-110)
[2024-07-16] MEDS: methylPREDNISolone SOD SUCCI 40 MG/ML 1 ML VIAL IV SCH (20:55)
[2024-07-16] MEDS: INSULIN DETEMIR (LEVEMIR) 100 UNIT/ML SYR SQ SCH (20:56)
[2024-07-17 06:19] LABS: Glucose,Whole Blood 445 mg/dL (70-110)
[2024-07-17 06:53] LABS: Basophils % (A) 0 %; Eosinophils % (A) 0 %; HGB 17.9 gm/dL (13.0-17.5); Lymphocytes # (A) 0.3 k/uL (1.0-4.8); Lymphocytes % (A) 3 %; MCH 33.3 pg (25.0-35.0); MCHC 32.1 g/dL (31.0-37.0); MCV 103.4 fL (80.0-100.0); Macrocytosis Moderate; Mean Platelet Volume 7.9; Monocytes # (A) 0.7 k/uL (0-1.0); Monocytes % (A) 6 %; Neutrophils # (A) 9.2 k/uL (1.3-7.7); Neutrophils % (A) 89 %; Platelet Count 211 k/uL (150-450); RBC 5.38 m/uL (4.30-5.90); RDW 15.2 % (11.5-15.5); WBC 10.4 k/uL (3.8-10.6)
[2024-07-17 07:09] LABS: HCT 55.6 % (39.0-53.0)
[2024-07-17 07:17] LABS: ALT 21 U/L (4-49); AST 20 U/L (17-59); African American GFR (CKD) 84 (>60 ml/min/1.73 sqM); Alkaline Phosphatase 121 U/L (38-126); Anion Gap 5 mmol/L; Blood Urea Nitrogen 43 mg/dL (9-20); Calcium 8.9 mg/dL (8.4-10.2); Carbon Dioxide 33 mmol/L (22-30); Chloride 94 mmol/L (98-107); Glucose 466 mg/dL (74-99); Non-African American GFR(CKD) 73 (>60 ml/min/1.73 sqM); Sodium 132 mmol/L (137-145); Total Bilirubin 0.3 mg/dL (0.2-1.3); Total Protein 5.3 g/dL (6.3-8.2)
[2024-07-17 11:33] LABS: Glucose,Whole Blood 353 mg/dL (70-110)
[2024-07-17 12:22] VITALS: BMI 29.3
--- NOTE | 2024-07-17 13:06 | P.PN ---
Subjective Progress Note Date: 07/16/24 Principal diagnosis: Reason for follow-up is pneumonia Patient is a 69-year-old male with a past medical history significant for CVA TIA diabetes mellitus hypertension COPD presenting to the hospital for evaluation of increasing shortness of breath, patient did have a fever x-rays with bibasilar opacity concerning for pneumonia. On today's evaluation that is 07/16/2024,the patient remains to be afebrile, patient is on 3 L nasal cannula supplemental oxygen and denies any shortness of breath no chest pain or any worsening cough.Patient denies having any nausea or vomiting, no abdominal pain and no diarrhea has been reported. Patient white count is 9.8 creatinine 0.98 blood culture have been negative Objective - Vital Signs Vital signs: Vital Signs Temp 97.4 F L 07/16/24 08:00 Pulse 82 07/16/24 15:24 Resp 18 07/16/24 08:00 BP 109/73 07/16/24 08:00 Pulse Ox 93 L 07/16/24 12:00 FiO2 50 07/16/24 08:00 Intake & Output 07/15/24 07/16/24 07/16/24 18:59 06:59 18:59 Intake Total 500 40 180 Output Total 2750 1800 750 Balance -2250 -1760 -570 Weight 87.5 kg Intake: IV 40 40 Invasive Line 1 20 20 Invasive Line 2 20 20 Oral 460 180 Output: Urine 2750 1800 750 Uretheral (Vega) 2450 Other: Voiding Method Indwelling Catheter Indwelling Catheter Indwelling Catheter # Bowel Movements 1 - Exam GENERAL DESCRIPTION: An elderly male lying in bed in no distress RESPIRATORY SYSTEM: Unlabored breathing , decreased breath sounds at bases HEART: S1 S2 regular rate and rhythm , ABDOMEN: Soft , no tenderness EXTREMITIES: No edema feet - Labs CBC & Chem 7: 07/17/24 06:20 07/17/24 06:20 Labs: Abnormal Lab Results - Last 24 Hours (Table) 07/15/24 07/15/24 07/16/24 Range/Units 16:22 19:59 05:38 Hct (39.0-53.0) % MCV (80.0-100.0) fL Neutrophils # (1.3-7.7) k/uL Lymphocytes # (1.0-4.8) k/uL Potassium (3.5-5.1) mmol/L Carbon Dioxide (22-30) mmol/L BUN (9-20) mg/dL Glucose (74-99) mg/dL POC Glucose (mg/dL) 386 H 323 H 360 H (70-110) mg/dL AST (17-59) U/L Total Protein (6.3-8.2) g/dL Albumin (3.5-5.0) g/dL 07/16/24 07/16/24 07/16/24 Range/Units 10:16 10:16 12:40 Hct 53.2 H (39.0-53.0) % MCV 102.1 H (80.0-100.0) fL Neutrophils # 8.9 H (1.3-7.7) k/uL Lymphocytes # 0.3 L (1.0-4.8) k/uL Potassium 3.4 L (3.5-5.1) mmol/L Carbon Dioxide 34 H (22-30) mmol/L BUN 43 H (9-20) mg/dL Glucose 157 H (74-99) mg/dL POC Glucose (mg/dL) 461 H (70-110) mg/dL AST 14 L (17-59) U/L Total Protein 5.2 L (6.3-8.2) g/dL Albumin 2.9 L (3.5-5.0) g/dL Microbiology - Last 24 Hours (Table) 07/12/24 20:19 Blood Culture - Preliminary Blood Assessment and Plan (1) Sepsis Current Visit: Yes Status: Acute Code(s): A41.9 - SEPSIS, UNSPECIFIED ORGANISM SNOMED Code(s): 91521401 (2) Pneumonia Current Visit: Yes Status: Acute Code(s): J18.9 - PNEUMONIA, UNSPECIFIED ORGANISM SNOMED Code(s): 227260357 Plan: 1patient presented hospital with sepsis, in this patient who did have fever tachycardia meeting criteria for SIRS source is right lower lobe pneumonia with possible community acquired 2-try to obtain a sputum for Gram stain and culture 3-patient did have resolution of fever and some clinical improvement, blood culture currently pending sputum not collected 4-patient to continue with Rocephin and monitor clinical course closely Dictation was produced using [employer] dictation software. please excuse any grammatical, word or spelling errors. Time with Patient: Less than 30
--- NOTE | 2024-07-17 13:07 | P.PN ---
Subjective Progress Note Date: 07/17/24 Principal diagnosis: Reason for follow-up is pneumonia Patient is a 69-year-old male with a past medical history significant for CVA TIA diabetes mellitus hypertension COPD presenting to the hospital for evaluation of increasing shortness of breath, patient did have a fever x-rays with bibasilar opacity concerning for pneumonia. On today's evaluation that is 07/17/2024, the patient continues to be afebrile, the patient is on 2 L cannula oxygen and breathing comfortably, the Pt denies having any chest pain or any worsening cough, the patient denies having any abdo shai pain no vomiting or any diarrhea has been reported by the nursing staff. Patient white count is 10.4 creatinine 1.03 blood culture negative so far Objective - Vital Signs Vital signs: Vital Signs Temp 97.4 F L 07/17/24 08:50 Pulse 80 07/17/24 13:00 Resp 17 07/17/24 12:00 BP 118/53 07/17/24 12:00 Pulse Ox 93 L 07/17/24 12:00 FiO2 50 07/16/24 08:00 Intake & Output 07/16/24 07/17/24 07/17/24 18:59 06:59 18:59 Intake Total 360 236 Output Total 1650 3000 1200 Balance -1290 -3000 -964 Weight 87.5 kg Intake: Oral 360 236 Output: Urine 1650 3000 1200 Other: Voiding Method Indwelling Catheter Indwelling Catheter Indwelling Catheter - Exam GENERAL DESCRIPTION: An elderly male lying in bed in no distress RESPIRATORY SYSTEM: Unlabored breathing , decreased breath sounds at bases HEART: S1 S2 regular rate and rhythm , ABDOMEN: Soft , no tenderness EXTREMITIES: No edema feet - Labs CBC & Chem 7: 07/17/24 06:20 07/17/24 06:20 Labs: Abnormal Lab Results - Last 24 Hours (Table) 07/16/24 07/16/24 07/17/24 Range/Units 16:19 20:24 06:18 Hgb (13.0-17.5) gm/dL Hct (39.0-53.0) % MCV (80.0-100.0) fL Neutrophils # (1.3-7.7) k/uL Lymphocytes # (1.0-4.8) k/uL Sodium (137-145) mmol/L Chloride (98-107) mmol/L Carbon Dioxide (22-30) mmol/L BUN (9-20) mg/dL Glucose (74-99) mg/dL POC Glucose (mg/dL) 430 H 398 H 445 H (70-110) mg/dL Total Protein (6.3-8.2) g/dL Albumin (3.5-5.0) g/dL 07/17/24 07/17/24 07/17/24 Range/Units 06:20 06:20 11:27 Hgb 17.9 H (13.0-17.5) gm/dL Hct 55.6 H (39.0-53.0) % MCV 103.4 H (80.0-100.0) fL Neutrophils # 9.2 H (1.3-7.7) k/uL Lymphocytes # 0.3 L (1.0-4.8) k/uL Sodium 132 L (137-145) mmol/L Chloride 94 L (98-107) mmol/L Carbon Dioxide 33 H (22-30) mmol/L BUN 43 H (9-20) mg/dL Glucose 466 H (74-99) mg/dL POC Glucose (mg/dL) 353 H (70-110) mg/dL Total Protein 5.3 L (6.3-8.2) g/dL Albumin 3.0 L (3.5-5.0) g/dL Microbiology - Last 24 Hours (Table) 07/12/24 20:19 Blood Culture - Preliminary Blood Assessment and Plan (1) Sepsis Current Visit: Yes Status: Acute Code(s): A41.9 - SEPSIS, UNSPECIFIED ORGANISM SNOMED Code(s): 94611802 (2) Pneumonia Current Visit: Yes Status: Acute Code(s): J18.9 - PNEUMONIA, UNSPECIFIED ORGANISM SNOMED Code(s): 809015831 Plan: 1patient presented hospital with sepsis, in this patient who did have fever tachycardia meeting criteria for SIRS source is right lower lobe pneumonia with possible community acquired 2-try to obtain a sputum for Gram stain and culture 3-patient did have resolution of fever and some clinical improvement, blood culture currently pending sputum not collected 4-patient has completed a course of Rocephin and Zithromax as of 08-03 and the patient will monitor closely off antibiotic therapy at this point Dictation was produced using [employer] software. please excuse any grammatical, word or spelling errors. Time with Patient: Less than 30
--- NOTE | 2024-07-17 13:15 | P.PN ---
Subjective Progress Note Date: 07/17/24 patient is a 69-year-old gentleman with past medical his significant for CHF, COPD, CVA, diabetes mellitus who presented to the ER for shortness of breath. Patient is was all right 4 days back when started noticing shortness of breath is present at rest as on exertion. Patient was also complaining of swelling of feet. Patient also complaining of cough. Patient was complaining of orthopnea. There was no complaint of fever or chills. There is no complaint of chest pain. Patient was supposed to be taking Lasix but stopped taking for the last 3 to 4 days. There was no complaint of nausea or vomiting. Family also think that the patient has been drinking over the [place]. Initial lab work done in the ER showed WBC 10.5, hemoglobin 16.8, platelet count 194, sodium 125, potassium 4.9, BUN 12, creatinine 0.79, glucose 168 alk phos 193, total protein 5.6 serum alcohol 18 Influenza A not detected Influenza B not detected RSV not detected COVID-19 not detected EKG done in the ER showed heart rate of 109, no ST segment elevation or depression seen, no T-wave inversions seen. Chest x-ray done in the ER showed right basilar airspace opacity, developing pneumonia versus eventration of the diaphragm Patient admitted to internal medicine service 07/14. Patient examined. Blood work done showed WBC 3.8, hemoglobin 15.7, platelet count 173, sodium 130, potassium 4.9, BUN 23, creatinine 1.09. Currently on 4 L of oxygen, doing much better. Patient is alert and answering questions 1/1. Patient seen and examined. Patient was more confused overnight, this morning is alert. Breathing is improved. Currently on 3 to 4 L of oxygen 1/2. Patient seen and examined. Currently on 3 L of oxygen. Continues to feel better. Blood sugars were elevated, added Levemir 1/3. Patient seen and examined. Sitting upright in the chair, answering question appropriately. Patient worked with PT and OT. REVIEW OF SYSTEMS: CONSTITUTIONAL: No fever, no malaise,. CARDIOVASCULAR: No chest pain, no palpitations, no syncope. PULMONARY: No shortness of breath, no cough, GASTROINTESTINAL: No diarrhea, no nausea, no vomiting, no abdominal pain. NEUROLOGICAL: No headaches, no weakness, PHYSICAL EXAMINATION: GENERAL: The patient is alert, answering question appropriately HEENT: Pupils are round and equally reacting to light. EOMI. No scleral icterus. No conjunctival pallor. Normocephalic, atraumatic. No pharyngeal erythema. No thyromegaly. CARDIOVASCULAR: S1 and S2 present. No murmurs, rubs, or gallops. PULMONARY: Coarse breath sound bilaterally, no crackles, no wheeze ABDOMEN: Soft, nontender, nondistended, normoactive bowel sounds. No palpable organomegaly. MUSCULOSKELETAL: No joint swelling or deformity. EXTREMITIES: No cyanosis, clubbing, or pedal edema. NEUROLOGICAL: Moving all extremities SKIN: No rashes. Assessment and plan Acute hypoxic respiratory failure Acute metabolic encephalopathy Acute COPD exacerbation Bacterial pneumonia Acute systolic CHF Ischemic cardiomyopathy Paroxysmal atrial fibrillation Alcohol intoxication, serum alcohol level was 18 on arrival Hyponatremia, possibly secondary to beer potomania History of alcoholism, admits to drinking 6, 12 ounce beers per day History of CVA, with residual homonymous hemianopia History of diabetes mellitus, last HbA1c level was 8 History of hypertension Monitor vital signs Monitor CBC Monitor CMP Continue telemetry monitoring Follow-up on sputum cultures Follow-up on blood cultures Continue Rocephin and azithromycin Continue breathing treatments Continue IV Solu-Medrol Strict I's and O's, daily weights,Lasix Monitor blood sugar levels, continue current insulin regimen Continue CIWA protocol Pulmonology following Cardiology following PT OT following Labs and medication were reviewed.. Continue same treatment. Continue with symptomatic treatment. Resume home medication. Monitor labs and vitals. DVT and GI prophylaxis. Further recommendations as per clinical course of the patient Dictation was produced using [employer] dictation software. please excuse any grammatical, word or spelling errors. Objective - Vital Signs Vital signs: Vital Signs Temp 97.4 F L 07/17/24 08:50 Pulse 80 07/17/24 13:00 Resp 17 07/17/24 12:00 BP 118/53 07/17/24 12:00 Pulse Ox 93 L 07/17/24 12:00 FiO2 50 07/16/24 08:00 Intake & Output 07/16/24 07/17/24 07/17/24 18:59 06:59 18:59 Intake Total 360 236 Output Total 1650 3000 1200 Balance -1290 -3000 -964 Weight 87.5 kg Intake: Oral 360 236 Output: Urine 1650 3000 1200 Other: Voiding Method Indwelling Catheter Indwelling Catheter Indwelling Catheter - Labs CBC & Chem 7: 07/17/24 06:20 07/17/24 06:20 Labs: Abnormal Lab Results - Last 24 Hours (Table) 07/16/24 07/16/24 07/17/24 Range/Units 16:19 20:24 06:18 Hgb (13.0-17.5) gm/dL Hct (39.0-53.0) % MCV (80.0-100.0) fL Neutrophils # (1.3-7.7) k/uL Lymphocytes # (1.0-4.8) k/uL Sodium (137-145) mmol/L Chloride (98-107) mmol/L Carbon Dioxide (22-30) mmol/L BUN (9-20) mg/dL Glucose (74-99) mg/dL POC Glucose (mg/dL) 430 H 398 H 445 H (70-110) mg/dL Total Protein (6.3-8.2) g/dL Albumin (3.5-5.0) g/dL 07/17/24 07/17/24 07/17/24 Range/Units 06:20 06:20 11:27 Hgb 17.9 H (13.0-17.5) gm/dL Hct 55.6 H (39.0-53.0) % MCV 103.4 H (80.0-100.0) fL Neutrophils # 9.2 H (1.3-7.7) k/uL Lymphocytes # 0.3 L (1.0-4.8) k/uL Sodium 132 L (137-145) mmol/L Chloride 94 L (98-107) mmol/L Carbon Dioxide 33 H (22-30) mmol/L BUN 43 H (9-20) mg/dL Glucose 466 H (74-99) mg/dL POC Glucose (mg/dL) 353 H (70-110) mg/dL Total Protein 5.3 L (6.3-8.2) g/dL Albumin 3.0 L (3.5-5.0) g/dL Microbiology - Last 24 Hours (Table) 07/12/24 20:19 Blood Culture - Preliminary Blood
--- NOTE | 2024-07-17 14:45 | P.PN ---
Subjective Progress Note Date: 07/17/24 This is a pleasant 69-year-old male patient of Dr. Boles with past medical history of paroxysmal atrial fibrillation, coronary artery disease, ischemic cardiomyopathy, COPD, 2 pack/day smoker and CVA with prior PFO closure in March 2023. Patient is a poor historian and most of the HPI was obtained fr om the chart. Presented to the hospital with complaints of slowly worsening shortness of breath as well as congested nonproductive cough. Fever of 101.8 F on arrival to the ED. Diagnostics -EKG: Sinus tachycardia incomplete right bundle branch block -Chest x-ray: Right basilar opacity -Laboratory studies: Sodium 125, potassium 4.9, normal white blood cell count, normal renal function, NT proBNP 21,900, troponin 0.026, 0.043 and 0.034 -Home cardiac medications: Metoprolol succinate 50 mg daily, Lasix 40 mg daily, losartan 100 mg p.o. daily, Jardiance 25 mg p.o. daily, Eliquis 5 mg p.o. twice daily, aspirin 81 mg daily and Repatha -Prior stress test: 02/28/2023 prior [place] without any ischemia -Echocardiogram: 11/14/2023 mildly decreased LV systolic function with ejection fraction of 45 to 50%, global LV hypokinesis, PFO/ASD percutaneous closure device present, mild MR, mild TR -Cardiac catheterization: Unknown 07/14/2024 Patient was seen and examined resting comfortably in bed. He is overall feeling better and seems to be less confused today. Answering questions more appropriately and breathing appears easier. He feels he is breathing better. He has had no chest discomfort, palpitations, dizziness or lightheadedness. Echocardiogram with Doppler study done showed severely impaired LV systolic function with ejection fraction of 15%, previously in the 35 to 45% range. 07/15/2024 Seen and examined at bedside this a.m. BP 115/83, heart rate 68 beats minute, sinus rhythm Sodium 134, potassium 4.5, BUN 47, creatinine 1.14, Hb 15.6, NT-proBNP 2100, HbA1c 8.0 07/16/24 Patient seen and examined. Due to mental status changes, patient has a sitter at the bedside. He has been maintained on IV Lasix 40 mg every 12 hours. Blood pressure 109/73, heart rate in the 70s and 80s, pulse ox 92% on 3 L nasal cannula. Repeat blood work reveals hemoglobin 17.3, potassium 3.4, BUN 43 cr eatinine 0.98. 07/17/24 Patient seen and examined. Yesterday we changed IV Lasix to oral. Patient s tates his breathing is better today. He denies have any chest pain and no dizziness. He states his appetite is improved as well. Blood pressure 118/53, heart rate 87, pulse ox 93% on 2 L nasal cannula. Repeat blood work reveals WBC 10.4, hemoglobin 17.9, sodium 132, potassium 4, BUN 43 and creatinine 1.03. Telemetry is sinus rhythm. PHYSICAL EXAMINATION: This is a 69-year-old male in no apparent distress at the time of my examination. VITAL SIGNS: Reviewed. HEENT: Head is atraumatic, normocephalic. Pupils are equal, round. Sclerae anicteric. Conjunctivae are clear. Mucous membranes of the mouth are moist. Neck is supple. There is no elevated jugular venous pressure. No carotid bruit is heard. CHEST EXAMINATION: Lungs diminished bilaterally, expiratory wheezing throughout, tachypnea noted. HEART EXAMINATION: Heart regular, positive S1 and S2. No S3. No S4. Soft systolic murmur. ABDOMEN: Soft, nontender. Bowel sounds are heard. No organomegaly noted. EXTREMITIES: 2+ peripheral pulses with no evidence of peripheral edema and no calf tenderness noted. NEUROLOGIC EXAMINATION: Patient is awake, alert and oriented x3. Assessment: 1. Acute COPD exacerbation with suspected right lower lobe pneumonia, currently on IV antibiotics 2. Ischemic cardiomyopathy with prior MPI showing evidence of prior infarct, worsened 3. Paroxysmal atrial fibrillation, currently maintaining sinus mechanism 4. History of PFO closure Plan: Continue aspirin, Eliquis 5 mg twice daily, metoprolol succinate 50 mg daily. Continue losartan 25 mg daily. Continue Farxiga 10 mg, lasix oral 40 mg twice daily Once pneumonia resolves, patient will require cardiac catheterization in the future to further evaluate etiology of cardiomyopathy and extent of CAD. Smoking cessation. Patient will be provided with the [place] quit line information at discharge. Nurse practitioner note has been reviewed, I agree with documented findings and plan of care. Patient was seen and examined. Objective - Vital Signs Vital signs: Vital Signs Temp 98.0 F 07/16/24 20:45 Pulse 80 01/03/25 09:42 Resp 18 07/17/24 04:00 BP 154/83 07/17/24 04:00 Pulse Ox 95 07/17/24 09:42 FiO2 50 07/16/24 08:00 Intake & Output 07/16/24 07/17/24 07/17/24 18:59 06:59 18:59 Intake Total 360 236 Output Total 1650 3000 Balance -1290 -3000 236 Intake: Oral 360 236 Output: Urine 1650 3000 Other: Voiding Method Indwelling Catheter Indwelling Catheter - Labs CBC & Chem 7: 07/17/24 06:20 07/17/24 06:20 Labs: Abnormal Lab Results - Last 24 Hours (Table) 07/16/24 07/16/24 07/16/24 Range/Units 10:16 10:16 12:40 Hgb (13.0-17.5) gm/dL Hct 53.2 H (39.0-53.0) % MCV 102.1 H (80.0-100.0) fL Neutrophils # 8.9 H (1.3-7.7) k/uL Lymphocytes # 0.3 L (1.0-4.8) k/uL Sodium (137-145) mmol/L Potassium 3.4 L (3.5-5.1) mmol/L Chloride (98-107) mmol/L Carbon Dioxide 34 H (22-30) mmol/L BUN 43 H (9-20) mg/dL Glucose 157 H (74-99) mg/dL POC Glucose (mg/dL) 461 H (70-110) mg/dL AST 14 L (17-59) U/L Total Protein 5.2 L (6.3-8.2) g/dL Albumin 2.9 L (3.5-5.0) g/dL 07/16/24 07/16/24 07/17/24 Range/Units 16:19 20:24 06:18 Hgb (13.0-17.5) gm/dL Hct (39.0-53.0) % MCV (80.0-100.0) fL Neutrophils # (1.3-7.7) k/uL Lymphocytes # (1.0-4.8) k/uL Sodium (137-145) mmol/L Potassium (3.5-5.1) mmol/L Chloride (98-107) mmol/L Carbon Dioxide (22-30) mmol/L BUN (9-20) mg/dL Glucose (74-99) mg/dL POC Glucose (mg/dL) 430 H 398 H 445 H (70-110) mg/dL AST (17-59) U/L Total Protein (6.3-8.2) g/dL Albumin (3.5-5.0) g/dL 07/17/24 07/17/24 Range/Units 06:20 06:20 Hgb 17.9 H (13.0-17.5) gm/dL Hct 55.6 H (39.0-53.0) % MCV 103.4 H (80.0-100.0) fL Neutrophils # 9.2 H (1.3-7.7) k/uL Lymphocytes # 0.3 L (1.0-4.8) k/uL Sodium 132 L (137-145) mmol/L Potassium (3.5-5.1) mmol/L Chloride 94 L (98-107) mmol/L Carbon Dioxide 33 H (22-30) mmol/L BUN 43 H (9-20) mg/dL Glucose 466 H (74-99) mg/dL POC Glucose (mg/dL) (70-110) mg/dL AST (17-59) U/L Total Protein 5.3 L (6.3-8.2) g/dL Albumin 3.0 L (3.5-5.0) g/dL Microbiology - Last 24 Hours (Table) 07/12/24 20:19 Blood Culture - Preliminary Blood
--- NOTE | 2024-07-17 15:16 | P.PN ---
Subjective Progress Note Date: 07/17/24 Principal diagnosis: Pneumonia. Patient is a 69-year-old male with past medical history significant for COPD, hypertension, diabetes mellitus, CVA, heart failure, and is a current 2 pack/day smoker. He does follow in the pulmonary office with Dr. Jenkins. He has severe COPD with an FEV1 39% of predicted. He is unsure of what maintenance inhalers he uses at home. Over the last couple days his been experiencing progressively worsening shortness of breath accompanied with a congested nonproductive cough. Denies chest pain, denies significant sputum production, denies hemoptysis. No measured fevers at home. Fever of 101.8 F on arrival to the ED. Of note, patient does report increased lower extremity swelling over the last couple weeks. He was started on a "water pill" approximately 1 week ago. Most recent available echocardiogram from January, estimating left ventricular ejection fraction of 35 to 40%. Chest x-ray is overpenetrated, possible right lower lobe infiltrate. CBC is unremarkable, no leukocytosis. CMP: Sodium 126, potassium 4.9, chloride 98, serum bicarb 18, BUN 16, creatinine 0.86, glucose 163. LFTs unremarkable. Troponin was 0.043 and is down to 0.034. NT proBNP 21,900. EKG: Sinus tachycardia, rate 109 bpm, incomplete RBBB pattern, no focal ST/T wave abnormalities suggestive of ischemia. Viral screen negative for influenza, RSV, COVID. Serum alcohol was 18. Patient drinks approximately 6 beers per day, 12 ounce beers. Denies any history of alcohol withdrawal symptoms. Currently on the CIWA protocol. Current vitals: Temperature 98.2 F, heart rate 99 bpm, blood pressure 115/99 mmHg, SpO2 is 92% on 2 L/min nasal cannula. He is currently being evaluated in the emergency department. He is lying on his left lateral side, on 2 L/min nasal cannula. He does occasionally groan in discomfort. No acute respiratory distress. He is alert and fully oriented. No signs of CO2 narcosis. No current signs of alcohol withdrawal. The patient is seen today July 14, 2024 in follow-up on the selective care unit. He is currently sitting up in bed. Awake and alert in no acute distress. Family is at the bedside. He is currently maintaining O2 saturation in the 90s on 4 L/min per nasal cannula. He had been on BiPAP 12/6 and 50% FiO2 previously. He is afebrile. Hemodynamically stable. White count 3.8. Hemoglobin 15.7. Platelets 173. Sodium 130. Potassium 4.9. Bicarb 22. BUN 33. Creatinine 1.09. Glucose 212. Echocardiogram revealed a severely reduced global left ventricular systolic function with an ejection fraction at 15%. Severe right ventricular dilatation. Mild pulmonary hypertension. White count 3.8. Hemoglobin 15.7. Platelets 173. Sodium 130. Potassium 4.9. Bicarb 22. BUN 33. Creatinine 1.09. Glucose 212. He is on Lasix 40 mg IV every 12 hours. Anticoagulated with Eliquis. He is continued on DuoNeb inhalations, Symbicort, Singulair, Solu-Medrol. NicoDerm patch in place. Antibiotics in the form of ceftriaxone and azithromycin. Procalcitonin 0.24. Progress note dated July 15, 2024. 69-year-old patient seen today in room 383. The patient was admitted with a diagnosis of pneumonia and COPD exacerbation. The patient is currently on 4 L nasal cannula. He does use BiPAP, with settings of 16/6, and 50%. Current labs include a white count 9.5, hemoglobin 15.6, hematocrit 48.4, and a platelet count of 175,000. Sodium 134, potassium 4.5, chlorides 100, CO2 24, BUN 47, and creatinine 1.14. Glucose is 354. Albumin is 2.9. N-terminal proBNP is 21,400. Cultures are currently negative. Chest x-ray from July 13, shows cardiomegaly, and pulmonary vascular congestion. Progress note dated July 16, 2024. 69-year-old male seen today in room 383. The patient is currently on 3 L of oxygen. He is not receiving any IV fluids. He did use BiPAP last night at 16/6, 50%. Current labs include a white count 9.8, hemoglobin 17.3, hematocrit 53.2, and a platelet count of 215,000. Sodium 141, potassium 3.4, chlorides 103, CO2 34, BUN 43, and creatinine 0.98. Glucose is 461. Albumin is 2.9. Progress note dated July 17, 2024. 69-year-old male seen today in room 383. The patient continues on O2 at 2 L. No IV fluids. He did not use the BiPAP device last night. Current labs could 0.4, hemoglobin 17.9, hematocrit 55.6, and a platelet count of 211,000. Sodium 132, potassium 4, chlorides 94, CO2 33, BUN 43, creatinine 1.03. Glucose 353. Albumin is 3. Objective - Vital Signs Vital signs: Vital Signs Temp 97.4 F L 07/17/24 08:50 Pulse 87 07/17/24 13:41 Resp 17 07/17/24 13:41 BP 118/53 07/17/24 12:00 Pulse Ox 93 L 07/17/24 12:00 FiO2 50 07/16/24 08:00 Intake & Output 07/16/24 07/17/24 07/17/24 18:59 06:59 18:59 Intake Total 360 476 Output Total 1650 3000 1200 Balance -1290 -3000 -724 Weight 87.5 kg Intake: Oral 360 476 Output: Urine 1650 3000 1200 Other: Voiding Method Indwelling Catheter Indwelling Catheter Indwelling Catheter - Exam No acute distress, oriented 3. The patient is currently on 2 L nasal cannula. HEENT examination is grossly unremarkable. Mucous membranes are moist. No oral lesions. Neck supple. Full range of motion. No adenopathy thyromegaly or neck vein distention. Cardiovascular examination reveals regular rhythm rate. S1-S2 normal. No S3 or S4. No discernible murmur noted. Lungs reveal bilateral basilar crackles. No wheezes. No rhonchi. Breath sounds are equal bilaterally. Abdomen soft bowel sounds are heard. No masses or tenderness. Extremities are intact. No cyanosis clubbing or edema. Skin is without rash or lesion. Neurologic examination is brief but nonfocal. - Labs CBC & Chem 7: 07/17/24 06:20 07/17/24 06:20 Labs: Abnormal Lab Results - Last 24 Hours (Table) 07/16/24 07/16/24 07/17/24 Range/Units 16:19 20:24 06:18 Hgb (13.0-17.5) gm/dL Hct (39.0-53.0) % MCV (80.0-100.0) fL Neutrophils # (1.3-7.7) k/uL Lymphocytes # (1.0-4.8) k/uL Sodium (137-145) mmol/L Chloride (98-107) mmol/L Carbon Dioxide (22-30) mmol/L BUN (9-20) mg/dL Glucose (74-99) mg/dL POC Glucose (mg/dL) 430 H 398 H 445 H (70-110) mg/dL Total Protein (6.3-8.2) g/dL Albumin (3.5-5.0) g/dL 07/17/24 07/17/24 07/17/24 Range/Units 06:20 06:20 11:27 Hgb 17.9 H (13.0-17.5) gm/dL Hct 55.6 H (39.0-53.0) % MCV 103.4 H (80.0-100.0) fL Neutrophils # 9.2 H (1.3-7.7) k/uL Lymphocytes # 0.3 L (1.0-4.8) k/uL Sodium 132 L (137-145) mmol/L Chloride 94 L (98-107) mmol/L Carbon Dioxide 33 H (22-30) mmol/L BUN 43 H (9-20) mg/dL Glucose 466 H (74-99) mg/dL POC Glucose (mg/dL) 353 H (70-110) mg/dL Total Protein 5.3 L (6.3-8.2) g/dL Albumin 3.0 L (3.5-5.0) g/dL Microbiology - Last 24 Hours (Table) 07/12/24 20:19 Blood Culture - Preliminary Blood Assessment and Plan Assessment: Acute COPD exacerbation. Acute exacerbation of chronic systolic congestive heart failure. Acute hypoxemic respiratory failure, secondary to above. Troponin leak. Severe COPD, with an FEV1 39% of predicted. Chronic ongoing tobacco dependence, current 2 pack/day smoker. Alcohol intoxication. Hyponatremia, possibly secondary to beer potomania. History of alcoholism, admits to drinking 6, 12 ounce beers per day. History of CVA, with residual homonymous hemianopia. History of diabetes mellitus. History of hypertension. Plan: Plan dated July 15, 2024. The patient's antibiotics were discontinued. The patient's procalcitonin level was normal. The patient continues on IV diuretics. Labs, x-rays, medications are reviewed. The patient continues on the CIWA protocol. We will continue to follow the patient, make recommendations along the way. Overall prognosis remains guarded. Plan dated July 16, 2024. The patient is seen today in room 383. The patient continues on nasal O2 at 3 L. He is not receiving any IV fluids. He did use BiPAP at 16/6, 50%. Labs, x- rays, and medications are reviewed. Clinically, the patient appears stable. We will continue to follow the patient, make recommendations along the way. Prognosis is guarded. Plan dated July 17, 2024. The patient has been weaned down to 2 L. He is not receiving any IV fluids. He did not use the BiPAP device last night. Labs, x-rays, medications are reviewed. The patient Solu-Medrol is changed to prednisone, 30 mg a day. We will continue to follow make recommendations along the way. Prognosis is guarded. No additional recommendations are made. Time with Patient: Less than 30
[2024-07-17 16:24] LABS: Glucose,Whole Blood 396 mg/dL (70-110)
[2024-07-17 19:57] LABS: Glucose,Whole Blood 445 mg/dL (70-110)
[2024-07-18 06:10] LABS: Glucose,Whole Blood 183 mg/dL (70-110)
[2024-07-18] MEDS: predniSONE 10 MG TAB PO SCH (08:30)
[2024-07-18 11:37] LABS: Glucose,Whole Blood 368 mg/dL (70-110)
[2024-07-18] MEDS: EZETIMIBE 10 MG TAB PO SCH (12:13)
--- NOTE | 2024-07-18 13:50 | P.PN ---
Subjective Progress Note Date: 07/18/24 Principal diagnosis: Pneumonia. Patient is a 69-year-old male with past medical history significant for COPD, hypertension, diabetes mellitus, CVA, heart failure, and is a current 2 pack/day smoker. He does follow in the pulmonary office with Dr. Jenkins. He has severe COPD with an FEV1 39% of predicted. He is unsure of what maintenance inhalers he uses at home. Over the last couple days his been experiencing progressively worsening shortness of breath accompanied with a congested nonproductive cough. Denies chest pain, denies significant sputum production, denies hemoptysis. No measured fevers at home. Fever of 101.8 F on arrival to the ED. Of note, patient does report increased lower extremity swelling over the last couple weeks. He was started on a "water pill" approximately 1 week ago. Most recent available echocardiogram from January, estimating left ventricular ejection fraction of 35 to 40%. Chest x-ray is overpenetrated, possible right lower lobe infiltrate. CBC is unremarkable, no leukocytosis. CMP: Sodium 126, potassium 4.9, chloride 98, serum bicarb 18, BUN 16, creatinine 0.86, glucose 163. LFTs unremarkable. Troponin was 0.043 and is down to 0.034. NT proBNP 21,900. EKG: Sinus tachycardia, rate 109 bpm, incomplete RBBB pattern, no focal ST/T wave abnormalities suggestive of ischemia. Viral screen negative for influenza, RSV, COVID. Serum alcohol was 18. Patient drinks approximately 6 beers per day, 12 ounce beers. Denies any history of alcohol withdrawal symptoms. Currently on the CIWA protocol. Current vitals: Temperature 98.2 F, heart rate 99 bpm, blood pressure 115/99 mmHg, SpO2 is 92% on 2 L/min nasal cannula. He is currently being evaluated in the emergency department. He is lying on his left lateral side, on 2 L/min nasal cannula. He does occasionally groan in discomfort. No acute respiratory distress. He is alert and fully oriented. No signs of CO2 narcosis. No current signs of alcohol withdrawal. The patient is seen today July 14, 2024 in follow-up on the selective care unit. He is currently sitting up in bed. Awake and alert in no acute distress. Family is at the bedside. He is currently maintaining O2 saturation in the 90s on 4 L/min per nasal cannula. He had been on BiPAP 12/6 and 50% FiO2 previously. He is afebrile. Hemodynamically stable. White count 3.8. Hemoglobin 15.7. Platelets 173. Sodium 130. Potassium 4.9. Bicarb 22. BUN 33. Creatinine 1.09. Glucose 212. Echocardiogram revealed a severely reduced global left ventricular systolic function with an ejection fraction at 15%. Severe right ventricular dilatation. Mild pulmonary hypertension. White count 3.8. Hemoglobin 15.7. Platelets 173. Sodium 130. Potassium 4.9. Bicarb 22. BUN 33. Creatinine 1.09. Glucose 212. He is on Lasix 40 mg IV every 12 hours. Anticoagulated with Eliquis. He is continued on DuoNeb inhalations, Symbicort, Singulair, Solu-Medrol. NicoDerm patch in place. Antibiotics in the form of ceftriaxone and azithromycin. Procalcitonin 0.24. Progress note dated July 15, 2024. 69-year-old patient seen today in room 383. The patient was admitted with a diagnosis of pneumonia and COPD exacerbation. The patient is currently on 4 L nasal cannula. He does use BiPAP, with settings of 16/6, and 50%. Current labs include a white count 9.5, hemoglobin 15.6, hematocrit 48.4, and a platelet count of 175,000. Sodium 134, potassium 4.5, chlorides 100, CO2 24, BUN 47, and creatinine 1.14. Glucose is 354. Albumin is 2.9. N-terminal proBNP is 21,400. Cultures are currently negative. Chest x-ray from July 13, shows cardiomegaly, and pulmonary vascular congestion. Progress note dated July 16, 2024. 69-year-old male seen today in room 383. The patient is currently on 3 L of oxygen. He is not receiving any IV fluids. He did use BiPAP last night at 16/6, 50%. Current labs include a white count 9.8, hemoglobin 17.3, hematocrit 53.2, and a platelet count of 215,000. Sodium 141, potassium 3.4, chlorides 103, CO2 34, BUN 43, and creatinine 0.98. Glucose is 461. Albumin is 2.9. Progress note dated July 17, 2024. 69-year-old male seen today in room 383. The patient continues on O2 at 2 L. No IV fluids. He did not use the BiPAP device last night. Current labs could 0.4, hemoglobin 17.9, hematocrit 55.6, and a platelet count of 211,000. Sodium 132, potassium 4, chlorides 94, CO2 33, BUN 43, creatinine 1.03. Glucose 353. Albumin is 3. Progress note dated July 18, 2024. 69-year-old male seen again in room 383. Currently, the patient is resting comfortably in bed. He is alert and awake. He is on 2 L of oxygen. He is not receiving any IV fluids. From the pulmonary standpoint, the patient is very stable. The only lab today was a glucose of 368. Objective - Vital Signs Vital signs: Vital Signs Temp 97.7 F 07/18/24 12:00 Pulse 82 07/18/24 13:05 Resp 20 07/18/24 12:00 BP 155/74 07/18/24 12:00 Pulse Ox 92 L 07/18/24 12:00 FiO2 50 07/16/24 08:00 Intake & Output 07/17/24 07/18/24 07/18/24 18:59 06:59 18:59 Intake Total 716 330 Output Total 2900 2650 850 Balance -2184 -2650 -520 Weight 87.5 kg Intake: Oral 716 330 Output: Urine 2900 2650 850 Uretheral (Vega) 200 Other: Voiding Method Indwelling Catheter Indwelling Catheter # Voids 1 - Exam No acute distress, oriented 3. The patient is currently on 2 L nasal cannula. HEENT examination is grossly unremarkable. Mucous membranes are moist. No oral lesions. Neck supple. Full range of motion. No adenopathy thyromegaly or neck vein distention. Cardiovascular examination reveals regular rhythm rate. S1-S2 normal. No S3 or S4. No discernible murmur noted. Lungs reveal bilateral basilar crackles. No wheezes. No rhonchi. Breath sounds are equal bilaterally. Abdomen soft bowel sounds are heard. No masses or tenderness. Extremities are intact. No cyanosis clubbing or edema. Skin is without rash or lesion. Neurologic examination is brief but nonfocal. - Labs CBC & Chem 7: 07/17/24 06:20 07/17/24 06:20 Labs: Abnormal Lab Results - Last 24 Hours (Table) 01/10/0607/17/24 07/18/24 Range/Units 16:22 19:54 06:08 POC Glucose (mg/dL) 396 H 445 H 183 H (70-110) mg/dL 07/18/24 Range/Units 11:35 POC Glucose (mg/dL) 368 H (70-110) mg/dL Microbiology - Last 24 Hours (Table) 07/12/24 20:19 Blood Culture - Final Blood Assessment and Plan Assessment: Acute COPD exacerbation. Acute exacerbation of chronic systolic congestive heart failure. Acute hypoxemic respiratory failure, secondary to above. Troponin leak. Severe COPD, with an FEV1 39% of predicted. Chronic ongoing tobacco dependence, current 2 pack/day smoker. Alcohol intoxication. Hyponatremia, possibly secondary to beer potomania. History of alcoholism, admits to drinking 6, 12 ounce beers per day. History of CVA, with residual homonymous hemianopia. History of diabetes mellitus. History of hypertension. Plan: Plan dated July 15, 2024. The patient's antibiotics were discontinued. The patient's procalcitonin level was normal. The patient continues on IV diuretics. Labs, x-rays, medications are reviewed. The patient continues on the CIWA protocol. We will continue to follow the patient, make recommendations along the way. Overall prognosis remains guarded. Plan dated July 16, 2024. The patient is seen today in room 383. The patient continues on nasal O2 at 3 L. He is not receiving any IV fluids. He did use BiPAP at 16/6, 50%. Labs, x- rays, and medications are reviewed. Clinically, the patient appears stable. We will continue to follow the patient, make recommendations along the way. Prognosis is guarded. Plan dated July 17, 2024. The patient has been weaned down to 2 L. He is not receiving any IV fluids. He did not use the BiPAP device last night. Labs, x-rays, medications are reviewed. The patient Solu-Medrol is changed to prednisone, 30 mg a day. We will continue to follow make recommendations along the way. Prognosis is guarded. No additional recommendations are made. Plan dated July 18, 2024. The patient has been weaned down to 2 L. He is seen again in room 383. He is resting comfortably in bed. The patient is not receiving any IV fluids. The nurse, asked whether or not the patient could be discharged. I stated to her that from the pulmonary standpoint, the patient is stable, and could be considered for discharge, but we will leave that up to the primary service. Labs, x-rays, and medications are reviewed. No additional recommendations at this time. Prognosis is guarded. Time with Patient: Less than 30
--- NOTE | 2024-07-18 14:01 | P.PN ---
Subjective HISTORY OF PRESENT ILLNESS: This is a pleasant 69-year-old male patient of Dr. Boles with past medical history of paroxysmal atrial fibrillation, coronary artery disease, ischemic cardiomyopathy, COPD, 2 pack/day smoker and CVA with prior PFO closure in March 2023. Patient is a poor historian and most of the HPI was obtained from the chart. Presented to the hospital with complaints of slowly worsening shortness of breath as well as congested nonproductive cough. Fever of 101.8 F on arrival to the ED. Diagnostics -EKG: Sinus tachycardia incomplete right bundle branch block -Chest x-ray: Right basilar opacity -Laboratory studies: Sodium 125, potassium 4.9, normal white blood cell count, normal renal function, NT proBNP 21,900, troponin 0.026, 0.043 and 0.034 -Home cardiac medications: Metoprolol succinate 50 mg daily, Lasix 40 mg daily, losartan 100 mg p.o. daily, Jardiance 25 mg p.o. daily, Eliquis 5 mg p.o. twice daily, aspirin 81 mg daily and Repatha -Prior stress test: 02/28/2023 prior NE without any ischemia -Echocardiogram: 11/14/2023 mildly decreased LV systolic function with ejection fraction of 45 to 50%, global LV hypokinesis, PFO/ASD percutaneous closure device present, mild MR, mild TR -Cardiac catheterization: Unknown 07/14/2024 Patient was seen and examined resting comfortably in bed. He is overall feeling better and seems to be less confused today. Answering questions more appropriately and breathing appears easier. He feels he is breathing better. He has had no chest discomfort, palpitations, dizziness or lightheadedness. Echocardiogram with Doppler study done showed severely impaired LV systolic function with ejection fraction of 15%, previously in the 35 to 45% range. 07/15/2024 Seen and examined at bedside this a.m. BP 115/83, heart rate 68 beats minute, sinus rhythm Sodium 134, potassium 4.5, BUN 47, creatinine 1.14, Hb 15.6, NT-proBNP 2100, HbA1c 8.0 07/16/24 Patient seen and examined. Due to mental status changes, patient has a sitter at the bedside. He has been maintained on IV Lasix 40 mg every 12 hours. Blood pressure 109/73, heart rate in the 70s and 80s, pulse ox 92% on 3 L nasal cannula. Repeat blood work reveals hemoglobin 17.3, potassium 3.4, BUN 43 creatinine 0.98. 07/17/24 Patient seen and examined. Yesterday we changed IV Lasix to oral. Patient states his breathing is better today. He denies have any chest pain and no dizziness. He states his appetite is improved as well. Blood pressure 118/53, heart rate 87, pulse ox 93% on 2 L nasal cannula. Repeat blood work reveals WBC 10.4, hemoglobin 17.9, sodium 132, potassium 4, BUN 43 and creatinine 1.03. Telemetry is sinus rhythm. 07/18/2024 Patient examined this morning at the bedside. Patient currently denies chest pain or pressure. He denies shortness of breath. Vital signs are stable. PHYSICAL EXAM: VITAL SIGNS: Reviewed. GENERAL: Well-developed in no acute distress. NECK: Supple. No JVD or thyromegaly LUNGS: Respirations even and unlabored. Lungs essentially clear to auscultation bilaterally. HEART: Regular rate and rhythm. S1 and S2 heard. EXTREMITIES: Normal range of motion. No clubbing or cyanosis. Peripheral pulses intact. No lower extremity edema ASSESSMENT: 1. Acute COPD exacerbation with suspected right lower lobe pneumonia, currently on IV antibiotics 2. Ischemic cardiomyopathy with prior MPI showing evidence of prior infarct, worsened 3. Paroxysmal atrial fibrillation, currently maintaining sinus mechanism 4. History of PFO closure 5. Hyperlipidemia with statin intolerance PLAN: Continue current cardiac medications Patient with statin intolerance. On Repatha outpatient. Will add Zetia 10 mg daily Patient will require outpatient cardiac catheterization Patient may be discharged home today from a cardiac standpoint Patient to follow-up postdischarge with Dr. Boles Nurse practitioner note has been reviewed by physician. Signing provider agrees with the documented findings, assessment, and plan of care documented by [employer] as a scribe. Objective - Vital Signs Vital signs: Vital Signs Temp 97.7 F 07/18/24 12:00 Pulse 82 07/18/24 13:05 Resp 20 07/18/24 12:00 BP 155/74 07/18/24 12:00 Pulse Ox 92 L 07/18/24 12:00 FiO2 50 07/16/24 08:00 Intake & Output 07/17/24 07/18/24 07/18/24 18:59 06:59 18:59 Intake Total 716 330 Output Total 2900 2650 850 Balance -2184 -2650 -520 Weight 87.5 kg Intake: Oral 716 330 Output: Urine 2900 2650 850 Uretheral (Vega) 200 Other: Voiding Method Indwelling Catheter Indwelling Catheter # Voids 1 - Labs CBC & Chem 7: 07/17/24 06:20 07/17/24 06:20 Labs: Abnormal Lab Results - Last 24 Hours (Table) 07/17/24 07/17/24 07/18/24 Range/Units 16:22 19:54 06:08 POC Glucose (mg/dL) 396 H 445 H 183 H (70-110) mg/dL 07/18/24 Range/Units 11:35 POC Glucose (mg/dL) 368 H (70-110) mg/dL Microbiology - Last 24 Hours (Table) 07/12/24 20:19 Blood Culture - Final Blood
--- NOTE | 2024-07-18 15:15 | P.PN ---
Subjective Progress Note Date: 07/18/24 patient is a 69-year-old gentleman with past medical his significant for CHF, COPD, CVA, diabetes mellitus who presented to the ER for shortness of breath. Patient is was all right 4 days back when started noticing shortness of breath is present at rest as on exertion. Patient was also complaining of swelling of feet. Patient also complaining of cough. Patient was complaining of orthopnea. There was no complaint of fever or chills. There is no complaint of chest pain. Patient was supposed to be taking Lasix but stopped taking for the last 3 to 4 days. There was no complaint of nausea or vomiting. Family also think that the patient has been drinking over the [place]. Initial lab work done in the ER showed WBC 10.5, hemoglobin 16.8, platelet count 194, sodium 125, potassium 4.9, BUN 12, creatinine 0.79, glucose 168 alk phos 193, total protein 5.6 serum alcohol 18 Influenza A not detected Influenza B not detected RSV not detected COVID-19 not detected EKG done in the ER showed heart rate of 109, no ST segment elevation or depression seen, no T-wave inversions seen. Chest x-ray done in the ER showed right basilar airspace opacity, developing pneumonia versus eventration of the diaphragm Patient admitted to internal medicine service 07/14. Patient examined. Blood work done showed WBC 3.8, hemoglobin 15.7, platelet count 173, sodium 130, potassium 4.9, BUN 23, creatinine 1.09. Currently on 4 L of oxygen, doing much better. Patient is alert and answering questions 1/. Patient seen and examined. Patient was more confused overnight, this morning is alert. Breathing is improved. Currently on 3 to 4 L of oxygen 1/2. Patient seen and examined. Currently on 3 L of oxygen. Continues to feel better. Blood sugars were elevated, added Levemir 1/3. Patient seen and examined. Sitting upright in the chair, answering question appropriately. Patient worked with PT and OT. /. Patient seen and examined. States he feels much better. Patient was requiring oxygen during walk rest test, discussed with him regarding the importance of him using oxygen. Patient wants to stay 1 more day REVIEW OF SYSTEMS: CONSTITUTIONAL: No fever, no malaise,. CARDIOVASCULAR: No chest pain, no palpitations, no syncope. PULMONARY: No shortness of breath, no cough, GASTROINTESTINAL: No diarrhea, no nausea, no vomiting, no abdominal pain. NEUROLOGICAL: No headaches, no weakness, PHYSICAL EXAMINATION: GENERAL: The patient is alert, HEENT: Pupils are round and equally reacting to light. EOMI. No scleral icterus. No conjunctival pallor. Normocephalic, atraumatic. No pharyngeal erythema. No thyromegaly. CARDIOVASCULAR: S1 and S2 present. No murmurs, rubs, or gallops. PULMONARY: Coarse breath sound bilaterally, no crackles, no wheeze ABDOMEN: Soft, nontender, nondistended, normoactive bowel sounds. No palpable organomegaly. MUSCULOSKELETAL: No joint swelling or deformity. EXTREMITIES: No cyanosis, clubbing, or pedal edema. NEUROLOGICAL: Moving all extremities SKIN: No rashes. Acute hypoxic respiratory failure Acute metabolic encephalopathy Acute COPD exacerbation Bacterial pneumonia Acute systolic CHF Ischemic cardiomyopathy Paroxysmal atrial fibrillation Alcohol intoxication, serum alcohol level was 18 on arrival Hyponatremia, possibly secondary to beer potomania History of alcoholism, admits to drinking 6, 12 ounce beers per day History of CVA, with residual homonymous hemianopia History of diabetes mellitus, last HbA1c level was 8 History of hypertension Monitor vital signs Monitor CBC Monitor CMP Continue telemetry monitoring Follow-up on sputum cultures Follow-up on blood cultures Continue prednisone Strict I's and O's, daily weights,Lasix Monitor blood sugar levels, continue current insulin regimen Pulmonology following Cardiology following PT OT following Patient was being considered for discharge today but patient required oxygen at discharge, patient states that he does not want to go home on oxygen Labs and medication were reviewed.. Continue same treatment. Continue with symptomatic treatment. Resume home medication. Monitor labs and vitals. DVT and GI prophylaxis. Further recommendations as per clinical course of the patient Dictation was produced using [employer] dictation software. please excuse any grammatical, word or spelling errors. Objective - Vital Signs Vital signs: Vital Signs Temp 97.7 F 07/18/24 12:00 Pulse 82 07/18/24 13:05 Resp 20 07/18/24 12:00 BP 155/74 07/18/24 12:00 Pulse Ox 92 L 07/18/24 12:00 FiO2 50 07/16/24 08:00 Intake & Output 01/10/0607/18/24 07/18/24 18:59 06:59 18:59 Intake Total 716 330 Output Total 2900 2650 850 Balance -2184 -2650 -520 Weight 87.5 kg Intake: Oral 716 330 Output: Urine 2900 2650 850 Uretheral (Vega) 200 Other: Voiding Method Indwelling Catheter Indwelling Catheter # Voids 1 - Labs CBC & Chem 7: 07/17/24 06:20 07/17/24 06:20 Labs: Abnormal Lab Results - Last 24 Hours (Table) 07/17/24 07/17/24 07/18/24 Range/Units 16:22 19:54 06:08 POC Glucose (mg/dL) 396 H 445 H 183 H (70-110) mg/dL 07/18/24 Range/Units 11:35 POC Glucose (mg/dL) 368 H (70-110) mg/dL Microbiology - Last 24 Hours (Table) 07/12/24 20:19 Blood Culture - Final Blood
[2024-07-18 16:45] LABS: Glucose,Whole Blood 328 mg/dL (70-110)
[2024-07-18 20:26] LABS: Glucose,Whole Blood 346 mg/dL (70-110)
[2024-07-19 06:29] LABS: Glucose,Whole Blood 114 mg/dL (70-110)
[2024-07-19 11:34] LABS: Glucose,Whole Blood 256 mg/dL (70-110)
--- NOTE | 2024-07-19 12:44 | P.PN ---
Subjective Progress Note Date: 07/19/24 patient is a 69-year-old gentleman with past medical his significant for CHF, COPD, CVA, diabetes mellitus who presented to the ER for shortness of breath. Patient is was all right 4 days back when started noticing shortness of breath is present at rest as on exertion. Patient was also complaining of swelling of feet. Patient also complaining of cough. Patient was complaining of orthopnea. There was no complaint of fever or chills. There is no complaint of chest pain. Patient was supposed to be taking Lasix but stopped taking for the last 3 to 4 days. There was no complaint of nausea or vomiting. Family also think that the patient has been drinking over the [place]. Initial lab work done in the ER showed WBC 10.5, hemoglobin 16.8, platelet count 194, sodium 125, potassium 4.9, BUN 12, creatinine 0.79, glucose 168 alk phos 193, total protein 5.6 serum alcohol 18 Influenza A not detected Influenza B not detected RSV not detected COVID-19 not detected EKG done in the ER showed heart rate of 109, no ST segment elevation or depression seen, no T-wave inversions seen. Chest x-ray done in the ER showed right basilar airspace opacity, developing pneumonia versus eventration of the diaphragm Patient admitted to internal medicine service 07/14. Patient examined. Blood work done showed WBC 3.8, hemoglobin 15.7, platelet count 173, sodium 130, potassium 4.9, BUN 23, creatinine 1.09. Currently on 4 L of oxygen, doing much better. Patient is alert and answering questions /. Patient seen and examined. Patient was more confused overnight, this morning is alert. Breathing is improved. Currently on 3 to 4 L of oxygen 1/2. Patient seen and examined. Currently on 3 L of oxygen. Continues to feel better. Blood sugars were elevated, added Levemir 1/3. Patient seen and examined. Sitting upright in the chair, answering question appropriately. Patient worked with PT and OT. 07/18. Patient seen and examined. States he feels much better. Patient was requiring oxygen during walk rest test, discussed with him regarding the importance of him using oxygen. Patient wants to stay 1 more day 07/19. Patient seen and examined. Patient continues to refuse oxygen at discharge, discussed with him regarding the need for him to use oxygen discharge but patient is refusing REVIEW OF SYSTEMS: CONSTITUTIONAL: No fever, no malaise,. CARDIOVASCULAR: No chest pain, no palpitations, no syncope. PULMONARY: No shortness of breath, no cough, GASTROINTESTINAL: No diarrhea, no nausea, no vomiting, no abdominal pain. NEUROLOGICAL: No headaches, no weakness, PHYSICAL EXAMINATION: GENERAL: The patient is alert, HEENT: Pupils are round and equally reacting to light. EOMI. No scleral icterus. No conjunctival pallor. Normocephalic, atraumatic. No pharyngeal erythema. No thyromegaly. CARDIOVASCULAR: S1 and S2 present. No murmurs, rubs, or gallops. PULMONARY: Coarse breath sound bilaterally, no crackles, no wheeze ABDOMEN: Soft, nontender, nondistended, normoactive bowel sounds. No palpable organomegaly. MUSCULOSKELETAL: No joint swelling or deformity. EXTREMITIES: No cyanosis, clubbing, or pedal edema. NEUROLOGICAL: Moving all extremities SKIN: No rashes. Acute hypoxic respiratory failure Acute metabolic encephalopathy Acute COPD exacerbation Bacterial pneumonia Acute systolic CHF Ischemic cardiomyopathy Paroxysmal atrial fibrillation Alcohol intoxication, serum alcohol level was 18 on arrival Hyponatremia, possibly secondary to beer potomania History of alcoholism, admits to drinking 6, 12 ounce beers per day History of CVA, with residual homonymous hemianopia History of diabetes mellitus, last HbA1c level was 8 History of hypertension Monitor vital signs Monitor CBC Monitor CMP Continue telemetry monitoring Follow-up on sputum cultures Follow-up on blood cultures Continue prednisone Strict I's and O's, daily weights,Lasix Monitor blood sugar levels, continue current insulin regimen Pulmonology following Cardiology following PT OT following Labs and medication were reviewed.. Continue same treatment. Continue with symptomatic treatment. Resume home medication. Monitor labs and vitals. DVT and GI prophylaxis. Further recommendations as per clinical course of the patient Dictation was produced using [employer] dictation software. please excuse any grammatical, word or spelling errors. Objective - Vital Signs Vital signs: Vital Signs Temp 98.3 F 07/19/24 11:39 Pulse 84 07/19/24 12:40 Resp 16 07/19/24 11:39 BP 98/71 07/19/24 11:39 Pulse Ox 90 L 07/19/24 11:39 FiO2 50 07/16/24 08:00 Intake & Output 07/18/24 07/19/24 07/19/24 18:59 06:59 18:59 Intake Total 510 200 Output Total 1150 Balance -640 200 Weight 77.4 kg Intake: Oral 510 200 Output: Urine 1150 Uretheral (Vega) 200 Other: Voiding Method Toilet Toilet Urinal Urinal # Voids 1 0 - Labs CBC & Chem 7: 07/17/24 06:20 07/17/24 06:20 Labs: Abnormal Lab Results - Last 24 Hours (Table) 07/18/24 07/18/24 07/19/24 Range/Units 16:43 20:24 06:28 POC Glucose (mg/dL) 328 H 346 H 114 H (70-110) mg/dL 07/19/24 Range/Units 11:33 POC Glucose (mg/dL) 256 H (70-110) mg/dL Microbiology - Last 24 Hours (Table) 07/12/24 20:19 Blood Culture - Final Blood
--- NOTE | 2024-07-19 12:57 | P.PN ---
Subjective Progress Note Date: 07/18/24 Principal diagnosis: Reason for follow-up is pneumonia Patient is a 69-year-old male with a past medical history significant for CVA TIA diabetes mellitus hypertension COPD presenting to the hospital for evaluation of increasing shortness of breath, patient did have a fever x-rays with bibasilar opacity concerning for pneumonia. On today's evaluation that is 07/18/2024, patient did not have any fever and denies any chills, patient is breathing comfortably on 2 L current oxygen, patient with no chest pain or any worsening cough patient did not have any abdominal pain nausea vomiting or any loose stools no new labs Objective - Vital Signs Vital signs: Vital Signs Temp 97.7 F 07/18/24 12:00 Pulse 82 07/18/24 13:05 Resp 20 07/18/24 12:00 BP 155/74 07/18/24 12:00 Pulse Ox 92 L 07/18/24 12:00 FiO2 50 07/16/24 08:00 Intake & Output 07/17/24 07/18/24 07/18/24 18:59 06:59 18:59 Intake Total 716 330 Output Total 2900 2650 850 Balance -2184 -2650 -520 Weight 87.5 kg Intake: Oral 716 330 Output: Urine 2900 2650 850 Uretheral (Vega) 200 Other: Voiding Method Indwelling Catheter Indwelling Catheter # Voids 1 - Exam GENERAL DESCRIPTION: An elderly male lying in bed in no distress RESPIRATORY SYSTEM: Unlabored breathing , decreased breath sounds at bases HEART: S1 S2 regular rate and rhythm , ABDOMEN: Soft , no tenderness EXTREMITIES: No edema feet - Labs CBC & Chem 7: 07/17/24 06:20 07/17/24 06:20 Labs: Abnormal Lab Results - Last 24 Hours (Table) 07/17/24 07/17/24 07/18/24 Range/Units 16:22 19:54 06:08 POC Glucose (mg/dL) 396 H 445 H 183 H (70-110) mg/dL 07/18/24 Range/Units 11:35 POC Glucose (mg/dL) 368 H (70-110) mg/dL Microbiology - Last 24 Hours (Table) 07/12/24 20:19 Blood Culture - Final Blood Assessment and Plan (1) Sepsis Current Visit: Yes Status: Acute Code(s): A41.9 - SEPSIS, UNSPECIFIED ORGANISM SNOMED Code(s): 58475619 (2) Pneumonia Current Visit: Yes Status: Acute Code(s): J18.9 - PNEUMONIA, UNSPECIFIED ORGANISM SNOMED Code(s): 808693024 Plan: 1patient presented hospital with sepsis, in this patient who did have fever tachycardia meeting criteria for SIRS source is right lower lobe pneumonia with possible community acquired 2-try to obtain a sputum for Gram stain and culture 3-patient did have resolution of fever and some clinical improvement, blood culture has been negative sputum not collected 4-patient has completed a course of Rocephin and Zithromax And seems to be doing well off antibiotic Dictation was produced using [email or web address] dictation software. please excuse any grammatical, word or spelling errors. Time with Patient: Less than 30
--- NOTE | 2024-07-19 13:19 | P.PN ---
Subjective Progress Note Date: 07/19/24 Principal diagnosis: Reason for follow-up is pneumonia Patient is a 69-year-old male with a past medical history significant for CVA TIA diabetes mellitus hypertension COPD presenting to the hospital for evaluation of increasing shortness of breath, patient did have a fever x-rays with bibasilar opacity concerning for pneumonia. On today's evaluation that is 07/19/2024, Patient is afebrile patient is currently on 4 L nasal cannula oxygen and denies having any worsening shortness of breath, the patient denies any chest pain or any worsening cough, the patient denies any nausea vomiting did not have any abdominal pain and no diarrhea, mention feeling better. No new lab has been obtained today blood culture negative Objective - Vital Signs Vital signs: Vital Signs Temp 98.3 F 07/19/24 11:39 Pulse 84 07/19/24 12:40 Resp 16 07/19/24 11:39 BP 98/71 07/19/24 11:39 Pulse Ox 90 L 07/19/24 11:39 FiO2 50 07/16/24 08:00 Intake & Output 07/18/24 07/19/24 07/19/24 18:59 06:59 18:59 Intake Total 510 200 Output Total 1150 Balance -640 200 Weight 77.4 kg Intake: Oral 510 200 Output: Urine 1150 Uretheral (Vega) 200 Other: Voiding Method Toilet Toilet Urinal Urinal # Voids 1 0 - Exam GENERAL DESCRIPTION: An elderly male lying in bed in no distress RESPIRATORY SYSTEM: Unlabored breathing , decreased breath sounds at bases HEART: S1 S2 regular rate and rhythm , ABDOMEN: Soft , no tenderness EXTREMITIES: No edema feet - Labs CBC & Chem 7: 07/17/24 06:20 07/17/24 06:20 Labs: Abnormal Lab Results - Last 24 Hours (Table) 07/18/24 07/18/24 07/19/24 Range/Units 16:43 20:24 06:28 POC Glucose (mg/dL) 328 H 346 H 114 H (70-110) mg/dL 07/19/24 Range/Units 11:33 POC Glucose (mg/dL) 256 H (70-110) mg/dL Microbiology - Last 24 Hours (Table) 07/12/24 20:19 Blood Culture - Final Blood Assessment and Plan (1) Sepsis Current Visit: Yes Status: Acute Code(s): A41.9 - SEPSIS, UNSPECIFIED ORGANISM SNOMED Code(s): 83724785 (2) Pneumonia Current Visit: Yes Status: Acute Code(s): J18.9 - PNEUMONIA, UNSPECIFIED ORGANISM SNOMED Code(s): 810428727 Plan: 1patient presented hospital with sepsis, in this patient who did have fever tachycardia meeting criteria for SIRS source is right lower lobe pneumonia with possible community acquired 2-try to obtain a sputum for Gram stain and culture 3-patient did have resolution of fever and some clinical improvement, blood culture has been negative sputum not collected 4-patient has completed a course of Rocephin and Zithromax And seems to be doing well off antibiotic, hence no need for antibiotics on discharge Dictation was produced using [employer] dictation software. please excuse any grammatical, word or spelling errors. Time with Patient: Less than 30
--- NOTE | 2024-07-19 13:22 | P.PN ---
Subjective Progress Note Date: 07/19/24 Principal diagnosis: Pneumonia. Patient is a 69-year-old male with past medical history significant for COPD, hypertension, diabetes mellitus, CVA, heart failure, and is a current 2 pack/day smoker. He does follow in the pulmonary office with Dr. Jenkins. He has severe COPD with an FEV1 39% of predicted. He is unsure of what maintenance inhalers he uses at home. Over the last couple days his been experiencing progressively worsening shortness of breath accompanied with a congested nonproductive cough. Denies chest pain, denies significant sputum production, denies hemoptysis. No measured fevers at home. Fever of 101.8 F on arrival to the ED. Of note, patient does report increased lower extremity swelling over the last couple weeks. He was started on a "water pill" approximately 1 week ago. Most recent available echocardiogram from January, estimating left ventricular ejection fraction of 35 to 40%. Chest x-ray is overpenetrated, possible right lower lobe infiltrate. CBC is unremarkable, no leukocytosis. CMP: Sodium 126, potassium 4.9, chloride 98, serum bicarb 18, BUN 16, creatinine 0.86, glucose 163. LFTs unremarkable. Troponin was 0.043 and is down to 0.034. NT proBNP 21,900. EKG: Sinus tachycardia, rate 109 bpm, incomplete RBBB pattern, no focal ST/T wave abnormalities suggestive of ischemia. Viral screen negative for influenza, RSV, COVID. Serum alcohol was 18. Patient drinks approximately 6 beers per day, 12 ounce beers. Denies any history of alcohol withdrawal symptoms. Currently on the CIWA protocol. Current vitals: Temperature 98.2 F, heart rate 99 bpm, blood pressure 115/99 mmHg, SpO2 is 92% on 2 L/min nasal cannula. He is currently being evaluated in the emergency department. He is lying on his left lateral side, on 2 L/min nasal cannula. He does occasionally groan in discomfort. No acute respiratory distress. He is alert and fully oriented. No signs of CO2 narcosis. No current signs of alcohol withdrawal. The patient is seen today July 14, 2024 in follow-up on the selective care unit. He is currently sitting up in bed. Awake and alert in no acute distress. Family is at the bedside. He is currently maintaining O2 saturation in the 90s on 4 L/min per nasal cannula. He had been on BiPAP 12/6 and 50% FiO2 previously. He is afebrile. Hemodynamically stable. White count 3.8. Hemoglobin 15.7. Platelets 173. Sodium 130. Potassium 4.9. Bicarb 22. BUN 33. Creatinine 1.09. Glucose 212. Echocardiogram revealed a severely reduced global left ventricular systolic function with an ejection fraction at 15%. Severe right ventricular dilatation. Mild pulmonary hypertension. White count 3.8. Hemoglobin 15.7. Platelets 173. Sodium 130. Potassium 4.9. Bicarb 22. BUN 33. Creatinine 1.09. Glucose 212. He is on Lasix 40 mg IV every 12 hours. Anticoagulated with Eliquis. He is continued on DuoNeb inhalations, Symbicort, Singulair, Solu-Medrol. NicoDerm patch in place. Antibiotics in the form of ceftriaxone and azithromycin. Procalcitonin 0.24. Progress note dated July 15, 2024. 69-year-old patient seen today in room 383. The patient was admitted with a diagnosis of pneumonia and COPD exacerbation. The patient is currently on 4 L nasal cannula. He does use BiPAP, with settings of 16/6, and 50%. Current labs include a white count 9.5, hemoglobin 15.6, hematocrit 48.4, and a platelet count of 175,000. Sodium 134, potassium 4.5, chlorides 100, CO2 24, BUN 47, and creatinine 1.14. Glucose is 354. Albumin is 2.9. N-terminal proBNP is 21,400. Cultures are currently negative. Chest x-ray from July 13, shows cardiomegaly, and pulmonary vascular congestion. Progress note dated July 16, 2024. 69-year-old male seen today in room 383. The patient is currently on 3 L of oxygen. He is not receiving any IV fluids. He did use BiPAP last night at 16/6, 50%. Current labs include a white count 9.8, hemoglobin 17.3, hematocrit 53.2, and a platelet count of 215,000. Sodium 141, potassium 3.4, chlorides 103, CO2 34, BUN 43, and creatinine 0.98. Glucose is 461. Albumin is 2.9. Progress note dated July 17, 2024. 69-year-old male seen today in room 383. The patient continues on O2 at 2 L. No IV fluids. He did not use the BiPAP device last night. Current labs could 0.4, hemoglobin 17.9, hematocrit 55.6, and a platelet count of 211,000. Sodium 132, potassium 4, chlorides 94, CO2 33, BUN 43, creatinine 1.03. Glucose 353. Albumin is 3. Progress note dated July 18, 2024. 69-year-old male seen again in room 383. Currently, the patient is resting comfortably in bed. He is alert and awake. He is on 2 L of oxygen. He is not receiving any IV fluids. From the pulmonary standpoint, the patient is very stable. The only lab today was a glucose of 368. Progress note dated July 19, 2024. 69-year-old male seen again in room 383. Currently, he is resting comfortably in bed. He is alert and awake. He is not receiving any IV fluids. He is on 2 L nasal cannula. From the pulmonary perspective, the patient is stable for discharge. No new labs today other than a glucose of 256. Objective - Vital Signs Vital signs: Vital Signs Temp 98.3 F 07/19/24 11:39 Pulse 84 07/19/24 12:40 Resp 16 07/19/24 11:39 BP 98/71 07/19/24 11:39 Pulse Ox 90 L 07/19/24 11:39 FiO2 50 07/16/24 08:00 Intake & Output 07/18/24 07/19/24 07/19/24 18:59 06:59 18:59 Intake Total 510 200 Output Total 1150 Balance -640 200 Weight 77.4 kg Intake: Oral 510 200 Output: Urine 1150 Uretheral (Vega) 200 Other: Voiding Method Toilet Toilet Urinal Urinal # Voids 1 0 - Exam No acute distress, oriented 3. The patient is currently on 2 L nasal cannula. HEENT examination is grossly unremarkable. Mucous membranes are moist. No oral lesions. Neck supple. Full range of motion. No adenopathy thyromegaly or neck vein distention. Cardiovascular examination reveals regular rhythm rate. S1-S2 normal. No S3 or S4. No discernible murmur noted. Lungs reveal bilateral basilar crackles. No wheezes. No rhonchi. Breath sounds are equal bilaterally. Abdomen soft bowel sounds are heard. No masses or tenderness. Extremities are intact. No cyanosis clubbing or edema. Skin is without rash or lesion. Neurologic examination is brief but nonfocal. - Labs CBC & Chem 7: 07/17/24 06:20 07/17/24 06:20 Labs: Abnormal Lab Results - Last 24 Hours (Table) 07/18/24 07/18/24 07/19/24 Range/Units 16:43 20:24 06:28 POC Glucose (mg/dL) 328 H 346 H 114 H (70-110) mg/dL 07/19/24 Range/Units 11:33 POC Glucose (mg/dL) 256 H (70-110) mg/dL Microbiology - Last 24 Hours (Table) 07/12/24 20:19 Blood Culture - Final Blood Assessment and Plan Assessment: Acute COPD exacerbation. Acute exacerbation of chronic systolic congestive heart failure. Acute hypoxemic respiratory failure, secondary to above. Troponin leak. Severe COPD, with an FEV1 39% of predicted. Chronic ongoing tobacco dependence, current 2 pack/day smoker. Alcohol intoxication. Hyponatremia, possibly secondary to beer potomania. History of alcoholism, admits to drinking 6, 12 ounce beers per day. History of CVA, with residual homonymous hemianopia. History of diabetes mellitus. History of hypertension. Plan: Plan dated July 15, 2024. The patient's antibiotics were discontinued. The patient's procalcitonin level was normal. The patient continues on IV diuretics. Labs, x-rays, medications are reviewed. The patient continues on the CIWA protocol. We will continue to follow the patient, make recommendations along the way. Overall prognosis remains guarded. Plan dated July 16, 2024. The patient is seen today in room 383. The patient continues on nasal O2 at 3 L. He is not receiving any IV fluids. He did use BiPAP at 16/6, 50%. Labs, x- rays, and medications are reviewed. Clinically, the patient appears stable. We will continue to follow the patient, make recommendations along the way. Prognosis is guarded. Plan dated July 17, 2024. The patient has been weaned down to 2 L. He is not receiving any IV fluids. He did not use the BiPAP device last night. Labs, x-rays, medications are reviewed. The patient Solu-Medrol is changed to prednisone, 30 mg a day. We will continue to follow make recommendations along the way. Prognosis is guarded. No additional recommendations are made. Plan dated July 18, 2024. The patient has been weaned down to 2 L. He is seen again in room 383. He is resting comfortably in bed. The patient is not receiving any IV fluids. The nurse, asked whether or not the patient could be discharged. I stated to her that from the pulmonary standpoint, the patient is stable, and could be considered for discharge, but we will leave that up to the primary service. Labs, x-rays, and medications are reviewed. No additional recommendations at this time. Prognosis is guarded. Plan dated July 19, 2024. The patient is seen, in room 383. Currently, the patient is on 2 L of oxygen. He is not receiving any IV fluids. His lungs are clear on auscultation. He denies any chest pain or chest discomfort. He denies any unusual or more severe shortness of breath, cough, wheezing, chest tightness, or phlegm production. The patient is stable from the pulmonary perspective, to be considered for discharge. Will leave that up to the primary service. No additional recommenda tions are made at this time. Time with Patient: Less than 30
--- NOTE | 2024-07-19 14:00 | P.PN ---
Subjective HISTORY OF PRESENT ILLNESS: This is a pleasant 69-year-old male patient of Dr. Boles with past medical history of paroxysmal atrial fibrillation, coronary artery disease, ischemic cardiomyopathy, COPD, 2 pack/day smoker and CVA with prior PFO closure in March 2023. Patient is a poor historian and most of the HPI was obtained from the chart. Presented to the hospital with complaints of slowly worsening shortness of breath as well as congested nonproductive cough. Fever of 101.8 F on arrival to the ED. Diagnostics -EKG: Sinus tachycardia incomplete right bundle branch block -Chest x-ray: Right basilar opacity -Laboratory studies: Sodium 125, potassium 4.9, normal white blood cell count, normal renal function, NT proBNP 21,900, troponin 0.026, 0.043 and 0.034 -Home cardiac medications: Metoprolol succinate 50 mg daily, Lasix 40 mg daily, losartan 100 mg p.o. daily, Jardiance 25 mg p.o. daily, Eliquis 5 mg p.o. twice daily, aspirin 81 mg daily and Repatha -Prior stress test: 02/28/2023 prior CO without any ischemia -Echocardiogram: 11/14/2023 mildly decreased LV systolic function with ejection fraction of 45 to 50%, global LV hypokinesis, PFO/ASD percutaneous closure device present, mild MR, mild TR -Cardiac catheterization: Unknown 07/14/2024 Patient was seen and examined resting comfortably in bed. He is overall feeling better and seems to be less confused today. Answering questions more appropriately and breathing appears easier. He feels he is breathing better. He has had no chest discomfort, palpitations, dizziness or lightheadedness. Echocardiogram with Doppler study done showed severely impaired LV systolic function with ejection fraction of 15%, previously in the 35 to 45% range. 07/15/2024 Seen and examined at bedside this a.m. BP 115/83, heart rate 68 beats minute, sinus rhythm Sodium 134, potassium 4.5, BUN 47, creatinine 1.14, Hb 15.6, NT-proBNP 2100, HbA1c 8.0 07/16/24 Patient seen and examined. Due to mental status changes, patient has a sitter at the bedside. He has been maintained on IV Lasix 40 mg every 12 hours. Blood pressure 109/73, heart rate in the 70s and 80s, pulse ox 92% on 3 L nasal cannula. Repeat blood work reveals hemoglobin 17.3, potassium 3.4, BUN 43 creatinine 0.98. 07/17/24 Patient seen and examined. Yesterday we changed IV Lasix to oral. Patient states his breathing is better today. He denies have any chest pain and no dizziness. He states his appetite is improved as well. Blood pressure 118/53, heart rate 87, pulse ox 93% on 2 L nasal cannula. Repeat blood work reveals WBC 10.4, hemoglobin 17.9, sodium 132, potassium 4, BUN 43 and creatinine 1.03. Telemetry is sinus rhythm. 07/18/2024 Patient examined this morning at the bedside. Patient currently denies chest pain or pressure. He denies shortness of breath. Vital signs are stable. 07/19/2024 Patient examined this morning at the bedside. Patient denies chest pain or pressure. He denies shortness of breath. Patient remains on oxygen to maintain saturations greater than 92%. The patient was cleared for discharge yesterday, however patient was refusing to go home with home oxygen. Dr. Jones discussed home oxygen with patient today and he is considering wearing oxygen at home now. PHYSICAL EXAM: VITAL SIGNS: Reviewed. GENERAL: Well-developed in no acute distress. NECK: Supple. No JVD or thyromegaly LUNGS: Respirations even and unlabored. Lungs essentially clear to auscultation bilaterally. HEART: Regular rate and rhythm. S1 and S2 heard. EXTREMITIES: Normal range of motion. No clubbing or cyanosis. Peripheral pulses intact. No lower extremity edema ASSESSMENT: 1. Acute COPD exacerbation with suspected right lower lobe pneumonia, currently on IV antibiotics 2. Ischemic cardiomyopathy with prior MPI showing evidence of prior infarct, worsened 3. Paroxysmal atrial fibrillation, currently maintaining sinus mechanism 4. History of PFO closure 5. Hyperlipidemia with statin intolerance PLAN: Patient was refusing home oxygen yesterday. Patient now considering home oxygen. Continue current cardiac medications Patient with statin intolerance. On Repatha outpatient. Zetia 10 mg daily added yesterday. Patient will require outpatient cardiac catheterization Patient may be discharged home today from a cardiac standpoint Patient to follow-up postdischarge with Dr. Boles Nurse practitioner note has been reviewed by physician. Signing provider agrees with the documented findings, assessment, and plan of care documented by [employer]ER as a scribe. Objective - Vital Signs Vital signs: Vital Signs Temp 98.3 F 07/19/24 11:39 Pulse 84 07/19/24 12:40 Resp 16 07/19/24 11:39 BP 98/71 07/19/24 11:39 Pulse Ox 90 L 07/19/24 11:39 FiO2 50 07/16/24 08:00 Intake & Output 07/18/24 07/19/24 07/19/24 18:59 06:59 18:59 Intake Total 510 200 Output Total 1150 Balance -640 200 Weight 77.4 kg Intake: Oral 510 200 Output: Urine 1150 Uretheral (Vega) 200 Other: Voiding Method Toilet Toilet Urinal Urinal # Voids 1 0 - Labs CBC & Chem 7: 07/17/24 06:20 07/17/24 06:20 Labs: Abnormal Lab Results - Last 24 Hours (Table) 07/18/24 07/18/24 07/19/24 Range/Units 16:43 20:24 06:28 POC Glucose (mg/dL) 328 H 346 H 114 H (70-110) mg/dL 07/19/24 Range/Units 11:33 POC Glucose (mg/dL) 256 H (70-110) mg/dL Microbiology - Last 24 Hours (Table) 07/12/24 20:19 Blood Culture - Final Blood
[2024-07-19 17:01] LABS: Glucose,Whole Blood 395 mg/dL (70-110)
--- NOTE | 2024-07-19 17:06 | XR ---
EXAMINATION TYPE: XR chest 2V DATE OF EXAM: 07/19/2024 4:59 PM COMPARISON: Previous chest radiograph 07/13/2024. CLINICAL INDICATION: Male, 69 years old with history of worsening hypoxia; [facility] TECHNIQUE: XR chest 2V Frontal and lateral views of the chest. FINDINGS: Cardiac silhouette is stable from prior study. Small bilateral pleural effusions, slightly increasing from prior study. Additionally, there is lower lobe compressive atelectasis and right lung base developing consolidatio n. PFO device again noted. No acute osseous abnormality. IMPRESSION: Cardiomegaly, slightly increasing bilateral pleural effusions and lower lobe compressive atelectasis suggestive of pulmonary edema. Overall, findings appear slightly worse compared to prior study 2023. [facility], , 07/19/2024 5:04 PM
[2024-07-19 20:57] LABS: Glucose,Whole Blood 345 mg/dL (70-110)
[2024-07-20 06:24] LABS: Glucose,Whole Blood 124 mg/dL (70-110)
[2024-07-20 08:10] VITALS: BP 86/50; RESP 18; TEMP 98.1
[2024-07-20 11:28] LABS: Glucose,Whole Blood 258 mg/dL (70-110)
[2024-07-20 11:29] VITALS: PULSE 80
--- NOTE | 2024-07-20 14:19 | P.PN ---
Subjective HISTORY OF PRESENT ILLNESS: This is a pleasant 69-year-old male patient of Dr. Boles with past medical history of paroxysmal atrial fibrillation, coronary artery disease, ischemic cardiomyopathy, COPD, 2 pack/day smoker and CVA with prior PFO closure in March 2023. Patient is a poor historian and most of the HPI was obtained from the chart. Presented to the hospital with complaints of slowly worsening shortness of breath as well as congested nonproductive cough. Fever of 101.8 F on arrival to the ED. Diagnostics -EKG: Sinus tachycardia incomplete right bundle branch block -Chest x-ray: Right basilar opacity -Laboratory studies: Sodium 125, potassium 4.9, normal white blood cell count, normal renal function, NT proBNP 21,900, troponin 0.026, 0.043 and 0.034 -Home cardiac medications: Metoprolol succinate 50 mg daily, Lasix 40 mg daily, losartan 100 mg p.o. daily, Jardiance 25 mg p.o. daily, Eliquis 5 mg p.o. twice daily, aspirin 81 mg daily and Repatha -Prior stress test: 02/28/2023 prior UT without any ischemia -Echocardiogram: 11/14/2023 mildly decreased LV systolic function with ejection fraction of 45 to 50%, global LV hypokinesis, PFO/ASD percutaneous closure device present, mild MR, mild TR -Cardiac catheterization: Unknown 07/14/2024 Patient was seen and examined resting comfortably in bed. He is overall feeling better and seems to be less confused today. Answering questions more appropriately and breathing appears easier. He feels he is breathing better. He has had no chest discomfort, palpitations, dizziness or lightheadedness. Echocardiogram with Doppler study done showed severely impaired LV systolic function with ejection fraction of 15%, previously in the 35 to 45% range. 07/15/2024 Seen and examined at bedside this a.m. BP 115/83, heart rate 68 beats minute, sinus rhythm Sodium 134, potassium 4.5, BUN 47, creatinine 1.14, Hb 15.6, NT-proBNP 2100, HbA1c 8.0 07/16/24 Patient seen and examined. Due to mental status changes, patient has a sitter at the bedside. He has been maintained on IV Lasix 40 mg every 12 hours. Blood pressure 109/73, heart rate in the 70s and 80s, pulse ox 92% on 3 L nasal cannula. Repeat blood work reveals hemoglobin 17.3, potassium 3.4, BUN 43 creatinine 0.98. 07/17/24 Patient seen and examined. Yesterday we changed IV Lasix to oral. Patient states his breathing is better today. He denies have any chest pain and no dizziness. He states his appetite is improved as well. Blood pressure 118/53, heart rate 87, pulse ox 93% on 2 L nasal cannula. Repeat blood work reveals WBC 10.4, hemoglobin 17.9, sodium 132, potassium 4, BUN 43 and creatinine 1.03. Telemetry is sinus rhythm. 07/18/2024 Patient examined this morning at the bedside. Patient currently denies chest pain or pressure. He denies shortness of breath. Vital signs are stable. 07/19/2024 Patient examined this morning at the bedside. Patient denies chest pain or pressure. He denies shortness of breath. Patient remains on oxygen to maintain saturations greater than 92%. The patient was cleared for discharge yesterday, however patient was refusing to go home with home oxygen. Dr. Jones discussed home oxygen with patient today and he is considering wearing oxygen at home now. 07/20/2024 Patient examined this morning the bedside. Patient currently denies any chest pain or pressure. He denies any shortness of breath. Vital signs are stable. PHYSICAL EXAM: VITAL SIGNS: Reviewed. GENERAL: Well-developed in no acute distress. NECK: Supple. No JVD or thyromegaly LUNGS: Respirations even and unlabored. Lungs essentially clear to auscultation bilaterally. HEART: Regular rate and rhythm. S1 and S2 heard. EXTREMITIES: Normal range of motion. No clubbing or cyanosis. Peripheral pulses intact. No lower extremity edema ASSESSMENT: 1. Acute COPD exacerbation with suspected right lower lobe pneumonia, currently on IV antibiotics 2. Ischemic cardiomyopathy with prior MPI showing evidence of prior infarct, worsened 3. Paroxysmal atrial fibrillation, currently maintaining sinus mechanism 4. History of PFO closure 5. Hyperlipidemia with statin intolerance PLAN: Continue current cardiac medications Patient will require outpatient cardiac catheterization Patient may be discharged home today from a cardiac standpoint Patient to follow-up postdischarge with Dr. Boles Nurse practitioner note has been reviewed by physician. Signing provider agrees with the documented findings, assessment, and plan of care documented by BINDERY TECHNICIAN as a scribe. Objective - Vital Signs Vital signs: Vital Signs Temp 98.1 F 07/20/24 08:00 Pulse 80 07/20/24 11:38 Resp 18 07/20/24 08:00 BP 86/50 07/20/24 08:00 Pulse Ox 97 07/20/24 08:18 FiO2 50 07/16/24 08:00 Intake & Output 07/19/24 07/20/24 07/20/24 18:59 06:59 18:59 Intake Total 560 540 180 Balance 560 540 180 Weight 77.2 kg Intake: Oral 560 540 180 Other: Voiding Method Toilet Toilet Urinal Urinal # Voids 2 2 - Labs CBC & Chem 7: 07/17/24 06:20 07/17/24 06:20 Labs: Abnormal Lab Results - Last 24 Hours (Table) 07/19/24 07/19/24 07/20/24 Range/Units 17:00 20:55 06:22 POC Glucose (mg/dL) 395 H 345 H 124 H (70-110) mg/dL 07/20/24 Range/Units 11:27 POC Glucose (mg/dL) 258 H (70-110) mg/dL
--- NOTE | 2024-07-20 16:32 | P.PN ---
Subjective Progress Note Date: 07/20/24 Patient is a 69-year-old male with past medical history significant for COPD, hypertension, diabetes mellitus, CVA, heart failure, and is a current 2 pack/day smoker. He does follow in the pulmonary office with Dr. Jenkins. He has severe COPD with an FEV1 39% of predicted. He is unsure of what maintenance inhalers he uses at home. Over the last couple days his been experiencing progressively worsening shortness of breath accompanied with a congested nonproductive cough. Denies chest pain, denies significant sputum production, denies hemoptysis. No measured fevers at home. Fever of 101.8 F on arrival to the ED. Of note, patient does report increased lower extremity swelling over the last couple weeks. He was started on a "water pill" approximately 1 week ago. Most recent available echocardiogram from January, estimating left ventricular ejection fraction of 35 to 40%. Chest x-ray is overpenetrated, possible right lower lobe infiltrate. CBC is unremarkable, no leukocytosis. CMP: Sodium 126, potassium 4.9, chloride 98, serum bicarb 18, BUN 16, creatinine 0.86, glucose 163. LFTs unremarkable. Troponin was 0.043 and is down to 0.034. NT proBNP 21,900. EKG: Sinus tachycardia, rate 109 bpm, incomplete RBBB pattern, no focal ST/T wave abnormalities suggestive of ischemia. Viral screen negative for influenza, RSV, COVID. Serum alcohol was 18. Patient drinks approximately 6 beers per day, 12 ounce beers. Denies any history of alcohol withdrawal symptoms. Currently on the CIWA protocol. Current vitals: Temperature 98.2 F, heart rate 99 bpm, blood pressure 115/99 mmHg, SpO2 is 92% on 2 L/min nasal cannula. He is currently being evaluated in the emergency department. He is lying on his left lateral side, on 2 L/min nasal cannula. He does occasionally groan in discom fort. No acute respiratory distress. He is alert and fully oriented. No signs of CO2 narcosis. No current signs of alcohol withdrawal. The patient is seen today July 14, 2024 in follow-up on the selective care unit. He is currently sitting up in bed. Awake and alert in no acute distress. Family is at the bedside. He is currently maintaining O2 saturation in the 90s on 4 L/min per nasal cannula. He had been on BiPAP 12/6 and 50% FiO2 previously. He is afebrile. Hemodynamically stable. White count 3.8. Hemoglobin 15.7. Platelets 173. Sodium 130. Potassium 4.9. Bicarb 22. BUN 33. Creatinine 1.09. Glucose 212. Echocardiogram revealed a severely reduced global left ventricular systolic function with an ejection fraction at 15%. Severe right ventricular dilatation. Mild pulmonary hypertension. White count 3.8. Hemoglobin 15.7. Platelets 173. Sodium 130. Potassium 4.9. Bicarb 22. BUN 33. Creatinine 1.09. Glucose 212. He is on Lasix 40 mg IV every 12 hours. Anticoagulated with Eliquis. He is continued on DuoNeb inhalations, Symbicort, Singulair, Solu-Medrol. NicoDerm patch in place. Antibiotics in the form of ceftriaxone and azithromycin. Procalcitonin 0.24. Progress note dated July 15, 2024. 69-year-old patient seen today in room 383. The patient was admitted with a diagnosis of pneumonia and COPD exacerbation. The patient is currently on 4 L nasal cannula. He does use BiPAP, with settings of 16/6, and 50%. Current labs include a white count 9.5, hemoglobin 15.6, hematocrit 48.4, and a platelet count of 175,000. Sodium 134, potassium 4.5, chlorides 100, CO2 24, BUN 47, and creatinine 1.14. Glucose is 354. Albumin is 2.9. N-terminal proBNP is 21,400. Cultures are currently negative. Chest x-ray from July 13, shows cardi omegaly, and pulmonary vascular congestion. Progress note dated July 16, 2024. 69-year-old male seen today in room 383. The patient is currently on 3 L of oxygen. He is not receiving any IV fluids. He did use BiPAP last night at 16/6, 50%. Current labs include a white count 9.8, hemoglobin 17.3, hematocrit 53.2, and a platelet count of 215,000. Sodium 141, potassium 3.4, chlorides 103, CO2 34, BUN 43, and creatinine 0.98. Glucose is 461. Albumin is 2.9. Progress note dated July 17, 2024. 69-year-old male seen today in room 383. The patient continues on O2 at 2 L. No IV fluids. He did not use the BiPAP device last night. Current labs could 0.4, hemoglobin 17.9, hematocrit 55.6, and a platelet count of 211,000. Sodium 132, potassium 4, chlorides 94, CO2 33, BUN 43, creatinine 1.03. Glucose 353. Albumin is 3. Progress note dated July 18, 2024. 69-year-old male seen again in room 383. Currently, the patient is resting comfortably in bed. He is alert and awake. He is on 2 L of oxygen. He is not receiving any IV fluids. From the pulmonary standpoint, the patient is very stable. The only lab today was a glucose of 368. Progress note dated July 19, 2024. 69-year-old male seen again in room 383. Currently, he is resting comfortably in bed. He is alert and awake. He is not receiving any IV fluids. He is on 2 L nasal cannula. From the pulmonary perspective, the patient is stable for discharge. No new labs today other than a glucose of 256. On 07/20/2024, the patient is being seen for a follow-up. The patient is being treated for a combination of COPD and CHF exacerbation. The patient has an FEV1 of 39% predicted consistent with severe COPD. The patient is a chronic smoker. He also drinks alcohol in excess in the order of 612 ounce beers on a daily basis. The patient is feeling better. Less bronchospastic. Less wheezy. Congestion and wheezing still present although he is feeling better overall. No new complaints otherwise for now. No new labs are available from today. Most recent chest x-ray was from yesterday and it shows cardiomegaly with slight increased pulm vascular markings and possibly small pleural effusions. The patient is known to have ischemic cardiomyopathy and previous echocardiogram from 11/14/2023 showed an ejection fraction 45 to 50% with global LV hypokinesis and PFO/ASD closure device in place. His current cardiac rhythm is sinus. Maintained on metoprolol 50 mg p.o. daily and Lasix 40 mg p.o. daily. The patient is also on losartan 100 mg p.o. daily and Jardiance 25 mg p.o. daily. His cardiac rhythm is sinus with incomplete right bundle branch block and the patient is on anticoagulation for paroxysmal atrial fibrillation. Current cardiac rhythm is sinus. No signs of any delirium tremens. Objective - Vital Signs Vital signs: Vital Signs Temp 98.1 F 07/20/24 08:00 Pulse 80 07/20/24 11:38 Resp 18 07/20/24 08:00 BP 86/50 07/20/24 08:00 Pulse Ox 97 07/20/24 08:18 FiO2 50 07/16/24 08:00 Intake & Output 07/19/24 07/20/24 07/20/24 18:59 06:59 18:59 Intake Total 560 540 180 Balance 560 540 180 Weight 77.2 kg Intake: Oral 560 540 180 Other: Voiding Method Toilet Toilet Urinal Urinal # Voids 2 2 - Exam No acute distress, oriented 3. The patient is currently on 2 L nasal cannula. HEENT examination is grossly unremarkable. Mucous membranes are moist. No oral lesions. Neck supple. Full range of motion. No adenopathy thyromegaly or neck vein distention. Cardiovascular examination reveals regular rhythm rate. S1-S2 normal. No S3 or S4. No discernible murmur noted. Lungs reveal bilateral basilar crackles. No wheezes. No rhonchi. Breath sounds are equal bilaterally. Abdomen soft bowel sounds are heard. No masses or tenderness. Extremities are intact. No cyanosis clubbing or edema. Skin is without rash or lesion. Neurologic examination is brief but nonfocal. - Labs CBC & Chem 7: 07/17/24 06:20 07/17/24 06:20 Labs: Abnormal Lab Results - Last 24 Hours (Table) 07/19/24 07/19/24 07/20/24 Range/Units 17:00 20:55 06:22 POC Glucose (mg/dL) 395 H 345 H 124 H (70-110) mg/dL 07/20/24 Range/Units 11:27 POC Glucose (mg/dL) 258 H (70-110) mg/dL Assessment and Plan Plan: Acute COPD exacerbation, improving Acute exacerbation of chronic systolic congestive heart failure, improving. The patient is known to have chronic systolic heart failure with an ejection fraction of 40 to 45% and the patient has previous closure of PFO/ASD Acute hypoxemic respiratory failure, secondary to above, remains on oxygen 2 L/min nasal cannula Troponin leak. Severe COPD, with an FEV1 39% of predicted. Chronic ongoing tobacco dependence, current 2 pack/day smoker. Alcohol intoxication, no signs of any acute delirium tremens Hyponatremia, possibly secondary to beer potomania, recovered History of alcoholism, admits to drinking 6, 12 ounce beers per day. History of CVA, with residual homonymous hemianopia. History of diabetes mellitus. History of hypertension. History of ASD/PFO closure Paroxysmal A-fib, currently in normal sinus rhythm and the patient is on the anticoagulation. Plan: Arrange home O2 for this patient Continue nebulized albuterol and ipratropium updrafts on outpatient basis Patient will be maintained on fluticasone/salmeterol 500/51 puff twice a day Prednisone burst taper at time of discharge Lasix 40 mg p.o. daily Metoprolol 50 mg p.o. daily Anticoagulation with Eliquis 5 mg p.o. twice a day Continue Jardiance Continue glipizide metformin Continue aspirin Will follow-up on outpatient basis should the patient is discharged today.
--- NOTE | 2024-07-21 12:56 | P.PN ---
Subjective Progress Note Date: 07/20/24 Principal diagnosis: Reason for follow-up is pneumonia Patient is a 69-year-old male with a past medical history significant for CVA TIA diabetes mellitus hypertension COPD presenting to the hospital for evaluation of increasing shortness of breath, patient did have a fever x-rays with bibasilar opacity concerning for pneumonia. On today's evaluation that is 07/20/2023, patient has been afebrile, patient is breathing comfortably and is currently on 4 L current oxygen, patient denies having any significant chest pain and cough is decreased intensity, patient denies nausea vomiting or diarrhea and no abdominal pain. No new lab has been obtained today blood culture has been negative Objective - Vital Signs Vital signs: Vital Signs Temp 98.1 F 07/20/24 08:00 Pulse 80 07/20/24 11:38 Resp 18 07/20/24 08:00 BP 86/50 07/20/24 08:00 Pulse Ox 97 07/20/24 08:18 FiO2 50 07/16/24 08:00 Intake & Output 07/19/24 07/20/24 07/20/24 18:59 06:59 18:59 Intake Total 560 540 Balance 560 540 Weight 77.2 kg Intake: Oral 560 540 Other: Voiding Method Toilet Toilet Urinal Urinal # Voids 2 2 - Exam GENERAL DESCRIPTION: An elderly male lying in bed in no distress RESPIRATORY SYSTEM: Unlabored breathing , decreased breath sounds at bases HEART: S1 S2 regular rate and rhythm , ABDOMEN: Soft , no tenderness EXTREMITIES: No edema feet - Labs CBC & Chem 7: 07/17/24 06:20 07/17/24 06:20 Labs: Abnormal Lab Results - Last 24 Hours (Table) 07/19/24 07/19/24 07/20/24 Range/Units 17:00 20:55 06:22 POC Glucose (mg/dL) 395 H 345 H 124 H (70-110) mg/dL 07/20/24 Range/Units 11:27 POC Glucose (mg/dL) 258 H (70-110) mg/dL Assessment and Plan (1) Sepsis Status: Acute Code(s): A41.9 - SEPSIS, UNSPECIFIED ORGANISM SNOMED Code(s): 02130351 (2) Pneumonia Status: Acute Code(s): J18.9 - PNEUMONIA, UNSPECIFIED ORGANISM SNOMED Code(s): 675584814 Plan: 1patient presented hospital with sepsis, in this patient who did have fever tachycardia meeting criteria for SIRS source is right lower lobe pneumonia with possible community acquired 2-try to obtain a sputum for Gram stain and culture 3-patient did have resolution of fever and some clinical improvement, blood culture has been negative sputum not collected 4-patient has completed a course of Rocephin and Zithromax currently seems to be doing well and slowly improving no need for antibiotics on discharge Dictation was produced using [employer] dictation software. please excuse any grammatical, word or spelling errors. Time with Patient: Less than 30
--- NOTE | 2024-07-22 05:59 | P.DS ---
Providers Date of admission: 07/12/24 20:18 Attending physician: Aiden High Consults: 07/12/24 20:18 Consult Physician Routine Consulting Provider: Mariana Khan Consult Reason/Comments: pna,copd Do you want consulting provider notified?: Yes Consult Physician Routine Consulting Provider: Henrry Jones Consult Reason/Comments: cp Do you want consulting provider notified?: Yes 07/13/24 10:14 Consult Physician Routine Consulting Provider: Angella Cornejo Consult Reason/Comments: Pneumonia Do you want consulting provider notified?: Yes Primary care physician: [facility] Course: Diagnoses: Acute hypoxic respiratory failure Acute metabolic encephalopathy Acute COPD exacerbation Bacterial pneumonia Acute systolic CHF Ischemic cardiomyopathy Paroxysmal atrial fibrillation Alcohol intoxication, serum alcohol level was 18 on arrival Hyponatremia, possibly secondary to beer potomania History of alcoholism, admits to drinking 6, 12 ounce beers per day History of CVA, with residual homonymous hemianopia History of diabetes mellitus, last HbA1c level was 8 History of hypertension Hospital course: patient is a 69-year-old gentleman with past medical his significant for CHF, COPD, CVA, diabetes mellitus who presented to the ER for shortness of breath. Patient is was all right 4 days back when started noticing shortness of breath is present at rest as on exertion. Patient was found to have right lower lobe pneumonia, he was treated with antibiotics and finished his antibiotic as well as acute COPD exacerbation and acute congestive heart failure. His ejection fraction was low about 15%. He has been evaluated by several consultants including insurance billing specialist, district operations manager and infectious disease teams. Patient showed interval improvement and he was cleared for discharge from yesterday but because of his ongoing oxygen requirement, oxygen has to be delivered at bedside prior to discharge, in the beginning the patient was resistant to the idea of going home with oxygen, explained to the patient the benefits and risk and the mechanism behind the low oxygen's blood and the management plan and they verbalized understanding and acceptance. Patient already has agreed to get oxygen to go home with. Oxygen tank is delivered at bedside prior to discharge On the day of discharge she is sitting at the bedside, fully awake and oriented, he has insight mentation at baseline. Denies chest pain or dyspnea. No other new GI/ symptom no fever chills no any other complaint and he thinks he is ready to go home. Patient was cleared for discharge by all consultants including ID team, insurance billing specialist and district operations manager Patient finished his course of antibiotics, no need for antibiotics upon discharge. Patient will be discharged on tapered dose of prednisone. As well as Lasix 40 mg twice daily Problems and management plan were discussed with the patient and he verbalized understanding and acceptance Patient was found stable and can be discharged home in guarded prognosis however he needs follow-up as an outpatient. Patient was instructed to follow up with PCP Dr. Dhillon within one week and patient agrees Patient was instructed to follow-up with district operations manager Dr. Patten in 1 week and insurance billing specialist Dr. Love in 1 week and he agrees Physical exam Gen: patient is a AAOx3, no distress CVS: S1-S2, RRR, no murmur Lungs: B/L CTA, no wheezing Abdomen: soft, no distention, no tenderness, positive bowel sounds Extremity: no leg edema or induration Time spent more than 35 minutes Patient Condition at Discharge: Fair Plan - Discharge Summary Discharge Rx Participant: No New Discharge Prescriptions: New Furosemide [Lasix] 40 mg PO BID@0900,1600 30 Days #60 tab predniSONE 10 mg PO DAILY 8 Days #12 tab Losartan [Cozaar] 25 mg PO DAILY 30 Days #30 tab Dapagliflozin Propanediol [Farxiga] 10 mg PO DAILY 30 Days #30 tab Potassium Chloride 10 meq PO BID 30 Days #60 cap Continue Montelukast [Singulair] 10 mg PO HS Albuterol Sulfate [Albuterol Sulfate Hfa] 2 puff INHALATION RT-Q4H PRN PRN Reason: Shortness Of Breath Evolocumab [Repatha Sureclick] 140 mg SQ Q14D ALPRAZolam [Xanax] 0.25 mg PO DAILY PRN PRN Reason: Anxiety Metoprolol Succinate (ER) [Toprol XL] 50 mg PO DAILY Cetirizine HCl [Zyrtec] 10 mg PO DAILY Apixaban [Eliquis] 5 mg PO BID traZODone HCL 100 mg PO HS Repaglinide [Prandin] 2 mg PO AC-BID glipiZIDE/METFORMIN HCL [glipiZIDE/METFORMIN HCL 5-500 mg] 2 tab PO HS glipiZIDE/METFORMIN HCL [glipiZIDE/METFORMIN HCL 5-500 mg] 1 tab PO DAILY Empagliflozin [Jardiance] 25 mg PO DAILY Aspirin 81 mg PO DAILY 30 Days #30 tab Fluticasone Propion/Salmeterol [Fluticasone-Salmeterol 500-50] 1 puff PO RT- DAILY Discontinued Losartan Potassium [Cozaar] 100 mg PO DAILY Furosemide [Lasix] 40 mg PO DAILY Discharge Medication List ALPRAZolam [Xanax] 0.25 mg PO DAILY PRN 01/03/23 [History] Albuterol Sulfate [Albuterol Sulfate Hfa] 2 puff INHALATION RT-Q4H PRN 01/03/23 [History] Empagliflozin [Jardiance] 25 mg PO DAILY 01/03/23 [History] Evolocumab [Repatha Sureclick] 140 mg SQ Q14D 01/03/23 [History] Montelukast [Singulair] 10 mg PO HS 01/03/23 [History] Repaglinide [Prandin] 2 mg PO AC-BID 01/03/23 [History] glipiZIDE/METFORMIN HCL [glipiZIDE/METFORMIN HCL 5-500 mg] 1 tab PO DAILY 01/03/23 [History] glipiZIDE/METFORMIN HCL [glipiZIDE/METFORMIN HCL 5-500 mg] 2 tab PO HS 01/03/23 [History] traZODone HCL 100 mg PO HS 01/03/23 [History] Aspirin 81 mg PO DAILY 30 Days #30 tab 01/16/23 [Rx] Apixaban [Eliquis] 5 mg PO BID 07/12/24 [History] Cetirizine HCl [Zyrtec] 10 mg PO DAILY 07/12/24 [History] Fluticasone Propion/Salmeterol [Fluticasone-Salmeterol 500-50] 1 puff PO RT- DAILY 07/12/24 [History] Metoprolol Succinate (ER) [Toprol XL] 50 mg PO DAILY 07/12/24 [History] Dapagliflozin Propanediol [Farxiga] 10 mg PO DAILY 30 Days #30 tab 07/18/24 [Rx] Furosemide [Lasix] 40 mg PO BID@0900,1600 30 Days #60 tab 07/18/24 [Rx] Losartan [Cozaar] 25 mg PO DAILY 30 Days #30 tab 01/04/25 [Rx] Potassium Chloride 10 meq PO BID 30 Days #60 cap 07/18/24 [Rx] predniSONE 10 mg PO DAILY 8 Days #12 tab 07/18/24 [Rx] Follow up Appointment(s)/Referral(s): aMriana Khan MD [STAFF PHYSICIAN] - 1 Week [facility] [NON-STAFF] - Parker Pendleton MD [Primary Care Provider] - 1-2 days Enrico Boles MD [STAFF PHYSICIAN] - 1 Week Patient Instructions/Handouts: COPD (Chronic Obstructive Pulmonary Disease) (DC) Activity/Diet/Wound Care/Special Instructions: Heart healthy diet Activity is restricted till you see your doctor we recommend to check your glucose 4 times a day before each meal and at bedtime, keep the results in a log book and bring it your doctor on your appointment date If your glucose less than 70 or more than 400 then come to emergency room Discharge/Stand Alone Forms: Who Do I Call?, Help In The Home Discharge Disposition: HOME SELF-CARE
== END 2024-07-20 15:25 | disposition home or self-care (01) | DRG 871 ==
LOC: EC 18:28 → 4SSUR 20:18 → 3SCARD 07-13 00:13
PROVIDERS: ADMIT Hospitalist; ATTEND Hospitalist
PROC: 5A09357 Assistance with Respiratory Ventilation, Less than 24 Consecutive Hours, Continuous Positive Airway Pressure (ICD-10-PCS; 2024-07-16)
PROC: HZ2ZZZZ Detoxification Services for Substance Abuse Treatment (ICD-10-PCS; principal; 2024-07-20)
DX: A41.9 Sepsis, unspecified organism (principal); G93.41 Metabolic encephalopathy; I50.23 Acute on chronic systolic (congestive) heart failure; J96.01 Acute respiratory failure with hypoxia; J15.9 Unspecified bacterial pneumonia; E87.1 Hypo-osmolality and hyponatremia; J44.1 Chronic obstructive pulmonary disease with (acute) exacerbation; J45.901 Unspecified asthma with (acute) exacerbation; J44.0 Chronic obstructive pulmonary disease with (acute) lower respiratory infection; E11.9 Type 2 diabetes mellitus without complications; F10.229 Alcohol dependence with intoxication, unspecified; I11.0 Hypertensive heart disease with heart failure; I25.10 Atherosclerotic heart disease of native coronary artery without angina pectoris; E78.5 Hyperlipidemia, unspecified; F17.210 Nicotine dependence, cigarettes, uncomplicated; F41.9 Anxiety disorder, unspecified; I25.2 Old myocardial infarction; I25.5 Ischemic cardiomyopathy; I27.20 Pulmonary hypertension, unspecified; Z11.52 Encounter for screening for COVID-19; I45.10 Unspecified right bundle-branch block; I48.0 Paroxysmal atrial fibrillation; I69.398 Other sequelae of cerebral infarction; H53.469 Homonymous bilateral field defects, unspecified side; R00.0 Tachycardia, unspecified; R79.89 Other specified abnormal findings of blood chemistry; Y90.0 Blood alcohol level of less than 20 mg/100 ml; Z79.01 Long term (current) use of anticoagulants; Z79.4 Long term (current) use of insulin; Z79.82 Long term (current) use of aspirin; Z79.84 Long term (current) use of oral hypoglycemic drugs; Z79.899 Other long term (current) drug therapy; Z87.74 Personal history of (corrected) congenital malformations of heart and circulatory system; Z96.653 Presence of artificial knee joint, bilateral; Z86.79 Personal history of other diseases of the circulatory system
CPT/HCPCS: 36415; 36600; 71045; 71046; 80053; 80320; 82805; 83036; 83735; 83880; 84100; 84145; 84484; 85025; 85610; 85730; 87040; 87449; 87636; 93005; 93306; 94640; 94660; 94760; 96361; 96365; 96366; 96367; 96375; 96376; 99291

== ENCOUNTER 2024-11-25 20:30 | Inpatient (IN) | payer MEDICARE ==
--- NOTE | 2024-11-25 21:09 | ED ---
General Adult HPI - General Chief complaint: Chest Pain Stated complaint: pneumonia Time Seen by Provider: 11/25/24 20:37 Source: patient, EMS, RN notes reviewed, old records reviewed Mode of arrival: EMS - History of Present Illness Initial comments: 69-year-old male history of COPD and recurrent pneumonia presenting for evaluation of cough, dyspnea over the past 10 days. Patient was seen by primary care today and prescribed steroids and was told that he had developed pneumonia. Patient states that he was unable to get his medications filled and came to the hospital due to not feeling well. He has had some intermittent chest pain associated with his cough. No measured fever. Patient continues to smoke. - Related Data Home Medications Medication Instructions Recorded Confirmed ALPRAZolam [Xanax] 0.25 mg PO DAILY PRN 01/03/23 07/12/24 Albuterol Sulfate [Albuterol 2 puff INHALATION RT-Q4H PRN 01/03/23 07/12/24 Sulfate Hfa] Empagliflozin [Jardiance] 25 mg PO DAILY 01/03/23 07/12/24 Evolocumab [Repatha Sureclick] 140 mg SQ Q14D 01/03/23 07/12/24 Montelukast [Singulair] 10 mg PO HS 01/03/23 07/12/24 Repaglinide [Prandin] 2 mg PO AC-BID 01/03/23 07/12/24 glipiZIDE/METFORMIN HCL 1 tab PO DAILY 01/03/23 07/12/24 [glipiZIDE/METFORMIN HCL 5-500 mg] glipiZIDE/METFORMIN HCL 2 tab PO HS 01/03/23 07/12/24 [glipiZIDE/METFORMIN HCL 5-500 mg] traZODone HCL 100 mg PO HS 01/03/23 07/12/24 Apixaban [Eliquis] 5 mg PO BID 07/12/24 07/12/24 Cetirizine HCl [Zyrtec] 10 mg PO DAILY 07/12/24 07/12/24 Fluticasone Propion/Salmeterol 1 puff PO RT-DAILY 07/12/24 07/12/24 [Fluticasone-Salmeterol 500-50] Metoprolol Succinate (ER) [Toprol 50 mg PO DAILY 07/12/24 07/12/24 XL] Previous Rx's Medication Instructions Recorded Aspirin 81 mg PO DAILY 30 Days #30 tab 01/16/23 Dapagliflozin Propanediol [Farxiga] 10 mg PO DAILY 30 Days #30 tab 07/18/24 Furosemide [Lasix] 40 mg PO BID@0900,1600 30 Days #60 07/18/24 tab Losartan [Cozaar] 25 mg PO DAILY 30 Days #30 tab 07/18/24 Potassium Chloride 10 meq PO BID 30 Days #60 cap 07/18/24 predniSONE 10 mg PO DAILY 8 Days #12 tab 07/18/24 Allergies Allergy/AdvReac Type Severity Reaction Status Date / Time amlodipine AdvReac Mild Unknown Verified 11/25/24 20:38 hydrochlorothiazide AdvReac Unknown Verified 11/25/24 20:38 olmesartan AdvReac Unknown Verified 11/25/24 20:38 rosuvastatin AdvReac Unknown Verified 11/25/24 20:38 sitagliptin AdvReac Unknown Verified 11/25/24 20:38 [id number] Reductase AdvReac muscle Verified 11/25/24 20:38 Inhibitor cramps Review of Systems ROS Statement: Those systems with pertinent positive or pertinent negative responses have been documented in the HPI. ROS Other: All systems not noted in ROS Statement are negative. Past Medical History Past Medical History: COPD, CVA/TIA, Diabetes Mellitus, Hypertension, Pneumonia Additional Past Medical History / Comment(s): limited ROM to left shoulder History of Any Multi-Drug Resistant Organisms: None Reported Past Surgical History: Orthopedic Surgery Additional Past Surgical History / Comment(s): Venu Knee replacement. Past Anesthesia/Blood Transfusion Reactions: No Reported Reaction Additional Past Anesthesia/Blood Transfusion Reaction / Comment(s): no hx blood transfusion Past Psychological History: No Psychological Hx Reported Smoking Status: Current every day smoker Past Alcohol Use History: Rare Past Drug Use History: None Reported - Past Family History Mother Additional Family Medical History / Comment(s): dementia Father Family Medical History: Cancer Additional Family Medical History / Comment(s): bone,brain Sister(s) Family Medical History: Cancer Additional Family Medical History / Comment(s): lung/brain General Exam General appearance: alert, in no apparent distress Head exam: Present: atraumatic, normocephalic Eye exam: Present: normal appearance, PERRL ENT exam: Present: mucous membranes dry Neck exam: Present: normal inspection. Absent: tenderness Respiratory exam: Present: rhonchi, decreased breath sounds. Absent: respiratory distress, wheezes Cardiovascular Exam: Present: normal rhythm, tachycardia GI/Abdominal exam: Present: soft. Absent: distended, tenderness, guarding Extremities exam: Present: normal inspection Neurological exam: Present: alert, oriented X3 Psychiatric exam: Present: normal affect Course Vital Signs 11/25/24 11/25/24 11/25/24 20:32 21:35 21:37 Temperature 98.5 F Pulse Rate 110 H 105 H Pulse Rate [ 105 H Process Stripper ] Respiratory 24 21 Rate Blood Pressure 102/75 111/82 O2 Sat by Pulse 94 L 96 Oximetry 11/25/24 11/25/24 11/26/24 22:26 23:27 01:55 Temperature 97.7 F Pulse Rate 106 H 104 H 105 H Pulse Rate [ Process Stripper ] Respiratory 20 21 Rate Blood Pressure 140/89 129/69 O2 Sat by Pulse 93 L 93 L Oximetry Medical Decision Making - Medical Decision Making Was pt. sent in by a medical professional or institution (Dr. PA, PHARMACEUTICAL WORKER, urgent care, hospital, or prison...) When possible be specific @ -No Did you speak to anyone other than the patient for history (EMS, parent, family, police, friend...)? What history was obtained from this source @ -No Did you review nursing and triage notes (agree or disagree)? Why? @ -I reviewed and agree with nursing and triage notes Were old charts reviewed (outside hosp., previous admission, EMS record, old EKG, old radiological studies, urgent care reports/EKG's, prison records)? Report findings @ -No old charts were reviewed Differential Dyspnea: Coronary syndrome, arrhythmia, tamponade, asthma, COPD, pulmonary embolism, pn eumonia, pneumothorax, pulmonary effusion, anaphylaxis, diabetic ketoacidosis, flailed chest, pulmonary contusion, diaphragmatic rupture, anemia, neuromuscular, this is not meant to be an all-inclusive list. ] EKG interpreted by me (3pts min.). @ -Sinus tachycardia rate of 110 NM interval 176, QRS duration 137, QTc 474 X-rays interpreted by me (1pt min.). @ -[Chest x-ray showing trace pleural effusion CT interpreted by me (1pt min.). @CT of the chest ordered secondary to high D-dimer showing multiple findings concerning for cancer with metastases no pulmonary embolism. U/S interpreted by me (1pt. min.). @Ultrasound of the gallbladder cholelithiasis no acute cholecystitis What testing was considered but not performed or refused? (CT, X-rays, U/S, labs)? Why? @ -None What meds were considered but not given or refused? Why? @ -None Did you discuss the management of the patient with other professionals (professionals i.e. , PA, PHARMACEUTICAL WORKER, lab, RT, psych nurse, social director, leather worker, teacher, zoology technical officer, telehealth case manager)? Give summary @[facility] Was smoking cessation discussed for >3mins.? @ -No Was critical care preformed (if so, how long)? @ -No Were there social determinants of health that impacted care today? How? (Homelessness, low income, unemployed, alcoholism, drug addiction, tr ansportation, low edu. Level, literacy, decrease access to med. care, fci, rehab)? @ -No Was there de-escalation of care discussed even if they declined (Discuss DNR or withdrawal of care, Hospice)? DNR status @ -No What co-morbidities impacted this encounter? (DM, HTN, Smoking, COPD, CAD, Cancer, CVA, ARF, Chemo, Hep., AIDS, mental health diagnosis, sleep apnea, morbid obesity)? @ -COPD, current smoker. Was patient admitted / discharged? Hospital course, mention meds given and route, prescriptions, significant lab abnormalities, going to OR and other pertinent info. @ -69-year-old male presenting with dyspnea progressive with associated cough. Patient has a normal CBC, CMP shows transaminitis, elevated blood glucose at at 360 with CO2 of 14 and an anion gap of 18. Patient has an elevated troponin and an elevated BNP as well as an elevated D-dimer. Continued workup in the emergency department including ultrasound and CT angiography of the chest is ordered. Patient has noted to have concern for metastatic cancer. There is no pulmonary embolism present. He is given IV fluid and IV insulin for elevated blood sugar. He started on heparin for elevated troponin his level will be trended. He will be admitted to internal medicine, case discussed with [facility]. Pulmonology, oncology and cardiology will all be placed on consult. Undiagnosed new problem with uncertain prognosis? @ -No Drug Therapy requiring intensive monitoring for toxicity (Heparin, Nitro, Insulin, Cardizem)? @ -No Were any procedures done? @ -No Diagnosis/symptom? @Concern for metastatic cancer, troponin elevation, transaminitis Acute, or Chronic, or Acute on Chronic? @ -Acute Uncomplicated (without systemic symptoms) or Complicated (systemic symptoms)? @ -Default Side effects of treatment? @ -No Exacerbation, Progression, or Severe Exacerbation? @ -No Poses a threat to life or bodily function? How? (Chest pain, [place], [place], pneumonia, PE, COPD, DKA, ARF, appy, cholecystitis, CVA, Diverticulitis, Homicidal, Suicidal, threat to staff... and all critical care pts) @ -[Yes, metastatic cancer - Lab Data Result diagrams: 11/25/24 21:09 11/25/24 21:09 Lab Results 11/25/24 11/25/24 11/25/24 Range/Units 21:09 21:09 21:09 WBC 9.29 (4.50-10.00) 10*3/uL RBC 4.41 (4.40-5.60) 10*6/uL Hgb 14.6 (13.0-17.0) g/dL Hct 42.2 (39.6-50.0) % MCV 95.7 (80.0-97.0) fL MCH 33.1 H (27.0-32.0) pg MCHC 34.6 (32.0-37.0) g/dL Plt Count 392 (140-440) 10*3/uL MPV 10.1 (9.5-12.2) fL Immature Gran % (Auto) 0.3 % Neutrophils % Not Reportable Neutrophils % (Manual) 91 % Lymphocytes % Not Reportable Lymphocytes % (Manual) 8 % Monocytes % Not Reportable Monocytes % (Manual) 1 % Eosinophils % Not Reportable Basophils % Not Reportable Immature Gran # 0.03 (0.00-0.04) 10*3/uL Neutrophils # Not Reportable Neutrophils # (Manual) 8.45 H (1.3-7.7) k/uL Lymphocytes # Not Reportable Lymphocytes # (Manual) 0.74 L (1.0-4.8) k/uL Monocytes # Not Reportable Monocytes # (Manual) 0.09 (0-1.0) k/uL Eosinophils # Not Reportable Basophils # Not Reportable Nucleated RBCs 0 (0-0) /100 WBC Manual Slide Review Performed Large Platelets Present PT 11.9 (10.0-12.5) sec INR 1.1 (<1.2) APTT 22.8 (22.0-30.0) sec D-Dimer (<0.60) mg/L FEU Sodium 132 L (137-145) mmol/L Potassium 5.3 H (3.5-5.1) mmol/L Chloride 100 (98-107) mmol/L Carbon Dioxide 14 L (22-30) mmol/L Anion Gap 18 mmol/L BUN 31 H (9-20) mg/dL Creatinine 1.14 (0.66-1.25) mg/dL Est GFR (CKD-EPI)AfAm 75 (>60 ml/min/1.73 sqM) Est GFR (CKD-EPI)NonAf 65 (>60 ml/min/1.73 sqM) Glucose 362 H (74-99) mg/dL POC Glucose (mg/dL) (70-110) mg/dL POC Glu Load Dispatcher ID Lactic Ac Sepsis Rflx Plasma Lactic Acid Fransico (0.7-2.0) mmol/L Calcium 8.9 (8.4-10.2) mg/dL Magnesium 2.0 (1.6-2.3) mg/dL Total Bilirubin 1.4 H (0.2-1.3) mg/dL AST 69 H (17-59) U/L ALT 57 H (4-49) U/L Alkaline Phosphatase 1118 H (38-126) U/L Troponin I (0.000-0.034) ng/mL NT-Pro-B Natriuret Pep 13026 pg/mL Total Protein 6.4 (6.3-8.2) g/dL Albumin 3.1 L (3.5-5.0) g/dL Influenza Type A (PCR) (Not Detectd) Influenza Type B (PCR) (Not Detectd) RSV (PCR) (Not Detectd) SARS-CoV-2 (PCR) (Not Detectd) 11/25/24 11/25/24 11/25/24 Range/Units 21:09 21:09 21:33 WBC (4.50-10.00) 10*3/uL RBC (4.40-5.60) 10*6/uL Hgb (13.0-17.0) g/dL Hct (39.6-50.0) % MCV (80.0-97.0) fL MCH (27.0-32.0) pg MCHC (32.0-37.0) g/dL Plt Count (140-440) 10*3/uL MPV (9.5-12.2) fL Immature Gran % (Auto) % Neutrophils % Neutrophils % (Manual) % Lymphocytes % Lymphocytes % (Manual) % Monocytes % Monocytes % (Manual) % Eosinophils % Basophils % Immature Gran # (0.00-0.04) 10*3/uL Neutrophils # Neutrophils # (Manual) (1.3-7.7) k/uL Lymphocytes # Lymphocytes # (Manual) (1.0-4.8) k/uL Monocytes # Monocytes # (Manual) (0-1.0) k/uL Eosinophils # Basophils # Nucleated RBCs (0-0) /100 WBC Manual Slide Review Large Platelets PT (10.0-12.5) sec INR (<1.2) APTT (22.0-30.0) sec D-Dimer (<0.60) mg/L FEU Sodium (137-145) mmol/L Potassium (3.5-5.1) mmol/L Chloride (98-107) mmol/L Carbon Dioxide (22-30) mmol/L Anion Gap mmol/L BUN (9-20) mg/dL Creatinine (0.66-1.25) mg/dL Est GFR (CKD-EPI)AfAm (>60 ml/min/1.73 sqM) Est GFR (CKD-EPI)NonAf (>60 ml/min/1.73 sqM) Glucose (74-99) mg/dL POC Glucose (mg/dL) (70-110) mg/dL POC Glu Load Dispatcher ID Lactic Ac Sepsis Rflx Plasma Lactic Acid Fransico 3.2 H* (0.7-2.0) mmol/L Calcium (8.4-10.2) mg/dL Magnesium (1.6-2.3) mg/dL Total Bilirubin (0.2-1.3) mg/dL AST (17-59) U/L ALT (4-49) U/L Alkaline Phosphatase (38-126) U/L Troponin I 0.054 H* (0.000-0.034) ng/mL NT-Pro-B Natriuret Pep pg/mL Total Protein (6.3-8.2) g/dL Albumin (3.5-5.0) g/dL Influenza Type A (PCR) Not Detected (Not Detectd) Influenza Type B (PCR) Not Detected (Not Detectd) RSV (PCR) Not Detected (Not Detectd) SARS-CoV-2 (PCR) Not Detected (Not Detectd) 11/25/24 11/25/24 11/25/24 Range/Units 21:50 23:25 23:25 WBC (4.50-10.00) 10*3/uL RBC (4.40-5.60) 10*6/uL Hgb (13.0-17.0) g/dL Hct (39.6-50.0) % MCV (80.0-97.0) fL MCH (27.0-32.0) pg MCHC (32.0-37.0) g/dL Plt Count (140-440) 10*3/uL MPV (9.5-12.2) fL Immature Gran % (Auto) % Neutrophils % Neutrophils % (Manual) % Lymphocytes % Lymphocytes % (Manual) % Monocytes % Monocytes % (Manual) % Eosinophils % Basophils % Immature Gran # (0.00-0.04) 10*3/uL Neutrophils # Neutrophils # (Manual) (1.3-7.7) k/uL Lymphocytes # Lymphocytes # (Manual) (1.0-4.8) k/uL Monocytes # Monocytes # (Manual) (0-1.0) k/uL Eosinophils # Basophils # Nucleated RBCs (0-0) /100 WBC Manual Slide Review Large Platelets PT (10.0-12.5) sec INR (<1.2) APTT (22.0-30.0) sec D-Dimer 1.91 H (<0.60) mg/L FEU Sodium (137-145) mmol/L Potassium (3.5-5.1) mmol/L Chloride (98-107) mmol/L Carbon Dioxide (22-30) mmol/L Anion Gap mmol/L BUN (9-20) mg/dL Creatinine (0.66-1.25) mg/dL Est GFR (CKD-EPI)AfAm (>60 ml/min/1.73 sqM) Est GFR (CKD-EPI)NonAf (>60 ml/min/1.73 sqM) Glucose (74-99) mg/dL POC Glucose (mg/dL) (70-110) mg/dL POC Glu Load Dispatcher ID Lactic Ac Sepsis Rflx Y Plasma Lactic Acid Fransico (0.7-2.0) mmol/L Calcium (8.4-10.2) mg/dL Magnesium (1.6-2.3) mg/dL Total Bilirubin (0.2-1.3) mg/dL AST (17-59) U/L ALT (4-49) U/L Alkaline Phosphatase (38-126) U/L Troponin I 0.089 H* (0.000-0.034) ng/mL NT-Pro-B Natriuret Pep pg/mL Total Protein (6.3-8.2) g/dL Albumin (3.5-5.0) g/dL Influenza Type A (PCR) (Not Detectd) Influenza Type B (PCR) (Not Detectd) RSV (PCR) (Not Detectd) SARS-CoV-2 (PCR) (Not Detectd) 11/25/24 11/26/24 Range/Units 23:59 02:01 WBC (4.50-10.00) 10*3/uL RBC (4.40-5.60) 10*6/uL Hgb (13.0-17.0) g/dL Hct (39.6-50.0) % MCV (80.0-97.0) fL MCH (27.0-32.0) pg MCHC (32.0-37.0) g/dL Plt Count (140-440) 10*3/uL MPV (9.5-12.2) fL Immature Gran % (Auto) % Neutrophils % Neutrophils % (Manual) % Lymphocytes % Lymphocytes % (Manual) % Monocytes % Monocytes % (Manual) % Eosinophils % Basophils % Immature Gran # (0.00-0.04) 10*3/uL Neutrophils # Neutrophils # (Manual) (1.3-7.7) k/uL Lymphocytes # Lymphocytes # (Manual) (1.0-4.8) k/uL Monocytes # Monocytes # (Manual) (0-1.0) k/uL Eosinophils # Basophils # Nucleated RBCs (0-0) /100 WBC Manual Slide Review Large Platelets PT (10.0-12.5) sec INR (<1.2) APTT (22.0-30.0) sec D-Dimer (<0.60) mg/L FEU Sodium (137-145) mmol/L Potassium (3.5-5.1) mmol/L Chloride (98-107) mmol/L Carbon Dioxide (22-30) mmol/L Anion Gap mmol/L BUN (9-20) mg/dL Creatinine (0.66-1.25) mg/dL Est GFR (CKD-EPI)AfAm (>60 ml/min/1.73 sqM) Est GFR (CKD-EPI)NonAf (>60 ml/min/1.73 sqM) Glucose (74-99) mg/dL POC Glucose (mg/dL) 369 H (70-110) mg/dL POC Glu Load Dispatcher ID Jovani Coronel Lactic Ac Sepsis Rflx Plasma Lactic Acid Fransico 2.0 (0.7-2.0) mmol/L Calcium (8.4-10.2) mg/dL Magnesium (1.6-2.3) mg/dL Total Bilirubin (0.2-1.3) mg/dL AST (17-59) U/L ALT (4-49) U/L Alkaline Phosphatase (38-126) U/L Troponin I (0.000-0.034) ng/mL NT-Pro-B Natriuret Pep pg/mL Total Protein (6.3-8.2) g/dL Albumin (3.5-5.0) g/dL Influenza Type A (PCR) (Not Detectd) Influenza Type B (PCR) (Not Detectd) RSV (PCR) (Not Detectd) SARS-CoV-2 (PCR) (Not Detectd) Disposition Clinical Impression: Metastatic cancer, Elevated troponin, COPD exacerbation Disposition: ADMITTED IP TO THIS HOSP Condition: Serious Is patient prescribed a controlled substance at d/c from ED?: No Referrals: None,Stated [REFERRING] - 1-2 days Time of Disposition: 02:43
[2024-11-25 21:18] LABS: HCT 42.2 % (39.6-50.0); HGB 14.6 g/dL (13.0-17.0); MCH 33.1 pg (27.0-32.0); MCHC 34.6 g/dL (32.0-37.0); MCV 95.7 fL (80.0-97.0); Mean Platelet Volume 10.1 fL (9.5-12.2); Platelet Count 392 10*3/uL (140-440); RBC 4.41 10*6/uL (4.40-5.60); RDW 14.6 % (11.5-14.5); WBC 9.29 10*3/uL (4.50-10.00)
[2024-11-25 21:29] LABS: INR 1.1 (<1.2)
[2024-11-25 21:30] LABS: Partial Thromboplastin Time 22.8 sec (22.0-30.0); Prothrombin Time 11.9 sec (10.0-12.5)
[2024-11-25 21:32] LABS: ALT 57 U/L (4-49); AST 69 U/L (17-59); African American GFR (CKD) 75 (>60 ml/min/1.73 sqM); Albumin 3.1 g/dL (3.5-5.0); Anion Gap 18 mmol/L; Blood Urea Nitrogen 31 mg/dL (9-20); Calcium 8.9 mg/dL (8.4-10.2); Carbon Dioxide 14 mmol/L (22-30); Chloride 100 mmol/L (98-107); Glucose 362 mg/dL (74-99); Non-African American GFR(CKD) 65 (>60 ml/min/1.73 sqM); Potassium 5.3 mmol/L (3.5-5.1); Sodium 132 mmol/L (137-145); Total Bilirubin 1.4 mg/dL (0.2-1.3); Total Protein 6.4 g/dL (6.3-8.2)
[2024-11-25] MEDS: SODIUM CHLORIDE 0.9% 500 ML 500 ML IV STA (21:34)
[2024-11-25] MEDS: HYDROmorphone 0.5 MG/0.5 ML SYRINGE IVP STA (21:37)
[2024-11-25 21:40] LABS: NT-Pro-B-Type Natriuretic Pept 28100 pg/mL
[2024-11-25 21:41] LABS: Alkaline Phosphatase 1118 U/L (38-126)
[2024-11-25] MEDS: methylPREDNISolone SOD SUCCI 125 MG/2 ML VIAL IV STA (21:52)
[2024-11-25] MEDS: ASPIRIN 325 MG TAB PO STA (22:18)
[2024-11-25] MEDS: IPRATROPIUM-ALBUTEROL 3 ML NEB INHALATION STA (22:24)
[2024-11-25] MEDS: ALBUTEROL NEBULIZED 2.5 MG/3 ML INHALATION STA (22:24)
[2024-11-25 22:34] LABS: Influenza A Not Detected (Not Detectd); Influenza B Not Detected (Not Detectd); RSV Not Detected (Not Detectd)
[2024-11-25 22:44] LABS: Lymphocytes # (M) 0.74 k/uL (1.0-4.8); Monocytes # (M) 0.09 k/uL (0-1.0); Neutrophils # (M) 8.45 k/uL (1.3-7.7); Neutrophils % (M) 91 %; Nucleated Red Blood Cells 0 /100 WBC (0-0); Total Cells Counted 100
[2024-11-25 22:50] LABS: Large Platelets Present
--- NOTE | 2024-11-26 00:41 | XR ---
EXAM: XR Chest, 2 Views CLINICAL HISTORY: pt presents with chest pain starting tonight. Pt seen by pcp today and dx with pna. Pt had meds sent to pharmacy and has not picked up. Hx COPD and smoker. TECHNIQUE: Frontal and lateral views of the chest. COMPARISON: 03/28/2023 FINDINGS: Lungs: Unremarkable. No consolidation. Pleural space: Small bilateral pleural effusions. Mediastinum: Mild cardiomegaly. Calcified aorta. Bones/joints: No acute findings. Tubes, lines and devices: Likely atrial septal closure device is again noted. IMPRESSION: Small bilateral pleural effusions.
[2024-11-26] MEDS: HYDROmorphone 0.5 MG/0.5 ML SYRINGE IVP STA (01:53)
--- NOTE | 2024-11-26 01:54 | US ---
Exam: US GALLBLADDER DATE OF EXAM: 11/26/2024 COMPARISON: US 10/02/17, CT abdomen and pelvis from today CLINICAL INDICATION: Male, 69 years old with history of epigastric pain/transaminitis; abd pain. Patient altered mental status. Very confused and moving throughout entirety of exam TECHNIQUE: Grayscale and color Doppler imaging of the right upper quadrant was performed. Limitation: Patient's confusion. Patient was not cooperative and was moving FINDINGS: EXAM MEASUREMENTS: Liver Length: 15.8 cm Gallbladder Wall: 0.2 cm CBD: 0.6 cm Right Kidney: 9.6 x 5.7 x 4.9 cm Pancreas: Obscured by bowel gas Liver: nodular contour. Very heterogeneous. Multiple mass like areas visualized. The largest in the left lobe is hypoechoic measuring 3.0 x 2. 5 x 2.4cm, and has a small amount of vascularity within. Gallbladder: 6mm stone in the body of the gallbladder Evidence for sonographic Andersen's sign: no CBD: upper limits of normal Right Kidney: Suspect echogenic renal parenchyma Impression: Liver metastases, better seen on comparison CT from today. Suspect cirrhosis. Small cholelithiasis. Hyperechoic renal parenchyma may suggest medical renal disease.
[2024-11-26] MEDS: INSULIN REGULAR 100 UNIT/ML VIAL (IV) IV ONE (01:57)
[2024-11-26 02:03] LABS: Glucose,Whole Blood 369 mg/dL (70-110)
[2024-11-26] MEDS: HEPARIN SOD,PORK IN 0.45% NACL 25,000 UNIT in 0.45% NACL 1 250ML.BAG IV SCH (02:09)
[2024-11-26] MEDS: HEPARIN SODIUM 1,000 UN/ML (10ML VL) IV ONE (02:09)
--- NOTE | 2024-11-26 02:16 | CT ---
EXAM: CT Angiography Chest With Intravenous Contrast CLINICAL HISTORY: pt presents with chest pain starting tonight. Pt seen by pcp today and dx with pna. Pt had meds sent to pharmacy and has not picked up. Hx COPD and smoker. 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 Coronal and sagittal reconstructions are performed. CTDI is 23.2 mGy and DLP is 399.3 mGy-cm. This CT exam was performed using one or more of the following dose reduction techniques: automated exposure control, adjustment of the mA and/or kV according to patient size, and/or use of iterative reconstruction technique. MIP reconstructed images were created and reviewed. COMPARISON: No relevant prior studies available. FINDINGS: Pulmonary arteries: Unremarkable. No pulmonary embolism. Aorta: Small amount of atherosclerotic calcifications. No thoracic aortic aneurysm. Great vessels of aortic arch: Suspect severe flow-limiting stenosis near takeoff of left subclavian artery due to heavy calcifications. Lungs: Small patchy nodular opacities scattered in both lungs. Pleural space: Small bilateral pleural effusions. No pneumothorax. Heart: Mild cardiomegaly. Septal closure device. No significant pericardial effusion. No evidence of RV dysfunction. Bones/joints: No acute findings. Soft tissues: Unremarkable. Lymph nodes: Unremarkable. No enlarged lymph nodes. Liver: Multiple liver metastases. Pancreas: Several hypoenhancing lesions in the body and tail of the pancreas. Largest is more proximally measuring about 3 x 5 cm on series 401 image 16. IMPRESSION: 1. No pulmonary embolism. 2. Pancreatic neoplasms. 3. Multiple liver metastases. 4. Small patchy nodular opacities scattered in both lungs and the above impressions, favor metastatic rather than infectious etiologies. 5. Small bilateral pleural effusions. 6. Suspect severe flow-limiting stenosis near takeoff of left subclavian artery due to heavy calcifications.
[2024-11-26] MEDS: SODIUM CHLORIDE 0.9% 500 ML 500 ML IV ONE (02:18)
[2024-11-26] MEDS ORDERED: NALOXONE 0.4 MG/ML 1 ML VIAL IV PRN (02:36)
[2024-11-26 02:59] LABS: Glucose,Whole Blood 323 mg/dL (70-110)
[2024-11-26] MEDS: SODIUM CHLORIDE 0.9% 1,000 ML IV SCH (05:04)
--- NOTE | 2024-11-26 05:27 | P.CNPUL ---
History of Present Illness Consult date: 11/26/24 Requesting physician: Jya Campbell Reason for consult: other (Suspected metastatic disease, dyspnea) Chief complaint: Dyspnea History of present illness: Patient is a 69-year-old male with past medical history significant for COPD, current heavy tobacco smoker, hypertension, hyperlipidemia, diabetes mellitus, CVA, heart failure, PFO with previous closure, atrial fibrillation, alcoholism. Recent hospitalization July, for combination of COPD/CHF exacerbation. Patient currently a poor historian. According to ER documentation, patient brought in by EMS last night with increased work of breathing. Also, associated chest pain. Stated he was recently diagnosed with pneumonia by his PCP. ED workup including a D-dimer that was elevated. Inciting chest CT angio protocol which was negative for pulmonary embolism. It is concerning for diffuse metastasis with multiple nodules/masses within the liver, body and tail of the pancreas, and also small patchy nodular opacities in bilateral lungs, favoring metastatic deposits. Small bilateral pleural effusions. Incidentally, noted severe flow-limiting stenosis near takeoff of the left subclavian artery due to heavy calcifications. CBC unremarkable for leukocytosis. Hemoglobin 14.6. Platelets 392. PT 11.9, INR 1.1, APTT 22.8. CMP: Sodium 132, potassium 5.3, chloride 100, serum bicarb 14, BUN 31, creatinine 1.14, glucose 362. Total bilirubin 1.4, AST 69, ALT 57, ALP 1118. Ultrasound of the abdomen concerning for liver metastasis and possible cirrhosis. Small cholelithiasis without cholecystitis. NT-proBNP significantly elevated at 28,100. Elevated serial troponins at 0.054, 0.0189, 2.74 respectively. EKG: Sinus tachycardia, rate 110 bpm, interventricular conduction delay, no acute ST elevations. Patient was started on IV heparin per protocol in the ED. Eliquis is on hold. Viral 4 Plex negative for influenza A/B, RSV, COVID. Patient currently being evaluated in the ED. He is on 3 L/min nasal cannula. Not in any apparent distress. States he went to go see his primary care provider, Jodie, a physician assistant county engineer out of Dr. Pendleton's office. Sent for chest x-ray, and told he he had pneumonia. He has been more short of breath than baseline. Also, has a congested cough. No sputum production or hemoptysis. Denies sick contacts. Denies fevers or chills. Does state that he previously stopped taking his Lasix approximately 1 or 2 months ago, and has had some increased lower extremity swelling. Previously reported chest pain is resolved. Currently on IV heparin per protocol. 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 Boles. Current vital signs: Temperature 98 F, heart rate 99 bpm, blood pressure 124/75 mmHg, nontachypneic, SpO2 93% on 3 L/min nasal cannula. Review of Systems Constitutional: Denies chills, Denies fever, Denies poor appetite, Denies weight gain, Denies weight loss Ears, nose, mouth and throat: Denies dysphagia, Denies headache, Denies nasal congestion, Denies nasal discharge, Denies neck lump, Denies sinus pain, Denies sinus pressure, Denies sore throat, Denies voice changes Cardiovascular: Reports chest pain, Reports leg edema, Reports shortness of breath, Denies lightheadedness, Denies orthopnea, Denies palpitations, Denies paroxysmal nocturnal dyspnea Respiratory: Reports congestion, Reports cough, Reports home oxygen, Denies cough with sputum, Denies hemoptysis Gastrointestinal: Denies abdominal pain, Denies change in bowel habits, Denies constipation, Denies diarrhea, Denies nausea, Denies vomiting Genitourinary: Denies dysuria, Denies flank pain, Denies hematuria Musculoskeletal: Denies limitation of motion Integumentary: Denies rash Neurological: Reports loss of vision (Chronic from prior strokes), Denies head injury, Denies headaches, Denies paralysis, Denies paresthesias, Denies seizures, Denies syncope Psychiatric: Denies anxiety, Denies depression Past Medical History Past Medical History: COPD, CVA/TIA, Diabetes Mellitus, Hypertension, Pneumonia Additional Past Medical History / Comment(s): limited ROM to left shoulder History of Any Multi-Drug Resistant Organisms: None Reported Past Surgical History: Orthopedic Surgery Additional Past Surgical History / Comment(s): Venu Knee replacement. Past Anesthesia/Blood Transfusion Reactions: No Reported Reaction Additional Past Anesthesia/Blood Transfusion Reaction / Comment(s): no hx blood transfusion Past Psychological History: No Psychological Hx Reported Smoking Status: Current every day smoker Past Alcohol Use History: Rare Past Drug Use History: None Reported - Past Family History Mother Additional Family Medical History / Comment(s): dementia Father Family Medical History: Cancer Additional Family Medical History / Comment(s): bone,brain Sister(s) Family Medical History: Cancer Additional Family Medical History / Comment(s): lung/brain Medications and Allergies Home Medications Medication Instructions Recorded Confirmed Type Albuterol Sulfate [Albuterol 2 puff INHALATION RT-Q4H PRN 01/03/23 11/26/24 History Sulfate Hfa] Empagliflozin [Jardiance] 25 mg PO DAILY 01/03/23 11/26/24 History Evolocumab [Repatha Sureclick] 140 mg SQ Q14D 01/03/23 11/26/24 History Montelukast [Singulair] 10 mg PO HS 01/03/23 11/26/24 History traZODone HCL 100 mg PO HS 01/03/23 11/26/24 History Apixaban [Eliquis] 5 mg PO BID 07/12/24 11/26/24 History Fluticasone Propion/Salmeterol 1 puff INHALATION RT-BID 07/12/24 11/26/24 History [Fluticasone-Salmeterol 500-50] Losartan [Cozaar] 25 mg PO DAILY 30 Days #30 tab 07/18/24 11/26/24 Rx Insulin Glargine,Hum.rec.anlog 25 units SQ DAILY 11/26/24 11/26/24 History [Juani Matta] Allergies Allergy/AdvReac Type Severity Reaction Status Date / Time amlodipine AdvReac Severe muscle Verified 11/26/24 09:55 cramps hydrochlorothiazide AdvReac Severe muscle Verified 11/26/24 09:55 cramps olmesartan AdvReac Severe muscle Verified 11/26/24 09:55 cramps rosuvastatin AdvReac Severe muscle Verified 11/26/24 09:55 cramps sitagliptin AdvReac Severe muscle Verified 11/26/24 09:55 cramps [id number] Reductase AdvReac Severe muscle Verified 11/26/24 09:55 Inhibitor cramps Physical Exam Vitals: Vital Signs Temp Pulse Pulse Resp BP Pulse Ox 11/26/24 03:02 98.0 F 99 20 124/75 92 L 11/26/24 01:55 97.7 F 105 H 21 129/69 93 L 11/25/24 23:27 104 H 20 140/89 93 L 11/25/24 22:26 106 H 11/25/24 21:37 105 H 11/25/24 21:35 105 H 21 111/82 96 11/25/24 20:32 98.5 F 110 H 24 102/75 94 L Intake and Output 11/25/24 11/25/24 11/26/24 14:59 22:59 06:59 Other: Weight 75.296 kg GENERAL EXAM: Alert, 69-year-old male, comfortable in no apparent distress. Persistent congested cough. HEAD: Normocephalic and atraumatic EYES: Normal reaction of pupils, equal size. Nonicteric sclera NOSE: Clear with pink turbinates. THROAT: No erythema or exudates. NECK: No masses, no JVD. CHEST: No chest wall deformity. LUNGS: Equal air entry with scattered bilateral rhonchi. On 3 L/min nasal cannula. No conversational dyspnea or accessory muscle use.. CVS: S1 and S2 normal with no audible murmur, regular rhythm. No extra heart sounds ABDOMEN: No hepatosplenomegaly, active bowel sounds, no guarding or rigidity. SPINE: No scoliosis or deformity SKIN: No rashes CENTRAL NERVOUS SYSTEM: No focal deficits, tone is normal in all 4 extremities. EXTREMITIES: There is 2+ bilateral lower extremity edema. No clubbing, or cyanosis. Peripheral pulses are intact. Results - Laboratory Findings CBC and BMP: 11/25/24 21:09 11/26/24 10:25 PT/INR, D-dimer PT 11.9 sec (10.0-12.5) 11/25/24 21:09 INR 1.1 (<1.2) 11/25/24 21:09 D-Dimer 1.91 mg/L FEU (<0.60) H 11/25/24 23:25 Abnormal lab findings: Abnormal Labs 11/25/24 11/25/24 11/25/24 21:09 21:09 21:09 MCH 33.1 H Neutrophils # (Manual) 8.45 H Lymphocytes # (Manual) 0.74 L D-Dimer Sodium 132 L Potassium 5.3 H Carbon Dioxide 14 L BUN 31 H Glucose 362 H POC Glucose (mg/dL) Plasma Lactic Acid Fransico Total Bilirubin 1.4 H AST 69 H ALT 57 H Alkaline Phosphatase 1118 H Troponin I 0.054 H* Albumin 3.1 L 11/25/24 11/25/24 11/25/24 21:09 23:25 23:25 MCH Neutrophils # (Manual) Lymphocytes # (Manual) D-Dimer 1.91 H Sodium Potassium Carbon Dioxide BUN Glucose POC Glucose (mg/dL) Plasma Lactic Acid Fransico 3.2 H* Total Bilirubin AST ALT Alkaline Phosphatase Troponin I 0.089 H* Albumin 11/26/24 11/26/24 02:01 02:58 MCH Neutrophils # (Manual) Lymphocytes # (Manual) D-Dimer Sodium Potassium Carbon Dioxide BUN Glucose POC Glucose (mg/dL) 369 H 323 H Plasma Lactic Acid Fransico Total Bilirubin AST ALT Alkaline Phosphatase Troponin I Albumin - Diagnostic Findings Chest x-ray: image reviewed CT scan - chest: image reviewed Assessment and Plan Assessment: Acute hypoxemic respiratory failure, likely secondary to a combination of c hronic systolic CHF and acute COPD exacerbation, currently on 3 L/min nasal cannula. Chest x-ray remarkable for cardiomegaly and small bilateral pleural effusions. NT proBNP significantly elevated at 28,100. Concern for metastatic cancer, with unknown primary; chest CT angiogram negative for pulmonary embolism. It is concerning for diffuse metastatic disease with multiple nodules/masses within the liver, body and tail of the pancreas, and also small patchy nodular opacities in bilateral lungs, favoring metastatic deposits. Small bilateral pleural effusions, not large enough for thoracentesis Elevated troponins, rule out non-ST elevation MA, currently on IV heparin per protocol Elevated LFTs, likely secondary to liver metastasis Severe COPD, with an FEV1 39% of predicted Chronic ongoing tobacco dependence, current 1 pack/day smoker History of CVA, with residual homonymous hemianopia History of diabetes mellitus type II History of hypertension History of hyperlipidemia History of heart failure with reduced ejection fraction, most recent available echocardiogram from June, estimating severely reduced LV function with an EF of 15% History of paroxysmal atrial fibrillation, normally anticoagulated on Eliquis which was on hold, current rhythm sinus. History of PFO with closure History of alcoholism Plan: Patient's medications, labs, imaging reviewed Concern for metastatic disease, as noted above, primary is unknown and will need to be investigated Oncology is consulted Currently on 3 L/min nasal cannula Add bronchodilators, Symbicort Continue Solu-Medrol Started on IV heparin per protocol in the ED Cardiology also consulted Case to be discussed with Dr. Trevizo, further recommendations to follow I have personally seen and examined the patient, performed the documentation and the assessment and plan as written. Number of minutes spent on the visit:20 This is a joint evaluation that was done along with the nurse practitioner. This evaluation was done and 32 minutes. Patient is presenting with chest pain and shortness of breath. He ruled in for an acute NSTEMI. CTA of the chest showed no evidence of any pulm embolism and there was evidence of multiple hepatic m metastatic lesions and small patchy nodular opacities scattered throu ghout the lung arredondo concerning of metastatic disease. There is also indication of a pancreatic mass. The CAT scan showed multiple pancreatic masses largest and more prominent proximally in the pancreas measuring 3 x 5 cm in size. Several hypoenhancing lesions in the body and tail of the pancreas were also present. As such, the patient will need further malignancy workup. He is known to have COPD. Overall respiratory status is stable for now. The patient is currently on 3 L of oxygen by nasal cannula with a pulse ox of 98%. He is on IV heparin. He is also on bronchodilators and steroids. Cardiology consultation has been requested. Oncology consultation has also been requested. CAT scan of the abdomen and pelvis in addition to an echocardiogram are also in order. Noted his troponins peaked at 10.2. Time with Patient: Greater than 30
[2024-11-26] MEDS: HEPARIN SODIUM 1,000 UN/ML (10ML VL) IV PRN (07:40)
[2024-11-26] MEDS: SYMBICORT 160-4.5 MCG INHALER INHALATION SCH (08:29)
[2024-11-26] MEDS: IPRATROPIUM-ALBUTEROL 3 ML NEB INHALATION PRN (08:29)
[2024-11-26] MEDS: METOPROLOL SUCCINATE (ER) 50 MG TAB.ER.24H PO SCH (09:41)
[2024-11-26] MEDS: ASPIRIN 81 MG PO SCH (09:41)
[2024-11-26] MEDS: EZETIMIBE 10 MG TAB PO SCH (09:41)
[2024-11-26] MEDS: methylPREDNISolone SOD SUCCI 40 MG/ML 1 ML VIAL IV SCH (09:42)
--- NOTE | 2024-11-26 09:48 | P.CRDCN ---
History of Present Illness History of present illness: HISTORY OF PRESENT ILLNESS: This is a 69-year-old male with a past medical history significant for paroxysmal atrial fibrillation, hypertension, hyperlipidemia with statin intolerance, nicotine dependence. Patient follows in the office with Dr. Boles. We have been asked to see the patient in consultation for elevated troponins. Patient examined at the bedside in the emergency room. Patient states he was recently evaluated by his primary care physician and was diagnosed with pneumon ia. He states 2 days ago he had an episode of chest pressure at home with radiation into his left arm. He states he has not had chest pain like that in the past. He also reports having some shortness of breath. He denies any dizziness or lightheadedness. Denies any episodes of syncope. He does report recent weight loss. Patient was found to have elevated troponins and was started on IV heparin. He denies any chest pain at the time of examination. DIAGNOSTICS: - EKG reveals sinus tachycardia with no signs of acute ischemia. - Chest xray small bilateral pleural effusions. - Chest CTA: Negative for pulmonary embolism. Pancreatic neoplasm, multiple liver metastasis, small patchy nodular opacities scattered in both lungs favor metastatic rather than infectious etiology, small bilateral pleural effusions, suspect severe low flow-limiting stenosis near takeoff of left subclavian artery due to heavy calcifications - Laboratory data: WBC 9.29. Hemoglobin 14.6. Platelet count 392. Sodium 132. Potassium 5.3. BUN 31. Creatinine 1.14. AST 69. ALT 57. proBNP 28,100. Troponin 0.054. 0.089. 2.740. 10.200. -Home medication list is not updated at the time of this dictation - Most recent echocardiogram obtained in the office on 11/12/2024 revealed ejection fraction 30 to 35%, mild MR, mild to moderate TR -Patient underwent Cardiolite stress test revealing evidence of inferior wall myocardial infarction with moderate LV dysfunction without any ischemia REVIEW OF SYSTEMS: At the time of my exam: CONSTITUTIONAL: Denies fever or chills. HEENT: Denies blurred vision, vision changes, or eye pain. Denies hemoptysis CARDIOVASCULAR: Denies chest pain. Denies orthopnea. Denies PND. Denies palpitations RESPIRATORY: Denies shortness of breath. GASTROINTESTINAL: Denies abdominal pain. Denies nausea or vomiting. HEMATOLOGIC: Denies bleeding disorders. GENITOURINARY: Denies any blood in urine. SKIN: Denies pruitis. Denies rash. PHYSICAL EXAM: VITAL SIGNS: Reviewed. GENERAL: Well-developed in no acute distress. HEENT: Head is normocephalic. Pupils are equal, round. Sclerae anicteric. Mucous membranes of the mouth are moist. Neck supple. No JVD or thyromegaly LUNGS: Respirations even and unlabored. Lungs with bilateral wheezing HEART: Regular rate and rhythm. S1 and S2 heard. ABDOMEN: Soft. Nondistended. Nontender. EXTREMITIES: Normal range of motion. No clubbing or cyanosis. Peripheral pulses intact. No lower extremity edema NEUROLOGIC: Awake and alert. Oriented x 3. ASSESSMENT: Non-STEMI Abnormal CTA revealing pancreatic neoplasm, multiple liver metastasis, and lung nodules favoring metastatic disease Small bilateral pleural effusions History of cardiomyopathy with improved EF, originally 15%, now 30 to 35%, ischemic versus nonischemic Paroxysmal atrial fibrillation, on Eliquis outpatient Hypertension Hyperlipidemia with statin intolerance History of PFO closure, 03/2023 History of CVA History of COPD Ongoing nicotine dependence History of alcohol abuse PLAN: Obtain 2D echo to assess cardiac structure and function Continue IV heparin. Hold Eliquis. Add aspirin 81 mg daily and metoprolol succinate 50 mg daily Patient has statin intolerance. Will begin Zetia 10 mg daily Recommend smoking cessation. Patient to be referred to [place]: Upon discharge Oncology and pulmonary has been consulted for abnormal CT. Await further recommendations No plans for cardiac catheterization at this time secondary to possibility of metastatic disease Further recommendations pending patient course Nurse practitioner note has been reviewed by physician. Signing provider agrees with the documented findings, assessment, and plan of care documented by G[employer]PERATIONS SUPERINTENDENT as a scribe. Past Medical History Past Medical History: COPD, CVA/TIA, Diabetes Mellitus, Hypertension, Pneumonia Additional Past Medical History / Comment(s): limited ROM to left shoulder History of Any Multi-Drug Resistant Organisms: None Reported Past Surgical History: Orthopedic Surgery Additional Past Surgical History / Comment(s): Venu Knee replacement. Past Anesthesia/Blood Transfusion Reactions: No Reported Reaction Additional Past Anesthesia/Blood Transfusion Reaction / Comment(s): no hx blood transfusion Past Psychological History: No Psychological Hx Reported Smoking Status: Current every day smoker Past Alcohol Use History: Rare Past Drug Use History: None Reported - Past Family History Mother Additional Family Medical History / Comment(s): dementia Father Family Medical History: Cancer Additional Family Medical History / Comment(s): bone,brain Sister(s) Family Medical History: Cancer Additional Family Medical History / Comment(s): lung/brain Medications and Allergies Home Medications Medication Instructions Recorded Confirmed Type ALPRAZolam [Xanax] 0.25 mg PO DAILY PRN 01/03/23 07/12/24 History Albuterol Sulfate [Albuterol 2 puff INHALATION RT-Q4H PRN 01/03/23 07/12/24 History Sulfate Hfa] Empagliflozin [Jardiance] 25 mg PO DAILY 01/03/23 07/12/24 History Evolocumab [Repatha Sureclick] 140 mg SQ Q14D 01/03/23 07/12/24 History Montelukast [Singulair] 10 mg PO HS 01/03/23 07/12/24 History Repaglinide [Prandin] 2 mg PO AC-BID 01/03/23 07/12/24 History glipiZIDE/METFORMIN HCL 1 tab PO DAILY 01/03/23 07/12/24 History [glipiZIDE/METFORMIN HCL 5-500 mg] glipiZIDE/METFORMIN HCL 2 tab PO HS 01/03/23 07/12/24 History [glipiZIDE/METFORMIN HCL 5-500 mg] traZODone HCL 100 mg PO HS 01/03/23 07/12/24 History Aspirin 81 mg PO DAILY 30 Days #30 tab 01/16/23 07/12/24 Rx Apixaban [Eliquis] 5 mg PO BID 07/12/24 07/12/24 History Cetirizine HCl [Zyrtec] 10 mg PO DAILY 07/12/24 07/12/24 History Fluticasone Propion/Salmeterol 1 puff PO RT-DAILY 07/12/24 07/12/24 History [Fluticasone-Salmeterol 500-50] Metoprolol Succinate (ER) [Toprol 50 mg PO DAILY 07/12/24 07/12/24 History XL] Dapagliflozin Propanediol [Farxiga] 10 mg PO DAILY 30 Days #30 tab 07/18/24 Rx Furosemide [Lasix] 40 mg PO BID@0900,1600 30 Days #60 07/18/24 Rx tab Losartan [Cozaar] 25 mg PO DAILY 30 Days #30 tab 07/18/24 Rx Potassium Chloride 10 meq PO BID 30 Days #60 cap 07/18/24 Rx predniSONE 10 mg PO DAILY 8 Days #12 tab 07/18/24 Rx Allergies Allergy/AdvReac Type Severity Reaction Status Date / Time amlodipine AdvReac Mild Unknown Verified 11/25/24 20:38 hydrochlorothiazide AdvReac Unknown Verified 11/25/24 20:38 olmesartan AdvReac Unknown Verified 11/25/24 20:38 rosuvastatin AdvReac Unknown Verified 11/25/24 20:38 sitagliptin AdvReac Unknown Verified 11/25/24 20:38 [id number]-[id number] Reductase AdvReac muscle Verified 11/25/24 20:38 Inhibitor cramps Physical Exam Vitals: Vital Signs Temp Pulse Pulse Resp BP Pulse Ox 11/26/24 07:45 87 18 110/64 93 L 11/26/24 06:30 89 22 110/64 96 11/26/24 05:10 100 22 132/71 96 11/26/24 03:02 98.0 F 99 20 124/75 92 L 11/26/24 01:55 97.7 F 105 H 21 129/69 93 L 11/25/24 23:27 104 H 20 140/89 93 L 11/25/24 22:26 106 H 11/25/24 21:37 105 H 11/25/24 21:35 105 H 21 111/82 96 11/25/24 20:32 98.5 F 110 H 24 102/75 94 L Intake and Output 11/25/24 11/26/24 11/26/24 22:59 06:59 14:59 Intake Total 50.903 Balance 50.903 Intake: Intake, IV Titration 50.903 Amount Heparin Sod,Pork in 0.45% 50.903 NaCl 25,000 unit In 0.45 % NaCl 1 250ml.bag @ 12 UNITS/KG/HR 9.036 mls/hr IV .Q24H [facility] Rx#: [id number] Other: Weight 75.296 kg Results 11/25/24 21:09 11/25/24 21:09 Cardiac Enzymes 11/25/24 11/25/24 11/25/24 Range/Units 21:09 21:09 23:25 AST 69 H (17-59) U/L Troponin I 0.054 H* 0.089 H* (0.000-0.034) ng/mL 11/26/24 11/26/24 Range/Units 03:08 05:52 AST (17-59) U/L Troponin I 2.740 H* 10.200 H* (0.000-0.034) ng/mL Coagulation 11/25/24 11/26/24 Range/Units 21:09 05:52 PT 11.9 (10.0-12.5) sec APTT 22.8 32.6 H (22.0-30.0) sec CBC 11/25/24 Range/Units 21:09 WBC 9.29 (4.50-10.00) 10*3/uL RBC 4.41 (4.40-5.60) 10*6/uL Hgb 14.6 (13.0-17.0) g/dL Hct 42.2 (39.6-50.0) % Plt Count 392 (140-440) 10*3/uL Comprehensive Metabolic Panel 11/25/24 Range/Units 21:09 Sodium 132 L (137-145) mmol/L Potassium 5.3 H (3.5-5.1) mmol/L Chloride 100 (98-107) mmol/L Carbon Dioxide 14 L (22-30) mmol/L BUN 31 H (9-20) mg/dL Creatinine 1.14 (0.66-1.25) mg/dL Glucose 362 H (74-99) mg/dL Calcium 8.9 (8.4-10.2) mg/dL AST 69 H (17-59) U/L ALT 57 H (4-49) U/L Alkaline Phosphatase 1118 H (38-126) U/L Total Protein 6.4 (6.3-8.2) g/dL Albumin 3.1 L (3.5-5.0) g/dL Current Medications Generic Name Dose Route Start Last Admin Trade Name Freq PRN Reason Stop Dose Admin Albuterol/Ipratropium 3 ml 11/26/24 02:44 Ipratropium-Albuterol 3 Ml Neb INHALATION RT-QID PRN Shortness Of Breath Or Wheezing Albuterol/Ipratropium 3 ml 11/26/24 08:00 Ipratropium-Albuterol 3 Ml Neb INHALATION RT-QID [facility] Budesonide/Formoterol Fumarate 2 puff 11/26/24 08:00 Symbicort 160-4.5 Mcg Inhaler INHALATION RT-BID [facility] Heparin Sodium (Porcine) 0 unit 11/26/24 00:20 11/26/24 07:40 Heparin Sodium 1,000 Un/Ml (10ml Vl) IV 1,882.25 unit PER PROTOCOL PRN Administration Low PTT Protocol Hydromorphone HCl 0.5 mg 11/26/24 02:36 Hydromorphone 0.5 Mg/0.5 Ml Syringe IVP Q3HR PRN Moderate Pain (Scale 4 to 6) Heparin Sodium/Sodium Chloride 250 mls @ 9.036 mls/hr 11/26/24 00:30 11/26/24 07:47 25,000 unit/ Sodium Chloride IV 14 units/kg/hr .Q24H ALE[facility]AN[facility] 10.541 mls/hr Titration Protocol 12 UNITS/KG/HR Sodium Chloride 1,000 mls @ 75 mls/hr 11/26/24 02:45 11/26/24 05:04 Saline 0.9% IV 75 mls/hr .[id number] ALEKSANDR Administration Methylprednisolone Sodium Succinate 40 mg 11/26/24 08:00 Methylprednisolone Sod Succi 40 Mg/Ml 1 Ml Vial IV Q8HR [facility] Naloxone HCl 0.2 mg 11/26/24 02:36 Naloxone 0.4 Mg/Ml 1 Ml Vial IV Q2M PRN Opioid Reversal Intake and Output 11/25/24 11/26/24 11/26/24 22:59 06:59 14:59 Intake Total 50.903 Balance 50.903 Intake: Intake, IV Titration 50.903 Amount Heparin Sod,Pork in 0.45% 50.903 NaCl 25,000 unit In 0.45 % NaCl 1 250ml.bag @ 12 UNITS/KG/HR 9.036 mls/hr IV .Q24H [facility] Rx#: [id number] Other: Weight 75.296 kg 11/25/24 21:09 11/25/24 21:09
[2024-11-26] MEDS: ALPRAZolam 0.25 MG TAB PO PRN (11:29)
[2024-11-26] MEDS: ALPRAZolam 0.5 MG TAB PO STA (11:32)
[2024-11-26] MEDS: IPRATROPIUM-ALBUTEROL 3 ML NEB INHALATION SCH (11:58)
[2024-11-26] MEDS ORDERED: DEXTROSE 50% SYRINGE 50 ML IVP PRN (16:25)
[2024-11-26 16:36] LABS: African American GFR (CKD) 82 (>60 ml/min/1.73 sqM); Anion Gap 17 mmol/L; Blood Urea Nitrogen 42 mg/dL (9-20); Calcium 8.4 mg/dL (8.4-10.2); Carbon Dioxide 13 mmol/L (22-30); Chloride 104 mmol/L (98-107); Glucose 409 mg/dL (74-99); Non-African American GFR(CKD) 71 (>60 ml/min/1.73 sqM); Potassium 5.7 mmol/L (3.5-5.1); Sodium 134 mmol/L (137-145)
[2024-11-26 16:52] LABS: Glucose,Whole Blood 495 mg/dL (70-110)
[2024-11-26] MEDS: CALCIUM CARBONATE 500 MG CHEWABLE PO PRN (17:08)
[2024-11-26] MEDS: PANTOPRAZOLE 40 MG/10 ML VIAL IVP SCH (17:08)
[2024-11-26] MEDS: INSULIN LISPRO (HumaLOG) 100 UNIT/ML 10 mL VL SQ ONE (17:09)
[2024-11-26] MEDS: INSULIN GLARGINE (LANTUS) 100 UNIT/ML SYR SQ SCH (17:09)
[2024-11-26] MEDS ORDERED: INSULIN LISPRO (HumaLOG) 100 UNIT/ML 10 mL VL SQ SCH (17:30)
[2024-11-26 19:38] LABS: Cancer Antigen 19-9 >10000.0 U/mL (0.0-34.9)
[2024-11-26 20:26] LABS: Glucose,Whole Blood 379 mg/dL (70-110)
[2024-11-26] MEDS: traZODone HCL 100 MG TAB PO SCH (21:01)
[2024-11-26] MEDS: MONTELUKAST 10 MG TAB PO SCH (21:01)
[2024-11-26] MEDS: INSULIN LISPRO (HumaLOG) 100 UNIT/ML 10 mL VL SQ SCH (21:02)
--- NOTE | 2024-11-26 23:00 | P.CONS ---
History of Present Illness - Reason for Consult Consult date: 11/26/24 metastatic cancer Requesting physician: Jay Campbell - Chief Complaint cough, SOB - History of Present Illness Mr. Amezcua is a 69-year-old male that we have been asked to see because of abnormal findings on gallbladder ultrasound and CTA. When I went to see patient in the emergency department, as he is admitted with chest pain and acute RI, his response was "shit what's this shit, goddamnit". I explained to patient the abnormal findings in the liver as well as the pancreas. Explained to him suspicions for malignancy. Recommending a biopsy. When asking patient about his health recently he states that he thinks he has lost some weight. He denied any nausea, vomiting, abdominal distention or bloating, he thinks he may have some more belching than normal, he denies any significant changes in his diet or what he eats, no acute changes in bowel or bladder habits. He has a history of skin cancer. He had a stroke 2 years ago. He states recently he had a diagnosis of pneumonia, he was given medications for the same, he did not feel any better than that is when he began having chest pain along with arm pain and that is what brought him to the hospital. Troponins were significantly elevated on admit. Cardiology has seen the patient, no plans for cardiac catheterization if patient has metastatic disease. CXR sm adolph pleural effusions, gallbladder US, multiple masses in liver, CTA multiple liver lesions, pancreatic lesion, no PE. Review of Systems 10 point review of systems is negative except as stated in HPI Past Medical History Past Medical History: COPD, CVA/TIA, Diabetes Mellitus, Hypertension, Pneumonia Additional Past Medical History / Comment(s): limited ROM to left shoulder History of Any Multi-Drug Resistant Organisms: None Reported Past Surgical History: Orthopedic Surgery Additional Past Surgical History / Comment(s): Adolph Knee replacement. Past Anesthesia/Blood Transfusion Reactions: No Reported Reaction Additional Past Anesthesia/Blood Transfusion Reaction / Comm: no hx blood transfusion Past Psychological History: No Psychological Hx Reported Smoking Status: Current every day smoker Past Alcohol Use History: Rare Past Drug Use History: None Reported - Past Family History Mother Additional Family Medical History / Comment(s): dementia Father Family Medical History: Cancer Additional Family Medical History / Comment(s): bone,brain Sister(s) Family Medical History: Cancer Additional Family Medical History / Comment(s): lung/brain Medications and Allergies Home Medications Medication Instructions Recorded Confirmed Type Albuterol Sulfate [Albuterol 2 puff INHALATION RT-Q4H PRN 01/03/23 11/26/24 History Sulfate Hfa] Empagliflozin [Jardiance] 25 mg PO DAILY 01/03/23 11/26/24 History Evolocumab [Repatha Sureclick] 140 mg SQ Q14D 01/03/23 11/26/24 History Montelukast [Singulair] 10 mg PO HS 01/03/23 11/26/24 History traZODone HCL 100 mg PO HS 01/03/23 11/26/24 History Apixaban [Eliquis] 5 mg PO BID 07/12/24 11/26/24 History Fluticasone Propion/Salmeterol 1 puff INHALATION RT-BID 07/12/24 11/26/24 History [Fluticasone-Salmeterol 500-50] Losartan [Cozaar] 25 mg PO DAILY 30 Days #30 tab 07/18/24 11/26/24 Rx Insulin Glargine,Hum.rec.anlog 25 units SQ DAILY 11/26/24 11/26/24 History [Juani Matta] Allergies Allergy/AdvReac Type Severity Reaction Status Date / Time amlodipine AdvReac Severe muscle Verified 11/26/24 09:55 cramps hydrochlorothiazide AdvReac Severe muscle Verified 11/26/24 09:55 cramps olmesartan AdvReac Severe muscle Verified 11/26/24 09:55 cramps rosuvastatin AdvReac Severe muscle Verified 11/26/24 09:55 cramps sitagliptin AdvReac Severe muscle Verified 11/26/24 09:55 cramps Zvikpeb-UMN-GsT Reductase AdvReac Severe muscle Verified 11/26/24 09:55 Inhibitor cramps Physical Exam Vitals: Vital Signs Temp Pulse Pulse Resp BP Pulse Ox FiO2 11/26/24 08:35 97 18 120/76 94 L 11/26/24 08:33 88 11/26/24 08:18 88 93 L 21 11/26/24 07:45 87 18 110/64 93 L 11/26/24 06:30 89 22 110/64 96 11/26/24 05:10 100 22 132/71 96 11/26/24 03:02 98.0 F 99 20 124/75 92 L 11/26/24 01:55 97.7 F 105 H 21 129/69 93 L 11/25/24 23:27 104 H 20 140/89 93 L 11/25/24 22:26 106 H 11/25/24 21:37 105 H 11/25/24 21:35 105 H 21 111/82 96 11/25/24 20:32 98.5 F 110 H 24 102/75 94 L Intake and Output 11/25/24 11/26/24 11/26/24 22:59 06:59 14:59 Intake Total 50.903 Balance 50.903 Intake: Intake, IV Titration 50.903 Amount Heparin Sod,Pork in 0.45% 50.903 NaCl 25,000 unit In 0.45 % NaCl 1 250ml.bag @ 12 UNITS/KG/HR 9.036 mls/hr IV .Q24H [facility] Rx#: [id number] Other: Weight 75.296 kg - Constitutional General appearance: average body habitus, cooperative, no acute distress - EENT Eyes: anicteric sclerae, EOMI ENT: hearing grossly normal - Neck Neck: no lymphadenopathy - Respiratory Respiratory: bilateral: rhonchi - Cardiovascular Rhythm: regular Heart sounds: normal: S1, S2 Abnormal Heart Sounds: no systolic murmur, no diastolic murmur, no rub, no S3 Gallop, no S4 Gallop, no click, no other leg Peripheral Edema: bilateral: Trace - Gastrointestinal General gastrointestinal: no absent bowel sounds, no decreased bowel sounds, no distended, no hepatomegaly, no hyperactive bowel sounds, normal bowel sounds, no organomegaly, no rigid, no scaphoid, soft, no splenomegaly, no tenderness, no umbilical hernia, no ventral hernia - Integumentary Integumentary: normal - Neurologic Neurologic: CNII-XII intact - Musculoskeletal Musculoskeletal: strength equal bilaterally - Psychiatric Psychiatric: A&O x's 3, appropriate affect, intact judgment & insight Results CBC & Chem 7: 11/25/24 21:09 11/26/24 21:38 Labs: Abnormal Lab Results - Last 24 Hours (Table) 11/25/24 11/25/24 11/25/24 Range/Units 21:09 21:09 21:09 MCH 33.1 H (27.0-32.0) pg Neutrophils # (Manual) 8.45 H (1.3-7.7) k/uL Lymphocytes # (Manual) 0.74 L (1.0-4.8) k/uL APTT (22.0-30.0) sec D-Dimer (<0.60) mg/L FEU Sodium 132 L (137-145) mmol/L Potassium 5.3 H (3.5-5.1) mmol/L Carbon Dioxide 14 L (22-30) mmol/L BUN 31 H (9-20) mg/dL Glucose 362 H (74-99) mg/dL POC Glucose (mg/dL) (70-110) mg/dL Plasma Lactic Acid Fransico (0.7-2.0) mmol/L Total Bilirubin 1.4 H (0.2-1.3) mg/dL AST 69 H (17-59) U/L ALT 57 H (4-49) U/L Alkaline Phosphatase 1118 H (38-126) U/L Troponin I 0.054 H* (0.000-0.034) ng/mL Albumin 3.1 L (3.5-5.0) g/dL 11/25/24 11/25/24 11/25/24 Range/Units 21:09 23:25 23:25 MCH (27.0-32.0) pg Neutrophils # (Manual) (1.3-7.7) k/uL Lymphocytes # (Manual) (1.0-4.8) k/uL APTT (22.0-30.0) sec D-Dimer 1.91 H (<0.60) mg/L FEU Sodium (137-145) mmol/L Potassium (3.5-5.1) mmol/L Carbon Dioxide (22-30) mmol/L BUN (9-20) mg/dL Glucose (74-99) mg/dL POC Glucose (mg/dL) (70-110) mg/dL Plasma Lactic Acid Fransico 3.2 H* (0.7-2.0) mmol/L Total Bilirubin (0.2-1.3) mg/dL AST (17-59) U/L ALT (4-49) U/L Alkaline Phosphatase (38-126) U/L Troponin I 0.089 H* (0.000-0.034) ng/mL Albumin (3.5-5.0) g/dL 11/26/24 11/26/24 11/26/24 Range/Units 02:01 02:58 03:08 MCH (27.0-32.0) pg Neutrophils # (Manual) (1.3-7.7) k/uL Lymphocytes # (Manual) (1.0-4.8) k/uL APTT (22.0-30.0) sec D-Dimer (<0.60) mg/L FEU Sodium (137-145) mmol/L Potassium (3.5-5.1) mmol/L Carbon Dioxide (22-30) mmol/L BUN (9-20) mg/dL Glucose (74-99) mg/dL POC Glucose (mg/dL) 369 H 323 H (70-110) mg/dL Plasma Lactic Acid Fransico (0.7-2.0) mmol/L Total Bilirubin (0.2-1.3) mg/dL AST (17-59) U/L ALT (4-49) U/L Alkaline Phosphatase (38-126) U/L Troponin I 2.740 H* (0.000-0.034) ng/mL Albumin (3.5-5.0) g/dL 11/26/24 11/26/24 Range/Units 05:52 05:52 MCH (27.0-32.0) pg Neutrophils # (Manual) (1.3-7.7) k/uL Lymphocytes # (Manual) (1.0-4.8) k/uL APTT 32.6 H (22.0-30.0) sec D-Dimer (<0.60) mg/L FEU Sodium (137-145) mmol/L Potassium (3.5-5.1) mmol/L Carbon Dioxide (22-30) mmol/L BUN (9-20) mg/dL Glucose (74-99) mg/dL POC Glucose (mg/dL) (70-110) mg/dL Plasma Lactic Acid Fransico (0.7-2.0) mmol/L Total Bilirubin (0.2-1.3) mg/dL AST (17-59) U/L ALT (4-49) U/L Alkaline Phosphatase (38-126) U/L Troponin I 10.200 H* (0.000-0.034) ng/mL Albumin (3.5-5.0) g/dL CT scan - abdomen: report reviewed US - abdomen: report reviewed Assessment and Plan (1) Liver lesion Current Visit: Yes Status: Acute Code(s): K76.9 - LIVER DISEASE, UNSPECIFIED SNOMED Code(s): 229729155 (2) Pancreatic mass Current Visit: Yes Status: Acute Code(s): K86.89 - OTHER SPECIFIED DISEASES OF PANCREAS SNOMED Code(s): 539843725 Plan: Liver and pancreatic lesions - Patient admitted because of chest pain, arm pain and diagnosed with an acute RI -Chest CTA reporting several hypoenhancing lesions in the body and tail of the pancreas. Largest is more proximal, measuring 3 x 5 cm. No enlarged lymph nodes. Multiple liver metastases. Patchy opacities in the bone in both lungs. -Discussed with patient concerning findings. Explained that we would need a biopsy for tissue diagnosis, to confirm what the lesions are in order to give diagnosis, treatment options and prognosis. He verbalized understanding and is agreeable to further work up - The challenge is going to be getting a biopsy as he was just diagnosed with acute RI. He is likely going to need to be on some antiplatelet therapy/anticoagulation. Will have to work with Cardiology and Radiology to get biopsy done. -CT AP ordered -CEA and ca19.9 ordered -Pt reporting significant anxiety. Reordered his home xanax and gave him a one tome dose.
[2024-11-26] MEDS: HYDROmorphone 0.5 MG/0.5 ML SYRINGE IVP PRN (23:30)
--- NOTE | 2024-11-27 01:43 | HP ---
HISTORY AND PHYSICAL CHIEF COMPLAINT: Shortness of breath. HISTORY OF PRESENT ILLNESS: This 69-year-old gentleman with a past history of COPD, diabetes, and hypertension, was admitted with history of shortness of breath and cough for 10 days. The patient also has some cough also. The evaluation in the ER revealed possible pancreatic neoplasm with multiple liver mets and small patchy lesli opacities in the lungs, and the patient admitted for further evaluation and treatment. There is no history of any fever, rigors, or chills at this time. PAST MEDICAL HISTORY: Reviewed, includes COPD, hypertension, pneumonia. Rest of the history and chart also reviewed. HOME MEDICATIONS: Lantus insulin. Dose and rest of medications noted. ALLERGIES: Norvasc. FAMILY HISTORY: History of dementia, cancer. SOCIAL HISTORY: Current smoking. REVIEW OF SYSTEMS: Fourteen-point review of systems is negative except as mentioned earlier. PHYSICAL EXAMINATION: VITAL SIGNS: Pulse is 98, blood pressure 120/64, respirations 18. HEENT: Sclerae and conjunctivae normal. CARDIOVASCULAR: S1 and S2. RESPIRATION: Breath sounds diminished at the bases. A few scattered rhonchi and crackles. ABDOMEN: Soft, nontender. LEGS: No edema. No swelling. NERVOUS SYSTEM: No focal deficit. LABS: Troponin 10.200. Rest of the labs are noted. ASSESSMENT: 1. Shortness of breath multifactorial with chronic obstructive pulmonary disease and congestive heart failure acute exacerbation. 2. 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 3. Elevated troponin up to 10.200 with acute [id number] elevation myocardial infarction. 4. Diabetes mellitus, type 2. 5. History of chronic obstructive pulmonary disease. 6. Hypertension. 7. History of pneumonia. RECOMMENDATIONS AND DISCUSSION: In this 69-year-old gentleman, who presented with multiple complex medical issues, we will monitor the patient closely. Continue the current medications, continue symptomatic treatment. Closely follow with Cardiology, Pulmonology, Hematology, Oncology. Acute coronary syndrome protocol, bronchodilators, steroids. I would also recommend empiric antibiotics. Monitor blood sugars closely. Guarded prognosis. Further recommendations to follow. See orders for details. MMODL / IJN: [id number] /
[2024-11-27 06:01] LABS: Glucose,Whole Blood 177 mg/dL (70-110)
[2024-11-27] MEDS: PANTOPRAZOLE 40 MG TABLET PO SCH (06:11)
[2024-11-27 07:36] LABS: Basophils # (A) 0.03 10*3/uL (0.00-0.10); Basophils % (A) 0.2 %; HCT 39.8 % (39.6-50.0); HGB 13.4 g/dL (13.0-17.0); Lymphocytes # (A) 0.83 10*3/uL (0.90-5.00); Lymphocytes % (A) 4.3 %; MCH 32.8 pg (27.0-32.0); MCHC 33.7 g/dL (32.0-37.0); MCV 97.3 fL (80.0-97.0); Mean Platelet Volume 9.6 fL (9.5-12.2); Monocytes % (A) 4.7 %; Neutrophils # (A) 17.41 10*3/uL (1.80-7.70); Neutrophils % (A) 90.2 %; Platelet Count 381 10*3/uL (140-440); RBC 4.09 10*6/uL (4.40-5.60); RDW 14.9 % (11.5-14.5); WBC 19.29 10*3/uL (4.50-10.00)
[2024-11-27 07:45] LABS: African American GFR (CKD) 86 (>60 ml/min/1.73 sqM); Anion Gap 9 mmol/L; Blood Urea Nitrogen 53 mg/dL (9-20); Calcium 8.6 mg/dL (8.4-10.2); Carbon Dioxide 22 mmol/L (22-30); Chloride 100 mmol/L (98-107); Glucose 246 mg/dL (74-99); Non-African American GFR(CKD) 75 (>60 ml/min/1.73 sqM); Potassium 5.1 mmol/L (3.5-5.1); Sodium 131 mmol/L (137-145)
[2024-11-27 07:58] LABS: Partial Thromboplastin Time 43.4 sec (22.0-30.0); Prothrombin Time 11.2 sec (10.0-12.5)
--- NOTE | 2024-11-27 08:21 | CA ---
Transthoracic Echo Report Name: Peyman Amezcua Age: 69 Gender: M : 1955 Exam Date: 11/26/2024 15:32 Exam Location: [facility] Ht (in): 68 Wt (lb): 166 Ordering Physician: Ira Roman Attending/Referring Phys: [id number], Abel Tree Trimming Line Technician Keara Lancaster RDCS Procedure CPT: Indications: LV function, NSTEMI Cardiac Hx: HTN, DM Technical Quality: Good Contrast 1: Definity Total Dose (mL): 2 Contrast 2: Total Dose (mL): MEASUREMENTS (Male / Female) Normal Values 2D ECHO LV Diastolic Diameter PLAX 5.3 cm 4.2 - 5.9 / 3.9 - 5.3 cm LV Systolic Diameter PLAX 4.4 cm IVS Diastolic Thickness 1.1 cm 0.6 - 1.0 / 0.6 - 0.9 cm LVPW Diastolic Thickness 1.1 cm 0.6 - 1.0 / 0.6 - 0.9 cm LV Relative Wall Thickness 0.4 RV Internal Dim ED PLAX 4.5 cm LA Systolic Diameter LX 4.2 cm 3.0 - 4.0 / 2.7 - 3.8 cm LV Diastolic Volume MOD 4C 157.5 cm??? LV Systolic Volume MOD 4C 115.6 cm??? LV Ejection Fraction MOD 4C 26.6 % LV Cardiac Index MOD 4C 2125.9 cm???/min???m??? LV Diastolic Length 4C 9.2 cm LV Systolic Length 4C 8.4 cm LV Diastolic Volume MOD 2C 121.7 cm??? LV Systolic Volume MOD 2C 86.8 cm??? LV Ejection Fraction MOD 2C 28.7 % LV Cardiac Index MOD 2C 1776.5 cm???/min???m??? LV Diastolic Length 2C 8.3 cm LV Systolic Length 2C 7.7 cm M-MODE Aortic Root Diameter MM 3.9 cm AV Cusp Separation MM 2.0 cm DOPPLER AV Peak Velocity 128.8 cm/s AV Peak Gradient 6.6 mmHg MV Area PHT 3.2 cm??? Mitral E Point Velocity 90.1 cm/s Mitral A Point Velocity 54.2 cm/s Mitral E to A Ratio 1.7 MV Deceleration Time 205.4 ms TR Peak Velocity 352.1 cm/s TR Peak Gradient 49.6 mmHg Right Ventricular Systolic Press 54.6 mmHg FINDINGS Left Ventricle Left ventricular ejection fraction is estimated at 25-30 %. Left ventricular cavity size normal. Mildly increased septal wall thickness. Severely reduced global left ventricular systolic function. Right Ventricle Severe right ventricular dilatation. Severe pulmonary hypertension. Right ventricular systolic pressure estimated at 55 mm hg. Right Atrium Normal right atrial size. No right atrial thrombus or mass seen. Left Atrium Mildly increased left atrial diameter. No left atrial thrombus or mass present. Mitral Valve Structurally normal mitral valve. Mitral annular calcification. Mild mitral regurgitation. Aortic Valve Trileaflet aortic valve. No aortic stenosis. No aortic regurgitation. Tricuspid Valve Structurally normal tricuspid valve. Mild tricuspid regurgitation. Pulmonic Valve Structurally normal pulmonic valve. Trace pulmonic regurgitation. Pericardium No pericardial effusion. Aorta Mild aortic dilatation at the level of the sinuses of valsalva 39 mm CONCLUSIONS Left ventricle is enlarged to a mild extent with a severe global decrease in contractility and estimate ejection fraction of 30%. Right ventricle is enlarged with moderate to severe pulmonary hypertension. Left atrial enlargement mild mitral and tricuspid regurgitation. No pericardial effusion Previewed by: Dr. Joanne Godinez MD (Electronically Signed) Final Date: 27 Nov 2024 08:21
[2024-11-27] MEDS: FUROSEMIDE 20 MG TAB PO SCH (09:24)
[2024-11-27] MEDS: DAPAGLIFLOZIN PROPANEDIOL 10 MG TABLET PO SCH (09:24)
[2024-11-27] MEDS: IOPAMIDOL CONTRAST (ORAL USE) VIAL PO PRN (09:24)
[2024-11-27] MEDS: LOSARTAN 25 MG TAB PO SCH (09:27)
--- NOTE | 2024-11-27 09:44 | P.PN ---
Subjective HISTORY OF PRESENT ILLNESS: This is a 69-year-old male with a past medical history significant for paroxysmal atrial fibrillation, hypertension, hyperlipidemia with statin intolerance, nicotine dependence. Patient follows in the office with Dr. Boles. We have been asked to see the patient in consultation for elevated troponins. Patient examined at the bedside in the emergency room. Patient states he was recently evaluated by his primary care physician and was diagnosed with pneumonia. He states 2 days ago he had an episode of chest pressure at home with radiation into his left arm. He states he has not had chest pain like that in the past. He also reports having some shortness of breath. He denies any dizziness or lightheadedness. Denies any episodes of syncope. He does report recent weight loss. Patient was found to have elevated troponins and was started on IV heparin. He denies any chest pain at the time of examination. DIAGNOSTICS: - EKG reveals sinus tachycardia with no signs of acute ischemia. - Chest xray small bilateral pleural effusions. - Chest CTA: Negative for pulmonary embolism. Pancreatic neoplasm, multiple liver metastasis, small patchy nodular opacities scattered in both lungs favor metastatic rather than infectious etiology, small bilateral pleural effusions, suspect severe low flow-limiting stenosis near takeoff of left subclavian artery due to heavy calcifications - Laboratory data: WBC 9.29. Hemoglobin 14.6. Platelet count 392. Sodium 132. Potassium 5.3. BUN 31. Creatinine 1.14. AST 69. ALT 57. proBNP 28,100. Troponin 0.054. 0.089. 2.740. 10.200. -Home medication list is not updated at the time of this dictation - Most recent echocardiogram obtained in the office on 11/12/2024 revealed ejection fraction 30 to 35%, mild MR, mild to moderate TR -Patient underwent Cardiolite stress test revealing evidence of inferior wall myocardial infarction with moderate LV dysfunction without any ischemia 11/27/2024 Patient examined this morning at bedside. Patient currently denies chest pain or pressure. He denies shortness of breath. He remains on IV heparin. Echocardiogram performed revealing fraction 25 to 30%, severe pulmonary hypertension, mild MR, mild TR. PHYSICAL EXAM: VITAL SIGNS: Reviewed. GENERAL: Well-developed in no acute distress. HEENT: Head is normocephalic. Pupils are equal, round. Sclerae anicteric. Mucous membranes of the mouth are moist. Neck supple. No JVD or thyromegaly LUNGS: Respirations even and unlabored. Lungs with bilateral wheezing HEART: Regular rate and rhythm. S1 and S2 heard. ABDOMEN: Soft. Nondistended. Nontender. EXTREMITIES: Normal range of motion. No clubbing or cyanosis. Peripheral pulses intact. Trace bilateral lower extremity edema NEUROLOGIC: Awake and alert. Oriented x 3. ASSESSMENT: Non-STEMI Abnormal CTA revealing pancreatic neoplasm, multiple liver metastasis, and lung nodules favoring metastatic disease Small bilateral pleural effusions History of cardiomyopathy, was 15%, now 25 to 30%, ischemic versus nonischemic Paroxysmal atrial fibrillation, on Eliquis outpatient Uncontrolled diabetes, hemoglobin A1c 11.5 Hypertension Hyperlipidemia with statin intolerance History of PFO closure, 03/2023 History of CVA History of COPD Moderate to severe pulmonary hypertension Ongoing nicotine dependence History of alcohol abuse PLAN: Continue IV heparin for an additional 24 hours. Continue to hold Eliquis. Continue aspirin and metoprolol succinate Patient has statin intolerance. Zetia added yesterday. Recommend smoking cessation. Patient to be referred to [place]: Upon discharge Oncology and pulmonary has been consulted for abnormal CT. Patient may undergo biopsy from a cardiac standpoint. Will discuss with oncology. No plans for cardiac catheterization at this time secondary to possibility of me tastatic disease Further recommendations pending patient course Nurse practitioner note has been reviewed by physician. Signing provider agrees with the documented findings, assessment, and plan of care documented by CHANGE MANAGEMENT LEAD as a scribe. Objective - Vital Signs Vital signs: Vital Signs Temp 98.0 F 11/27/24 05:00 Pulse 96 11/27/24 08:45 Resp 18 11/27/24 08:45 BP 123/74 11/27/24 08:45 Pulse Ox 91 L 11/27/24 08:45 FiO2 21 11/26/24 08:18 Intake & Output 11/26/24 11/27/24 11/27/24 18:59 06:59 18:59 Intake Total 129.609 120.391 240 Output Total 400 Balance 129.609 -279.609 240 Weight 75.296 kg 78.1 kg Intake: Intake, IV Titration 129.609 120.391 Amount Heparin Sod,Pork in 0.45% 129.609 120.391 NaCl 25,000 unit In 0.45 % NaCl 1 250ml.bag @ 12 UNITS/KG/HR 9.036 mls/hr IV .Q24H [facility] Rx#: [id number] Oral 240 Output: Urine 400 Other: Voiding Method Toilet Urinal # Voids 1 - Labs CBC & Chem 7: 11/27/24 07:25 11/27/24 07:25 Labs: Abnormal Lab Results - Last 24 Hours (Table) 11/26/24 11/26/24 11/26/24 Range/Units 05:52 10:25 10:25 WBC (4.50-10.00) 10*3/uL RBC (4.40-5.60) 10*6/uL MCV (80.0-97.0) fL MCH (27.0-32.0) pg Immature Gran # (0.00-0.04) 10*3/uL Neutrophils # (1.80-7.70) 10*3/uL Lymphocytes # (0.90-5.00) 10*3/uL Eosinophils # (0.04-0.35) 10*3/uL APTT (22.0-30.0) sec Sodium 131 L 134 L (137-145) mmol/L Potassium 5.7 H (3.5-5.1) mmol/L Carbon Dioxide 13 L (22-30) mmol/L BUN 42 H (9-20) mg/dL Glucose 409 H (74-99) mg/dL POC Glucose (mg/dL) (70-110) mg/dL Hemoglobin A1c (<=6.0) % Carcinoembryonic Ag 231.0 H (0.0-4.9) ng/mL CA 19-9 Antigen >28672.0 H (0.0-34.9) U/mL Procalcitonin (0.02-0.50) ng/mL 11/26/24 11/26/24 11/26/24 Range/Units 16:50 18:24 18:24 WBC (4.50-10.00) 10*3/uL RBC (4.40-5.60) 10*6/uL MCV (80.0-97.0) fL MCH (27.0-32.0) pg Immature Gran # (0.00-0.04) 10*3/uL Neutrophils # (1.80-7.70) 10*3/uL Lymphocytes # (0.90-5.00) 10*3/uL Eosinophils # (0.04-0.35) 10*3/uL APTT (22.0-30.0) sec Sodium 129 L (137-145) mmol/L Potassium (3.5-5.1) mmol/L Carbon Dioxide (22-30) mmol/L BUN (9-20) mg/dL Glucose (74-99) mg/dL POC Glucose (mg/dL) 495 H (70-110) mg/dL Hemoglobin A1c (<=6.0) % Carcinoembryonic Ag (0.0-4.9) ng/mL CA 19-9 Antigen (0.0-34.9) U/mL Procalcitonin 0.66 H (0.02-0.50) ng/mL 11/26/24 11/26/24 11/26/24 Range/Units 18:24 20:22 21:38 WBC (4.50-10.00) 10*3/uL RBC (4.40-5.60) 10*6/uL MCV (80.0-97.0) fL MCH (27.0-32.0) pg Immature Gran # (0.00-0.04) 10*3/uL Neutrophils # (1.80-7.70) 10*3/uL Lymphocytes # (0.90-5.00) 10*3/uL Eosinophils # (0.04-0.35) 10*3/uL APTT (22.0-30.0) sec Sodium 129 L (137-145) mmol/L Potassium (3.5-5.1) mmol/L Carbon Dioxide (22-30) mmol/L BUN (9-20) mg/dL Glucose (74-99) mg/dL POC Glucose (mg/dL) 379 H (70-110) mg/dL Hemoglobin A1c 11.5 H (<=6.0) % Carcinoembryonic Ag (0.0-4.9) ng/mL CA 19-9 Antigen (0.0-34.9) U/mL Procalcitonin (0.02-0.50) ng/mL 11/26/24 11/27/24 11/27/24 Range/Units 21:38 06:00 07:25 WBC 19.29 H (4.50-10.00) 10*3/uL RBC 4.09 L (4.40-5.60) 10*6/uL MCV 97.3 H (80.0-97.0) fL MCH 32.8 H (27.0-32.0) pg Immature Gran # 0.12 H (0.00-0.04) 10*3/uL Neutrophils # 17.41 H (1.80-7.70) 10*3/uL Lymphocytes # 0.83 L (0.90-5.00) 10*3/uL Eosinophils # 0.00 L (0.04-0.35) 10*3/uL APTT 30.3 H (22.0-30.0) sec Sodium (137-145) mmol/L Potassium (3.5-5.1) mmol/L Carbon Dioxide (22-30) mmol/L BUN (9-20) mg/dL Glucose (74-99) mg/dL POC Glucose (mg/dL) 177 H (70-110) mg/dL Hemoglobin A1c (<=6.0) % Carcinoembryonic Ag (0.0-4.9) ng/mL CA 19-9 Antigen (0.0-34.9) U/mL Procalcitonin (0.02-0.50) ng/mL 11/27/24/ Range/Units 07:25 07:25 WBC (4.50-10.00) 10*3/uL RBC (4.40-5.60) 10*6/uL MCV (80.0-97.0) fL MCH (27.0-32.0) pg Immature Gran # (0.00-0.04) 10*3/uL Neutrophils # (1.80-7.70) 10*3/uL Lymphocytes # (0.90-5.00) 10*3/uL Eosinophils # (0.04-0.35) 10*3/uL APTT 43.4 H (22.0-30.0) sec Sodium 131 L (137-145) mmol/L Potassium (3.5-5.1) mmol/L Carbon Dioxide (22-30) mmol/L BUN 53 H (9-20) mg/dL Glucose 246 H (74-99) mg/dL POC Glucose (mg/dL) (70-110) mg/dL Hemoglobin A1c (<=6.0) % Carcinoembryonic Ag (0.0-4.9) ng/mL CA 19-9 Antigen (0.0-34.9) U/mL Procalcitonin (0.02-0.50) ng/mL Microbiology - Last 24 Hours (Table) 11/25/24 21:33 Blood Culture - Preliminary Blood
[2024-11-27 11:40] LABS: Glucose,Whole Blood 424 mg/dL (70-110)
--- NOTE | 2024-11-27 12:22 | CT ---
EXAMINATION TYPE: CT abdomen pelvis w con DATE OF EXAM: 11/27/2024 11:40 AM COMPARISON: PE CT chest yesterday. CLINICAL INDICATION: Male, 69 years old with history of liver lesions, pancreatic lesions; Pancreatic and liver lesions TECHNIQUE: CT of the abdomen and pelvis after IV contrast. Delayed images through the kidneys and cor onal/sagittal reconstructions performed. Contrast used:100 ml mL of Isovue 300 with IV Contrast, (non e if empty) Oral contrast used: with Oral Contrast (none if empty) CT DLP: 1156.2 mGycm, Automated exposure control for dose reduction was used. FINDINGS: Borderline cardiac megaly redemonstrated. Small pleural effusions persist with septal lines and patch y bibasilar opacities, possibly sequela of CHF. Liver mildly enlarged at 19.2 cm with innumerable hepatic lesions, largest measuring up to 4.0 cm. Po rtal venous system is patent. No ventricular ductal dilatation. Suspected tiny 6 mm stone within the nondistended gallbladder. Adrenal glands, spleen within normal limits. Scattered tiny cysts within the kidneys measuring up to 6 mm. A large exophytic cyst lateral upper po le left kidney measures 1.3 cm. There is a heterogeneous mass at the junction of the body and tail of the pancreas measuring 4.5 x 4. 0 cm. The pancreatic tail shows cystic change measuring up to 2.9 cm. Unclear if this is contiguous p ortion of the mass or upstream ductal dilatation. No dilated small bowel, free fluid, or free air. No mesenteric or retroperitoneal lymphadenopathy. Moderate stool burden. Normal appendix. Sigmoid diverticulosis. No pericolonic inflammatory change. There is possible irregular annular narrowing at the rectum, axial image 83 and coronal image 82 (adh erent stool. Marked generalized anasarca unchanged. Excreted contrast within the distended bladder. Mild prostatomegaly 4.6 cm wide. Bones: Severe degenerative disc disease L4-L5 and L5-S1 with advanced hypertrophic facet arthropathy. DISH lower thoracic spine. No osseous destructive process seen. IMPRESSION: 1. Innumerable hepatic lesions measuring up to 4.0 cm suggesting metastatic disease. 2. A 4.5 x 4.0 cm solid mass at the junction of the pancreatic body and tail. Pancreatic adenocarcino ma and metastatic disease are both in the differential. Correlate with tumor markers. A 2.9 cm cystic lesion at the tail of the pancreas could be contiguous with the mass or could reflect upstream pancr eatic ductal dilatation. 3. Either adherent stool along the wall of the rectum versus circumferential rectal neoplasm. Correla te with direct inspection and tumor markers. 4. Fluid overload and third spacing with small pleural effusions, anasarca, and suspected mild patchy basilar pulmonary edema. 5. Sigmoid diverticulosis, tiny gallstone, and mild prostatomegaly of 4.6 cm. [facility], Workstation: [facility], 11/27/2024 12:20 PM
[2024-11-27 14:55] VITALS: BMI 26.2
--- NOTE | 2024-11-27 15:45 | P.PN ---
Subjective Progress Note Date: 11/27/24 Patient is a 69-year-old male with past medical history significant for COPD, current heavy tobacco smoker, hypertension, hyperlipidemia, diabetes mellitus, CVA, heart failure, PFO with previous closure, atrial fibrillation, alcoholism. Recent hospitalization July, for combination of COPD/CHF exacerbation. Patient currently a poor historian. According to ER documentation, patient brought in by EMS last night with increased work of breathing. Also, associated chest pain. Stated he was recently diagnosed with pneumonia by his PCP. ED workup including a D-dimer that was elevated. Inciting chest CT angio protocol which was negative for pulmonary embolism. It is concerning for diffuse metastasis with multiple nodules/masses within the liver, body and tail of the pancreas, and also small patchy nodular opacities in bilateral lungs, favoring metastatic deposits. Small bilateral pleural effusions. Incidentally, noted severe flow-limiting stenosis near takeoff of the left subclavian artery due to heavy calcifications. CBC unremarkable for leukocytosis. Hemoglobin 14.6. Platelets 392. PT 11.9, INR 1.1, APTT 22.8. CMP: Sodium 132, potassium 5.3, chloride 100, serum bicarb 14, BUN 31, creatinine 1.14, glucose 362. Total bilirubin 1.4, AST 69, ALT 57, ALP 1118. Ultrasound of the abdomen concerning for liver metastasis and possible cirrhosis. Small cholelithiasis without cholecystitis. NT-proBNP significantly elevated at 28,100. Elevated serial troponins at 0.054, 0.0189, 2.74 respectively. EKG: Sinus tachycardia, rate 110 bpm, interventricular conduction delay, no acute ST elevations. Patient was started on IV heparin per protocol in the ED. Eliquis is on hold. Viral 4 Plex negative for influenza A/B, RSV, COVID. Patient currently being evaluated in the ED. He is on 3 L/min nasal cannula. Not in any apparent distress. States he went to go see his primary care provider, Jodie, a physician chef's assistant out of Dr. Pendleton's office. Sent for chest x-ray, and told he he had pneumonia. He has been more short of breath than baseline. Also, has a congested cough. No sputum production or hemoptysis. Denies sick contacts. Denies fevers or chills. Does state that he previously stopped taking his Lasix approximately 1 or 2 months ago, and has had some increased lower extremity swelling. Previously reported chest pain is resolved. Currently on IV heparin per protocol. Reportedly, recently seen his computer mechanic in the office, Dr. Boles. Current vital signs: Temperature 98 F, heart rate 99 bpm, blood pressure 124/75 mmHg, nontachypneic, SpO2 93% on 3 L/min nasal cannula. 11/27/2024, the patient is being seen for a follow-up. The patient is sitting up on a chair and the patient seems to be calm and comfortable. Suspected to have metastatic pancreatic cancer. The CEA level was 231 and the CA 19-9 level was above 10,000. The patient is awaiting an oncology consultation. CAT scan of the abdomen and pelvis was also completed and the patient was found to have multiple hepatic lesions measuring up to 4 cm in size consistent with metastatic disease. The patient also had a 4.5 x 4 cm solid mass at the junction of the pancreatic body and the tail highly suspicious for metastatic pancreatic adenocarcinoma. Another 2.9 cm cystic lesion in the tail of the pancreas was also seen. There is also fluid overload and third spacing with small bilateral pleural effusion and anasarca in addition to sigmoid diverticulosis, tiny gallstones and enlarged prostate. There is also stool along the wall of the rectum versus circumferential rectal neoplasm. The patient is free of any chest pain. He is post acute NSTEMI and the patient was taken off IV heparin. The white cell count is at 19.2 with a heme of 13.4 and platelet count 381. Sodium is at 131, potassium is 5.1, BUN is 53 with a creatinine of 1.01. Bicarb level is at 22. Remains on Symbicort. Remains on DuoNeb updrafts. Remains on empiric antibiotic coverage with IV Rocephin. PatiEchocardiogram was also completed and the patient was found to have a impaired LV function with an ejection fraction of 25 to 30% in addition to severe global decrease in contractility, RV enlargement with moderate to severe pulm hypertension. No pericardial effusion.ent is also on Solu-Medrol 40 mg every 8 hours, metoprolol 50 mg p.o. daily and normal saline at rate of 75 cc an hour. Objective - Vital Signs Vital signs: Vital Signs Temp 98.0 F 11/27/24 05:00 Pulse 96 11/27/24 08:45 Resp 18 11/27/24 08:45 BP 123/74 11/27/24 08:45 Pulse Ox 91 L 11/27/24 08:45 FiO2 21 11/26/24 08:18 Intake & Output 11/26/24 11/27/24 11/27/24 18:59 06:59 18:59 Intake Total 129.609 120.391 240 Output Total 400 Balance 129.609 -279.609 240 Weight 75.296 kg 78.1 kg Intake: Intake, IV Titration 129.609 120.391 Amount Heparin Sod,Pork in 0.45% 129.609 120.391 NaCl 25,000 unit In 0.45 % NaCl 1 250ml.bag @ 12 UNITS/KG/HR 9.036 mls/hr IV .Q24H [facility] Rx#: [id number] Oral 240 Output: Urine 400 Other: Voiding Method Toilet Urinal # Voids 1 - Exam GENERAL EXAM: Alert, 69-year-old male, comfortable in no apparent distress. Patient currently on room air oxygen. HEAD: Normocephalic and atraumatic EYES: Normal reaction of pupils, equal size. Nonicteric sclera NOSE: Clear with pink turbinates. THROAT: No erythema or exudates. NECK: No masses, no JVD. CHEST: No chest wall deformity. LUNGS: Equal air entry with scattered bilateral rhonchi. On 3 L/min nasal cannula. No conversational dyspnea or accessory muscle use.. CVS: S1 and S2 normal with no audible murmur, regular rhythm. No extra heart sounds ABDOMEN: No hepatosplenomegaly, active bowel sounds, no guarding or rigidity. SPINE: No scoliosis or deformity SKIN: No rashes CENTRAL NERVOUS SYSTEM: No focal deficits, tone is normal in all 4 extremities. EXTREMITIES: There is 2+ bilateral lower extremity edema. No clubbing, or cyanosis. Peripheral pulses are intact. - Labs CBC & Chem 7: 11/27/24 07:25 11/27/24 07:25 Labs: Abnormal Lab Results - Last 24 Hours (Table) 11/26/24 11/26/24 11/26/24 Range/Units 05:52 10:25 10:25 WBC (4.50-10.00) 10*3/uL RBC (4.40-5.60) 10*6/uL MCV (80.0-97.0) fL MCH (27.0-32.0) pg Immature Gran # (0.00-0.04) 10*3/uL Neutrophils # (1.80-7.70) 10*3/uL Lymphocytes # (0.90-5.00) 10*3/uL Eosinophils # (0.04-0.35) 10*3/uL APTT (22.0-30.0) sec Sodium 131 L 134 L (137-145) mmol/L Potassium 5.7 H (3.5-5.1) mmol/L Carbon Dioxide 13 L (22-30) mmol/L BUN 42 H (9-20) mg/dL Glucose 409 H (74-99) mg/dL POC Glucose (mg/dL) (70-110) mg/dL Hemoglobin A1c (<=6.0) % Carcinoembryonic Ag 231.0 H (0.0-4.9) ng/mL CA 19-9 Antigen >25211.0 H (0.0-34.9) U/mL Procalcitonin (0.02-0.50) ng/mL 11/26/24 11/26/24 11/26/24 Range/Units 16:50 18:24 18:24 WBC (4.50-10.00) 10*3/uL RBC (4.40-5.60) 10*6/uL MCV (80.0-97.0) fL MCH (27.0-32.0) pg Immature Gran # (0.00-0.04) 10*3/uL Neutrophils # (1.80-7.70) 10*3/uL Lymphocytes # (0.90-5.00) 10*3/uL Eosinophils # (0.04-0.35) 10*3/uL APTT (22.0-30.0) sec Sodium 129 L (137-145) mmol/L Potassium (3.5-5.1) mmol/L Carbon Dioxide (22-30) mmol/L BUN (9-20) mg/dL Glucose (74-99) mg/dL POC Glucose (mg/dL) 495 H (70-110) mg/dL Hemoglobin A1c (<=6.0) % Carcinoembryonic Ag (0.0-4.9) ng/mL CA 19-9 Antigen (0.0-34.9) U/mL Procalcitonin 0.66 H (0.02-0.50) ng/mL 11/26/24 11/26/24 11/26/24 Range/Units 18:24 20:22 21:38 WBC (4.50-10.00) 10*3/uL RBC (4.40-5.60) 10*6/uL MCV (80.0-97.0) fL MCH (27.0-32.0) pg Immature Gran # (0.00-0.04) 10*3/uL Neutrophils # (1.80-7.70) 10*3/uL Lymphocytes # (0.90-5.00) 10*3/uL Eosinophils # (0.04-0.35) 10*3/uL APTT (22.0-30.0) sec Sodium 129 L (137-145) mmol/L Potassium (3.5-5.1) mmol/L Carbon Dioxide (22-30) mmol/L BUN (9-20) mg/dL Glucose (74-99) mg/dL POC Glucose (mg/dL) 379 H (70-110) mg/dL Hemoglobin A1c 11.5 H (<=6.0) % Carcinoembryonic Ag (0.0-4.9) ng/mL CA 19-9 Antigen (0.0-34.9) U/mL Procalcitonin (0.02-0.50) ng/mL 11/26/24 11/27/24 11/27/24 Range/Units 21:38 06:00 07:25 WBC 19.29 H (4.50-10.00) 10*3/uL RBC 4.09 L (4.40-5.60) 10*6/uL MCV 97.3 H (80.0-97.0) fL MCH 32.8 H (27.0-32.0) pg Immature Gran # 0.12 H (0.00-0.04) 10*3/uL Neutrophils # 17.41 H (1.80-7.70) 10*3/uL Lymphocytes # 0.83 L (0.90-5.00) 10*3/uL Eosinophils # 0.00 L (0.04-0.35) 10*3/uL APTT 30.3 H (22.0-30.0) sec Sodium (137-145) mmol/L Potassium (3.5-5.1) mmol/L Carbon Dioxide (22-30) mmol/L BUN (9-20) mg/dL Glucose (74-99) mg/dL POC Glucose (mg/dL) 177 H (70-110) mg/dL Hemoglobin A1c (<=6.0) % Carcinoembryonic Ag (0.0-4.9) ng/mL CA 19-9 Antigen (0.0-34.9) U/mL Procalcitonin (0.02-0.50) ng/mL 11/27/24 11/27/24 Range/Units 07:25 07:25 WBC (4.50-10.00) 10*3/uL RBC (4.40-5.60) 10*6/uL MCV (80.0-97.0) fL MCH (27.0-32.0) pg Immature Gran # (0.00-0.04) 10*3/uL Neutrophils # (1.80-7.70) 10*3/uL Lymphocytes # (0.90-5.00) 10*3/uL Eosinophils # (0.04-0.35) 10*3/uL APTT 43.4 H (22.0-30.0) sec Sodium 131 L (137-145) mmol/L Potassium (3.5-5.1) mmol/L Carbon Dioxide (22-30) mmol/L BUN 53 H (9-20) mg/dL Glucose 246 H (74-99) mg/dL POC Glucose (mg/dL) (70-110) mg/dL Hemoglobin A1c (<=6.0) % Carcinoembryonic Ag (0.0-4.9) ng/mL CA 19-9 Antigen (0.0-34.9) U/mL Procalcitonin (0.02-0.50) ng/mL Microbiology - Last 24 Hours (Table) 11/25/24 21:33 Blood Culture - Preliminary Blood Assessment and Plan Assessment: Acute hypoxemic respiratory failure, likely secondary to a combination of chron ic systolic CHF and acute COPD exacerbation, predominantly CHF and the patient is currently on room air oxygen.. Chest x-ray remarkable for cardiomegaly and small bilateral pleural effusions. NT proBNP significantly elevated at 28,100. Impaired ejection fraction on echocardiogram with an ejection fraction of 20 to 25%. Suspect metastatic pancreatic cancer; chest CT angiogram negative for pulmonary embolism. It is concerning for diffuse metastatic disease with multiple nodules/masses within the liver, body and tail of the pancreas, and also small patchy nodular opacities in bilateral lungs, favoring metastatic deposits. CAT scan of the abdomen and pelvis also showed a pancreatic mass measuring 4.5 x 4 cm in size at the junction of the body and tail of the pancreas in addition to multiple hepatic lesions consistent with metastatic disease. CA 19-9 level is elevated above 10,000. Elevated troponins, rule out non-ST elevation MO, free of any chest pain Elevated LFTs, likely secondary to liver metastasis Severe COPD, with an FEV1 39% of predicted Chronic ongoing tobacco dependence, current 1 pack/day smoker History of CVA, with residual homonymous hemianopia History of diabetes mellitus type II History of hypertension History of hyperlipidemia History of heart failure with reduced ejection fraction, most recent available echocardiogram from June, estimating severely reduced LV function with an EF of 15%. Repeat echocardiogram shows global hypokinesis with ejection fraction of 20 to 25% History of paroxysmal atrial fibrillation, normally anticoagulated on Eliquis which was on hold, current rhythm sinus. History of PFO with closure History of alcoholism Plan: Patient currently on room air oxygen Continue Symbicort Stopped IV Solu-Medrol and put the patient on prednisone burst taper IV heparin has been discontinued Cardiology also consulted, no intervention is planned at this point specially with his underlying metastatic disease that needs to be further worked up. Continue metoprolol Continue Lasix Oncology consulted Would likely benefit from a liver biopsy by IR to establish tissue diagnosis Prognosis extremely poor based on above-mentioned comorbidities. Will continue to follow. Time with Patient: Greater than 30
[2024-11-27 16:32] LABS: Glucose,Whole Blood 159 mg/dL (70-110)
--- NOTE | 2024-11-27 17:02 | P.PN ---
Subjective Progress Note Date: 11/27/24 No acute events overnight. Plan is for liver biopsy, however pt has been started on aspirin and this will typically delay biopsy 5-7 days. Pt is anxious to go home Objective - Vital Signs Vital signs: Vital Signs Temp 98.0 F 11/27/24 05:00 Pulse 105 H 11/27/24 11:59 Resp 18 11/27/24 11:59 BP 119/76 11/27/24 11:59 Pulse Ox 93 L 11/27/24 11:59 FiO2 21 11/26/24 08:18 Intake & Output 11/26/24 11/27/24 11/27/24 18:59 06:59 18:59 Intake Total 129.609 120.391 240 Output Total 400 Balance 129.609 -279.609 240 Weight 75.296 kg 78.1 kg Intake: Intake, IV Titration 129.609 120.391 Amount Heparin Sod,Pork in 0.45% 129.609 120.391 NaCl 25,000 unit In 0.45 % NaCl 1 250ml.bag @ 12 UNITS/KG/HR 9.036 mls/hr IV .Q24H ON LICENSE OF [facility] Rx#: [id number] Oral 240 Output: Urine 400 Other: Voiding Method Toilet Urinal Urinal # Voids 1 1 # Bowel Movements 1 - Constitutional General appearance: Present: average body habitus, no acute distress - EENT Eyes: Present: anicteric sclerae, EOMI ENT: Present: hearing grossly normal - Respiratory Details: breathing is even and unlabored - Cardiovascular Details: skin warm and dry - Integumentary Integumentary: Absent: cyanotic, jaundiced - Psychiatric Psychiatric: Present: A&O x's 3 - Labs CBC & Chem 7: 11/27/24 07:25 11/27/24 07:25 Labs: Abnormal Lab Results - Last 24 Hours (Table) 11/26/24 11/26/24 11/26/24 Range/Units 05:52 10:25 16:50 WBC (4.50-10.00) 10*3/uL RBC (4.40-5.60) 10*6/uL MCV (80.0-97.0) fL MCH (27.0-32.0) pg Immature Gran # (0.00-0.04) 10*3/uL Neutrophils # (1.80-7.70) 10*3/uL Lymphocytes # (0.90-5.00) 10*3/uL Eosinophils # (0.04-0.35) 10*3/uL APTT (22.0-30.0) sec Sodium 134 L (137-145) mmol/L Potassium 5.7 H (3.5-5.1) mmol/L Carbon Dioxide 13 L (22-30) mmol/L BUN 42 H (9-20) mg/dL Glucose 409 H (74-99) mg/dL POC Glucose (mg/dL) 495 H (70-110) mg/dL Hemoglobin A1c (<=6.0) % Carcinoembryonic Ag 231.0 H (0.0-4.9) ng/mL CA 19-9 Antigen >47146.0 H (0.0-34.9) U/mL Procalcitonin (0.02-0.50) ng/mL 11/26/24 11/26/24 11/26/24 Range/Units 18:24 18:24 18:24 WBC (4.50-10.00) 10*3/uL RBC (4.40-5.60) 10*6/uL MCV (80.0-97.0) fL MCH (27.0-32.0) pg Immature Gran # (0.00-0.04) 10*3/uL Neutrophils # (1.80-7.70) 10*3/uL Lymphocytes # (0.90-5.00) 10*3/uL Eosinophils # (0.04-0.35) 10*3/uL APTT (22.0-30.0) sec Sodium 129 L (137-145) mmol/L Potassium (3.5-5.1) mmol/L Carbon Dioxide (22-30) mmol/L BUN (9-20) mg/dL Glucose (74-99) mg/dL POC Glucose (mg/dL) (70-110) mg/dL Hemoglobin A1c 11.5 H (<=6.0) % Carcinoembryonic Ag (0.0-4.9) ng/mL CA 19-9 Antigen (0.0-34.9) U/mL Procalcitonin 0.66 H (0.02-0.50) ng/mL 11/26/24 11/26/24 11/26/24 Range/Units 20:22 21:38 21:38 WBC (4.50-10.00) 10*3/uL RBC (4.40-5.60) 10*6/uL MCV (80.0-97.0) fL MCH (27.0-32.0) pg Immature Gran # (0.00-0.04) 10*3/uL Neutrophils # (1.80-7.70) 10*3/uL Lymphocytes # (0.90-5.00) 10*3/uL Eosinophils # (0.04-0.35) 10*3/uL APTT 30.3 H (22.0-30.0) sec Sodium 129 L (137-145) mmol/L Potassium (3.5-5.1) mmol/L Carbon Dioxide (22-30) mmol/L BUN (9-20) mg/dL Glucose (74-99) mg/dL POC Glucose (mg/dL) 379 H (70-110) mg/dL Hemoglobin A1c (<=6.0) % Carcinoembryonic Ag (0.0-4.9) ng/mL CA 19-9 Antigen (0.0-34.9) U/mL Procalcitonin (0.02-0.50) ng/mL 11/27/24 11/27/24 11/27/24 Range/Units 06:00 07:25 07:25 WBC 19.29 H (4.50-10.00) 10*3/uL RBC 4.09 L (4.40-5.60) 10*6/uL MCV 97.3 H (80.0-97.0) fL MCH 32.8 H (27.0-32.0) pg Immature Gran # 0.12 H (0.00-0.04) 10*3/uL Neutrophils # 17.41 H (1.80-7.70) 10*3/uL Lymphocytes # 0.83 L (0.90-5.00) 10*3/uL Eosinophils # 0.00 L (0.04-0.35) 10*3/uL APTT 43.4 H (22.0-30.0) sec Sodium (137-145) mmol/L Potassium (3.5-5.1) mmol/L Carbon Dioxide (22-30) mmol/L BUN (9-20) mg/dL Glucose (74-99) mg/dL POC Glucose (mg/dL) 177 H (70-110) mg/dL Hemoglobin A1c (<=6.0) % Carcinoembryonic Ag (0.0-4.9) ng/mL CA 19-9 Antigen (0.0-34.9) U/mL Procalcitonin (0.02-0.50) ng/mL 11/27/24 11/27/24 Range/Units 07:25 11:37 WBC (4.50-10.00) 10*3/uL RBC (4.40-5.60) 10*6/uL MCV (80.0-97.0) fL MCH (27.0-32.0) pg Immature Gran # (0.00-0.04) 10*3/uL Neutrophils # (1.80-7.70) 10*3/uL Lymphocytes # (0.90-5.00) 10*3/uL Eosinophils # (0.04-0.35) 10*3/uL APTT (22.0-30.0) sec Sodium 131 L (137-145) mmol/L Potassium (3.5-5.1) mmol/L Carbon Dioxide (22-30) mmol/L BUN 53 H (9-20) mg/dL Glucose 246 H (74-99) mg/dL POC Glucose (mg/dL) 424 H (70-110) mg/dL Hemoglobin A1c (<=6.0) % Carcinoembryonic Ag (0.0-4.9) ng/mL CA 19-9 Antigen (0.0-34.9) U/mL Procalcitonin (0.02-0.50) ng/mL Microbiology - Last 24 Hours (Table) 11/25/24 21:33 Blood Culture - Preliminary Blood Assessment and Plan (1) COPD exacerbation Current Visit: Yes Status: Acute Code(s): J44.1 - CHRONIC OBSTRUCTIVE PULMONARY DISEASE W (ACUTE) EXACERBATION SNOMED Code(s): 897975834 (2) Elevated troponin Current Visit: Yes Status: Acute Code(s): R79.89 - OTHER SPECIFIED ABNORMAL FINDINGS OF BLOOD CHEMISTRY SNOMED Code(s): 591112713 (3) Liver lesion Current Visit: Yes Status: Acute Code(s): K76.9 - LIVER DISEASE, UNSPECIFIED SNOMED Code(s): 769307251 (4) Pancreatic mass Current Visit: Yes Status: Acute Code(s): K86.89 - OTHER SPECIFIED DISEASES OF PANCREAS SNOMED Code(s): 621802329 Plan: Liver and pancreatic lesions - Patient admitted because of chest pain, arm pain and diagnosed with an acute MS -Chest CTA reporting several hypoenhancing lesions in the body and tail of the pancreas. Largest is more proximal, measuring 3 x 5 cm. No enlarged lymph nodes. Multiple liver metastases. Patchy opacities in the bone in both lungs. -Discussed with patient concerning findings. Explained that we would need a biopsy for tissue diagnosis, to confirm what the lesions are in order to give diagnosis, treatment options and prognosis. He verbalized understanding and is agreeable to further work up - The challenge is going to be getting a biopsy as he was just diagnosed with ac hughes MS. Spoke with Cardiology, no plan for cath at this time, cleared for biopsy. However, pt has been started on aspirin and this will typically delay biopsy for 5-7 days. Will plan to schedule liver biopsy outpt -CT AP ordered, scheduled for today -CA 19.9 significantly elevated at > 10,000 -Clinic f/u s/p biopsy to discuss findings and treatment recommendations Patient is cleared for discharge from oncology standpoint Doctor attests: I performed a history and physical examination of this patient, developed impression and plan of care. Discussed with dictator. I agree with dictators note, documented as a scribe.
[2024-11-27 19:57] LABS: Glucose,Whole Blood 193 mg/dL (70-110)
[2024-11-27] MEDS ORDERED: LORazepam 1 MG TAB PO PRN (22:29)
[2024-11-27] MEDS: NICOTINE 14MG/24HR PATCH TRANSDERM SCH (22:51)
--- NOTE | 2024-11-28 03:51 | PN ---
PROGRESS NOTE DATE OF SERVICE: 11/27/2024 SUBJECTIVE: This is a 69-year-old gentleman was admitted with shortness of breath multifactorial, COPD, CHF acute exacerbation, also being evaluated for metastatic malignancy, multiple consults following the patient closely. A CT abdomen and pelvis showed innumerable hepatic lesions and solid mass at the junction of the pancreatic body and tail and fluid also is noted. CA 19-9 is significantly elevated. No fever, no cough. PAST MEDICAL HISTORY: Reviewed. REVIEW OF SYSTEMS: Fourteen-point review of systems is negative except as mentioned earlier. CURRENT MEDICATIONS: Reviewed. PHYSICAL EXAMINATION: VITAL SIGNS: Pulse is 97, blood pressure 120/70, respirations 18. HEENT: Sclerae and conjunctivae normal. CARDIOVASCULAR: S1, S2. RESPIRATION: Breath sounds diminished at the bases. Few scattered rhonchi. ABDOMEN: Soft. LABORATORY DATA: Glucose 424, and improved. WBC 19.2. ASSESSMENT: 1. Shortness of breath multifactorial with chronic obstructive pulmonary disease and congestive heart failure acute exacerbation. 2. Possible metastatic malignancy with primary pancreas and possibly with metastases to lungs and liver. 3. Elevated troponin up to 10.200 with acute lhs-IV-bbtvlmy-elevation myocardial infarction. 4. Diabetes mellitus, type 2. 5. Chronic obstructive pulmonary disease. 6. Hypertension. 7. History of pneumonia. RECOMMENDATIONS: I recommend to continue current management and treatment. Otherwise, closely follow with multiple consultants as mentioned earlier. The prognosis remains extremely guarded because of multiple complex issues. The patient is on aspirin, which delayed biopsy-proven per Oncology. Aspirin, metoprolol, and continue with IV heparin was recommended by Cardiology. No plans for cardiac cath being planned at this time because of the possibility of multiple secondary cell, repeat the labs and continue to monitor. Further recommendations to follow. MMODL / IJN: [id number] /
[2024-11-28 06:02] LABS: Glucose,Whole Blood 340 mg/dL (70-110)
--- NOTE | 2024-11-28 07:08 | P.PN ---
Subjective Progress Note Date: 11/28/24 The patient was seen and evaluated this morning. He is asymptomatic from a cardiovascular standpoint of view with he underwent an echo which revealed cardiomyopathy with EF around 30%. There is a workup for possible metastatic pancreatic cancer currently under investigation. He is on heparin IV which I will continue at this point till we know there is no further workup needed then I can switch him to oral anticoagulation. Beside that I am going to add lisinopril to the current medical regimen. The physical examination is remarkable for regular rhythm with diminished breathing sounds bilaterally and bilateral rhonchi and mild edema was noted in the lower extremities ASSESSMENT: Non-STEMI Cardiomyopathy unknown ischemic or nonischemic Possible metastatic pancreatic cancer History of paroxysmal atrial fibrillation Multiple comorbid conditions History of CVA Plan Continue the current medical regimen Continue heparin IV and consider switching the patient to oral anticoagulation for atrial fibrillation Add lisinopril to the current medical regimen Continue aspirin and Zetia and beta-gabo Objective - Vital Signs Vital signs: Vital Signs Temp 97.6 F 11/28/24 04:00 Pulse 94 11/28/24 04:00 Resp 18 11/28/24 04:00 BP 120/76 11/28/24 04:00 Pulse Ox 95 11/28/24 04:00 FiO2 21 11/26/24 08:18 Intake & Output 11/27/24 11/28/24 11/28/24 18:59 06:59 18:59 Intake Total 490 251.168 Output Total 1 550 Balance 489 -298.832 Weight 78.1 kg Intake: IV 10 Invasive Line 1 10 Intake, IV Titration 250 241.168 Amount Heparin Sod,Pork in 0.45% 250 241.168 NaCl 25,000 unit In 0.45 % NaCl 1 250ml.bag @ 12 UNITS/KG/HR 9.036 mls/hr IV .Q24H [facility] Rx#: [id number] Oral 240 Output: Urine 550 Stool 1 Other: Voiding Method Urinal Urinal # Voids 1 1 # Bowel Movements 1 - Labs CBC & Chem 7: 11/27/24 07:25 11/27/24 07:25 Labs: Abnormal Lab Results - Last 24 Hours (Table) 11/27/24 11/27/24 11/27/24 Range/Units 07:25 07:25 07:25 WBC 19.29 H (4.50-10.00) 10*3/uL RBC 4.09 L (4.40-5.60) 10*6/uL MCV 97.3 H (80.0-97.0) fL MCH 32.8 H (27.0-32.0) pg Immature Gran # 0.12 H (0.00-0.04) 10*3/uL Neutrophils # 17.41 H (1.80-7.70) 10*3/uL Lymphocytes # 0.83 L (0.90-5.00) 10*3/uL Eosinophils # 0.00 L (0.04-0.35) 10*3/uL APTT 43.4 H (22.0-30.0) sec Sodium 131 L (137-145) mmol/L BUN 53 H (9-20) mg/dL Glucose 246 H (74-99) mg/dL POC Glucose (mg/dL) (70-110) mg/dL 11/27/24 11/27/24 11/27/24 Range/Units 11:37 16:30 19:56 WBC (4.50-10.00) 10*3/uL RBC (4.40-5.60) 10*6/uL MCV (80.0-97.0) fL MCH (27.0-32.0) pg Immature Gran # (0.00-0.04) 10*3/uL Neutrophils # (1.80-7.70) 10*3/uL Lymphocytes # (0.90-5.00) 10*3/uL Eosinophils # (0.04-0.35) 10*3/uL APTT (22.0-30.0) sec Sodium (137-145) mmol/L BUN (9-20) mg/dL Glucose (74-99) mg/dL POC Glucose (mg/dL) 424 H 159 H 193 H (70-110) mg/dL 11/28/24 Range/Units 05:58 WBC (4.50-10.00) 10*3/uL RBC (4.40-5.60) 10*6/uL MCV (80.0-97.0) fL MCH (27.0-32.0) pg Immature Gran # (0.00-0.04) 10*3/uL Neutrophils # (1.80-7.70) 10*3/uL Lymphocytes # (0.90-5.00) 10*3/uL Eosinophils # (0.04-0.35) 10*3/uL APTT (22.0-30.0) sec Sodium (137-145) mmol/L BUN (9-20) mg/dL Glucose (74-99) mg/dL POC Glucose (mg/dL) 340 H (70-110) mg/dL Microbiology - Last 24 Hours (Table) 11/25/24 21:33 Blood Culture - Preliminary Blood
--- NOTE | 2024-11-28 07:09 | XR ---
EXAMINATION TYPE: XR chest 1V portable DATE OF EXAM: 11/28/2024 COMPARISON: 11/25/2024 CLINICAL INDICATION: Male, 69 years old with history of chf; TECHNIQUE: Single frontal view of the chest is obtained. FINDINGS: There is mild cardiomegaly, pulmonary vascular congestion and mild interstitial edema. There is no pneumothorax or detectable pleural effusion. The osseous structures are intact. IMPRESSION: Findings suggest of mild worsening in mild CHF. [facility], Workstation: [facility], 11/28/2024 7:07 AM
[2024-11-28 07:17] LABS: Basophils # (A) 0.02 10*3/uL (0.00-0.10); Basophils % (A) 0.1 %; HGB 12.9 g/dL (13.0-17.0); Lymphocytes # (A) 0.46 10*3/uL (0.90-5.00); MCH 32.6 pg (27.0-32.0); MCHC 33.1 g/dL (32.0-37.0); MCV 98.5 fL (80.0-97.0); Mean Platelet Volume 10.4 fL (9.5-12.2); Monocytes # (A) 1.17 10*3/uL (0.20-1.00); Monocytes % (A) 7.5 %; Neutrophils # (A) 13.88 10*3/uL (1.80-7.70); Platelet Count 335 10*3/uL (140-440); RBC 3.96 10*6/uL (4.40-5.60); RDW 15.2 % (11.5-14.5); WBC 15.59 10*3/uL (4.50-10.00)
[2024-11-28 07:43] LABS: ALT 83 U/L (4-49); AST 122 U/L (17-59); African American GFR (CKD) >90 (>60 ml/min/1.73 sqM); Albumin 2.8 g/dL (3.5-5.0); Alkaline Phosphatase 831 U/L (38-126); Anion Gap 7 mmol/L; Blood Urea Nitrogen 49 mg/dL (9-20); Calcium 8.4 mg/dL (8.4-10.2); Carbon Dioxide 23 mmol/L (22-30); Chloride 102 mmol/L (98-107); Glucose 341 mg/dL (74-99); Non-African American GFR(CKD) 89 (>60 ml/min/1.73 sqM); Potassium 5.5 mmol/L (3.5-5.1); Sodium 132 mmol/L (137-145); Total Bilirubin 0.8 mg/dL (0.2-1.3); Total Protein 5.8 g/dL (6.3-8.2)
[2024-11-28] MEDS: predniSONE 20 MG TAB PO SCH (09:40)
[2024-11-28 11:52] LABS: Glucose,Whole Blood 233 mg/dL (70-110)
--- NOTE | 2024-11-28 15:02 | P.PN ---
Subjective Progress Note Date: 11/28/24 Patient is a 69-year-old male with past medical history significant for COPD, current heavy tobacco smoker, hypertension, hyperlipidemia, diabetes mellitus, CVA, heart failure, PFO with previous closure, atrial fibrillation, alcoholism. Recent hospitalization July, for combination of COPD/CHF exacerbation. Patient currently a poor historian. According to ER documentation, patient brought in by EMS last night with increased work of breathing. Also, associated chest pain. Stated he was recently diagnosed with pneumonia by his PCP. ED workup including a D-dimer that was elevated. Inciting chest CT angio protocol which was negative for pulmonary embolism. It is concerning for diffuse metastasis with multiple nodules/masses within the liver, body and tail of the pancreas, and also small patchy nodular opacities in bilateral lungs, favoring metastatic deposits. Small bilateral pleural effusions. Incidentally, noted severe flow-limiting stenosis near takeoff of the left subclavian artery due to heavy calcifications. CBC unremarkable for leukocytosis. Hemoglobin 14.6. Platelets 392. PT 11.9, INR 1.1, APTT 22.8. CMP: Sodium 132, potassium 5.3, chloride 100, serum bicarb 14, BUN 31, creatinine 1.14, glucose 362. Total bilirubin 1.4, AST 69, ALT 57, ALP 1118. Ultrasound of the abdomen concerning for liver metastasis and possible cirrhosis. Small cholelithiasis without cholecystitis. NT-proBNP significantly elevated at 28,100. Elevated serial troponins at 0.054, 0.0189, 2.74 respectively. EKG: Sinus tachycardia, rate 110 bpm, interventricular conduction delay, no acute ST elevations. Patient was started on IV heparin per protocol in the ED. Eliquis is on hold. Viral 4 Plex negative for influenza A/B, RSV, COVID. Patient currently being evaluated in the ED. He is on 3 L/min nasal cannula. Not in any apparent distress. States he went to go see his primary care provider, Jodie, a physician child development assistant out of Dr. Pendleton's office. Sent for chest x-ray, and told he he had pneumonia. He has been more short of breath than baseline. Also, has a congested cough. No sputum production or hemoptysis. Denies sick contacts. Denies fevers or chills. Does state that he previously stopped taking his Lasix approximately 1 or 2 months ago, and has had some increased lower extremity swelling. Previously reported chest pain is resolved. Currently on IV heparin per protocol. 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 Boles. Current vital signs: Temperature 98 F, heart rate 99 bpm, blood pressure 124/75 mmHg, nontachypneic, SpO2 93% on 3 L/min nasal cannula. 11/27/2024, the patient is being seen for a follow-up. The patient is sitting up on a chair and the patient seems to be calm and comfortable. Suspected to have metastatic pancreatic cancer. The CEA level was 231 and the CA 19-9 level was above 10,000. The patient is awaiting an oncology consultation. CAT scan of the abdomen and pelvis was also completed and the patient was found to have multiple hepatic lesions measuring up to 4 cm in size consistent with metastatic disease. The patient also had a 4.5 x 4 cm solid mass at the junction of the pancreatic body and the tail highly suspicious for metastatic pancreatic adenocarcinoma. Another 2.9 cm cystic lesion in the tail of the pancreas was also seen. There is also fluid overload and third spacing with small bilateral pleural effusion and anasarca in addition to sigmoid diverticulosis, tiny gallstones and enlarged prostate. There is also stool along the wall of the rectum versus circumferential rectal neoplasm. The patient is free of any chest pain. He is post acute NSTEMI and the patient was taken off IV heparin. The white cell count is at 19.2 with a heme of 13.4 and platelet count 381. Sodium is at 131, potassium is 5.1, BUN is 53 with a creatinine of 1.01. Bicarb level is at 22. Remains on Symbicort. Remains on DuoNeb updrafts. Remains on empiric antibiotic coverage with IV Rocephin. PatiEchocardiogram was also completed and the patient was found to have a impaired LV function with an ejection fraction of 25 to 30% in addition to severe global decrease in contractility, RV enlargement with moderate to severe pulm hypertension. No pericardial effusion.ent is also on Solu-Medrol 40 mg every 8 hours, metoprolol 50 mg p.o. daily and normal saline at rate of 75 cc an hour. On 11/28/2024, the patient is being seen for a follow-up. Resting comfortably in bed and the patient is currently on 2 L of oxygen by nasal cannula with a pulse ox of 98%. The patient is free of any chest pain. No significant cough or sputum production. He is on IV heparin and we will keep him on IV heparin pending further workup regarding his potential metastatic carcinoma which seems to be of a pancreatic primary. Otherwise, no significant respiratory distress. The white cell count is 15.5, hemoglobin 12.9 with a platelet count of 335. BUN is 49 with a creatinine of 0.8. Sodium is at 132. LFTs are normal related to hepatic metastases. No significant encephalopathy. Objective - Vital Signs Vital signs: Vital Signs Temp 97.9 F 11/28/24 09:39 Pulse 88 11/28/24 09:39 Resp 18 11/28/24 09:39 BP 107/55 11/28/24 09:39 Pulse Ox 96 11/28/24 09:39 FiO2 21 11/26/24 08:18 Intake & Output 11/27/24 11/28/24 11/28/24 18:59 06:59 18:59 Intake Total 490 251.168 Output Total 1 550 Balance 489 -298.832 Weight 78.1 kg Intake: IV 10 Invasive Line 1 10 Intake, IV Titration 250 241.168 Amount Heparin Sod,Pork in 0.45% 250 241.168 NaCl 25,000 unit In 0.45 % NaCl 1 250ml.bag @ 12 UNITS/KG/HR 9.036 mls/hr IV .Q24H [facility] Rx#: [id number] Oral 240 Output: Urine 550 Stool 1 Other: Voiding Method Urinal Urinal # Voids 1 1 # Bowel Movements 1 - Exam GENERAL EXAM: Alert, 69-year-old male, comfortable in no apparent distress. Titi estrella currently on 2 L of oxygen by nasal cannula. HEAD: Normocephalic and atraumatic EYES: Normal reaction of pupils, equal size. Nonicteric sclera NOSE: Clear with pink turbinates. THROAT: No erythema or exudates. NECK: No masses, no JVD. CHEST: No chest wall deformity. LUNGS: Equal air entry with scattered bilateral rhonchi. No conversational dyspnea or accessory muscle use.. CVS: S1 and S2 normal with no audible murmur, regular rhythm. No extra heart sounds ABDOMEN: No hepatosplenomegaly, active bowel sounds, no guarding or rigidity. SPINE: No scoliosis or deformity SKIN: No rashes CENTRAL NERVOUS SYSTEM: No focal deficits, tone is normal in all 4 extremities. EXTREMITIES: There is 2+ bilateral lower extremity edema. No clubbing, or cyanosis. Peripheral pulses are intact. - Labs CBC & Chem 7: 11/28/24 06:07 11/28/24 06:07 Labs: Abnormal Lab Results - Last 24 Hours (Table) 11/27/24 11/27/24 11/27/24 Range/Units 11:37 16:30 19:56 WBC (4.50-10.00) 10*3/uL RBC (4.40-5.60) 10*6/uL Hgb (13.0-17.0) g/dL Hct (39.6-50.0) % MCV (80.0-97.0) fL MCH (27.0-32.0) pg Immature Gran # (0.00-0.04) 10*3/uL Neutrophils # (1.80-7.70) 10*3/uL Lymphocytes # (0.90-5.00) 10*3/uL Monocytes # (0.20-1.00) 10*3/uL Eosinophils # (0.04-0.35) 10*3/uL APTT (22.0-30.0) sec Sodium (137-145) mmol/L Potassium (3.5-5.1) mmol/L BUN (9-20) mg/dL Glucose (74-99) mg/dL POC Glucose (mg/dL) 424 H 159 H 193 H (70-110) mg/dL AST (17-59) U/L ALT (4-49) U/L Alkaline Phosphatase (38-126) U/L Total Protein (6.3-8.2) g/dL Albumin (3.5-5.0) g/dL 11/28/24 11/28/24 11/28/24 Range/Units 05:58 06:07 06:07 WBC 15.59 H (4.50-10.00) 10*3/uL RBC 3.96 L (4.40-5.60) 10*6/uL Hgb 12.9 L (13.0-17.0) g/dL Hct 39.0 L (39.6-50.0) % MCV 98.5 H (80.0-97.0) fL MCH 32.6 H (27.0-32.0) pg Immature Gran # 0.06 H (0.00-0.04) 10*3/uL Neutrophils # 13.88 H (1.80-7.70) 10*3/uL Lymphocytes # 0.46 L (0.90-5.00) 10*3/uL Monocytes # 1.17 H (0.20-1.00) 10*3/uL Eosinophils # 0.00 L (0.04-0.35) 10*3/uL APTT 62.9 H (22.0-30.0) sec Sodium (137-145) mmol/L Potassium (3.5-5.1) mmol/L BUN (9-20) mg/dL Glucose (74-99) mg/dL POC Glucose (mg/dL) 340 H (70-110) mg/dL AST (17-59) U/L ALT (4-49) U/L Alkaline Phosphatase (38-126) U/L Total Protein (6.3-8.2) g/dL Albumin (3.5-5.0) g/dL 11/28/24 Range/Units 06:07 WBC (4.50-10.00) 10*3/uL RBC (4.40-5.60) 10*6/uL Hgb (13.0-17.0) g/dL Hct (39.6-50.0) % MCV (80.0-97.0) fL MCH (27.0-32.0) pg Immature Gran # (0.00-0.04) 10*3/uL Neutrophils # (1.80-7.70) 10*3/uL Lymphocytes # (0.90-5.00) 10*3/uL Monocytes # (0.20-1.00) 10*3/uL Eosinophils # (0.04-0.35) 10*3/uL APTT (22.0-30.0) sec Sodium 132 L (137-145) mmol/L Potassium 5.5 H (3.5-5.1) mmol/L BUN 49 H (9-20) mg/dL Glucose 341 H (74-99) mg/dL POC Glucose (mg/dL) (70-110) mg/dL AST 122 H (17-59) U/L ALT 83 H (4-49) U/L Alkaline Phosphatase 831 H (38-126) U/L Total Protein 5.8 L (6.3-8.2) g/dL Albumin 2.8 L (3.5-5.0) g/dL Microbiology - Last 24 Hours (Table) 11/25/24 21:33 Blood Culture - Preliminary Blood Assessment and Plan Assessment: Acute hypoxemic respiratory failure, likely secondary to a combination of chronic systolic CHF and acute COPD exacerbation, predominantly CHF and the patient is currently on room air oxygen.. Chest x-ray remarkable for cardiomegaly and small bilateral pleural effusions. NT proBNP significantly elevated at 28,100. Impaired ejection fraction on echocardiogram with an ejection fraction of 20 to 25%. The patient is currently on 2 L of oxygen by nasal cannula. CHF is being further optimized. Cardiology is on the case. Suspect metastatic pancreatic cancer; chest CT angiogram negative for pulmonary embolism. It is concerning for diffuse metastatic disease with multiple nodules/masses within the liver, body and tail of the pancreas, and also small patchy nodular opacities in bilateral lungs, favoring metastatic deposits. CAT scan of the abdomen and pelvis also showed a pancreatic mass measuring 4.5 x 4 cm in size at the junction of the body and tail of the pancreas in addition to multiple hepatic lesions consistent with metastatic disease. CA 19-9 level is elevated above 10,000. The patient will need a tissue diagnosis. The diagnosis is not established yet. Elevated troponins, rule out non-ST elevation TX, free of any chest pain Elevated LFTs, likely secondary to liver metastasis Severe COPD, with an FEV1 39% of predicted Chronic ongoing tobacco dependence, current 1 pack/day smoker History of CVA, with residual homonymous hemianopia History of diabetes mellitus type II History of hypertension History of hyperlipidemia History of heart failure with reduced ejection fraction, most recent available echocardiogram from June, estimating severely reduced LV function with an EF of 15%. Repeat echocardiogram shows global hypokinesis with ejection fraction of 20 to 25% History of paroxysmal atrial fibrillation, normally anticoagulated on Eliquis which was on hold, current rhythm sinus. History of PFO with closure History of alcoholism Plan: Patient currently on 2 L of oxygen by nasal cannula Continue Symbicort Continue prednisone burst taper Continue IV heparin Cardiology also consulted, no intervention is planned at this point specially with his underlying metastatic disease that needs to be further worked up. Continue metoprolol/Toprol-XL Continue Cozaar Continue Lasix, 20 mg p.o. daily Oncology consulted Would likely benefit from a liver biopsy by IR to establish tissue diagnosis Prognosis extremely poor based on above-mentioned comorbidities. Will continue to follow. Time with Patient: Greater than 30
[2024-11-28 16:50] LABS: Glucose,Whole Blood 272 mg/dL (70-110)
[2024-11-28 19:56] LABS: Glucose,Whole Blood 256 mg/dL (70-110)
[2024-11-28] MEDS: TEMAZEPAM 7.5 MG CAP PO PRN (23:40)
--- NOTE | 2024-11-29 03:31 | PN ---
PROGRESS NOTE DATE OF SERVICE: 11/28/2024 SUBJECTIVE: This 69-year-old gentleman, who was admitted with shortness of breath multifactorial, COPD, and CHF, also had metastatic malignancy primarily of the pancreas, is being suspected. Multiple consultants following the patient closely. Hematology/Oncology following the patient closely also. Decorating Consultant not planning any active intervention at this time because of the concerns of metastatic malignancy. CA-19-9 is elevated. PAST MEDICAL HISTORY: Reviewed. REVIEW OF SYSTEMS: Fourteen-point review of systems is negative, except as mentioned above. CURRENT MEDICATIONS: Reviewed. PHYSICAL EXAMINATION: VITAL SIGNS: Pulse is 93, blood pressure 110/66, respirations 18. HEENT: Conjunctivae normal. NECK: No JVD. CARDIOVASCULAR: S1 and S2. ABDOMEN: Soft, nontender. LABORATORY DATA: Other labs are noted. Alkaline phosphatase 831. ASSESSMENT: 1. Shortness of breath, possible chronic obstructive pulmonary disease and congestive heart failure acute exacerbation. 2. Possible metastatic malignancy with primary pancreas, possibly with metastases to lungs and liver. 3. Elevated troponin up to 10.200 with acute [id number]-LT-[id number] elevation myocardial infarction. 4. Diabetes mellitus, type 2. 5. Chronic obstructive pulmonary disease. 6. Hypertension. 7. History of pneumonia. 8. Multiple complex medical issues. RECOMMENDATIONS: To continue current management and treatment. Continue with bronchodilators. Continue rest of medications. Continue with antiplatelet agents, medical treatment currently, empiric antibiotics. Repeat labs. Monitor blood sugars closely. The patient will require further evaluation including biopsy. We will await Hematology/Oncology input and further recommendation to follow. MMODL / IJN: [id number] / MINAL
[2024-11-29 06:57] LABS: Glucose,Whole Blood 172 mg/dL (70-110)
--- NOTE | 2024-11-29 07:42 | P.PN ---
Subjective Progress Note Date: 11/29/24 The patient was seen and evaluated this morning. He is asymptomatic from a cardiovascular standpoint of view with he underwent an echo which revealed cardiomyopathy with EF around 30%. There is a workup for possible metastatic pancreatic cancer currently under investigation. He is on heparin IV which I will continue at this point till we know there is no further workup needed then I can switch him to oral anticoagulation. Beside that I am going to add lisinopril to the current medical regimen. The physical examination is remarkable for regular rhythm with diminished breathing sounds bilaterally and bilateral rhonchi and mild edema was noted in the lower extremities November 29, 2024 The patient was seen and evaluated this morning with he is asymptomatic from a cardiovascular standpoint of view. He is somewhat anxious. The potassium is elevated. I am going to stop the ARB and repeat the blood work for the morning. The workup regarding the cancer is still going. Once that over and there is no plan for biopsy/surgery I will consider starting the patient on dual antiplatelet therapy and restart him back on either MARY inhibitor or ARB or Arni once the potassium is back to normal. Continue maximize medical treatment for cardiomyopathy as well. The physical examination is remarkable for regular rhythm with clear breathing sounds bilaterally and mild to moderate bilateral lower extremity edema. He is on oral diuretics ASSESSMENT: Non-STEMI Cardiomyopathy unknown ischemic or nonischemic Possible metastatic pancreatic cancer History of paroxysmal atrial fibrillation Multiple comorbid conditions History of CVA Hyperkalemia Plan Continue the current medical regimen DC ARB Repeat the blood work for the morning Consider restarting the patient back on ARB and maximize medical treatment for cardiomyopathy once the potassium is normal Consider dual antiplatelet therapy as well once no further workup needed including biopsy/surgery Overall poor prognosis Follow-up with the patient Objective - Vital Signs Vital signs: Vital Signs Temp 98.0 F 11/29/24 04:00 Pulse 81 11/29/24 04:00 Resp 18 11/29/24 04:00 BP 124/68 11/29/24 04:00 Pulse Ox 96 11/29/24 04:00 FiO2 21 11/26/24 08:18 Intake & Output 11/28/24 11/29/24 11/29/24 18:59 06:59 18:59 Intake Total 220 250 Output Total 1100 350 Balance -880 -100 Weight 78.2 kg Intake: IV 10 Invasive Line 1 10 Oral 220 240 Output: Urine 1100 350 Other: Voiding Method Urinal Urinal # Voids 0 # Bowel Movements 0 - Labs CBC & Chem 7: 11/28/24 06:07 11/28/24 06:07 Labs: Abnormal Lab Results - Last 24 Hours (Table) 11/28/24 11/28/24 11/28/24 Range/Units 06:07 11:51 16:48 Sodium 132 L (137-145) mmol/L Potassium 5.5 H (3.5-5.1) mmol/L BUN 49 H (9-20) mg/dL Glucose 341 H (74-99) mg/dL POC Glucose (mg/dL) 233 H 272 H (70-110) mg/dL AST 122 H (17-59) U/L ALT 83 H (4-49) U/L Alkaline Phosphatase 831 H (38-126) U/L Total Protein 5.8 L (6.3-8.2) g/dL Albumin 2.8 L (3.5-5.0) g/dL 11/28/24 11/29/24 Range/Units 19:54 06:56 Sodium (137-145) mmol/L Potassium (3.5-5.1) mmol/L BUN (9-20) mg/dL Glucose (74-99) mg/dL POC Glucose (mg/dL) 256 H 172 H (70-110) mg/dL AST (17-59) U/L ALT (4-49) U/L Alkaline Phosphatase (38-126) U/L Total Protein (6.3-8.2) g/dL Albumin (3.5-5.0) g/dL Microbiology - Last 24 Hours (Table) 11/25/24 21:33 Blood Culture - Preliminary Blood
[2024-11-29 08:47] LABS: Basophils # (A) 0.01 10*3/uL (0.00-0.10); Basophils % (A) 0.1 %; Eosinophils # (A) 0.23 10*3/uL (0.04-0.35); Eosinophils % (A) 1.6 %; HCT 45.5 % (39.6-50.0); HGB 14.9 g/dL (13.0-17.0); Lymphocytes # (A) 1.35 10*3/uL (0.90-5.00); Lymphocytes % (A) 9.3 %; MCH 32.7 pg (27.0-32.0); MCHC 32.7 g/dL (32.0-37.0); MCV 99.8 fL (80.0-97.0); Mean Platelet Volume 10.1 fL (9.5-12.2); Monocytes # (A) 1.45 10*3/uL (0.20-1.00); Neutrophils # (A) 11.39 10*3/uL (1.80-7.70); Neutrophils % (A) 78.7 %; Platelet Count 338 10*3/uL (140-440); RBC 4.56 10*6/uL (4.40-5.60); RDW 15.6 % (11.5-14.5); WBC 14.48 10*3/uL (4.50-10.00)
[2024-11-29 09:00] LABS: ALT 116 U/L (4-49); AST 102 U/L (17-59); African American GFR (CKD) >90 (>60 ml/min/1.73 sqM); Albumin 2.9 g/dL (3.5-5.0); Alkaline Phosphatase 846 U/L (38-126); Anion Gap 6 mmol/L; Blood Urea Nitrogen 42 mg/dL (9-20); Calcium 8.6 mg/dL (8.4-10.2); Carbon Dioxide 28 mmol/L (22-30); Chloride 102 mmol/L (98-107); Glucose 160 mg/dL (74-99); Non-African American GFR(CKD) 87 (>60 ml/min/1.73 sqM); Potassium 5.1 mmol/L (3.5-5.1); Sodium 136 mmol/L (137-145); Total Bilirubin 0.8 mg/dL (0.2-1.3)
[2024-11-29 11:14] LABS: Glucose,Whole Blood 271 mg/dL (70-110)
[2024-11-29] MEDS: LORazepam 0.5 MG TAB PO PRN (12:56)
--- NOTE | 2024-11-29 13:28 | P.PN ---
Subjective Progress Note Date: 11/29/24 Patient is a 69-year-old male with past medical history significant for COPD, current heavy tobacco smoker, hypertension, hyperlipidemia, diabetes mellitus, CVA, heart failure, PFO with previous closure, atrial fibrillation, alcoholism. Recent hospitalization July, for combination of COPD/CHF exacerbation. Patient currently a poor historian. According to ER documentation, patient brought in by EMS last night with increased work of breathing. Also, associated chest pain. Stated he was recently diagnosed with pneumonia by his PCP. ED workup including a D-dimer that was elevated. Inciting chest CT angio protocol which was negative for pulmonary embolism. It is concerning for diffuse metastasis with multiple nodules/masses within the liver, body and tail of the pancreas, and also small patchy nodular opacities in bilateral lungs, favoring metastatic deposits. Small bilateral pleural effusions. Incidentally, noted severe flow-limiting stenosis near takeoff of the left subclavian artery due to heavy calcifications. CBC unremarkable for leukocytosis. Hemoglobin 14.6. Platelets 392. PT 11.9, INR 1.1, APTT 22.8. CMP: Sodium 132, potassium 5.3, chloride 100, serum bicarb 14, BUN 31, creatinine 1.14, glucose 362. Total bilirubin 1.4, AST 69, ALT 57, ALP 1118. Ultrasound of the abdomen concerning for liver metastasis and possible cirrhosis. Small cholelithiasis without cholecystitis. NT-proBNP significantly elevated at 28,100. Elevated serial troponins at 0.054, 0.0189, 2.74 respectively. EKG: Sinus tachycardia, rate 110 bpm, interventricular conduction delay, no acute ST elevations. Patient was started on IV heparin per protocol in the ED. Eliquis is on hold. Viral 4 Plex negative for influenza A/B, RSV, COVID. Patient currently being evaluated in the ED. He is on 3 L/min nasal cannula. Not in any apparent distress. States he went to go see his primary care provider, Jodie, a physician certified surgical tech/first assistant out of Dr. Pendleton's office. Sent for chest x-ray, and told he he had pneumonia. He has been more short of breath than baseline. Also, has a congested cough. No sputum production or hemoptysis. Denies sick contacts. Denies fevers or chills. Does state that he previously stopped taking his Lasix approximately 1 or 2 months ago, and has had some increased lower extremity swelling. Previously reported chest pain is resolved. Currently on IV heparin per protocol. Reportedly, recently seen his subscription crew leader in the office, Dr. Boles. Current vital signs: Temperature 98 F, heart rate 99 bpm, blood pressure 124/75 mmHg, nontachypneic, SpO2 93% on 3 L/min nasal cannula. 11/27/2024, the patient is being seen for a follow-up. The patient is sitting up on a chair and the patient seems to be calm and comfortable. Suspected to have metastatic pancreatic cancer. The CEA level was 231 and the CA 19-9 level was above 10,000. The patient is awaiting an oncology consultation. CAT scan of the abdomen and pelvis was also completed and the patient was found to have multiple hepatic lesions measuring up to 4 cm in size consistent with metastatic disease. The patient also had a 4.5 x 4 cm solid mass at the junction of the pancreatic body and the tail highly suspicious for metastatic pancreatic adenocarcinoma. Another 2.9 cm cystic lesion in the tail of the pancreas was also seen. There is also fluid overload and third spacing with small bilateral pleural effusion and anasarca in addition to sigmoid diverticulosis, tiny gallstones and enlarged prostate. There is also stool along the wall of the rectum versus circumferential rectal neoplasm. The patient is free of any chest pain. He is post acute NSTEMI and the patient was taken off IV heparin. The white cell count is at 19.2 with a heme of 13.4 and platelet count 381. Sodium is at 131, potassium is 5.1, BUN is 53 with a creatinine of 1.01. Bicarb level is at 22. Remains on Symbicort. Remains on DuoNeb updrafts. Remains on empiric antibiotic coverage with IV Rocephin. PatiEchocardiogram was also completed and the patient was found to have a impaired LV function with an ejection fraction of 25 to 30% in addition to severe global decrease in contractility, RV enlargement with moderate to severe pulm hypertension. No pericardial effusion.ent is also on Solu-Medrol 40 mg every 8 hours, metoprolol 50 mg p.o. daily and normal saline at rate of 75 cc an hour. On 11/28/2024, the patient is being seen for a follow-up. Resting comfortably in bed and the patient is currently on 2 L of oxygen by nasal cannula with a pulse ox of 98%. The patient is free of any chest pain. No significant cough or sputum production. He is on IV heparin and we will keep him on IV heparin pending further workup regarding his potential metastatic carcinoma which seems to be of a pancreatic primary. Otherwise, no significant respiratory distress. The white cell count is 15.5, hemoglobin 12.9 with a platelet count of 335. BUN is 49 with a creatinine of 0.8. Sodium is at 132. LFTs are normal related to hepatic metastases. No significant encephalopathy. Adan ashton Dr. On 11/29/2024, clinically unchanged and the patient resting comfortably in bed. Denies having any significant respiratory distress. No chest pain. Slightly anxious. Cardiology is on the case and the patient is being treated for his underlying cardiomyopathy. He was taken off the IV heparin and the patient was started on anticoagulation with Eliquis and aspirin.. No commitment for antiplatelet agents pending further need for biopsy regarding his underlying metastatic pancreatic cancer. He is currently on room air oxygen with a pulse ox of 96%. He remains on Symbicort and DuoNeb. Rest of the medications remain unchanged. He was started on a prednisone burst taper. He remains on Lasix 20 mg p.o. daily. He remains on Lantus 25 units daily and is also on Toprol-XL 50 mg p.o. daily. He remains Objective - Vital Signs Vital signs: Vital Signs Temp 98 F 11/29/24 08:00 Pulse 88 11/29/24 08:00 Resp 20 11/29/24 08:00 BP 98/61 11/29/24 08:00 Pulse Ox 89 L 11/29/24 08:00 FiO2 21 11/26/24 08:18 Intake & Output 11/28/24 11/29/24 11/29/24 18:59 06:59 18:59 Intake Total 220 250 240 Output Total 1100 350 Balance -880 -100 240 Weight 78.2 kg Intake: IV 10 Invasive Line 1 10 Oral 220 240 240 Output: Urine 1100 350 Other: Voiding Method Urinal Urinal # Voids 0 # Bowel Movements 0 - Exam GENERAL EXAM: Alert, 69-year-old male, comfortable in no apparent distress. Patient currently on 2 L of oxygen by nasal cannula. HEAD: Normocephalic and atraumatic EYES: Normal reaction of pupils, equal size. Nonicteric sclera NOSE: Clear with pink turbinates. THROAT: No erythema or exudates. NECK: No masses, no JVD. CHEST: No chest wall deformity. LUNGS: Equal air entry with scattered bilateral rhonchi. No conversational dyspnea or accessory muscle use.. CVS: S1 and S2 normal with no audible murmur, regular rhythm. No extra heart sounds ABDOMEN: No hepatosplenomegaly, active bowel sounds, no guarding or rigidity. SPINE: No scoliosis or deformity SKIN: No rashes CENTRAL NERVOUS SYSTEM: No focal deficits, tone is normal in all 4 extremities. EXTREMITIES: There is 2+ bilateral lower extremity edema. No clubbing, or cyanosis. Peripheral pulses are intact. - Labs CBC & Chem 7: 11/29/24 07:07 11/29/24 07:07 Labs: Abnormal Lab Results - Last 24 Hours (Table) 11/28/24 11/28/24 11/28/24 Range/Units 11:51 16:48 19:54 WBC (4.50-10.00) 10*3/uL MCV (80.0-97.0) fL MCH (27.0-32.0) pg Immature Gran # (0.00-0.04) 10*3/uL Neutrophils # (1.80-7.70) 10*3/uL Monocytes # (0.20-1.00) 10*3/uL Sodium (137-145) mmol/L BUN (9-20) mg/dL Glucose (74-99) mg/dL POC Glucose (mg/dL) 233 H 272 H 256 H (70-110) mg/dL AST (17-59) U/L ALT (4-49) U/L Alkaline Phosphatase (38-126) U/L Total Protein (6.3-8.2) g/dL Albumin (3.5-5.0) g/dL 11/29/24 11/29/24 11/29/24 Range/Units 06:56 07:07 07:07 WBC 14.48 H (4.50-10.00) 10*3/uL MCV 99.8 H (80.0-97.0) fL MCH 32.7 H (27.0-32.0) pg Immature Gran # 0.05 H (0.00-0.04) 10*3/uL Neutrophils # 11.39 H (1.80-7.70) 10*3/uL Monocytes # 1.45 H (0.20-1.00) 10*3/uL Sodium 136 L (137-145) mmol/L BUN 42 H (9-20) mg/dL Glucose 160 H (74-99) mg/dL POC Glucose (mg/dL) 172 H (70-110) mg/dL AST 102 H (17-59) U/L ALT 116 H (4-49) U/L Alkaline Phosphatase 846 H (38-126) U/L Total Protein 6.0 L (6.3-8.2) g/dL Albumin 2.9 L (3.5-5.0) g/dL Microbiology - Last 24 Hours (Table) 11/25/24 21:33 Blood Culture - Preliminary Blood Assessment and Plan Assessment: Acute hypoxemic respiratory failure, likely secondary to a combination of chronic systolic CHF and acute COPD exacerbation, predominantly CHF and the patient is currently on room air oxygen.. Chest x-ray remarkable for cardiomegaly and small bilateral pleural effusions. NT proBNP significantly elevated at 28,100. Impaired ejection fraction on echocardiogram with an ejection fraction of 20 to 25%. The patient is currently on room air oxygen. CHF has been optimized. The patient remains on oral Lasix. Suspect metastatic pancreatic cancer; chest CT angiogram negative for pulmonary embolism. It is concerning for diffuse metastatic disease with multiple nodules/masses within the liver, body and tail of the pancreas, and also small patchy nodular opacities in bilateral lungs, favoring metastatic deposits. CAT scan of the abdomen and pelvis also showed a pancreatic mass measuring 4.5 x 4 cm in size at the junction of the body and tail of the pancreas in addition to multiple hepatic lesions consistent with metastatic disease. CA 19-9 level is elevated above 10,000. The patient will need a tissue diagnosis. The diagnosis is not established yet. Elevated troponins, rule out non-ST elevation [place], free of any chest pain Elevated LFTs, likely secondary to liver metastasis Severe COPD, with an FEV1 39% of predicted Chronic ongoing tobacco dependence, current 1 pack/day smoker History of CVA, with residual homonymous hemianopia History of diabetes mellitus type II History of hypertension History of hyperlipidemia History of heart failure with reduced ejection fraction, most recent available echocardiogram from June, estimating severely reduced LV function with an EF of 15%. Repeat echocardiogram shows global hypokinesis with ejection fraction of 20 to 25% History of paroxysmal atrial fibrillation, normally anticoagulated on Eliquis which was on hold, current rhythm sinus. History of PFO with closure History of alcoholism Plan: Patient currently on room air oxygen Continue Symbicort Continue prednisone burst taper, currently on 40 mg Heparin has been discontinued by cardiology and the patient was started on anticoagulation with Eliquis. He is also on aspirin. According to cardiology, no intervention is planned at this point specially with his underlying metastatic disease that needs to be further worked up. Continue metoprolol/Toprol-XL Continue Lasix, 20 mg p.o. daily Oncology consulted Would likely benefit from a liver biopsy by IR to establish tissue diagnosis Prognosis extremely poor based on above-mentioned comorbidities. Time with Patient: Greater than 30
[2024-11-29 16:54] LABS: Glucose,Whole Blood 284 mg/dL (70-110)
[2024-11-29 19:48] LABS: Glucose,Whole Blood 285 mg/dL (70-110)
[2024-11-29] MEDS: APIXABAN 5 MG TAB PO SCH (20:26)
[2024-11-29] MEDS: ALPRAZolam 0.5 MG TAB PO PRN (20:29)
--- NOTE | 2024-11-30 05:21 | PN ---
PROGRESS NOTE DATE OF SERVICE: 11/29/2024 SUBJECTIVE: This is a 69-year-old gentleman, who was admitted with shortness of breath, also had possible metastatic malignancy with primary pancreas. The patient is being closely monitored and being followed with multiple consultants. Most recent chest x-ray which I reviewed recently showed some evidence of increased bronchovascular markings. OBJECTIVE: VITAL SIGNS: Pulse 97, blood pressure 139/74, respirations 20 HEENT: Conjunctivae normal. NECK: No JVD. CARDIOVASCULAR: S1, S2. RESPIRATIONS: Breath sounds diminished at the bases. A few scattered rhonchi. ABDOMEN: Soft. NERVOUS SYSTEM: Nonfocal. LABORATORY DATA: Reviewed. ASSESSMENT: 1. Shortness of breath, possibly chronic obstructive pulmonary disease and congestive heart failure acute exacerbation. 2. Possible metastatic malignancy with primary pancreas, possibly with metastases to the lungs and liver. 3. Elevated troponin up to 10.200 with acute [id number] elevation myocardial infarction, on medical treatment. 4. Diabetes mellitus, type 2. 5. Chronic obstructive pulmonary disease. 6. Hypertension. 7. History of pneumonia. 8. Multiple complex medical issues. RECOMMENDATIONS: Recommend to continue current management and continue symptomatic treatment. Closely follow with Cardiology, Hematology, Oncology. The patient is on medical treatment as mentioned earlier. Prognosis extremely guarded because of the possibility of metastatic malignancy combined with other medical comorbidities. MMODL / IJN: [id number] /
[2024-11-30 06:08] LABS: Glucose,Whole Blood 230 mg/dL (70-110)
[2024-11-30 06:28] LABS: Basophils # (A) 0.03 10*3/uL (0.00-0.10); Basophils % (A) 0.2 %; Eosinophils # (A) 0.59 10*3/uL (0.04-0.35); Eosinophils % (A) 3.3 %; HCT 41.5 % (39.6-50.0); Lymphocytes # (A) 1.41 10*3/uL (0.90-5.00); Lymphocytes % (A) 7.9 %; MCH 33.1 pg (27.0-32.0); MCHC 33.7 g/dL (32.0-37.0); MCV 98.1 fL (80.0-97.0); Mean Platelet Volume 9.9 fL (9.5-12.2); Monocytes # (A) 1.82 10*3/uL (0.20-1.00); Monocytes % (A) 10.2 %; Neutrophils % (A) 77.8 %; Platelet Count 286 10*3/uL (140-440); RBC 4.23 10*6/uL (4.40-5.60); RDW 15.1 % (11.5-14.5); WBC 17.76 10*3/uL (4.50-10.00)
[2024-11-30 06:53] LABS: ALT 105 U/L (4-49); AST 92 U/L (17-59); African American GFR (CKD) >90 (>60 ml/min/1.73 sqM); Albumin 2.4 g/dL (3.5-5.0); Alkaline Phosphatase 746 U/L (38-126); Anion Gap 7 mmol/L; Blood Urea Nitrogen 35 mg/dL (9-20); Calcium 8.5 mg/dL (8.4-10.2); Carbon Dioxide 26 mmol/L (22-30); Chloride 102 mmol/L (98-107); Glucose 228 mg/dL (74-99); Non-African American GFR(CKD) >90 (>60 ml/min/1.73 sqM); Potassium 4.3 mmol/L (3.5-5.1); Sodium 135 mmol/L (137-145); Total Bilirubin 0.7 mg/dL (0.2-1.3); Total Protein 5.1 g/dL (6.3-8.2)
[2024-11-30 11:19] LABS: Glucose,Whole Blood 86 mg/dL (70-110)
[2024-11-30] MEDS: SPIRONOLACTONE 25 MG TAB PO SCH (12:51)
[2024-11-30] MEDS: LOSARTAN 25 MG TAB PO SCH (12:51)
--- NOTE | 2024-11-30 15:20 | P.PN ---
Subjective Progress Note Date: 11/30/24 Principal diagnosis: Acute hypoxic respiratory failure secondary to acute on chronic systolic congestive heart failure and underlying COPD with acute COPD exacerbation. Patient is a 69-year-old male with past medical history significant for COPD, current heavy tobacco smoker, hypertension, hyperlipidemia, diabetes mellitus, CVA, heart failure, PFO with previous closure, atrial fibrillation, alcoholism. Recent hospitalization July, for combination of COPD/CHF exacerbation. Patient currently a poor historian. According to ER documentation, patient brought in by EMS last night with increased work of breathing. Also, associated chest pain. Stated he was recently diagnosed with pneumonia by his PCP. ED workup including a D-dimer that was elevated. Inciting chest CT angio protocol which was negative for pulmonary embolism. It is concerning for diffuse meta stasis with multiple nodules/masses within the liver, body and tail of the pancreas, and also small patchy nodular opacities in bilateral lungs, favoring metastatic deposits. Small bilateral pleural effusions. Incidentally, noted severe flow-limiting stenosis near takeoff of the left subclavian artery due to heavy calcifications. CBC unremarkable for leukocytosis. Hemoglobin 14.6. Platelets 392. PT 11.9, INR 1.1, APTT 22.8. CMP: Sodium 132, potassium 5.3, chloride 100, serum bicarb 14, BUN 31, creatinine 1.14, glucose 362. Total bilirubin 1.4, AST 69, ALT 57, ALP 1118. Ultrasound of the abdomen concerning for liver metastasis and possible cirrhosis. Small cholelithiasis without cho lecystitis. NT-proBNP significantly elevated at 28,100. Elevated serial troponins at 0.054, 0.0189, 2.74 respectively. EKG: Sinus tachycardia, rate 110 bpm, interventricular conduction delay, no acute ST elevations. Patient was started on IV heparin per protocol in the ED. Eliquis is on hold. Viral 4 Plex negative for influenza A/B, RSV, COVID. Patient currently being evaluated in the ED. He is on 3 L/min nasal cannula. Not in any apparent distress. States he went to go see his primary care provider, Jodie, a physician assistant associate professor out of Dr. Pendleton's office. Sent for chest x-ray, and told he he had pneumonia. He has been more short of breath than baseline. Also, has a congested cough. No sputum production or hemoptysis. Denies sick contacts. Denies fevers or chills. Does state that he previously stopped taking his Lasix approximately 1 or 2 months ago, and has had some increased lower extremity swelling. Previously reported chest pain is resolved. Currently on IV heparin per protocol. Reportedly, recently seen his fitter machinist in the office, Dr. Boles. Current vital signs: Temperature 98 F, heart rate 99 bpm, blood pressure 124/75 mmHg, nontachypneic, SpO2 93% on 3 L/min nasal cannula. 11/27/2024, the patient is being seen for a follow-up. The patient is sitting up on a chair and the patient seems to be calm and comfortable. Suspected to have metastatic pancreatic cancer. The CEA level was 231 and the CA 19-9 level was above 10,000. The patient is awaiting an oncology consultation. CAT scan of the abdomen and pelvis was also completed and the patient was found to have multiple hepatic lesions measuring up to 4 cm in size consistent with metastatic disease. The patient also had a 4.5 x 4 cm solid mass at the junction of the pancreatic body and the tail highly suspicious for metastatic pancreatic adenocarcinoma. Another 2.9 cm cystic lesion in the tail of the pancreas was also seen. There is also fluid overload and third spacing with small bilateral pleural effusion and anasarca in addition to sigmoid diverticulosis, tiny gallstones and enlarged prostate. There is also stool along the wall of the rectum versus circumferential rectal neoplasm. The patient is free of any chest pain. He is post acute NSTEMI and the patient was taken off IV heparin. The white cell count is at 19.2 with a heme of 13.4 and platelet count 381. Sodium is at 131, potassium is 5.1, BUN is 53 with a creatinine of 1.01. Bicarb level is at 22. Remains on Symbicort. Remains on DuoNeb updrafts. Remains on empiric antibiotic coverage with IV Rocephin. PatiEchocardiogram was also completed and the patient was found to have a impaired LV function with an ejection fraction of 25 to 30% in addition to severe global decrease in contractility, RV enlargement with moderate to severe pulm hypertension. No pericardial effusion.ent is also on Solu-Medrol 40 mg every 8 hours, metoprolol 50 mg p.o. daily and normal saline at rate of 75 cc an hour. On 11/28/2024, the patient is being seen for a follow-up. Resting comfortably in bed and the patient is currently on 2 L of oxygen by nasal cannula with a pulse ox of 98%. The patient is free of any chest pain. No significant cough or sputum production. He is on IV heparin and we will keep him on IV heparin pending further workup regarding his potential metastatic carcinoma which seems to be of a pancreatic primary. Otherwise, no significant respiratory distress. The white cell count is 15.5, hemoglobin 12.9 with a platelet count of 335. BUN is 49 with a creatinine of 0.8. Sodium is at 132. LFTs are normal related to hepatic metastases. No significant encephalopathy. Adan ashton Dr. On 11/29/2024, clinically unchanged and the patient resting comfortably in bed. Denies having any significant respiratory distress. No chest pain. Slightly anxious. Cardiology is on the case and the patient is being treated for his underlying cardiomyopathy. He was taken off the IV heparin and the patient was started on anticoagulation with Eliquis and aspirin.. No commitment for antiplatelet agents pending further need for biopsy regarding his underlying metastatic pancreatic cancer. He is currently on room air oxygen with a pulse ox of 96%. He remains on Symbicort and DuoNeb. Rest of the medications remain unchanged. He was started on a prednisone burst taper. He remains on Lasix 20 mg p.o. daily. He remains on Lantus 25 units daily and is also on Toprol-XL 50 mg p.o. daily. He remains Patient was seen today on 11/30/2024, patient is feeling better, breathing easier, responding well to treatment of his COPD and congestive heart failure. On room air O2 sat is 92%. He is hemodynamically stable. Remains on bronchodilators, and he remains on Lasix 20 mg daily. WBC at 17.7 hemoglobin 14 electrolytes are normal renal profile is normal Objective - Vital Signs Vital signs: Vital Signs Temp 98.0 F 11/30/24 04:00 Pulse 93 11/30/24 08:00 Resp 18 11/30/24 08:00 BP 130/72 11/30/24 08:00 Pulse Ox 92 L 11/30/24 08:00 FiO2 21 11/26/24 08:18 Intake & Output 11/29/24 11/30/24 11/30/24 18:59 06:59 18:59 Intake Total 890 360 240 Output Total 1300 650 Balance -410 -290 240 Weight 78.1 kg 78.1 kg Intake: Intake, IV Titration 50 Amount cefTRIAXone 1 gm In 50 Sodium Chloride 0.9% 50 ml @ 100 mls/hr IVPB Q24HR [facility] Rx#:[id number] Oral 840 360 240 Output: Urine 1300 650 Other: Voiding Method Urinal Urinal - Exam GENERAL EXAM: Alert, 69-year-old male, on 2 L nasal cannula HEAD: Normocephalic and atraumatic EYES: Normal reaction of pupils, equal size. Nonicteric sclera NOSE: Clear with pink turbinates. THROAT: No erythema or exudates. NECK: No masses, no JVD. CHEST: No chest wall deformity. LUNGS: Equal air entry with scattered bilateral rhonchi. No conversational dyspnea or accessory muscle use.. CVS: S1 and S2 normal with no audible murmur, regular rhythm. No extra heart sounds ABDOMEN: No hepatosplenomegaly, active bowel sounds, no guarding or rigidity. SPINE: No scoliosis or deformity SKIN: No rashes CENTRAL NERVOUS SYSTEM: Alert oriented x 3 no focal deficit EXTREMITIES: 1+ bipedal edema - Labs CBC & Chem 7: 11/30/24 05:30 11/30/24 05:30 Labs: Abnormal Lab Results - Last 24 Hours (Table) 11/29/24 11/29/24 11/30/24 Range/Units 16:43 19:45 05:30 WBC (4.50-10.00) 10*3/uL RBC (4.40-5.60) 10*6/uL MCV (80.0-97.0) fL MCH (27.0-32.0) pg Immature Gran # (0.00-0.04) 10*3/uL Neutrophils # (1.80-7.70) 10*3/uL Monocytes # (0.20-1.00) 10*3/uL Eosinophils # (0.04-0.35) 10*3/uL Sodium 135 L (137-145) mmol/L BUN 35 H (9-20) mg/dL Glucose 228 H (74-99) mg/dL POC Glucose (mg/dL) 284 H 285 H (70-110) mg/dL AST 92 H (17-59) U/L ALT 105 H (4-49) U/L Alkaline Phosphatase 746 H (38-126) U/L Total Protein 5.1 L (6.3-8.2) g/dL Albumin 2.4 L (3.5-5.0) g/dL 11/30/24 11/30/24 Range/Units 05:30 06:06 WBC 17.76 H (4.50-10.00) 10*3/uL RBC 4.23 L (4.40-5.60) 10*6/uL MCV 98.1 H (80.0-97.0) fL MCH 33.1 H (27.0-32.0) pg Immature Gran # 0.11 H (0.00-0.04) 10*3/uL Neutrophils # 13.80 H (1.80-7.70) 10*3/uL Monocytes # 1.82 H (0.20-1.00) 10*3/uL Eosinophils # 0.59 H (0.04-0.35) 10*3/uL Sodium (137-145) mmol/L BUN (9-20) mg/dL Glucose (74-99) mg/dL POC Glucose (mg/dL) 230 H (70-110) mg/dL AST (17-59) U/L ALT (4-49) U/L Alkaline Phosphatase (38-126) U/L Total Protein (6.3-8.2) g/dL Albumin (3.5-5.0) g/dL Assessment and Plan Assessment: Impression: Acute hypoxic respiratory failure, multifactorial Acute on chronic systolic congestive heart failure Acute exacerbation of COPD Elevated liver enzymes possibly secondary to liver metastasis Severe COPD FEV1 of 39% Type 1 diabetes History of CVA Tobacco dependence syndrome Benign essential hypertension Severe cardiomyopathy and LV dysfunction with ejection fraction of 20 to 25% Paroxysmal atrial fibrillation History of PFO requiring closure History of alcoholism Recommendation: Continue present supportive care measures Continue diuretics and bronchodilators Oncology is consulted Patient may require liver biopsy by interventional radiology to establish tissue diagnosis Patient has multiple comorbidities and relatively ill Will continue to follow prognosis is very poor Time with Patient: Less than 30
--- NOTE | 2024-11-30 15:34 | PN ---
PROGRESS NOTE DATE OF SERVICE: 11/30/2024 SUBJECTIVE: This is a 69-year-old gentleman, who was admitted with shortness of breath, COPD, CHF, had possible metastatic malignancy also. Hematology/Oncology is following the patient also closely. Assess multiple other consultants. White count is still elevated. LFTs also mildly elevated. PAST MEDICAL HISTORY: Reviewed. REVIEW OF SYSTEMS: Fourteen-point review of systems is negative, except as mentioned above. CURRENT MEDICATIONS: Reviewed. OBJECTIVE: VITAL SIGNS: Pulse is 93, blood pressure n, respirations 18. HEENT: Conjunctivae normal. NECK: No jugular venous distention. RESPIRATIONS: Breath sounds diminished at the bases. Few scattered rhonchi. ABDOMEN: Soft. Mild diffuse distention. Nontender. No mass palpable. LEGS: No edema. No swelling. NERVOUS SYSTEM: Nonfocal. LABORATORY DATA: Reviewed. ASSESSMENT: 1. Shortness of breath, possibly chronic obstructive pulmonary disease and congestive heart failure acute exacerbation. 2. Possible metastatic malignancy with possible primary in pancreas with metastasis of the lungs and liver. 3. Elevated troponin up to 10.200 with acute [id number]-TL-[id number] elevation myocardial infarction, on medical treatment. 4. Diabetes mellitus, type 2. 5. Chronic obstructive pulmonary disease. 6. Hypertension. 7. History of pneumonia. 8. Multiple complex medical issues. RECOMMENDATIONS: To continue current management and continue symptomatic treatment . Repeat labs. Closely follow with Hematology/Oncology regarding the further steps. Continue the antibiotics and rest of medication currently. Prognosis extremely guarded. Discussed with the daughter at the bedside. Further recommendations to follow. MMODL / IJN: [id number] / MTDD
[2024-11-30 16:56] LABS: Glucose,Whole Blood 188 mg/dL (70-110)
--- NOTE | 2024-11-30 17:49 | P.PN ---
Subjective Progress Note Date: 11/30/24 No acute events overnight. Pt experiencing generalized weakness. Pt has been consulted but pt declined to work with them this morning. Family concerned about him being discharged to home alone, as he lives in a 2 story home and can't walk up and down stairs Objective - Vital Signs Vital signs: Vital Signs Temp 98.0 F 11/30/24 04:00 Pulse 93 11/30/24 08:00 Resp 18 11/30/24 08:00 BP 130/72 11/30/24 08:00 Pulse Ox 92 L 11/30/24 08:00 FiO2 21 11/26/24 08:18 Intake & Output 11/29/24 11/30/24 11/30/24 18:59 06:59 18:59 Intake Total 890 360 240 Output Total 1300 650 Balance -410 -290 240 Weight 78.1 kg Intake: Intake, IV Titration 50 Amount cefTRIAXone 1 gm In 50 Sodium Chloride 0.9% 50 ml @ 100 mls/hr IVPB Q24HR [facility] Rx#:[id number] Oral 840 360 240 Output: Urine 1300 650 Other: Voiding Method Urinal Urinal - Constitutional General appearance: Present: average body habitus, no acute distress - EENT Eyes: Present: anicteric sclerae, EOMI ENT: Present: hearing grossly normal - Respiratory Details: breathing is even and unlabored - Cardiovascular Details: skin warm and dry - Musculoskeletal Musculoskeletal: Present: generalized weakness - Psychiatric Psychiatric: Present: A&O x's 3 - Labs CBC & Chem 7: 11/30/24 05:30 11/30/24 05:30 Labs: Abnormal Lab Results - Last 24 Hours (Table) 11/29/24 11/29/24 11/30/24 Range/Units 16:43 19:45 05:30 WBC (4.50-10.00) 10*3/uL RBC (4.40-5.60) 10*6/uL MCV (80.0-97.0) fL MCH (27.0-32.0) pg Immature Gran # (0.00-0.04) 10*3/uL Neutrophils # (1.80-7.70) 10*3/uL Monocytes # (0.20-1.00) 10*3/uL Eosinophils # (0.04-0.35) 10*3/uL Sodium 135 L (137-145) mmol/L BUN 35 H (9-20) mg/dL Glucose 228 H (74-99) mg/dL POC Glucose (mg/dL) 284 H 285 H (70-110) mg/dL AST 92 H (17-59) U/L ALT 105 H (4-49) U/L Alkaline Phosphatase 746 H (38-126) U/L Total Protein 5.1 L (6.3-8.2) g/dL Albumin 2.4 L (3.5-5.0) g/dL 11/30/24 11/30/24 Range/Units 05:30 06:06 WBC 17.76 H (4.50-10.00) 10*3/uL RBC 4.23 L (4.40-5.60) 10*6/uL MCV 98.1 H (80.0-97.0) fL MCH 33.1 H (27.0-32.0) pg Immature Gran # 0.11 H (0.00-0.04) 10*3/uL Neutrophils # 13.80 H (1.80-7.70) 10*3/uL Monocytes # 1.82 H (0.20-1.00) 10*3/uL Eosinophils # 0.59 H (0.04-0.35) 10*3/uL Sodium (137-145) mmol/L BUN (9-20) mg/dL Glucose (74-99) mg/dL POC Glucose (mg/dL) 230 H (70-110) mg/dL AST (17-59) U/L ALT (4-49) U/L Alkaline Phosphatase (38-126) U/L Total Protein (6.3-8.2) g/dL Albumin (3.5-5.0) g/dL - Imaging and Cardiology CT scan - abdomen: report reviewed CT scan - pelvis: report reviewed Assessment and Plan (1) COPD exacerbation Current Visit: Yes Status: Acute Code(s): J44.1 - CHRONIC OBSTRUCTIVE PULMONARY DISEASE W (ACUTE) EXACERBATION SNOMED Code(s): 827847371 (2) Elevated troponin Current Visit: Yes Status: Acute Code(s): R79.89 - OTHER SPECIFIED ABNORMAL FINDINGS OF BLOOD CHEMISTRY SNOMED Code(s): 107492808 (3) Liver lesion Current Visit: Yes Status: Acute Code(s): K76.9 - LIVER DISEASE, UNSPECIFIED SNOMED Code(s): 900244265 (4) Pancreatic mass Current Visit: Yes Status: Acute Code(s): K86.89 - OTHER SPECIFIED DISEASES OF PANCREAS SNOMED Code(s): 755494745 Plan: Liver and pancreatic lesions - Patient admitted because of chest pain, arm pain and diagnosed with an acute [place] -Chest CTA reporting several hypoenhancing lesions in the body and tail of the pancreas. Largest is more proximal, measuring 3 x 5 cm. No enlarged lymph nodes. Multiple liver metastases. Patchy opacities in the bone in both lungs. -Discussed with patient concerning findings for metastatic pancreatic cancer. Explained that we would need a biopsy for tissue diagnosis, to confirm what the lesions are in order to give diagnosis, treatment options and prognosis. He verbalized understanding and is agreeable to further work up - The challenge is going to be getting a biopsy as he was just diagnosed with acute [place]. Spoke with Cardiology, no plan for cath at this time, cleared for biopsy. However, pt has been started on aspirin and this will typically delay biopsy for 5-7 days per IR portocol. Will plan to schedule liver biopsy outpt upon discharge -CT AP showing innumerable hepatic lesions measuring up to 4 cm. 4.5 x 4.0 cm solid mass at the junction of the pancreatic body and tail. 2.9 cm cystic lesion at the tail of the pancreas. Adherent stool along the wall of the rectum for circumferential rectal neoplasm. Fluid overload and third spacing with small pleural effusions, anasarca and suspected mild patchy basilar pulmonary edema. Mild prostatomegaly at 4.6 cm. -CA 19.9 significantly elevated at > 10,000 -Plan to schedule outpt biopsy upon discharge with subsequent clinic f/u to discuss findings and treatment recommendations Weakness: -PT consulted -Family concerned about patients weakness and being discharged home as he lives alone and his home is 2 stories and he can't get up/down stairs -pharmaceutical process engineer/PT ordered. Will placed home care referral for assistive devices and hospital bed -Will await PT recs, pt may benefit from rehab
[2024-11-30] MEDS: LORazepam 1 MG TAB PO PRN (18:32)
[2024-11-30 20:02] LABS: Glucose,Whole Blood 178 mg/dL (70-110)
--- NOTE | 2024-11-30 21:19 | P.PN ---
Subjective Progress Note Date: 11/30/24 The patient was seen and evaluated this morning. He is asymptomatic from a cardiovascular standpoint of view with he underwent an echo which revealed cardiomyopathy with EF around 30%. There is a workup for possible metastatic pancreatic cancer currently under investigation. He is on heparin IV which I will continue at this point till we know there is no further workup needed then I can switch him to oral anticoagulation. Beside that I am going to add lisinopril to the current medical regimen. The physical examination is remarkable for regular rhythm with diminished breathing sounds bilaterally and bilateral rhonchi and mild edema was noted in the lower extremities November 29, 2024 The patient was seen and evaluated this morning with he is asymptomatic from a cardiovascular standpoint of view. He is somewhat anxious. The potassium is elevated. I am going to stop the ARB and repeat the blood work for the morning. The workup regarding the cancer is still going. Once that over and there is no plan for biopsy/surgery I will consider starting the patient on dual antiplatelet therapy and restart him back on either MARY inhibitor or ARB or Arni once the potassium is back to normal. Continue maximize medical treatment for cardiomyopathy as well. The physical examination is remarkable for regular rhythm with clear breathing sounds bilaterally and mild to moderate bilateral lower extremity edema. He is on oral diuretics November 30, 2024 Patient seen and examined at bedside this a.m. BUN 35 creatinine 0.7, potassium 4.3. Mild lower extremity edema BP 130/72 heart rate 93 bpm ASSESSMENT: Non-STEMI Cardiomyopathy unknown ischemic or nonischemic Possible metastatic pancreatic cancer History of paroxysmal atrial fibrillation Multiple comorbid conditions History of CVA Hyperkalemia Plan Due to possible concerns of metastatic pancreatic cancer, patient is not an appropriate candidate for heart catheterization at this time. Will continue to treat him with intensified medical management for cardiomyopathy. Once staged for his cancer and once we have his prognosis evaluated by heme-onc team, we will plan for ischemic evaluation accordingly Aspirin, Eliquis, Farxiga, Lasix 20 mg daily, Zetia 10 mg daily Losartan 12.5 mg daily, Aldactone 12.5 mg daily Overall prognosis guarded Case discussed with the family present at bedside Objective - Vital Signs Vital signs: Vital Signs Temp 98.0 F 11/30/24 04:00 Pulse 93 11/30/24 08:00 Resp 18 11/30/24 08:00 BP 130/72 11/30/24 08:00 Pulse Ox 92 L 11/30/24 08:00 FiO2 21 11/26/24 08:18 Intake & Output 11/29/24 11/30/24 11/30/24 18:59 06:59 18:59 Intake Total 890 360 240 Output Total 1300 650 Balance -410 -290 240 Weight 78.1 kg 78.1 kg Intake: Intake, IV Titration 50 Amount cefTRIAXone 1 gm In 50 Sodium Chloride 0.9% 50 ml @ 100 mls/hr IVPB Q24HR [facility] Rx#:[id number] Oral 840 360 240 Output: Urine 1300 650 Other: Voiding Method Urinal Urinal - Labs CBC & Chem 7: 11/30/24 05:30 11/30/24 05:30 Labs: Abnormal Lab Results - Last 24 Hours (Table) 11/29/24 11/30/24 11/30/24 Range/Units 19:45 05:30 05:30 WBC 17.76 H (4.50-10.00) 10*3/uL RBC 4.23 L (4.40-5.60) 10*6/uL MCV 98.1 H (80.0-97.0) fL MCH 33.1 H (27.0-32.0) pg Immature Gran # 0.11 H (0.00-0.04) 10*3/uL Neutrophils # 13.80 H (1.80-7.70) 10*3/uL Monocytes # 1.82 H (0.20-1.00) 10*3/uL Eosinophils # 0.59 H (0.04-0.35) 10*3/uL Sodium 135 L (137-145) mmol/L BUN 35 H (9-20) mg/dL Glucose 228 H (74-99) mg/dL POC Glucose (mg/dL) 285 H (70-110) mg/dL AST 92 H (17-59) U/L ALT 105 H (4-49) U/L Alkaline Phosphatase 746 H (38-126) U/L Total Protein 5.1 L (6.3-8.2) g/dL Albumin 2.4 L (3.5-5.0) g/dL 11/30/24 11/30/24 Range/Units 06:06 16:54 WBC (4.50-10.00) 10*3/uL RBC (4.40-5.60) 10*6/uL MCV (80.0-97.0) fL MCH (27.0-32.0) pg Immature Gran # (0.00-0.04) 10*3/uL Neutrophils # (1.80-7.70) 10*3/uL Monocytes # (0.20-1.00) 10*3/uL Eosinophils # (0.04-0.35) 10*3/uL Sodium (137-145) mmol/L BUN (9-20) mg/dL Glucose (74-99) mg/dL POC Glucose (mg/dL) 230 H 188 H (70-110) mg/dL AST (17-59) U/L ALT (4-49) U/L Alkaline Phosphatase (38-126) U/L Total Protein (6.3-8.2) g/dL Albumin (3.5-5.0) g/dL
[2024-12-01 06:02] LABS: Glucose,Whole Blood 53 mg/dL (70-110)
[2024-12-01] MEDS: DEXTROSE 50% SYRINGE 50 ML IVP PRN (06:08)
[2024-12-01 06:27] LABS: Glucose,Whole Blood 108 mg/dL (70-110)
[2024-12-01 12:32] LABS: Glucose,Whole Blood 152 mg/dL (70-110)
--- NOTE | 2024-12-01 13:24 | P.PN ---
Subjective Progress Note Date: 12/01/24 Patient is a 69-year-old male with past medical history significant for COPD, current heavy tobacco smoker, hypertension, hyperlipidemia, diabetes mellitus, CVA, heart failure, PFO with previous closure, atrial fibrillation, alcoholism. Recent hospitalization July, for combination of COPD/CHF exacerbation. Patient currently a poor historian. According to ER documentation, patient brought in by EMS last night with increased work of breathing. Also, associated chest pain. Stated he was recently diagnosed with pneumonia by his PCP. ED workup including a D-dimer that was elevated. Inciting chest CT angio protocol which was negative for pulmonary embolism. It is concerning for diffuse m etastasis with multiple nodules/masses within the liver, body and tail of the pancreas, and also small patchy nodular opacities in bilateral lungs, favoring metastatic deposits. Small bilateral pleural effusions. Incidentally, noted severe flow-limiting stenosis near takeoff of the left subclavian artery due to heavy calcifications. CBC unremarkable for leukocytosis. Hemoglobin 14.6. Platelets 392. PT 11.9, INR 1.1, APTT 22.8. CMP: Sodium 132, potassium 5.3, chloride 100, serum bicarb 14, BUN 31, creatinine 1.14, glucose 362. Total bilirubin 1.4, AST 69, ALT 57, ALP 1118. Ultrasound of the abdomen concerning for liver metastasis and possible cirrhosis. Small cholelithiasis without cholecystitis. NT-proBNP significantly elevated at 28,100. Elevated serial troponins at 0.054, 0.0189, 2.74 respectively. EKG: Sinus tachycardia, rate 110 bpm, interventricular conduction delay, no acute ST elevations. Patient was started on IV heparin per protocol in the ED. Eliquis is on hold. Viral 4 Plex negative for influenza A/B, RSV, COVID. Patient currently being evaluated in the ED. He is on 3 L/min nasal cannula. Not in any apparent distress. States he went to go see his primary care provider, Jodie, a physician emergency room physician assistant out of Dr. Pendleton's office. Sent for chest x-ray, and told he he had pneumonia. He has been more short of breath than baseline. Also, has a congested cough. No sputum production or hemoptysis. Denies sick contacts. Denies fevers or chills. Does state that he previously stopped taking his Lasix approximately 1 or 2 months ago, and has had some increased lower extremity swelling. Previously reported chest pain is resolved. Currently on IV heparin per protocol. Reportedly, recently seen his exploitation analyst in the office, Dr. Boles. Current vital signs: Temperature 98 F, heart rate 99 bpm, blood pressure 124/75 mmHg, nontachypneic, SpO2 93% on 3 L/min nasal cannula. 11/27/2024, the patient is being seen for a follow-up. The patient is sitting up on a chair and the patient seems to be calm and comfortable. Suspected to have metastatic pancreatic cancer. The CEA level was 231 and the CA 19-9 level was above 10,000. The patient is awaiting an oncology consultation. CAT scan of the abdomen and pelvis was also completed and the patient was found to have multiple hepatic lesions measuring up to 4 cm in size consistent with metastatic disease. The patient also had a 4.5 x 4 cm solid mass at the junction of the pancreatic body and the tail highly suspicious for metastatic pancreatic adenocarcinoma. Another 2.9 cm cystic lesion in the tail of the pancreas was also seen. There is also fluid overload and third spacing with small bilateral pleural effusion and anasarca in addition to sigmoid diverticulosis, tiny gallstones and enlarged prostate. There is also stool along the wall of the rectum versus circumferential rectal neoplasm. The patient is free of any chest pain. He is post acute NSTEMI and the patient was taken off IV heparin. The white cell count is at 19.2 with a heme of 13.4 and platelet count 381. Sodium is at 131, potassium is 5.1, BUN is 53 with a creatinine of 1.01. Bicarb level is at 22. Remains on Symbicort. Remains on DuoNeb updrafts. Remains on empiric antibiotic coverage with IV Rocephin. PatiEchocardiogram was also completed and the patient was found to have a impaired LV function with an ejection fraction of 25 to 30% in addition to severe global decrease in contractility, RV enlargement with moderate to severe pulm hypertension. No pericardial effusion.ent is also on Solu-Medrol 40 mg every 8 hours, metoprolol 50 mg p.o. daily and normal saline at rate of 75 cc an hour. On 11/28/2024, the patient is being seen for a follow-up. Resting comfortably in bed and the patient is currently on 2 L of oxygen by nasal cannula with a pulse ox of 98%. The patient is free of any chest pain. No significant cough or sputum production. He is on IV heparin and we will keep him on IV heparin pending further workup regarding his potential metastatic carcinoma which seems to be of a pancreatic primary. Otherwise, no significant respiratory distress. The white cell count is 15.5, hemoglobin 12.9 with a platelet count of 335. BUN is 49 with a creatinine of 0.8. Sodium is at 132. LFTs are normal related to hepatic metastases. No significant encephalopathy. Adan ashton Dr. On 11/29/2024, clinically unchanged and the patient resting comfortably in bed. Denies having any significant respiratory distress. No chest pain. Slightly anxious. Cardiology is on the case and the patient is being treated for his underlying cardiomyopathy. He was taken off the IV heparin and the patient was started on anticoagulation with Eliquis and aspirin.. No commitment for antiplatelet agents pending further need for biopsy regarding his underlying metastatic pancreatic cancer. He is currently on room air oxygen with a pulse ox of 96%. He remains on Symbicort and DuoNeb. Rest of the medications remain unchanged. He was started on a prednisone burst taper. He remains on Lasix 20 mg p.o. daily. He remains on Lantus 25 units daily and is also on Toprol-XL 50 mg p.o. daily. He remains Patient was seen today on 11/30/2024, patient is feeling better, breathing easier, responding well to treatment of his COPD and congestive heart failure. On room air O2 sat is 92%. He is hemodynamically stable. Remains on bronchodilators, and he remains on Lasix 20 mg daily. WBC at 17.7 hemoglobin 14 electrolytes are normal renal profile is normal The patient is seen today December 01, 2024 in follow-up on the regular medical floor. He is currently sitting up in bed. Awake and alert in no acute distress. He is feeling better today. He remains quite weak. He is maintaining O2 saturations in the 90s on room air. He is afebrile. Hemodynamically stable. Blood culture revealed no growth. Glucose 152. He is continued on DuoNeb inhalations, Symbicort, Singulair, prednisone taper. He remains on oral diuretics. Anticoagulated with Eliquis. Remains in the [facility] protocol Objective - Vital Signs Vital signs: Vital Signs Temp 98.1 F 05/20/25 08:00 Pulse 84 12/01/24 11:45 Resp 17 12/01/24 08:00 BP 101/72 12/01/24 08:00 Pulse Ox 97 12/01/24 08:00 FiO2 21 11/26/24 08:18 Intake & Output 11/30/24 12/01/24 12/01/24 18:59 06:59 18:59 Intake Total 480 Balance 480 Weight 78.1 kg 78 kg Intake: Oral 480 Other: Voiding Method Urinal Urinal Urinal # Voids 1 # Bowel Movements 1 - Exam GENERAL EXAM: Alert, weak, 69-year-old male, on room air oxygen, comfortable in no apparent distress. HEAD: Normocephalic. EYES: Normal reaction of pupils, equal size. NOSE: Clear with pink turbinates. THROAT: No erythema or exudates. NECK: No masses, no JVD. CHEST: No chest wall deformity. LUNGS: Equal air entry with few scattered rhonchi. CVS: S1 and S2 normal with no audible murmur, regular rhythm. ABDOMEN: No hepatosplenomegaly, normal bowel sounds, no guarding or rigidity. SPINE: No scoliosis or deformity SKIN: No rashes CENTRAL NERVOUS SYSTEM: No focal deficits, tone is normal in all 4 extremities. EXTREMITIES: There is 1+ peripheral edema. No clubbing, no cyanosis. Peripheral pulses are intact. - Labs CBC & Chem 7: 11/30/24 05:30 11/30/24 05:30 Labs: Abnormal Lab Results - Last 24 Hours (Table) 11/30/24 11/30/24 12/01/24 Range/Units 16:54 20:01 06:00 POC Glucose (mg/dL) 188 H 178 H 53 L (70-110) mg/dL 12/01/24 Range/Units 12:27 POC Glucose (mg/dL) 152 H (70-110) mg/dL Microbiology - Last 24 Hours (Table) 11/25/24 21:33 Blood Culture - Final Blood Assessment and Plan Assessment: Acute hypoxic respiratory failure secondary to an acute exacerbation of systolic congestive heart failure, COPD exacerbation Acute on chronic systolic congestive heart failure Acute exacerbation of COPD Acute non-ST segment elevation myocardial infarction Severe cardiomyopathy and LV dysfunction with ejection fraction of 20 to 25% Suspected pancreatic cancer with metastasis Elevated liver enzymes possibly secondary to liver metastasis Severe COPD FEV1 of 39% Type 1 diabetes History of CVA Tobacco dependence syndrome Benign essential hypertension Paroxysmal atrial fibrillation, anticoagulated with Eliquis History of PFO requiring closure History of alcoholism Plan: The patient was seen and evaluated Labs and medications reviewed Continue on DuoNeb inhalations, Symbicort Continue Singulair, prednisone taper On room air oxygen Anticoagulated with Eliquis Remains on ceftriaxone Educated regarding smoking cessation NicoDerm patch in place Remains on the [facility] protocol PT/OT evaluation pending May need subacute rehab at discharge Plan is for outpatient liver biopsy To follow-up closely with medical oncology This patient was seen independently by the pulmonary nurse practitioner addressing pulmonary issues I have personally seen and examined the patient, performed the documentation and the assessment and plan as written. Number of minutes spent on the visit: 25 Dictation was produced using [employer] dictation software. Please excuse any grammatical, word or spelling errors.
--- NOTE | 2024-12-01 15:09 | PN ---
PROGRESS NOTE DATE OF SERVICE: 12/01/2024 SUBJECTIVE: This is a 69-year-old gentleman who was admitted with shortness of breath and possible COPD and CHF acute exacerbation, also had metastatic malignancy. The patient is being closely monitored. PHYSICAL EXAMINATION: VITAL SIGNS: Pulse is 80, blood pressure 107/61, and respirations 17. CHEST: Few scattered rhonchi. ABDOMEN: Soft. NERVOUS SYSTEM: Nonfocal. LABORATORY DATA: Reviewed. ASSESSMENT: 1. Shortness of breath, possible chronic obstructive pulmonary disease acute exacerbation, congestive heart failure acute exacerbation present on admission. 2. Possible metastatic malignancy with possibly primary in pancreas with metastasis of the lungs and liver. 3. Elevated troponin up to 10.200 with acute fyr-AH-jpdzomq elevation myocardial infarction on medical treatment. 4. Diabetes mellitus, type 2. 5. Chronic obstructive pulmonary disease. 6. Hypertension. 7. History of pneumonia. 8. Multiple complex medical issues. RECOMMENDATIONS: Recommend to continue current management and symptomatic treatment. Otherwise overall prognosis extremely guarded, because of multiple complex medical issues. I would recommend current medications and possible ECF rehab and outpatient biopsy per Hematology, Oncology. Guarded prognosis. Further recommendations to follow. MMODL / IJN: [id number] /
[2024-12-01 16:27] LABS: Glucose,Whole Blood 332 mg/dL (70-110)
[2024-12-01 20:10] LABS: Glucose,Whole Blood 481 mg/dL (70-110)
[2024-12-01 21:41] LABS: Glucose,Whole Blood 493 mg/dL (70-110)
[2024-12-01] MEDS: LORazepam 1 MG TAB PO PRN (21:41)
[2024-12-02 07:32] LABS: Glucose,Whole Blood 227 mg/dL (70-110)
--- NOTE | 2024-12-02 11:43 | P.PN ---
Subjective HISTORY OF PRESENT ILLNESS: This is a 69-year-old male with a past medical history significant for paroxysmal atrial fibrillation, hypertension, hyperlipidemia with statin intolerance, nicotine dependence. Patient follows in the office with Dr. Boles. We have been asked to see the patient in consultation for elevated troponins. Patient examined at the bedside in the emergency room. Patient states he was recently evaluated by his primary care physician and was diagnosed with pneumonia. He states 2 days ago he had an episode of chest pressure at home with radiation into his left arm. He states he has not had chest pain like that in the past. He also reports having some shortness of breath. He denies any dizziness or lightheadedness. Denies any episodes of syncope. He does report recent weight loss. Patient was found to have elevated troponins and was started on IV heparin. He denies any chest pain at the time of examination. DIAGNOSTICS: - EKG reveals sinus tachycardia with no signs of acute ischemia. - Chest xray small bilateral pleural effusions. - Chest CTA: Negative for pulmonary embolism. Pancreatic neoplasm, multiple liver metastasis, small patchy nodular opacities scattered in both lungs favor metastatic rather than infectious etiology, small bilateral pleural effusions, suspect severe low flow-limiting stenosis near takeoff of left subclavian artery due to heavy calcifications - Laboratory data: WBC 9.29. Hemoglobin 14.6. Platelet count 392. Sodium 132. Potassium 5.3. BUN 31. Creatinine 1.14. AST 69. ALT 57. proBNP 28,100. Troponin 0.054. 0.089. 2.740. 10.200. -Home medication list is not updated at the time of this dictation - Most recent echocardiogram obtained in the office on 11/12/2024 revealed ejection fraction 30 to 35%, mild MR, mild to moderate TR -Patient underwent Cardiolite stress test revealing evidence of inferior wall myocardial infarction with moderate LV dysfunction without any ischemia 11/27/2024 Patient examined this morning at bedside. Patient currently denies chest pain or pressure. He denies shortness of breath. He remains on IV heparin. Echocardiogram performed revealing fraction 25 to 30%, severe pulmonary hypertension, mild MR, mild TR. 12/02/2024 Patient examined this morning at bedside. Patient denies any chest pain or pressure. Denies shortness of breath. Vital signs are stable. PHYSICAL EXAM: VITAL SIGNS: Reviewed. GENERAL: Well-developed in no acute distress. HEENT: Head is normocephalic. Pupils are equal, round. Sclerae anicteric. Mucous membranes of the mouth are moist. Neck supple. No JVD or thyromegaly LUNGS: Respirations even and unlabored. Lungs with bilateral wheezing HEART: Regular rate and rhythm. S1 and S2 heard. ABDOMEN: Soft. Nondistended. Nontender. EXTREMITIES: Normal range of motion. No clubbing or cyanosis. Peripheral pulses intact. Trace bilateral lower extremity edema NEUROLOGIC: Awake and alert. Oriented x 3. ASSESSMENT: Non-STEMI Abnormal CTA revealing pancreatic neoplasm, multiple liver metastasis, and lung nodules favoring metastatic disease Small bilateral pleural effusions History of cardiomyopathy, was 15%, now 25 to 30%, ischemic versus nonischemic Paroxysmal atrial fibrillation, on Eliquis outpatient Uncontrolled diabetes, hemoglobin A1c 11.5 Hypertension Hyperlipidemia with statin intolerance History of PFO closure, 03/2023 History of CVA History of COPD Moderate to severe pulmonary hypertension Ongoing nicotine dependence History of alcohol abuse PLAN: Continue current cardiac medications including Eliquis, aspirin, Farxiga, Zetia, Lasix, losartan and Aldactone No further inpatient recommendations from a cardiac standpoint No plans for ischemic workup at this time secondary to suspected metastatic cancer We will sign off. Please reconsult if needed. Nurse practitioner note has been reviewed by physician. Signing provider agrees with the documented findings, assessment, and plan of care documented by [employer] as a scribe. Objective - Vital Signs Vital signs: Vital Signs Temp 98.3 F 12/02/24 08:00 Pulse 92 12/02/24 11:29 Resp 17 12/02/24 08:00 BP 102/73 12/02/24 08:00 Pulse Ox 96 12/02/24 08:06 FiO2 21 11/26/24 08:18 Intake & Output 12/01/24 12/02/24 12/02/24 18:59 06:59 18:59 Intake Total 780 Output Total 650 400 1 Balance 130 -400 -1 Weight 80.1 kg Intake: Oral 780 Output: Urine 650 400 Stool 1 Other: Voiding Method Urinal Toilet Toilet Urinal Urinal - Labs CBC & Chem 7: 11/30/24 05:30 11/30/24 05:30 Labs: Abnormal Lab Results - Last 24 Hours (Table) 12/01/24 12/01/24 12/01/24 Range/Units 12:27 16:21 20:02 POC Glucose (mg/dL) 152 H 332 H 481 H (70-110) mg/dL 12/01/24 12/02/24 Range/Units 21:40 07:21 POC Glucose (mg/dL) 493 H 227 H (70-110) mg/dL
[2024-12-02 12:22] LABS: Glucose,Whole Blood 167 mg/dL (70-110)
--- NOTE | 2024-12-02 12:51 | P.PN ---
Subjective Progress Note Date: 12/02/24 Patient is a 69-year-old male with past medical history significant for COPD, current heavy tobacco smoker, hypertension, hyperlipidemia, diabetes mellitus, CVA, heart failure, PFO with previous closure, atrial fibrillation, alcoholism. Recent hospitalization July, for combination of COPD/CHF exacerbation. Patient currently a poor historian. According to ER documentation, patient brought in by EMS last night with increased work of breathing. Also, associated chest pain. Stated he was recently diagnosed with pneumonia by his PCP. ED workup including a D-dimer that was elevated. Inciting chest CT angio protocol which was negative for pulmonary embolism. It is concerning for diffuse m etastasis with multiple nodules/masses within the liver, body and tail of the pancreas, and also small patchy nodular opacities in bilateral lungs, favoring metastatic deposits. Small bilateral pleural effusions. Incidentally, noted severe flow-limiting stenosis near takeoff of the left subclavian artery due to heavy calcifications. CBC unremarkable for leukocytosis. Hemoglobin 14.6. Platelets 392. PT 11.9, INR 1.1, APTT 22.8. CMP: Sodium 132, potassium 5.3, chloride 100, serum bicarb 14, BUN 31, creatinine 1.14, glucose 362. Total bilirubin 1.4, AST 69, ALT 57, ALP 1118. Ultrasound of the abdomen concerning for liver metastasis and possible cirrhosis. Small cholelithiasis without cholecystitis. NT-proBNP significantly elevated at 28,100. Elevated serial troponins at 0.054, 0.0189, 2.74 respectively. EKG: Sinus tachycardia, rate 110 bpm, interventricular conduction delay, no acute ST elevations. Patient was started on IV heparin per protocol in the ED. Eliquis is on hold. Viral 4 Plex negative for influenza A/B, RSV, COVID. Patient currently being evaluated in the ED. He is on 3 L/min nasal cannula. Not in any apparent distress. States he went to go see his primary care provider, Jodie, a physician greenhouse assistant out of Dr. Pendleton's office. Sent for chest x-ray, and told he he had pneumonia. He has been more short of breath than baseline. Also, has a congested cough. No sputum production or hemoptysis. Denies sick contacts. Denies fevers or chills. Does state that he previously stopped taking his Lasix approximately 1 or 2 months ago, and has had some increased lower extremity swelling. Previously reported chest pain is resolved. Currently on IV heparin per protocol. Reportedly, recently seen his make ready mechanic in the office, Dr. Boles. Current vital signs: Temperature 98 F, heart rate 99 bpm, blood pressure 124/75 mmHg, nontachypneic, SpO2 93% on 3 L/min nasal cannula. 11/27/2024, the patient is being seen for a follow-up. The patient is sitting up on a chair and the patient seems to be calm and comfortable. Suspected to have metastatic pancreatic cancer. The CEA level was 231 and the CA 19-9 level was above 10,000. The patient is awaiting an oncology consultation. CAT scan of the abdomen and pelvis was also completed and the patient was found to have multiple hepatic lesions measuring up to 4 cm in size consistent with metastatic disease. The patient also had a 4.5 x 4 cm solid mass at the junction of the pancreatic body and the tail highly suspicious for metastatic pancreatic adenocarcinoma. Another 2.9 cm cystic lesion in the tail of the pancreas was also seen. There is also fluid overload and third spacing with small bilateral pleural effusion and anasarca in addition to sigmoid diverticulosis, tiny gallstones and enlarged prostate. There is also stool along the wall of the rectum versus circumferential rectal neoplasm. The patient is free of any chest pain. He is post acute NSTEMI and the patient was taken off IV heparin. The white cell count is at 19.2 with a heme of 13.4 and platelet count 381. Sodium is at 131, potassium is 5.1, BUN is 53 with a creatinine of 1.01. Bicarb level is at 22. Remains on Symbicort. Remains on DuoNeb updrafts. Remains on empiric antibiotic coverage with IV Rocephin. PatiEchocardiogram was also completed and the patient was found to have a impaired LV function with an ejection fraction of 25 to 30% in addition to severe global decrease in contractility, RV enlargement with moderate to severe pulm hypertension. No pericardial effusion.ent is also on Solu-Medrol 40 mg every 8 hours, metoprolol 50 mg p.o. daily and normal saline at rate of 75 cc an hour. On 11/28/2024, the patient is being seen for a follow-up. Resting comfortably in bed and the patient is currently on 2 L of oxygen by nasal cannula with a pulse ox of 98%. The patient is free of any chest pain. No significant cough or sputum production. He is on IV heparin and we will keep him on IV heparin pending further workup regarding his potential metastatic carcinoma which seems to be of a pancreatic primary. Otherwise, no significant respiratory distress. The white cell count is 15.5, hemoglobin 12.9 with a platelet count of 335. BUN is 49 with a creatinine of 0.8. Sodium is at 132. LFTs are normal related to hepatic metastases. No significant encephalopathy. Adan ashton Dr. On 11/29/2024, clinically unchanged and the patient resting comfortably in bed. Denies having any significant respiratory distress. No chest pain. Slightly anxious. Cardiology is on the case and the patient is being treated for his underlying cardiomyopathy. He was taken off the IV heparin and the patient was started on anticoagulation with Eliquis and aspirin.. No commitment for antiplatelet agents pending further need for biopsy regarding his underlying metastatic pancreatic cancer. He is currently on room air oxygen with a pulse ox of 96%. He remains on Symbicort and DuoNeb. Rest of the medications remain unchanged. He was started on a prednisone burst taper. He remains on Lasix 20 mg p.o. daily. He remains on Lantus 25 units daily and is also on Toprol-XL 50 mg p.o. daily. He remains Patient was seen today on 11/30/2024, patient is feeling better, breathing easier, responding well to treatment of his COPD and congestive heart failure. On room air O2 sat is 92%. He is hemodynamically stable. Remains on bronchodilators, and he remains on Lasix 20 mg daily. WBC at 17.7 hemoglobin 14 electrolytes are normal renal profile is normal The patient is seen today December 01, 2024 in follow-up on the regular medical floor. He is currently sitting up in bed. Awake and alert in no acute distress. He is feeling better today. He remains quite weak. He is maintaining O2 saturations in the 90s on room air. He is afebrile. Hemodynamically stable. Blood culture revealed no growth. Glucose 152. He is continued on DuoNeb inhalations, Symbicort, Singulair, prednisone taper. He remains on oral diuretics. Anticoagulated with Eliquis. Remains in the CIWA protocol The patient is seen today December 02, 2024 in follow-up on the regular medical floor. He is awake and alert in no acute distress. He is maintaining O2 saturations in the 90s on room air oxygen. He is still weak. Blood culture revealed no growth. Blood glucose 167. He remains on DuoNeb inhalations, Symb icort, Singulair, prednisone taper. Antibiotics in the form of ceftriaxone. Anticoagulated with Eliquis. NicoDerm patch in place. Remains on oral diuretics. Remains on the CIWA protocol. Objective - Vital Signs Vital signs: Vital Signs Temp 98.3 F 12/02/24 08:00 Pulse 92 12/02/24 11:29 Resp 17 12/02/24 08:00 BP 102/73 12/02/24 08:00 Pulse Ox 96 12/02/24 08:06 FiO2 21 11/26/24 08:18 Intake & Output 12/01/24 12/02/24 12/02/24 18:59 06:59 18:59 Intake Total 780 Output Total 650 400 1 Balance 130 -400 -1 Weight 80.1 kg Intake: Oral 780 Output: Urine 650 400 Stool 1 Other: Voiding Method Urinal Toilet Toilet Urinal Urinal - Exam GENERAL EXAM: Alert, 69-year-old male, resting in bed, on room air oxygen, comfortable in no apparent distress. HEAD: Normocephalic. EYES: Normal reaction of pupils, equal size. NOSE: Clear with pink turbinates. THROAT: No erythema or exudates. NECK: No masses, no JVD. CHEST: No chest wall deformity. LUNGS: Equal air entry with few scattered rhonchi. CVS: S1 and S2 normal with no audible murmur, regular rhythm. ABDOMEN: No hepatosplenomegaly, normal bowel sounds, no guarding or rigidity. SPINE: No scoliosis or deformity SKIN: No rashes CENTRAL NERVOUS SYSTEM: No focal deficits, tone is normal in all 4 extremities. EXTREMITIES: There is 1+ peripheral edema. No clubbing, no cyanosis. Peripheral pulses are intact. - Labs CBC & Chem 7: 11/30/24 05:30 11/30/24 05:30 Labs: Abnormal Lab Results - Last 24 Hours (Table) 12/01/24 12/01/24 12/01/24 Range/Units 16:21 20:02 21:40 POC Glucose (mg/dL) 332 H 481 H 493 H (70-110) mg/dL 12/02/24 12/02/24 Range/Units 07:21 12:18 POC Glucose (mg/dL) 227 H 167 H (70-110) mg/dL Assessment and Plan Assessment: Acute hypoxic respiratory failure secondary to an acute exacerbation of systolic congestive heart failure, COPD exacerbation. Recovered and on room air oxygen Acute on chronic systolic congestive heart failure Acute exacerbation of COPD Acute non-ST segment elevation myocardial infarction Severe cardiomyopathy and LV dysfunction with ejection fraction of 20 to 25% Suspected pancreatic cancer with metastasis Elevated liver enzymes possibly secondary to liver metastasis Severe COPD FEV1 of 39% Type 1 diabetes History of CVA Tobacco dependence syndrome Benign essential hypertension Paroxysmal atrial fibrillation, anticoagulated with Eliquis History of PFO requiring closure History of alcoholism Plan: The patient was seen and evaluated Medications reviewed Continue on DuoNeb inhalations, Symbicort Continue Singulair, prednisone taper Stable and on room air oxygen Anticoagulated with Eliquis Completed ceftriaxone Again educated regarding smoking cessation NicoDerm patch in place Plan is for outpatient liver biopsy To follow-up closely with medical oncology This patient was seen independently by the pulmonary nurse practitioner addressing pulmonary issues I have personally seen and examined the patient, performed the documentation and the assessment and plan as written. Number of minutes spent on the visit: 23 Dictation was produced using [employer] dictation software. Please excuse any grammatical, word or spelling errors.
[2024-12-02 13:27] VITALS: BP 119/75; PULSE 81; RESP 16; TEMP 98.1
--- NOTE | 2024-12-02 16:51 | P.PN ---
Subjective Progress Note Date: 12/02/24 No acute events overnight. Pt experiencing generalized weakness. PT following, pt states he was able to ambulate in hallway with walker. Plan is for discharge today to home. Daughter is concerned about pt going home as he lives alone. Had a detailed conversation with pt and daughter today about home health care/ outpt resources vs rehab facility and family concerns regarding home safety. Pt verbalizes he wants to be home and wants to smoke a cigarette. Orders for home health care, RN/PT, walker and hospital bed have been placed Objective - Vital Signs Vital signs: Vital Signs Temp 98.3 F 12/02/24 08:00 Pulse 92 12/02/24 11:29 Resp 17 12/02/24 08:00 BP 102/73 12/02/24 08:00 Pulse Ox 96 12/02/24 08:06 FiO2 21 11/26/24 08:18 Intake & Output 12/01/24 12/02/24 12/02/24 18:59 06:59 18:59 Intake Total 780 Output Total 650 400 1 Balance 130 -400 -1 Weight 80.1 kg Intake: Oral 780 Output: Urine 650 400 Stool 1 Other: Voiding Method Urinal Toilet Toilet Urinal Urinal - Constitutional General appearance: Present: average body habitus, no acute distress - EENT Eyes: Present: anicteric sclerae, EOMI ENT: Present: hearing grossly normal - Respiratory Details: breathing is even and unlabored - Cardiovascular Details: skin warm and dry - Integumentary Integumentary: Absent: cyanotic - Neurologic Neurologic: Present: CNII-XII intact - Musculoskeletal Musculoskeletal: Present: generalized weakness - Psychiatric Psychiatric: Present: A&O x's 3 - Labs CBC & Chem 7: 11/30/24 05:30 11/30/24 05:30 Labs: Abnormal Lab Results - Last 24 Hours (Table) 12/01/24 12/01/24 12/01/24 Range/Units 16:21 20:02 21:40 POC Glucose (mg/dL) 332 H 481 H 493 H (70-110) mg/dL 12/02/24 12/02/24 Range/Units 07:21 12:18 POC Glucose (mg/dL) 227 H 167 H (70-110) mg/dL Assessment and Plan (1) COPD exacerbation Current Visit: Yes Status: Acute Code(s): J44.1 - CHRONIC OBSTRUCTIVE PULMONARY DISEASE W (ACUTE) EXACERBATION SNOMED Code(s): 885141507 (2) Elevated troponin Current Visit: Yes Status: Acute Code(s): R79.89 - OTHER SPECIFIED ABNORMAL FINDINGS OF BLOOD CHEMISTRY SNOMED Code(s): 721545888 (3) Liver lesion Current Visit: Yes Status: Acute Code(s): K76.9 - LIVER DISEASE, UNSPECIFIED SNOMED Code(s): 072370652 (4) Pancreatic mass Current Visit: Yes Status: Acute Code(s): K86.89 - OTHER SPECIFIED DISEASES OF PANCREAS SNOMED Code(s): 064359440 Plan: Liver and pancreatic lesions - Patient admitted because of chest pain, arm pain and diagnosed with an acute CA -Chest CTA reporting several hypoenhancing lesions in the body and tail of the pancreas. Largest is more proximal, measuring 3 x 5 cm. No enlarged lymph nodes. Multiple liver metastases. Patchy opacities in the bone in both lungs. -Discussed with patient concerning findings for metastatic pancreatic cancer. Explained that we would need a biopsy for tissue diagnosis, to confirm what the lesions are in order to give diagnosis, treatment options and prognosis. He verbalized understanding and is agreeable to further work up - The challenge is going to be getting a biopsy as he was just diagnosed with acute CA. Spoke with Cardiology, no plan for cath at this time, cleared for biopsy. However, pt has been started on aspirin and this will typically delay biopsy for 5-7 days per IR portocol. Will plan to schedule liver biopsy outpt upon discharge -CT AP showing innumerable hepatic lesions measuring up to 4 cm. 4.5 x 4.0 cm solid mass at the junction of the pancreatic body and tail. 2.9 cm cystic lesion at the tail of the pancreas. Adherent stool along the wall of the rectum for circumferential rectal neoplasm. Fluid overload and third spacing with small pleural effusions, anasarca and suspected mild patchy basilar pulmonary edema. Mild prostatomegaly at 4.6 cm. -CA 19.9 significantly elevated at > 10,000 -Plan to schedule outpt biopsy upon discharge with subsequent clinic f/u to discuss findings and treatment recommendations Weakness: -PT consulted. He wored with PT today and states he was able to ambulate in hallway with walker -Family concerned about patients weakness and being discharged home as he lives alone and his home is 2 stories and he can't get up/down stairs -claims agent right of way/PT ordered. Home care referral placed for assistive device and hospital bed -At todays visit had detailed conversation regarding home health care vs rehab placement. Pt is apprehensive about potential rehab placement. He wants to be home and is upset because he has, "waited 8 days to smoke a cigarette." Pt is cleared from hem/onc standpoint for discharge once cleared by admitting team and other consulted medical specialities
== END 2024-12-02 17:46 | disposition home health service (06) | DRG 280 ==
LOC: EC 20:30 → 3SCARD 11-26 02:38 → 5NMEDONC 12-01 07:27
PROVIDERS: ADMIT Hospitalist; ATTEND Hospitalist
DX: I21.4 Non-ST elevation (NSTEMI) myocardial infarction (principal); I50.23 Acute on chronic systolic (congestive) heart failure; J96.01 Acute respiratory failure with hypoxia; C78.00 Secondary malignant neoplasm of unspecified lung; C78.7 Secondary malignant neoplasm of liver and intrahepatic bile duct; C25.9 Malignant neoplasm of pancreas, unspecified; H53.469 Homonymous bilateral field defects, unspecified side; K80.20 Calculus of gallbladder without cholecystitis without obstruction; J44.1 Chronic obstructive pulmonary disease with (acute) exacerbation; I11.0 Hypertensive heart disease with heart failure; E10.65 Type 1 diabetes mellitus with hyperglycemia; F10.21 Alcohol dependence, in remission; I27.20 Pulmonary hypertension, unspecified; I69.398 Other sequelae of cerebral infarction; I08.1 Rheumatic disorders of both mitral and tricuspid valves; I42.9 Cardiomyopathy, unspecified; I48.0 Paroxysmal atrial fibrillation; Z79.4 Long term (current) use of insulin; F17.210 Nicotine dependence, cigarettes, uncomplicated; E78.5 Hyperlipidemia, unspecified; E87.5 Hyperkalemia; Z87.01 Personal history of pneumonia (recurrent); Z86.79 Personal history of other diseases of the circulatory system; K86.9 Disease of pancreas, unspecified; Z79.01 Long term (current) use of anticoagulants; Z79.82 Long term (current) use of aspirin; Z79.84 Long term (current) use of oral hypoglycemic drugs; Z79.899 Other long term (current) drug therapy; Z85.828 Personal history of other malignant neoplasm of skin; Z87.74 Personal history of (corrected) congenital malformations of heart and circulatory system; Z96.653 Presence of artificial knee joint, bilateral; Z60.2 Problems related to living alone
CPT/HCPCS: 36415; 71045; 71046; 71275; 74177; 76705; 80048; 80053; 82378; 83036; 83605; 83735; 83880; 84145; 84295; 84484; 85025; 85379; 85610; 85730; 86301; 87040; 87636; 93005; 93306; 94640; 94760; 96361; 96365; 96366; 96375; 96376; 99285